=== PATIENT | female | born 1955 | race Caucasian/White ===

== ENCOUNTER 2016-09-29 17:25 | Inpatient (IN) | payer MEDICARE, MEDICAID ==
--- NOTE | 2016-09-29 17:42 | ED Physician Chart ---
Chief Complaint/HPI - Patient Information Date Seen:: 09/29/16 Time Seen:: 17:37 Chief Complaint:: low k History of Present Illness:: pt sent from [facility] for low K 2.6 on outpt labs. pt says she has sev abd pain and hasnt been able to keep down foods all week due to nausea/vomiting. pt has much med hx including DM. pt had foot sx on rt foot at end of july 2016 for dm related foot infection. Historian:: Patient, Medical Records Review of Systems - Review of Systems General/Constitutional: No fever, No chills, No weight loss, No weakness, No diaphoresis, No edema, No loss of appetite Skin: No skin lesions, No rash, No bruising Head: No headache, No light-headedness Eyes: No loss of vision, No pain, No diplopia ENT: No earache, No nasal drainage, No sore throat, No tinnitus Neck: No neck pain, No swelling, No thyromegaly, No stiffness, No mass noted Cardio Vascular: No chest pain, No palpitations, No PND, No orthopnea, No edema Pulmonary: No SOB, No cough, No sputum, No wheezing GI: Nausea, Vomiting, No diarrhea, Pain, No melena, No hematochezia, No constipation, No hematemesis G/U: No dysuria, No frequency, No hematuria Musculoskeletal: No bone or joint pain, No back pain, No muscle pain Endocrine: No polyuria, No polydipsia Psychiatric: No prior psych history, No depression, No anxiety, No suicidal ideation Hematopoietic: No bruising, No lymphadenopathy Allergic/Immuno: No urticaria, No angioedema Neurological: No syncope, No focal symptoms, No weakness, No paresthesia, No headache, No seizure, No dizziness, No confusion, No vertigo Past Medical History - Past Medical History Past Medical History: HTN, DM Social History: Care Facility Medication: Reviewed Family Medical History - Family Member Mother History Unknown: Yes Physical Exam - Physical Examination General/Constitutional: Awake, Well-developed, well-nourished, Alert, No distress, GCS 15, Non-toxic appearing, Ambulatory Head: Atraumatic Eyes: Lids, conjuctiva normal, PERRL, EOMI Skin: Nl inspection, No rash, No skin lesions, No ecchymosis, Well hydrated, No lymphadenopathy ENMT: External ears, nose nl, Nasal exam nl, Lips, teeth, gums nl Neck: Nontender, Full ROM w/o pain, No JVD, No nuchal rigidity, No bruit, No mass, No stridor Respiratory: Nl effort/Exclusion, Clear to Auscultation, No Wheeze/Rhonchi/Rales Cardio Vascular: RRR, No murmur, gallop, rubs, NL S1 S2 GI: No tenderness/rebounding/guarding, No organomegaly, No hernia, Normal BS's, Nondistended, No mass/bruits, No McBurney tenderness : No CVA tenderness Extremities: No tenderness or effusion, Full ROM, normal strength in all extremities, No edema, Normal digits & nails Other Extremities comments:: bandaged rt foot recent sx. no calf edema, no bright sx picc line in left arm. site looks ok. no infection. Neuro/Psych: Alert/oriented, DTR's symmetric, Normal sensory exam, Normal motor strength, Judgement/insight normal, Mood normal, Normal gait, No focal deficits Misc: normal gait, Normal back, No paraspinal tenderness Labs/Radiology/EKG Results - Lab Results Results: Laboratory Tests 09/29/16 09/29/16 09/29/16 17:54 17:54 17:54 WBC 4.6 L RBC 3.44 L Hgb 10.4 L Hct 29.7 L MCV 86.5 MCH 30.2 MCHC Differential 34.9 RDW 18.1 Plt Count 242 MPV 7.4 Neutrophils % 62.1 Lymphocytes % 23.6 Monocytes % 10.6 H Eosinophils % 3.0 Basophils % 0.7 Sodium 145 Potassium 2.4 L* Chloride 104 Carbon Dioxide 27.4 Anion Gap 16.0 BUN 19 Creatinine 1.3 H Est GFR ( Amer) 53.7 Est GFR (Non-Af Amer) 44.4 BUN/Creatinine Ratio 14.6 Glucose 119 H Calcium 8.9 Total Bilirubin 0.9 AST 37 ALT 19 Alkaline Phosphatase 119 H Troponin I 0.01 Total Protein 7.1 Albumin 3.1 L Globulin 4.0 Albumin/Globulin Ratio 0.8 L - Radiology Results Results: ct abd/p- l base atelectasis, 1cm l base nodule. 2cm rt liver mass ?cyst ascites, anasarca sev dist GB 5.5cm mass rt renal pole prominent illeo-cecal valve ?mass? fibroid uterous - EKG Interpretations EKG Time:: 18:45 Rhythm: nsr [place]: 20 Rate: 70 Assessment - Assessment Critical Care Time: 90 Excludes all billable procedures: Yes This condition life threatening/high prob of deterioration: Yes Assessment/Comments:: k+ iv. for low k. ED Septic Shock - . Is Septic Shock (SBP<90, OR Lactate>4 mmol\L) present?: No Reassessment (Disposition) - Reassessment Reassessment:: mery Machado..will admit.. Reassessment Condition:: Unchanged - Diagnosis Diagnosis:: 1 low k 2 abdominal pain 3 severely distended GB 4 liver mass 5 para-renal mass 6 smjrae-smlrhr-oehivdi//ascites 7 dehydration - Patient Disposition Admitted to:: Telemetry Condition at Disposition:: Unchanged
[2016-09-29] MEDS ORDERED: Sodium Chloride 0.9% 1,000 ML IV ONE (17:44)
[2016-09-29 18:05] LABS: % BASOPHILS 0.7 % (0.0-2.0); % LYMPHOCYTES 23.6 % (20.0-50.0); % MONOCYTES 10.6 % (2.0-10.0); % NEUTROPHILS 62.1 % (40.0-80.0); HEMATOCRIT 29.7 % (35.0-45.0); HEMOGLOBIN 10.4 gm/dL (11.7-15.5); MEAN CELL VOLUME 86.5 fl (81-100); MEAN CORPUSCULAR HEMOGLOBIN 30.2 pg (27.0-31.0); MEAN CORPUSCULAR HGB CONC 34.9 pg (28.0-36.0); MEAN PLATELET VOLUME 7.4 fl; NEUTROPHILE ABSOLUTE 2.9 Th/cmm (1.8-8.0); PLATELET COUNT 242 Th/cmm (150-400); RED BLOOD COUNT 3.44 Mil/cmm (3.80-5.10); RED CELL DISTRIBUTION WIDTH 18.1 % (11.5-20.0); WHITE BLOOD COUNT 4.6 Th/cmm (4.8-10.8)
[2016-09-29 18:22] LABS: ALB/GLOB RATIO 0.8 (1.0-1.8); BILIRUBIN,TOTAL 0.9 mg/dL (0.3-1.0); BUN/CREATININE RATIO 14.6; CALCIUM SERUM 8.9 mg/dL (8.6-10.3); CARBON DIOXIDE 27.4 mEq/L (21.0-31.0); CREATININE - SERUM 1.3 mg/dL (0.6-1.2)
[2016-09-29 19:04] LABS: POTASSIUM SERUM 2.4 mEq/L (3.5-5.1)
[2016-09-29] MEDS ORDERED: Magnesium Hydroxide (MOM) 30 mL UDC PO PRN (19:58)
[2016-09-29] MEDS ORDERED: APAP/Codeine 300 mg/30 mg Tab PO PRN (20:00)
[2016-09-29] MEDS ORDERED: Morphine Sulfate 4 mg/mL 1mL Syr IVP STA (20:04)
[2016-09-29] MEDS: KCL 20mEq/100mL Premix 20 MEQ/100 ML PIGGYBACK IV SCH ×2 (20:15→22:50)
[2016-09-29] MEDS ORDERED: KCL 20mEq/100mL Premix 20 MEQ/100 ML PIGGYBACK IV ONE (20:16)
[2016-09-29] MEDS ORDERED: Morphine Sulfate 4 mg/mL 1mL Syr ONE (20:27)
[2016-09-29] MEDS ORDERED: D5-0.9NS w/40 mEq KCL 1,000 ML IV SCH (21:00)
--- NOTE | 2016-09-29 22:14 | Admit Criteria Form ---
Admit Criteria Forms - Admit Criteria Diagnosis: ABDOMINAL PAIN Clinical Indications for Admission to Inpatient Care (Place 'X' for any and all applicable criteria): Admission is indicated for ANY ONE of the following(1)(2)(3)(4)(5): [X]I. Inpatient admission required rather than observation care (Also use Abdominal Pain: Observation Care, as appropriate) because of ANY ONE of the following: [ ]a) Severe pain requiring acute inpatient management [X]b) Identification of etiology/finding that requires inpatient care (eg, aortic dissection, free air) [ ]c) Absent bowel sounds with complete ileus(6) [ ]d) Suspected toxic megacolon [X]e) Severe electrolyte abnormalities requiring inpatient care [ ]f) High fever or infection requiring inpatient admission as indicated by ANY ONE of following(7)(8): [ ] i) Appropriate outpatient or observational care antimicrobial treatment unavailable, not effective, or not feasible [ ] ii) Documented bacteremia [ ] iii) Temperature > 104.9 degrees F (oral) [ ] iv) T >103.1 F (oral) or < 96.8 F(rectal) that does not respond to all emergency treatment measures [ ]g) Signs of intestinal obstruction [B] [ ]h) Hemodynamic instability [ ]i) IV fluid to replace significant ongoing losses (greater than 3 L/m2 per day) (12)(13) [ ]j) Percutaneous or open drainage (eg, abscess, biliary tract ) procedures [ ]k) Parenteral nutrition regimen that must be implemented on inpatient basis [ ]l) Other condition,treatment or monitoring requiring inpatient admission. [ ]II. Peritoneal signs present [ ]III. Surgery needed that cannot be performed on an ambulatory basis. [ ]IV. Evaluation requires patient to not eat or drink for extended period ( eg, more than 24 hours). [ ]V. Contraindications and/or Inappropriate clinical situations for Observational Care in patients with abdominal pain, when ANY ONE of the following is required: [ ]a) Thorough evaluation is required to prevent catastrophic events due to delays in diagnosing (e.g.Mesenteric ischemia) 1,3 [ ]b) Patient with severe pathology or with chronic symptoms unlikely to improve in the ED stay (3) [ ]. General contraindications and/or Inappropriate clinical situations for Observational Care in patients with abdominal pain, when ANY ONE of the following is required: [ ]a) Prediction of prolongation of LOS based on ANY ONE of the following may be considered as a contraindication for observational care 2, 3, 4, 5, 6, 7, 8, 9, 10, 11 [ ]i) Age > 65 yrs. [ ]ii) Patient arriving by ambulance [ ]iii) Patient with high acuity [ ]iv) Patient requiring vital sign monitoring [ ]v) Patient on IV medication [ ]b) Systolic blood pressures 180mmHg 3,12 [ ]c) Patient with altered mental status including delirium and other alteration of consciousness, (3) [ ]d) Patient whose discharge disposition will be to a longterm home or rehabilitation home should not be managed in Emergency Department Observation Unit. CMS rule requires 3 days hospital stay before such placement.3,13 [ ]e) Patient with failure to thrive due to broad array of etiologies 3,16,17 [ ]f) Inability to ambulate 3,14 Extended stay beyond goal length of stay may be needed for(2)(3): [ ]a) Persistent abdominal pain with suspected intra-abdominal process [ ]b) Diagnosed condition requiring continued stay (e.g., pancreatitis, complicated diverticulitis) [ ]c) Surgery (e.g., colectomy) The original [employer] content created by [employer] has been revised. The portions of the content which have been revised are identified through the use of italic text or in bold, and [facility] has neither reviewed nor approved the modified material.All other unmodified content is copyright [facility]. Please see references footnoted in the original [facility] edition 2016 Admit Criteria Met?: Yes
[2016-09-29] MEDS: Levothyroxine 0.05 Mg Tab PO SCH (23:10)
[2016-09-30] MEDS: metroNIDAZOLE 500mg/NS 100mL 500 MG/100 ML BAG IV SCH ×4 (00:10→20:07)
[2016-09-30] MEDS ORDERED: Sodium Chloride 0.9% 1,000 ML IV ONE ×2 (00:45→00:50)
[2016-09-30] MEDS ORDERED: 0.9% NS w/40 mEq KCL 1,000 ML IV SCH (00:53)
[2016-09-30] MEDS: Morphine Sulfate 2 mg/mL 1mL Syr IVP PRN ×3 (01:58→16:29)
[2016-09-30] MEDS: Levofloxacin 500mg/100mL 500 MG/100 ML BAG IV SCH ×2 (02:02→20:07)
[2016-09-30] MEDS ORDERED: 0.9% NS w/40 mEq KCL 1,000 ML IV ONE (03:25)
[2016-09-30] MEDS: Levothyroxine 0.05 Mg Tab PO SCH (06:45)
[2016-09-30 07:28] LABS: HEMATOCRIT 28.8 % (35.0-45.0); HEMOGLOBIN 9.9 gm/dL (11.7-15.5); MEAN CELL VOLUME 88.8 fl (81-100); MEAN CORPUSCULAR HEMOGLOBIN 30.5 pg (27.0-31.0); MEAN CORPUSCULAR HGB CONC 34.4 pg (28.0-36.0); MEAN PLATELET VOLUME 7.6 fl; PLATELET COUNT 211 Th/cmm (150-400); RED BLOOD COUNT 3.24 Mil/cmm (3.80-5.10); RED CELL DISTRIBUTION WIDTH 18.2 % (11.5-20.0); WHITE BLOOD COUNT 3.9 Th/cmm (4.8-10.8)
[2016-09-30 07:40] LABS: ALB/GLOB RATIO 0.8 (1.0-1.8); ANION GAP 11.5 (7.0-16.0); BILIRUBIN,TOTAL 0.8 mg/dL (0.3-1.0); BUN/CREATININE RATIO 13.1; CALCIUM SERUM 8.3 mg/dL (8.6-10.3); CARBON DIOXIDE 28.1 mEq/L (21.0-31.0); CREATININE - SERUM 1.3 mg/dL (0.6-1.2); MAGNESIUM 1.7 mg/dL (1.9-2.7)
[2016-09-30 08:00] LABS: POTASSIUM SERUM 2.6 mEq/L (3.5-5.1)
[2016-09-30 08:11] LABS: TSH 5.69 uIU/ml (0.34-5.60)
[2016-09-30] MEDS: Lactobacillus Rhamnosus 10 Billion CFU Capsule PO SCH ×2 (08:26→16:35)
[2016-09-30] MEDS: Multivitamin w/ Minerals Tab PO SCH (08:26)
[2016-09-30] MEDS: Ferrous Sulfate 325 MG TAB PO SCH ×2 (08:26→16:35)
[2016-09-30] MEDS ORDERED: Non-Formulary Item 1 EA (Saccharomyces Boulardii [Florastor] 250 MG) PO SCH (09:00)
[2016-09-30] MEDS ORDERED: Non-Formulary Item 1 EA (Amino Acids/Protein Hydrolys [Pro-Stat Awc Liquid] 30 ML) PO SCH (09:00)
[2016-09-30] MEDS ORDERED: HYDROmorphone 1 mg/mL 1mL Syr IVP PRN (09:34)
[2016-09-30] MEDS: KCL 20mEq/100mL Premix 20 MEQ/100 ML PIGGYBACK IV SCH ×2 (10:07→12:51)
[2016-09-30 10:33] LABS: EOSINOPHIL 5 % (0-5); NEUTROPHILS 69 % (40-80); TOTAL CELLS COUNTED 100
[2016-09-30 10:34] LABS: ANISOCYTOSIS 1+; PLATELET ESTIMATE ADEQUATE (NORMAL); PLATELET MORPHOLOGY NORMAL (NORMAL)
--- NOTE | 2016-09-30 11:10 | Diagnostic Imaging Report ---
CT abdomen and pelvis without intravenous contrast Indication: Abdominal pain, nausea and vomiting Comparison: None, Technique: Axial images were obtained from the lung bases to the bilateral proximal femurs without IV contrast. Coronal reconstructions were made. total DLP: 371, CTDI7.6 FINDINGS: Left basal consolidative changes are noted. Partially visualized central line is seen terminating along the IVC. Exam is limited due to lack of IV contrast. Cirrhotic appearing liver is seen with 2cm lesion seen within the right lobe of the liver not compatible with a simple cyst. Distended gallbladder is seen. No evidence of radiopaque gallstones. No focal splenic lesions. Assessment of the pancreas is limited on this exam. Pancreatic gland atrophy is noted. The adrenal glands also poorly visualized. No evidence of hydronephrosis or nephrolithiasis. Malrotated left kidney is noted urinary bladder wall thickening is noted. Uterine calcifications are noted. Moderate amount of abdominal pelvic ascites is noted. The appendix is not visualized. No evidence of bowel obstruction. Severe anasarca is noted. Mild atherosclerosis is noted. Degenerative changes of the spine and pelvis are noted. IMPRESSION: Moderate generalized abdominal and pelvic ascites. Severe anasarca. Indeterminate 2cm Low-density lesion within the right lobe of the liver not compatible with a simple cyst. Additional subcentimeter low-density lesion of the lower aspect of the right lobe of the liver is also noted. Further assessment dedicated CT, mass protocol is recommended. Cirrhotic changes of the liver. Distended gallbladder. No evidence of radiopaque gallstones Malrotated right kidney. No hydronephrosis. Diffuse urinary bladder wall thickening which may be due to chronic infectious or inflammatory process. Focal left basal consolidative changes. Atherosclerotic vascular disease. Central line partially visualized terminating in the IVC region. Please correlate clinical history and old exams. Consider repositioning if indicated.
--- NOTE | 2016-09-30 11:30 | Diagnostic Imaging Report ---
Ultrasound abdomen HISTORY: Mass COMPARISON: CT abdomen and pelvis performed on 09/29/2016 Technique: Sonography of the abdomen was performed in multiple planes. FINDINGS: The liver demonstrates normal echogenicity and measures 17.3 cm. There is a heterogeneous mass within the right lobe measuring 3.5 x 2.6 cm. There is also additional echogenic mass within the right lobe measuring 1.8 x 1.4 cm. No evidence of gallstones or gallbladder wall thickening. The common bile measures 3 mm. Evaluation of the pancreas is limited due to bowel gas. The right kidney measures 9.7 x 4.6 cm. There is possible mass or malrotated kidney with this area measuring 4.4 x 4.4 cm. The left kidney measures 10.0 x 5.6 cm. No hydronephrosis. The spleen measures 11.9 cm. Mild to moderate ascites is noted. IMPRESSION: 3.5 x 2.6 cm indeterminate heterogeneous liver mass. Neoplastic process cannot be excluded. Further assessment CT liver mass protocol is recommended Additional smaller echogenic 1.8 x 1.5 cm mass within the right lower the liver possibly a hemangioma, however, again further assessment CT liver mass protocol is recommended. Indeterminate area, possible mass within the right kidney or a malrotated right kidney when compared to recent CT examination. Again CT with IV contrast would provide additional detail and assessment. Mild to moderate ascites. Borderline prominent liver.
--- NOTE | 2016-09-30 11:33 | Diagnostic Imaging Report ---
Ultrasound pelvis HISTORY: Mass. Patient is postmenopausal. COMPARISON: None Technique: Longitudinal and transverse sonographic sector images of the pelvis were obtained transabdominally and transvaginally. FINDINGS: Exam is limited as patient had difficulty tolerating the exam. The uterus measures 2.7 x 3.7 x 5 cm. There is probable solitary fibroid along the fundal portion measuring 2.6 x 2.4 cm. The right ovary measures 2.3 x 1.5 cm. The left ovary measures 1.9 x 2.5 cm. Vascular flow to ovaries is noted. The endometrial echo complex is not visualized on this exam. Mild to moderate free fluid is noted. IMPRESSION: Probable solitary fibroid along the fundal portion of the uterus. The endometrial echo complex is not visualized on this exam. Please correlate with clinical findings. Mild to moderate free fluid in the pelvis.
[2016-09-30] MEDS ORDERED: Mag Sulfate 2gm/50mL Premix 2 GM/50 ML BAG IV ONE (12:06)
[2016-09-30] MEDS ORDERED: cloNIDine 0.1 mg/24 hr Tdm TD SCH (12:15)
[2016-09-30] MEDS: HYDROmorphone 1 mg/mL 1mL Syr IVP PRN ×3 (13:12→21:59)
[2016-09-30] MEDS: 0.9% NS w/40 mEq KCL 1,000 ML IV SCH (13:30)
--- NOTE | 2016-09-30 13:44 | Consultation ---
GASTROENTEROLOGY CONSULTATION REFERRING PHYSICIAN: Pancho Machado D.O. REASON FOR CONSULTATION: Abdominal pain with nausea and vomiting. HISTORY OF PRESENT ILLNESS: This is a 60-year-old female with history of diabetes mellitus with a recent foot infection requiring incision and debridement at [facility]. She was transferred to a [facility]. Subsequently, there she started having vague abdominal pain with nausea and vomiting. She was transferred back to this facility for further evaluation. She was noted to be mildly anemic with hypokalemia, mild renal insufficiency. Preliminary CT of the abdomen and pelvis done without contrast showed moderate generalized abdominal and pelvic ascites, severe anasarca, indeterminate 2 cm right liver lobe lesion, cirrhotic changes of the liver, distended gallbladder without stones, urinary bladder thickening and atherosclerotic vascular disease. An abdominal ultrasound done subsequently showed a 3.5 x 2.6 cm indeterminate heterogeneous liver mass and additional smaller echogenic mass in the right lower lobe of the liver, possibly hemangioma was also identified. There was also an indeterminate area, possible mass in the right kidney versus a malrotated kidney, also mild to moderate ascites was noted and a borderline prominent liver. The patient denies a previous history of liver disease. She is a nonsmoker, nondrinker. PAST MEDICAL HISTORY: As above. MEDICATIONS: Here are Tylenol p.r.n., vitamin C, Dulcolax suppository p.r.n., Catapres patch, Colace, iron, Dilaudid, Culturelle, Levaquin, Synthroid, Ativan p.r.n., milk of magnesia p.r.n., Lopressor, Flagyl, morphine, Protonix, Zofran, IV fluids with potassium, zinc sulfate, and Ambien p.r.n. ALLERGIES: None. SOCIAL HISTORY: No known tobacco, alcohol or drugs. FAMILY HISTORY: Noncontributory. REVIEW OF SYSTEMS: A comprehensive 12-point review of system was conducted and only positive for signs and symptoms present in history of present illness. PHYSICAL EXAMINATION: VITAL SIGNS: Temperature 98.2, blood pressure 145/89, pulse of 89, respirations 18, O2 sat is 99%. GENERAL: Well-developed, well-nourished female in no acute distress. HEENT: Sclerae nonicteric. Oropharynx is clear. CARDIOVASCULAR: Regular rate and rhythm. LUNGS: Clear to auscultation bilaterally. ABDOMEN: Soft. Mild epigastric tenderness to palpation without rebound or guarding. EXTREMITIES: No clubbing, cyanosis or edema. RECTAL: Deferred. LABORATORY DATA AND IMAGING: WBC 3.9, hemoglobin 9.9, platelet count is 211. Sodium 146, creatinine 1.3, potassium 2.6. Liver enzymes are normal except for alkaline phosphatase mildly elevated at 140. Ammonia level mildly elevated to 64, albumin is 2.9. Lipase is normal. IMPRESSION: 1. Abdominal pain with nausea and vomiting, rule out gastroparesis versus peptic ulcer disease versus gastroesophageal reflux disease versus ascites. 2. Diabetes mellitus. 3. History of recent foot infection status post incision and drainage. 4. Abnormal CAT scan showing possible liver and renal masses. 5. Possible cirrhosis with anasarca and ascites. 6. Anemia. RECOMMENDATIONS: 1. Upper endoscopy in the morning. 2. Check CT of the abdomen and pelvis with contrast once renal insufficiency has improved. 3. Protonix. 4. Antiemetics. 5. Consider colonoscopy if not done recently once nausea and vomiting are better and the patient able to tolerate bowel preparation. Thank you, Dr. Pancho Machado for allowing us to participate in the care of your patient. If you have any further questions, please call us. [facility]# [id number] ROGERS
[2016-09-30] MEDS: Venelex 60gm Tube TP SCH (15:04)
[2016-10-01] MEDS: HYDROmorphone 1 mg/mL 1mL Syr IVP PRN ×5 (01:02→20:28)
--- NOTE | 2016-10-01 02:36 | History & Physical ---
CHIEF COMPLAINT: Abdominal pain, intractable vomiting, low potassium. HISTORY OF PRESENT ILLNESS: This is a 60-year-old female with history of diabetes, hypertension, right foot ulceration with recent surgery was admitted from a nursing facility secondary to abdominal discomfort for the last 2 weeks. The patient has been vomiting for 3 days. The patient was started on IV fluids at the nursing facility, but her symptoms are not improving. The patient is now complaining of generalized pain per ER. The patient has abnormal CT of the abdomen and pelvis. PAST MEDICAL HISTORY: As mentioned in history of present illness. PAST SURGICAL HISTORY: Status post . ALLERGIES: No known drug allergies. MEDICATIONS: Famotidine, insulin sliding scale, tramadol, vancomycin, Tylenol, ascorbic acid, Pletal, Colace, iron, lactobacillus, Synthroid, lisinopril, Ativan, metoprolol, Zofran, ____, Ambien, and Norvasc. FAMILY HISTORY: Noncontributory. SOCIAL HISTORY: The patient is a nonsmoker, nondrinker. The patient was an [employer]. 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 REVIEW OF SYSTEMS: GENERAL: The patient complains of not feeling well. HEENT: No blurred vision. NECK: No neck pain. LUNGS: Negative COPD or asthma. HEART: The patient with hypertension, diabetes. ABDOMEN: The patient with nausea and vomiting and abdominal pain for the last 2 weeks. NEUROLOGIC: No headache, seizure or syncope. EXTREMITIES: The patient with bad circulation. The patient with recent surgery of right foot. PHYSICAL EXAMINATION: VITAL SIGNS: Blood pressure ____, respirations 18, pulse 77, and temperature 98.7. GENERAL: Elderly female, appears stated age. NECK: Supple. No mass. LUNGS: Equal breath sounds, few rhonchi. HEART: Regular rate rhythm without appreciable murmur. ABDOMEN: Soft, nontender. Positive bowel sounds. EXTREMITIES: Reveals excoriation and ulcer in the right foot. NEUROLOGIC: Limited. LABORATORY DATA: WBC 3.9, hemoglobin 9.9, and platelets 211. Sodium 147, potassium ____, BUN ____, and creatinine 1.3, glucose 113, magnesium 1.7, ammonia 64, BNP 974. TSH 5.6, lipase less than 3. ASSESSMENT AND PLAN: Abdominal pain, intractable vomiting, acute hypokalemia, hypomagnesemia, diabetes, hypertension, uncontrolled, ataxia, gait instability, generalized weakness, anemia, leukopenia, renal insufficiency, ascites, cirrhosis on CT, liver mass. We will perform CT abdomen with liver mass protocol, IV contrast. We will monitor renal function. We will monitor for any signs or symptoms of fluid overload. The patient with ascites, GI has been consulted. We have sent cancer markers including CEA, alpha fetoprotein, CA-125, CA19-9. We will correct electrolyte abnormalities. We will continue to follow. JOB# [id number]
[2016-10-01] MEDS: Morphine Sulfate 2 mg/mL 1mL Syr IVP PRN ×2 (03:22→17:43)
[2016-10-01] MEDS: metroNIDAZOLE 500mg/NS 100mL 500 MG/100 ML BAG IV SCH ×3 (05:06→20:28)
[2016-10-01] MEDS: 0.9% NS w/40 mEq KCL 1,000 ML IV SCH ×2 (05:14→05:54)
[2016-10-01] MEDS: Levothyroxine 0.05 Mg Tab PO SCH (06:37)
[2016-10-01 07:04] LABS: % BASOPHILS 0.6 % (0.0-2.0); % EOSINOPHILS 1.4 % (0.0-5.0); % LYMPHOCYTES 17.3 % (20.0-50.0); % MONOCYTES 8.4 % (2.0-10.0); % NEUTROPHILS 72.3 % (40.0-80.0); HEMATOCRIT 28.7 % (35.0-45.0); HEMOGLOBIN 9.9 gm/dL (11.7-15.5); MEAN CELL VOLUME 87.4 fl (81-100); MEAN CORPUSCULAR HEMOGLOBIN 30.3 pg (27.0-31.0); MEAN CORPUSCULAR HGB CONC 34.6 pg (28.0-36.0); MEAN PLATELET VOLUME 7.7 fl; NEUTROPHILE ABSOLUTE 3.6 Th/cmm (1.8-8.0); PLATELET COUNT 209 Th/cmm (150-400); RED BLOOD COUNT 3.28 Mil/cmm (3.80-5.10); RED CELL DISTRIBUTION WIDTH 18.8 % (11.5-20.0)
[2016-10-01 07:08] LABS: INR 1.25 (0.5-1.4); PROTHROMBIN TIME (TEST) 12.6 SECONDS (9.5-11.5)
[2016-10-01 07:12] LABS: ALB/GLOB RATIO 0.8 (1.0-1.8); ANION GAP 22.6 (7.0-16.0); BILIRUBIN,TOTAL 0.8 mg/dL (0.3-1.0); BUN/CREATININE RATIO 11.4; CALCIUM SERUM 8.6 mg/dL (8.6-10.3); CARBON DIOXIDE 22.9 mEq/L (21.0-31.0); CREATININE - SERUM 1.4 mg/dL (0.6-1.2); MAGNESIUM 2.2 mg/dL (1.9-2.7); POTASSIUM SERUM 3.5 mEq/L (3.5-5.1)
[2016-10-01 07:14] LABS: ALB/GLOB RATIO 0.8 (1.0-1.8); BILIRUBIN,DIRECT 0.31 mg/dL (0.0-0.2); BILIRUBIN,TOTAL 0.9 mg/dL (0.3-1.0)
[2016-10-01] MEDS: Multivitamin w/ Minerals Tab PO SCH (08:17)
[2016-10-01] MEDS: Lactobacillus Rhamnosus 10 Billion CFU Capsule PO SCH ×2 (08:17→16:32)
[2016-10-01] MEDS: Ferrous Sulfate 325 MG TAB PO SCH ×2 (08:17→16:32)
[2016-10-01] MEDS: Venelex 60gm Tube TP SCH (09:27)
--- NOTE | 2016-10-01 10:11 | Diagnostic Imaging Report ---
Portable chest x-ray History: Shortness of breath Allowing for portable technique the heart size is normal. Faint linear densities noted in the right left lower lobe that appear chronic and probably related to scarring. No other focal processes no hilar or mediastinal abnormalities. IMPRESSION: 1. No definite acute abnormalities
[2016-10-01] MEDS ORDERED: Meperidine 50 mg/mL 1mL Syr ONE ×2 (11:14)
[2016-10-01 11:15] LABS: FOLIC ACID 5.7 ng/mL (>3.0)
[2016-10-01] MEDS ORDERED: Midazolam 1mg/ml 2 ml vial IV ONE ×3 (11:16→13:59)
[2016-10-01 12:14] LABS: AFP TUMOR MARKER 3.3 ng/mL (0.0-8.3); CARCINOEMBRYONIC ANTIGEN 3.3 ng/mL (0.0-4.7)
--- NOTE | 2016-10-01 13:16 | Internal Medicine Prog Note ---
Internal Medicine Subjective - Subjective Patient seen and examined:: with staff, chart reviewed Patient is:: awake, verbal, interactive Patient Complaints of:: congestion Per staff patient is:: no adverse event, poor oral intake Internal Medicine Objective - Results Result Diagrams: 10/01/16 06:00 10/01/16 06:00 Recent Labs: Laboratory Last Values WBC 5.0 Th/cmm (4.8-10.8) D 10/01/16 06:00 RBC 3.28 Mil/cmm (3.80-5.10) L 10/01/16 06:00 Hgb 9.9 gm/dL (11.7-15.5) L 10/01/16 06:00 Hct 28.7 % (35.0-45.0) L 10/01/16 06:00 MCV 87.4 fl (81-100) 10/01/16 06:00 MCH 30.3 pg (27.0-31.0) 10/01/16 06:00 MCHC Differential 34.6 pg (28.0-36.0) 10/01/16 06:00 RDW 18.8 % (11.5-20.0) 10/01/16 06:00 Plt Count 209 Th/cmm (150-400) 10/01/16 06:00 MPV 7.7 fl 10/01/16 06:00 Neutrophils % 72.3 % (40.0-80.0) 10/01/16 06:00 Lymphocytes % 17.3 % (20.0-50.0) L 10/01/16 06:00 Monocytes % 8.4 % (2.0-10.0) 10/01/16 06:00 Eosinophils % 1.4 % (0.0-5.0) 10/01/16 06:00 Basophils % 0.6 % (0.0-2.0) 10/01/16 06:00 Neutrophils (Manual) 69 % (40-80) 09/30/16 06:35 Lymphocytes 18 % (20-50) L 09/30/16 06:35 Monocytes 8 % (2-10) 09/30/16 06:35 Eosinophils 5 % (0-5) 09/30/16 06:35 Platelet Estimate ADEQUATE (NORMAL) 09/30/16 06:35 Platelet Morphology NORMAL (NORMAL) 09/30/16 06:35 Anisocytosis 1+ 09/30/16 06:35 RBC Morph Micro Appear ABNORMAL (NORMAL) 09/30/16 06:35 PT 12.6 SECONDS (9.5-11.5) H 10/01/16 06:00 INR 1.25 (0.5-1.4) 10/01/16 06:00 PTT (Actin FS) 25.8 SECONDS (26.0-38.0) L 10/01/16 06:00 Sodium 149 mEq/L (136-145) H 10/01/16 06:00 Potassium 3.5 mEq/L (3.5-5.1) 10/01/16 06:00 Chloride 107 mEq/L (98-107) 10/01/16 06:00 Carbon Dioxide 22.9 mEq/L (21.0-31.0) 10/01/16 06:00 Anion Gap 22.6 (7.0-16.0) H 10/01/16 06:00 BUN 16 mg/dL (7-25) 10/01/16 06:00 Creatinine 1.4 mg/dL (0.6-1.2) H 10/01/16 06:00 Est GFR ( Amer) 49.3 ml/min (>90) 10/01/16 06:00 Est GFR (Non-Af Amer) 40.8 ml/min 10/01/16 06:00 BUN/Creatinine Ratio 11.4 10/01/16 06:00 Glucose 123 mg/dL (70-105) H 10/01/16 06:00 POC Glucose 134 MG/DL (70 - 105) H 10/01/16 10:42 Whole Bld Lactic Acid 0.82 mmol/L (0.60-2.00) 09/29/16 19:48 Calcium 8.6 mg/dL (8.6-10.3) 10/01/16 06:00 Magnesium 2.2 mg/dL (1.9-2.7) 10/01/16 06:00 Total Bilirubin 0.9 mg/dL (0.3-1.0) 10/01/16 06:00 Direct Bilirubin 0.31 mg/dL (0.0-0.2) H 10/01/16 06:00 AST 34 U/L (13-39) 10/01/16 06:00 ALT 18 U/L (7-52) 10/01/16 06:00 Alkaline Phosphatase 112 U/L (34-104) H 10/01/16 06:00 Ammonia 59 umol/L (16-53) H 10/01/16 06:00 Troponin I 0.01 ng/mL (0.01-0.05) 09/29/16 17:54 B-Natriuretic Peptide 974.0 pg/mL (5.0-100.0) H 09/30/16 06:35 Total Protein 7.1 gm/dL (6.0-8.3) 10/01/16 06:00 Albumin 3.2 gm/dL (3.7-5.3) L 10/01/16 06:00 Globulin 3.9 gm/dL 10/01/16 06:00 Albumin/Globulin Ratio 0.8 (1.0-1.8) L 10/01/16 06:00 Lipase < 3 U/L (11-82) L 09/29/16 19:48 Tumor Marker AFP 3.3 ng/mL (0.0-8.3) 09/30/16 06:35 Carcinoembryonic Ag 3.3 ng/mL (0.0-4.7) 09/30/16 06:35 CA 19-9 Antigen 184 U/mL (0-35) H 09/30/16 06:35 CA 125 Antigen 71.1 U/mL (0.0-38.1) H 09/30/16 06:35 Vitamin B12 1358 pg/mL (211-946) H 09/30/16 06:35 Folic Acid 5.7 ng/mL (>3.0) 09/30/16 06:35 TSH 5.69 uIU/ml (0.34-5.60) H 09/30/16 06:35 - Physical Exam Vitals and I&O: Vital Signs Temp 98.2 F 10/01/16 03:58 Pulse 84 10/01/16 05:20 Resp 20 10/01/16 08:00 BP 146/78 10/01/16 05:20 Pulse Ox 94 10/01/16 03:58 Intake & Output 09/30/16 10/01/16 10/01/16 18:59 06:59 18:59 Intake Total 300 1360 Output Total 30 Balance 300 1330 Intake: Intake, IV Amount 300 1300 0.9% NS w/40 mEq KCL 1, 1000 000 ml @ 70 mls/hr IV . [id number] [facility] Rx#:[id number] KCL 20mEq/100mL Premix 20 100 meq In 100 ml @ 50 mls/ hr IV Q2H [facility] Rx#: [id number] Levofloxacin 500mg/100mL 100 500 mg In 100 ml @ 100 mls/hr IV Q24HR [facility] Rx#: [id number] metroNIDAZOLE 500mg/NS 200 200 100mL 500 mg In 100 ml @ 100 mls/hr IV Q8HR [facility] Rx #:[id number] Oral 60 Output: Emesis 30 Other: # Voids 3 Active Medications: Current Medications Acetaminophen (Tylenol) 650 mg PO Q4HR PRN PRN Reason: Pain or Fever >101 Stop: 11/28/16 20:59 Ascorbic Acid (Vitamin C) 500 mg PO DAILY [facility] Stop: 11/29/16 08:59 Last Admin: 10/01/16 08:17 Dose: Not Given Bisacodyl (Dulcolax 10 Mg Supp) 10 mg RC Q24H PRN PRN Reason: bowel management Stop: 11/28/16 19:57 Clonidine HCl (Ropmngnm-Xiu-9) 1 patch TD Th [facility] Stop: 11/29/16 12:14 Last Admin: 09/30/16 14:00 Dose: 1 patch Docusate Sodium (Colace) 100 mg PO BID [facility] Stop: 11/29/16 08:59 Last Admin: 10/01/16 08:17 Dose: Not Given Ferrous Sulfate (Iron) 325 mg PO BID [facility] Stop: 11/29/16 08:59 Last Admin: 10/01/16 08:17 Dose: Not Given Hydromorphone HCl (Dilaudid) 1 mg IVP Q3HR PRN PRN Reason: Pain (Severe) Stop: 11/29/16 09:33 Last Admin: 10/01/16 08:09 Dose: 1 mg Levofloxacin (Levaquin Pb) 500 mg in 100 mls @ 100 mls/hr IV Q24HR [facility] Stop: 11/28/16 20:59 Last Infusion: 09/30/16 21:07 Dose: Infused Metronidazole (Flagyl) 500 mg in 100 mls @ 100 mls/hr IV Q8HR [facility] Stop: 11/28/16 20:59 Last Infusion: 10/01/16 06:06 Dose: Infused Potassium Chloride/Sodium Chloride (0.9% Ns W/40 Meq Kcl) 1,000 mls @ 70 mls/ hr IV .[id number] [facility] Stop: 11/29/16 12:05 Last Admin: 10/01/16 05:54 Dose: Not Given Lactobacillus Rhamnosus (Culturelle) 1 each PO BID [facility] Stop: 11/29/16 08:59 Last Admin: 10/01/16 08:17 Dose: Not Given Levothyroxine Sodium (Synthroid) 0.05 mg PO QDAC [facility] Stop: 11/28/16 21:14 Last Admin: 10/01/16 06:37 Dose: Not Given Lorazepam (Ativan) 1 mg PO Q6H PRN; Protocol PRN Reason: Anxiety Stop: 11/28/16 19:57 Magnesium Hydroxide (Milk Of Magnesia) 30 ml PO Q24H PRN PRN Reason: no BM in 3 days Stop: 11/28/16 19:57 Metoprolol Tartrate (Lopressor) 25 mg PO Q8H [facility] Stop: 11/28/16 19:59 Last Admin: 10/01/16 12:23 Dose: Not Given Morphine Sulfate (Morphine) 2 mg IVP Q4HR PRN PRN Reason: moderate pain. Stop: 11/29/16 00:38 Last Admin: 10/01/16 03:22 Dose: 2 mg Ondansetron HCl (Zofran) 4 mg IV Q4HR PRN PRN Reason: Nausea / Vomiting Stop: 11/28/16 20:59 Last Admin: 10/01/16 09:10 Dose: 4 mg Pantoprazole Sodium (Protonix) 40 mg IVP BID [facility] Stop: 11/29/16 08:59 Last Admin: 10/01/16 09:10 Dose: 40 mg Zinc Sulfate (Zinc Sulfate) 220 mg PO DAILY [facility] Stop: 11/29/16 08:59 Last Admin: 10/01/16 08:17 Dose: Not Given Zolpidem Tartrate (Ambien) 5 mg PO HS PRN PRN Reason: Insomnia Stop: 11/28/16 19:57 General: alert HEENT: NC/AT, PERRLA Neck: Supple, No JVD Lungs: congested Cardiovascular: RRR, Normal S1, Normal S2 Abdomen: soft non-tender, globular Extremities: excoriation Neurological: no change Internal Medicine Assmt/Plan - Assessment Assessment: liver mass abd pain hypokalemia poor po intake acute paiin - Plan Plan: mery antoine on iv hydration ppi awaiting ct liver mass protocol will refer to dr rita khan elevated ca 125 and 19-9 mery rn
--- NOTE | 2016-10-01 13:58 | Operative Report ---
PROCEDURE: Esophagogastroduodenoscopy with biopsy. PREOPERATIVE DIAGNOSES: Epigastric abdominal pain with nausea and vomiting. POSTOPERATIVE DIAGNOSES: 1. Small nonbleeding esophageal varices left alone. 2. Mild portal gastropathy, status post biopsy and CLOtest. 3. Normal duodenum, status post biopsies to rule out celiac disease. INDICATION: This 60-year-old female with epigastric pain with nausea and vomiting. There is a possibility of cirrhosis with anasarca. She had an abnormal CAT scan showing possible liver and renal masses. She has underlying diabetes mellitus and had a recent foot infection requiring incision and debridement and upper endoscopy is planned today for further evaluation. CONSENT: Informed consent was obtained from the patient prior to procedure after explaining risks, benefits and alternatives including but not limited to infection, perforation, and . SEDATION: 5 mg IV Versed and 50 mg IV Demerol. DESCRIPTION OF PROCEDURE AND FINDINGS: The procedure took place as an inpatient in the GI Suite of [facility]. The patient was kept in a left lateral decubitus position. Adequate sedation was achieved with above medications. An Olympus diagnostic upper endoscope was advanced via the patient's mouth and into the esophagus. Here 1-2 columns of small nonbleeding esophageal varices were identified. These were left alone. Retroflexion in the stomach revealed no GE junction masses or varices. No hiatal hernia was identified. Mild portal hypertensive gastropathy was identified in the antrum and body. Biopsies were obtained for CLOtest as well as pathology. The pyloric channel and duodenum up to second portion appeared normal. Random biopsies were obtained from second portion to rule out celiac disease. The scope was then withdrawn. The patient tolerated the procedure well, no complications anticipated. RECOMMENDATIONS: 1. Follow up biopsy results. 2. Protonix. 3. Antiemetics. 4. Await contrast CT results. 5. If the patient has persistent abdominal pain with nausea and vomiting, then consider gastric emptying study and/or addition of Reglan for possible gastroparesis. 6. May need colonoscopy if symptoms persist. Thank you, Dr. Pancho Machado for involving us in the care of your patient. Any further questions, please call us. JOB# [id number] [facility]
[2016-10-01] MEDS ORDERED: Lidocaine 2% Gel 5 mL TP ONE (17:24)
[2016-10-01] MEDS: Levofloxacin 500mg/100mL 500 MG/100 ML BAG IV SCH (20:29)
[2016-10-02] MEDS: HYDROmorphone 1 mg/mL 1mL Syr IVP PRN ×4 (01:46→20:35)
[2016-10-02] MEDS: 0.9% NS w/40 mEq KCL 1,000 ML IV SCH ×2 (01:51→21:44)
[2016-10-02] MEDS: Morphine Sulfate 2 mg/mL 1mL Syr IVP PRN (04:33)
[2016-10-02] MEDS: metroNIDAZOLE 500mg/NS 100mL 500 MG/100 ML BAG IV SCH ×3 (04:37→20:37)
[2016-10-02] MEDS: Levothyroxine 0.05 Mg Tab PO SCH (06:32)
[2016-10-02 08:11] LABS: % BASOPHILS 0.5 % (0.0-2.0); % LYMPHOCYTES 19.7 % (20.0-50.0); % MONOCYTES 7.8 % (2.0-10.0); HEMOGLOBIN 8.5 gm/dL (11.7-15.5); MEAN CELL VOLUME 87.6 fl (81-100); MEAN CORPUSCULAR HEMOGLOBIN 29.8 pg (27.0-31.0); MEAN PLATELET VOLUME 7.4 fl; NEUTROPHILE ABSOLUTE 3.1 Th/cmm (1.8-8.0); RED BLOOD COUNT 2.86 Mil/cmm (3.80-5.10); RED CELL DISTRIBUTION WIDTH 19.4 % (11.5-20.0); WHITE BLOOD COUNT 4.5 Th/cmm (4.8-10.8)
[2016-10-02 08:18] LABS: HEMATOCRIT 25.1 % (35.0-45.0); PLATELET COUNT 166 Th/cmm (150-400)
--- NOTE | 2016-10-02 08:20 | General Progress Note ---
Subjective - Review of Systems Service Date: 10/02/16 Subjective: STILL N/V. UNABLE TO KEEP FOOD DOWN. Objective - Results Result Diagrams: 10/01/16 06:00 10/01/16 06:00 Recent Labs: Laboratory Last Values WBC 5.0 Th/cmm (4.8-10.8) D 10/01/16 06:00 RBC 3.28 Mil/cmm (3.80-5.10) L 10/01/16 06:00 Hgb 9.9 gm/dL (11.7-15.5) L 10/01/16 06:00 Hct 28.7 % (35.0-45.0) L 10/01/16 06:00 MCV 87.4 fl (81-100) 10/01/16 06:00 MCH 30.3 pg (27.0-31.0) 10/01/16 06:00 MCHC Differential 34.6 pg (28.0-36.0) 10/01/16 06:00 RDW 18.8 % (11.5-20.0) 10/01/16 06:00 Plt Count 209 Th/cmm (150-400) 10/01/16 06:00 MPV 7.7 fl 10/01/16 06:00 Neutrophils % 72.3 % (40.0-80.0) 10/01/16 06:00 Lymphocytes % 17.3 % (20.0-50.0) L 10/01/16 06:00 Monocytes % 8.4 % (2.0-10.0) 10/01/16 06:00 Eosinophils % 1.4 % (0.0-5.0) 10/01/16 06:00 Basophils % 0.6 % (0.0-2.0) 10/01/16 06:00 Neutrophils (Manual) 69 % (40-80) 09/30/16 06:35 Lymphocytes 18 % (20-50) L 09/30/16 06:35 Monocytes 8 % (2-10) 09/30/16 06:35 Eosinophils 5 % (0-5) 09/30/16 06:35 Platelet Estimate ADEQUATE (NORMAL) 09/30/16 06:35 Platelet Morphology NORMAL (NORMAL) 09/30/16 06:35 Anisocytosis 1+ 09/30/16 06:35 RBC Morph Micro Appear ABNORMAL (NORMAL) 09/30/16 06:35 PT 12.6 SECONDS (9.5-11.5) H 10/01/16 06:00 INR 1.25 (0.5-1.4) 10/01/16 06:00 PTT (Actin FS) 25.8 SECONDS (26.0-38.0) L 10/01/16 06:00 Sodium 149 mEq/L (136-145) H 10/01/16 06:00 Potassium 3.5 mEq/L (3.5-5.1) 10/01/16 06:00 Chloride 107 mEq/L (98-107) 10/01/16 06:00 Carbon Dioxide 22.9 mEq/L (21.0-31.0) 10/01/16 06:00 Anion Gap 22.6 (7.0-16.0) H 10/01/16 06:00 BUN 16 mg/dL (7-25) 10/01/16 06:00 Creatinine 1.4 mg/dL (0.6-1.2) H 10/01/16 06:00 Est GFR ( Amer) 49.3 ml/min (>90) 10/01/16 06:00 Est GFR (Non-Af Amer) 40.8 ml/min 10/01/16 06:00 BUN/Creatinine Ratio 11.4 10/01/16 06:00 Glucose 123 mg/dL (70-105) H 10/01/16 06:00 POC Glucose 134 MG/DL (70 - 105) H 10/01/16 10:42 Whole Bld Lactic Acid 0.82 mmol/L (0.60-2.00) 09/29/16 19:48 Calcium 8.6 mg/dL (8.6-10.3) 10/01/16 06:00 Magnesium 2.2 mg/dL (1.9-2.7) 10/01/16 06:00 Total Bilirubin 0.9 mg/dL (0.3-1.0) 10/01/16 06:00 Direct Bilirubin 0.31 mg/dL (0.0-0.2) H 10/01/16 06:00 AST 34 U/L (13-39) 10/01/16 06:00 ALT 18 U/L (7-52) 10/01/16 06:00 Alkaline Phosphatase 112 U/L (34-104) H 10/01/16 06:00 Ammonia 59 umol/L (16-53) H 10/01/16 06:00 Troponin I 0.01 ng/mL (0.01-0.05) 09/29/16 17:54 B-Natriuretic Peptide 974.0 pg/mL (5.0-100.0) H 09/30/16 06:35 Total Protein 7.1 gm/dL (6.0-8.3) 10/01/16 06:00 Albumin 3.2 gm/dL (3.7-5.3) L 10/01/16 06:00 Globulin 3.9 gm/dL 10/01/16 06:00 Albumin/Globulin Ratio 0.8 (1.0-1.8) L 10/01/16 06:00 Lipase < 3 U/L (11-82) L 09/29/16 19:48 Tumor Marker AFP 3.3 ng/mL (0.0-8.3) 09/30/16 06:35 Carcinoembryonic Ag 3.3 ng/mL (0.0-4.7) 09/30/16 06:35 CA 19-9 Antigen 184 U/mL (0-35) H 09/30/16 06:35 CA 125 Antigen 71.1 U/mL (0.0-38.1) H 09/30/16 06:35 Vitamin B12 1358 pg/mL (211-946) H 09/30/16 06:35 Folic Acid 5.7 ng/mL (>3.0) 09/30/16 06:35 TSH 5.69 uIU/ml (0.34-5.60) H 09/30/16 06:35 - Physical Exam Vitals and I&O: Vital Signs Temp 98.2 F 10/02/16 04:00 Pulse 67 10/02/16 04:00 Resp 19 10/02/16 04:00 BP 144/57 10/02/16 04:00 Pulse Ox 95 10/02/16 04:00 Intake & Output 10/01/16 10/02/16 10/02/16 18:59 06:59 18:59 Intake Total 100 1360 Balance 100 1360 Intake: Intake, IV Amount 100 1300 0.9% NS w/40 mEq KCL 1, 1000 000 ml @ 70 mls/hr IV . [id number] [facility] Rx#:[id number] Levofloxacin 500mg/100mL 100 500 mg In 100 ml @ 100 mls/hr IV Q24HR [facility] Rx#: [id number] metroNIDAZOLE 500mg/NS 100 200 100mL 500 mg In 100 ml @ 100 mls/hr IV Q8HR [facility] Rx #:[id number] Oral 60 Other: # Voids 3 Active Medications: Current Medications Acetaminophen (Tylenol) 650 mg PO Q4HR PRN PRN Reason: Pain or Fever >101 Stop: 11/28/16 20:59 Ascorbic Acid (Vitamin C) 500 mg PO DAILY [facility] Stop: 11/29/16 08:59 Last Admin: 10/01/16 08:17 Dose: Not Given Bisacodyl (Dulcolax 10 Mg Supp) 10 mg RC Q24H PRN PRN Reason: bowel management Stop: 11/28/16 19:57 Clonidine HCl (Orjbuztc-Ids-9) 1 patch TD Th [facility] Stop: 11/29/16 12:14 Last Admin: 09/30/16 14:00 Dose: 1 patch Docusate Sodium (Colace) 100 mg PO BID [facility] Stop: 11/29/16 08:59 Last Admin: 10/01/16 16:31 Dose: Not Given Ferrous Sulfate (Iron) 325 mg PO BID [facility] Stop: 11/29/16 08:59 Last Admin: 10/01/16 16:32 Dose: Not Given Hydromorphone HCl (Dilaudid) 1 mg IVP Q3HR PRN PRN Reason: Pain (Severe) Stop: 11/29/16 09:33 Last Admin: 10/02/16 08:09 Dose: 1 mg Levofloxacin (Levaquin Pb) 500 mg in 100 mls @ 100 mls/hr IV Q24HR [facility] Stop: 11/28/16 20:59 Last Infusion: 10/02/16 00:16 Dose: Infused Metronidazole (Flagyl) 500 mg in 100 mls @ 100 mls/hr IV Q8HR [facility] Stop: 11/28/16 20:59 Last Infusion: 10/02/16 05:37 Dose: Infused Potassium Chloride/Sodium Chloride (0.9% Ns W/40 Meq Kcl) 1,000 mls @ 70 mls/ hr IV .[id number] [facility] Stop: 11/29/16 12:05 Last Admin: 10/02/16 01:51 Dose: 70 mls/hr Lactobacillus Rhamnosus (Culturelle) 1 each PO BID [facility] Stop: 11/29/16 08:59 Last Admin: 10/01/16 16:32 Dose: Not Given Levothyroxine Sodium (Synthroid) 0.05 mg PO QDAC [facility] Stop: 11/28/16 21:14 Last Admin: 10/02/16 06:32 Dose: Not Given Lorazepam (Ativan) 1 mg PO Q6H PRN; Protocol PRN Reason: Anxiety Stop: 11/28/16 19:57 Last Admin: 10/02/16 04:29 Dose: 1 mg Magnesium Hydroxide (Milk Of Magnesia) 30 ml PO Q24H PRN PRN Reason: no BM in 3 days Stop: 11/28/16 19:57 Metoclopramide HCl (Reglan) 5 mg IVP Q8HR [facility] Stop: 12/01/16 08:14 Metoprolol Tartrate (Lopressor) 25 mg PO Q8H [facility] Stop: 11/28/16 19:59 Last Admin: 10/02/16 04:29 Dose: Not Given Morphine Sulfate (Morphine) 2 mg IVP Q4HR PRN PRN Reason: moderate pain. Stop: 11/29/16 00:38 Last Admin: 10/02/16 04:33 Dose: 2 mg Ondansetron HCl (Zofran) 4 mg IV Q4HR PRN PRN Reason: Nausea / Vomiting Stop: 11/28/16 20:59 Last Admin: 10/02/16 01:46 Dose: 4 mg Pantoprazole Sodium (Protonix) 40 mg IVP BID [facility] Stop: 11/29/16 08:59 Last Admin: 10/01/16 16:29 Dose: 40 mg Zinc Sulfate (Zinc Sulfate) 220 mg PO DAILY [facility] Stop: 11/29/16 08:59 Last Admin: 10/01/16 08:17 Dose: Not Given Zolpidem Tartrate (Ambien) 5 mg PO HS PRN PRN Reason: Insomnia Stop: 11/28/16 19:57 Last Admin: 10/01/16 21:37 Dose: 5 mg General: Alert, No acute distress HEENT: Atraumatic Neck: Supple Cardiovascular: Regular rate Lungs: Clear to auscultation Abdomen: Bowel sounds, Soft, no Tender - Procedures Procedures: Procedures Procedure Code Date EGD BIOPSY SINGLE/MULTIPLE 09489 09/29/16 EXCISION OF STOMACH, ENDO, DIAGN [id number] 09/29/16 Assessment/Plan - Assessment Assessment: 1. ABD PAIN WITH N/V. 2. POSSIBLE CIRRHOSIS WITH ASCITES. 3. POSSIBLE RENAL AND LIVER MASSES. NORMAL AFP, ELEVATED CA19-9 AND CA125. 4. EGD SHOWED TRACE ESOPH VARICES AND MILD PORTAL GASTROPATHY. - Plan Plan: 1. PROTONIX. 2. ZOFRAN. ADDED REGLAN IV. 3. CHECK US-GUIDED PARACENTESIS WITH FLUID ANALYSIS. 4. F/U LIVER LABS. 5. MAY NEED COLONOSCOPY ONCE N/V BETTER AND ABLE TO TOLERATE ORAL BOWEL PREP.
[2016-10-02 08:55] LABS: ALB/GLOB RATIO 0.8 (1.0-1.8); ANION GAP 12.7 (7.0-16.0); BILIRUBIN,TOTAL 0.8 mg/dL (0.3-1.0); BUN/CREATININE RATIO 10.7; CALCIUM SERUM 8.4 mg/dL (8.6-10.3); CARBON DIOXIDE 22.7 mEq/L (21.0-31.0); CREATININE - SERUM 1.4 mg/dL (0.6-1.2); POTASSIUM SERUM 3.4 mEq/L (3.5-5.1)
[2016-10-02] MEDS: Multivitamin w/ Minerals Tab PO SCH (10:04)
[2016-10-02] MEDS: Ferrous Sulfate 325 MG TAB PO SCH ×3 (10:05→17:08)
[2016-10-02] MEDS: Lactobacillus Rhamnosus 10 Billion CFU Capsule PO SCH ×3 (10:05→17:09)
[2016-10-02] MEDS: Metoclopramide 5 mg/mL 2mL Vial IVP SCH ×2 (10:06→20:35)
[2016-10-02] MEDS: Venelex 60gm Tube TP SCH (10:09)
--- NOTE | 2016-10-02 15:17 | Internal Medicine Prog Note ---
Internal Medicine Subjective - Subjective Service Date: 10/02/16 (awake, alert, still c/o abdominal pain, denies any nausea/vomiting) Patient seen and examined:: with staff Internal Medicine Objective - Results Result Diagrams: 10/02/16 07:04 10/02/16 07:04 Recent Labs: Laboratory Last Values WBC 4.5 Th/cmm (4.8-10.8) L 10/02/16 07:04 RBC 2.86 Mil/cmm (3.80-5.10) L 10/02/16 07:04 Hgb 8.5 gm/dL (11.7-15.5) L 10/02/16 07:04 Hct 25.1 % (35.0-45.0) L D 10/02/16 07:04 MCV 87.6 fl (81-100) 10/02/16 07:04 MCH 29.8 pg (27.0-31.0) 10/02/16 07:04 MCHC Differential 34.0 pg (28.0-36.0) 10/02/16 07:04 RDW 19.4 % (11.5-20.0) 10/02/16 07:04 Plt Count 166 Th/cmm (150-400) D 10/02/16 07:04 MPV 7.4 fl 10/02/16 07:04 Neutrophils % 70.0 % (40.0-80.0) 10/02/16 07:04 Lymphocytes % 19.7 % (20.0-50.0) L 10/02/16 07:04 Monocytes % 7.8 % (2.0-10.0) 10/02/16 07:04 Eosinophils % 2.0 % (0.0-5.0) 10/02/16 07:04 Basophils % 0.5 % (0.0-2.0) 10/02/16 07:04 Neutrophils (Manual) 69 % (40-80) 09/30/16 06:35 Lymphocytes 18 % (20-50) L 09/30/16 06:35 Monocytes 8 % (2-10) 09/30/16 06:35 Eosinophils 5 % (0-5) 09/30/16 06:35 Platelet Estimate ADEQUATE (NORMAL) 09/30/16 06:35 Platelet Morphology NORMAL (NORMAL) 09/30/16 06:35 Anisocytosis 1+ 09/30/16 06:35 RBC Morph Micro Appear ABNORMAL (NORMAL) 09/30/16 06:35 PT 12.6 SECONDS (9.5-11.5) H 10/01/16 06:00 INR 1.25 (0.5-1.4) 10/01/16 06:00 PTT (Actin FS) 25.8 SECONDS (26.0-38.0) L 10/01/16 06:00 Sodium 149 mEq/L (136-145) H 10/02/16 07:04 Potassium 3.4 mEq/L (3.5-5.1) L 10/02/16 07:04 Chloride 117 mEq/L (98-107) H 10/02/16 07:04 Carbon Dioxide 22.7 mEq/L (21.0-31.0) 10/02/16 07:04 Anion Gap 12.7 (7.0-16.0) 10/02/16 07:04 BUN 15 mg/dL (7-25) 10/02/16 07:04 Creatinine 1.4 mg/dL (0.6-1.2) H 10/02/16 07:04 Est GFR ( Amer) 49.3 ml/min (>90) 10/02/16 07:04 Est GFR (Non-Af Amer) 40.8 ml/min 10/02/16 07:04 BUN/Creatinine Ratio 10.7 10/02/16 07:04 Glucose 113 mg/dL (70-105) H 10/02/16 07:04 POC Glucose 134 MG/DL (70 - 105) H 10/01/16 10:42 Whole Bld Lactic Acid 0.82 mmol/L (0.60-2.00) 09/29/16 19:48 Calcium 8.4 mg/dL (8.6-10.3) L 10/02/16 07:04 Magnesium 1.9 mg/dL (1.9-2.7) 10/02/16 07:04 Total Bilirubin 0.8 mg/dL (0.3-1.0) 10/02/16 07:04 Direct Bilirubin 0.31 mg/dL (0.0-0.2) H 10/01/16 06:00 AST 30 U/L (13-39) 10/02/16 07:04 ALT 14 U/L (7-52) 10/02/16 07:04 Alkaline Phosphatase 98 U/L (34-104) 10/02/16 07:04 Ammonia 59 umol/L (16-53) H 10/01/16 06:00 Troponin I 0.01 ng/mL (0.01-0.05) 09/29/16 17:54 B-Natriuretic Peptide 974.0 pg/mL (5.0-100.0) H 09/30/16 06:35 Total Protein 6.5 gm/dL (6.0-8.3) 10/02/16 07:04 Albumin 2.9 gm/dL (3.7-5.3) L 10/02/16 07:04 Globulin 3.6 gm/dL 10/02/16 07:04 Albumin/Globulin Ratio 0.8 (1.0-1.8) L 10/02/16 07:04 Lipase 3 U/L (11-82) L 10/02/16 07:04 Tumor Marker AFP 3.3 ng/mL (0.0-8.3) 09/30/16 06:35 Carcinoembryonic Ag 3.3 ng/mL (0.0-4.7) 09/30/16 06:35 CA 19-9 Antigen 184 U/mL (0-35) H 09/30/16 06:35 CA 125 Antigen 71.1 U/mL (0.0-38.1) H 09/30/16 06:35 Vitamin B12 1358 pg/mL (211-946) H 09/30/16 06:35 Folic Acid 5.7 ng/mL (>3.0) 09/30/16 06:35 TSH 5.69 uIU/ml (0.34-5.60) H 09/30/16 06:35 Helicobacter pylori Ab NEGATIVE (NEGATIVE) 10/01/16 12:10 - Physical Exam Vitals and I&O: Vital Signs Temp 98.3 F 10/02/16 12:39 Pulse 82 10/02/16 14:47 Resp 18 10/02/16 12:39 BP 185/93 10/02/16 14:47 Pulse Ox 99 10/02/16 12:39 Intake & Output 10/01/16 10/02/16 10/02/16 18:59 06:59 18:59 Intake Total 100 1360 Balance 100 1360 Intake: Intake, IV Amount 100 1300 0.9% NS w/40 mEq KCL 1, 1000 000 ml @ 70 mls/hr IV . [id number] [facility] Rx#:[id number] Levofloxacin 500mg/100mL 100 500 mg In 100 ml @ 100 mls/hr IV Q24HR [facility] Rx#: [id number] metroNIDAZOLE 500mg/NS 100 200 100mL 500 mg In 100 ml @ 100 mls/hr IV Q8HR [facility] Rx #:[id number] Oral 60 Other: # Voids 3 Active Medications: Current Medications Acetaminophen (Tylenol) 650 mg PO Q4HR PRN PRN Reason: Pain or Fever >101 Stop: 11/28/16 20:59 Amlodipine Besylate (Norvasc) 10 mg PO DAILY [facility] Stop: 12/01/16 14:44 Last Admin: 10/02/16 14:47 Dose: 10 mg Ascorbic Acid (Vitamin C) 500 mg PO DAILY [facility] Stop: 11/29/16 08:59 Last Admin: 10/02/16 10:05 Dose: Not Given Bisacodyl (Dulcolax 10 Mg Supp) 10 mg RC Q24H PRN PRN Reason: bowel management Stop: 11/28/16 19:57 Clonidine HCl ([id number]-8) 1 patch TD Th [facility] Stop: 11/29/16 12:14 Last Admin: 09/30/16 14:00 Dose: 1 patch Docusate Sodium (Colace) 100 mg PO BID [facility] Stop: 11/29/16 08:59 Last Admin: 10/02/16 10:05 Dose: Not Given Ferrous Sulfate (Iron) 325 mg PO BID [facility] Stop: 11/29/16 08:59 Last Admin: 10/02/16 10:05 Dose: Not Given Hydromorphone HCl (Dilaudid) 1 mg IVP Q3HR PRN PRN Reason: Pain (Severe) Stop: 11/29/16 09:33 Last Admin: 10/02/16 08:09 Dose: 1 mg Levofloxacin (Levaquin Pb) 500 mg in 100 mls @ 100 mls/hr IV Q24HR [facility] Stop: 11/28/16 20:59 Last Infusion: 10/02/16 00:16 Dose: Infused Metronidazole (Flagyl) 500 mg in 100 mls @ 100 mls/hr IV Q8HR [facility] Stop: 11/28/16 20:59 Last Admin: 10/02/16 12:49 Dose: 100 mls/hr Potassium Chloride/Sodium Chloride (0.9% Ns W/40 Meq Kcl) 1,000 mls @ 70 mls/ hr IV .[id number] [facility] Stop: 11/29/16 12:05 Last Admin: 10/02/16 01:51 Dose: 70 mls/hr Lactobacillus Rhamnosus (Culturelle) 1 each PO BID [facility] Stop: 11/29/16 08:59 Last Admin: 10/02/16 10:05 Dose: Not Given Levothyroxine Sodium (Synthroid) 0.05 mg PO QDAC [facility] Stop: 11/28/16 21:14 Last Admin: 10/02/16 06:32 Dose: Not Given Lorazepam (Ativan) 1 mg PO Q6H PRN; Protocol PRN Reason: Anxiety Stop: 11/28/16 19:57 Last Admin: 10/02/16 04:29 Dose: 1 mg Magnesium Hydroxide (Milk Of Magnesia) 30 ml PO Q24H PRN PRN Reason: no BM in 3 days Stop: 11/28/16 19:57 Metoclopramide HCl (Reglan) 5 mg IVP Q8HR [facility] Stop: 12/01/16 08:14 Last Admin: 10/02/16 10:06 Dose: 5 mg Metoprolol Tartrate (Lopressor) 25 mg PO Q8H [facility] Stop: 11/28/16 19:59 Last Admin: 10/02/16 08:15 Dose: 25 mg Morphine Sulfate (Morphine) 2 mg IVP Q4HR PRN PRN Reason: moderate pain. Stop: 11/29/16 00:38 Last Admin: 10/02/16 04:33 Dose: 2 mg Ondansetron HCl (Zofran) 4 mg IV Q4HR PRN PRN Reason: Nausea / Vomiting Stop: 11/28/16 20:59 Last Admin: 10/02/16 08:14 Dose: 4 mg Pantoprazole Sodium (Protonix) 40 mg IVP BID [facility] Stop: 11/29/16 08:59 Last Admin: 10/02/16 08:14 Dose: 40 mg Zinc Sulfate (Zinc Sulfate) 220 mg PO DAILY [facility] Stop: 11/29/16 08:59 Last Admin: 10/02/16 10:04 Dose: Not Given Zolpidem Tartrate (Ambien) 5 mg PO HS PRN PRN Reason: Insomnia Stop: 11/28/16 19:57 Last Admin: 10/01/16 21:37 Dose: 5 mg General: weak, alert HEENT: NC/AT, PERRLA Neck: Supple Lungs: CTAB Cardiovascular: RRR, Normal S1, Normal S2, without murmur Abdomen: soft non-tender, non-distended, distended Extremities: clear - Procedures Procedures: Procedures Procedure Code Date EGD BIOPSY SINGLE/MULTIPLE 23440 09/29/16 EXCISION OF STOMACH, ENDO, DIAGN [id number] 09/29/16 Internal Medicine Assmt/Plan - Assessment Assessment: ABDOMINAL PAIN INTRACTABLE VOMITING ACUTE HYPOKALEMIA HYPOMAGNESEMIA DM-2 HTN ATAXIA GAIT INSTABILITY GENERALIZED WEAKNESS ANEMIA LEUKOPENIA ASICTES RENAL INSUFF. CIRRHOSIS LIVER MASS? - Plan Plan: IVF HYDRATION CBC/BMP IN AM PAIN MGMT ZOFRAN PRN MONITOR LYTES CPM
[2016-10-02] MEDS ORDERED: Potassium Chloride 20 mEq ER Tab PO ONE (15:20)
--- NOTE | 2016-10-02 19:11 | Consultation ---
REFERRING PHYSICIAN: Pancho Machado D.O. REASON FOR CONSULTATION: Liver mass. HISTORY OF PRESENT ILLNESS: The patient is a 60-year-old female who has diabetes, diabetic foot infection. She was recently treated with debridement and transferred to a nursing facility and then readmitted with abdominal pain and electrolyte abnormalities. CT scan of the abdomen showed a 2 cm mass and the ultrasound showed a 3.5 x 2.6 cm heterogenous mass in addition to a second echogenic mass in the right lobe of the liver. Therefore, I was asked to evaluate. PAST MEDICAL HISTORY: Diabetes, hepatitis C for 30 years. MEDICATIONS: Reviewed. PHYSICAL EXAMINATION: GENERAL: She is awake, communicative, hungry, asking for food and she is currently n.p.o. LYMPHATIC: No peripheral lymphadenopathy. CHEST: Clear. ABDOMEN: Soft. No palpable masses. EXTREMITIES: No edema. LABORATORY DATA: White count 4.5, hemoglobin 8.5, platelets 166. PT, PTT normal. Creatinine 1.4. Liver function is normal. Alpha-fetoprotein and CEA are within normal limits. Ultrasound reported fibroid in the uterus and 2 liver masses, one measured 3.5 x 2.6 and other measured 1.5 x 1.5. The larger one is in the right lobe and the smaller one in the right lower lobe. CT scan of the abdomen reported 2 cm low-density lesion within the right lobe of the liver, not compatible with a central cyst. ASSESSMENT AND PLAN: History of hepatitis C for 30 years with 2 liver nodules. There is an expression of hepatocellular carcinoma despite normal alpha-fetoprotein. I will obtain CT mass propofol of the liver and if still suspicious, then biopsy of be larger mass will be recommended. Thank you, Dr. Machado, for the opportunity to participate in the care of this interesting case with you. JOB# [id number]
[2016-10-02] MEDS: Levofloxacin 500mg/100mL 500 MG/100 ML BAG IV SCH (20:36)
[2016-10-03] MEDS: Metoclopramide 5 mg/mL 2mL Vial IVP SCH ×3 (05:07→20:36)
[2016-10-03] MEDS: metroNIDAZOLE 500mg/NS 100mL 500 MG/100 ML BAG IV SCH ×3 (05:08→20:37)
[2016-10-03] MEDS: HYDROmorphone 1 mg/mL 1mL Syr IVP PRN ×4 (06:22→20:29)
[2016-10-03] MEDS: Levothyroxine 0.05 Mg Tab PO SCH (06:31)
[2016-10-03 07:24] LABS: % BASOPHILS 0.6 % (0.0-2.0); % EOSINOPHILS 5.2 % (0.0-5.0); % LYMPHOCYTES 21.3 % (20.0-50.0); % NEUTROPHILS 63.9 % (40.0-80.0); HEMATOCRIT 24.1 % (35.0-45.0); HEMOGLOBIN 8.3 gm/dL (11.7-15.5); MEAN CELL VOLUME 87.6 fl (81-100); MEAN CORPUSCULAR HEMOGLOBIN 30.3 pg (27.0-31.0); MEAN CORPUSCULAR HGB CONC 34.5 pg (28.0-36.0); MEAN PLATELET VOLUME 7.2 fl; NEUTROPHILE ABSOLUTE 2.8 Th/cmm (1.8-8.0); PLATELET COUNT 151 Th/cmm (150-400); RED BLOOD COUNT 2.75 Mil/cmm (3.80-5.10); RED CELL DISTRIBUTION WIDTH 19.1 % (11.5-20.0); WHITE BLOOD COUNT 4.3 Th/cmm (4.8-10.8)
[2016-10-03 07:39] LABS: ANION GAP 8.1 (7.0-16.0); BUN/CREATININE RATIO 8.6; CARBON DIOXIDE 22.9 mEq/L (21.0-31.0); CREATININE - SERUM 1.4 mg/dL (0.6-1.2)
[2016-10-03 07:40] LABS: CALCIUM SERUM 7.9 mg/dL (8.6-10.3)
[2016-10-03] MEDS ORDERED: Potassium Chloride 40 MEQ, Lidocaine 1% 20mL Vial 25 MG in Sodium Chloride 0.9% 250 ML IV ONE (08:41)
--- NOTE | 2016-10-03 08:50 | Diagnostic Imaging Report ---
CT scan of the abdomen (liver) with intravenous contrast, 3 phase dynamic exam HISTORY: Hepatic mass Total DLP equals 1001 CTDI equals 40.0 The exam supplements the prior noncontrast scan of 09/29/2016 and the contrast exam of 09/30/2016. Axial sections were obtained from the xiphoid process down to the iliac crests following administration of intravenous contrast. Axial sections were obtained within the arterial and venous phases following contrast administration. Additional delayed images were obtained at 5 minutes, 10 minutes, and 15 minutes. Following contrast administration, a previously reported 2.0 cm hypodense lesion within the right lobe demonstrates progressive enhancement. At 15 minutes following contrast administration, the lesion is barely perceptible. The progressive enhancement with time suggests changes associated with a hemangioma. A follow-up CT scan in 3 months recommended to confirm stability. There is again noted a small amount of diffuse ascites within the abdomen. There is a distended gallbladder. No definite focal abnormality seen within the pancreas. No significant focal renal lesions or hydronephrosis. IMPRESSION: 1. Enhancement characteristics associated with a previously reported 2.0 cm lesion within the right lobe of the liver most suggestive of a hemangioma. A follow-up CT scan in 3 months recommended to confirm stability 2. Persistent mild diffuse ascites 3. Persistent gallbladder dilatation 4. Persistent anasarca
[2016-10-03] MEDS: Ferrous Sulfate 325 MG TAB PO SCH ×2 (09:31→16:24)
[2016-10-03] MEDS: Lactobacillus Rhamnosus 10 Billion CFU Capsule PO SCH ×2 (09:31→16:25)
[2016-10-03] MEDS: Multivitamin w/ Minerals Tab PO SCH (09:31)
--- NOTE | 2016-10-03 12:55 | Internal Medicine Prog Note ---
Internal Medicine Subjective - Subjective Service Date: 10/03/16 (c/o nausea ) Patient seen and examined:: with staff Patient is:: awake Per staff patient is:: no adverse event Internal Medicine Objective - Results Result Diagrams: 10/03/16 07:00 10/03/16 07:00 Recent Labs: Laboratory Last Values WBC 4.3 Th/cmm (4.8-10.8) L 10/03/16 07:00 RBC 2.75 Mil/cmm (3.80-5.10) L 10/03/16 07:00 Hgb 8.3 gm/dL (11.7-15.5) L 10/03/16 07:00 Hct 24.1 % (35.0-45.0) L 10/03/16 07:00 MCV 87.6 fl (81-100) 10/03/16 07:00 MCH 30.3 pg (27.0-31.0) 10/03/16 07:00 MCHC Differential 34.5 pg (28.0-36.0) 10/03/16 07:00 RDW 19.1 % (11.5-20.0) 10/03/16 07:00 Plt Count 151 Th/cmm (150-400) 10/03/16 07:00 MPV 7.2 fl 10/03/16 07:00 Neutrophils % 63.9 % (40.0-80.0) 10/03/16 07:00 Lymphocytes % 21.3 % (20.0-50.0) 10/03/16 07:00 Monocytes % 9.0 % (2.0-10.0) 10/03/16 07:00 Eosinophils % 5.2 % (0.0-5.0) H 10/03/16 07:00 Basophils % 0.6 % (0.0-2.0) 10/03/16 07:00 Neutrophils (Manual) 69 % (40-80) 09/30/16 06:35 Lymphocytes 18 % (20-50) L 09/30/16 06:35 Monocytes 8 % (2-10) 09/30/16 06:35 Eosinophils 5 % (0-5) 09/30/16 06:35 Platelet Estimate ADEQUATE (NORMAL) 09/30/16 06:35 Platelet Morphology NORMAL (NORMAL) 09/30/16 06:35 Anisocytosis 1+ 02/09/17 06:35 RBC Morph Micro Appear ABNORMAL (NORMAL) 09/30/16 06:35 PT 12.6 SECONDS (9.5-11.5) H 10/01/16 06:00 INR 1.25 (0.5-1.4) 10/01/16 06:00 PTT (Actin FS) 25.8 SECONDS (26.0-38.0) L 10/01/16 06:00 Sodium 144 mEq/L (136-145) 10/03/16 07:00 Potassium 3.0 mEq/L (3.5-5.1) L 10/03/16 07:00 Chloride 116 mEq/L (98-107) H 10/03/16 07:00 Carbon Dioxide 22.9 mEq/L (21.0-31.0) 10/03/16 07:00 Anion Gap 8.1 (7.0-16.0) 10/03/16 07:00 BUN 12 mg/dL (7-25) 10/03/16 07:00 Creatinine 1.4 mg/dL (0.6-1.2) H 10/03/16 07:00 Est GFR ( Amer) 49.3 ml/min (>90) 10/03/16 07:00 Est GFR (Non-Af Amer) 40.8 ml/min 10/03/16 07:00 BUN/Creatinine Ratio 8.6 10/03/16 07:00 Glucose 133 mg/dL (70-105) H 10/03/16 07:00 POC Glucose 134 MG/DL (70 - 105) H 10/01/16 10:42 Whole Bld Lactic Acid 0.82 mmol/L (0.60-2.00) 09/29/16 19:48 Calcium 7.9 mg/dL (8.6-10.3) L 10/03/16 07:00 Magnesium 1.9 mg/dL (1.9-2.7) 10/02/16 07:04 Total Bilirubin 0.8 mg/dL (0.3-1.0) 10/02/16 07:04 Direct Bilirubin 0.31 mg/dL (0.0-0.2) H 10/01/16 06:00 AST 30 U/L (13-39) 10/02/16 07:04 ALT 14 U/L (7-52) 10/02/16 07:04 Alkaline Phosphatase 98 U/L (34-104) 10/02/16 07:04 Ammonia 59 umol/L (16-53) H 10/01/16 06:00 Troponin I 0.01 ng/mL (0.01-0.05) 09/29/16 17:54 B-Natriuretic Peptide 974.0 pg/mL (5.0-100.0) H 09/30/16 06:35 Total Protein 6.5 gm/dL (6.0-8.3) 10/02/16 07:04 Albumin 2.9 gm/dL (3.7-5.3) L 10/02/16 07:04 Globulin 3.6 gm/dL 10/02/16 07:04 Albumin/Globulin Ratio 0.8 (1.0-1.8) L 10/02/16 07:04 Lipase 3 U/L (11-82) L 10/02/16 07:04 Tumor Marker AFP 3.3 ng/mL (0.0-8.3) 09/30/16 06:35 Carcinoembryonic Ag 3.3 ng/mL (0.0-4.7) 09/30/16 06:35 CA 19-9 Antigen 184 U/mL (0-35) H 09/30/16 06:35 CA 125 Antigen 71.1 U/mL (0.0-38.1) H 09/30/16 06:35 Vitamin B12 1358 pg/mL (211-946) H 09/30/16 06:35 Folic Acid 5.7 ng/mL (>3.0) 09/30/16 06:35 TSH 5.69 uIU/ml (0.34-5.60) H 09/30/16 06:35 Helicobacter pylori Ab NEGATIVE (NEGATIVE) 10/01/16 12:10 - Physical Exam Vitals and I&O: Vital Signs Temp 99.6 F 10/03/16 12:00 Pulse 95 10/03/16 12:00 Resp 18 10/03/16 12:00 BP 141/71 10/03/16 12:00 Pulse Ox 99 10/03/16 12:00 Intake & Output 02/11/17 02/12/17 02/12/17 18:59 06:59 18:59 Intake Total 1000 640 Balance 1000 640 Intake: Intake, IV Amount 1000 300 0.9% NS w/40 mEq KCL 1, 1000 000 ml @ 70 mls/hr IV . [id number] [facility] Rx#:[id number] Levofloxacin 500mg/100mL 100 500 mg In 100 ml @ 100 mls/hr IV Q24HR [facility] Rx#: [id number] metroNIDAZOLE 500mg/NS 200 100mL 500 mg In 100 ml @ 100 mls/hr IV Q8HR [facility] Rx #:[id number] Oral 340 Other: # Voids 3 # Bowel Movements 1 Stool Characteristics Soft Active Medications: Current Medications Acetaminophen (Tylenol) 650 mg PO Q4HR PRN PRN Reason: Pain or Fever >101 Stop: 11/28/16 20:59 Amlodipine Besylate (Norvasc) 10 mg PO DAILY [facility] Stop: 12/01/16 14:44 Last Admin: 10/03/16 09:30 Dose: 10 mg Ascorbic Acid (Vitamin C) 500 mg PO DAILY [facility] Stop: 11/29/16 08:59 Last Admin: 10/03/16 09:31 Dose: 500 mg Bisacodyl (Dulcolax 10 Mg Supp) 10 mg RC Q24H PRN PRN Reason: bowel management Stop: 11/28/16 19:57 Clonidine HCl (Cvjhhkcq-Jej-7) 1 patch TD QTHUR [facility] Stop: 11/29/16 12:14 Docusate Sodium (Colace) 100 mg PO BID [facility] Stop: 11/29/16 08:59 Last Admin: 10/03/16 09:31 Dose: 100 mg Ferrous Sulfate (Iron) 325 mg PO BID [facility] Stop: 11/29/16 08:59 Last Admin: 10/03/16 09:31 Dose: 325 mg Hydromorphone HCl (Dilaudid) 1 mg IVP Q3HR PRN PRN Reason: Pain (Severe) Stop: 11/29/16 09:33 Last Admin: 10/03/16 11:00 Dose: 1 mg Levofloxacin (Levaquin Pb) 500 mg in 100 mls @ 100 mls/hr IV Q24HR [facility] Stop: 11/28/16 20:59 Last Infusion: 10/02/16 21:36 Dose: Infused Metronidazole (Flagyl) 500 mg in 100 mls @ 100 mls/hr IV Q8HR [facility] Stop: 11/28/16 20:59 Last Infusion: 10/03/16 06:08 Dose: Infused Potassium Chloride/Sodium Chloride (0.9% Ns W/40 Meq Kcl) 1,000 mls @ 70 mls/ hr IV .[id number] [facility] Stop: 11/29/16 12:05 Last Admin: 10/02/16 21:44 Dose: 70 mls/hr Lactobacillus Rhamnosus (Culturelle) 1 each PO BID [facility] Stop: 11/29/16 08:59 Last Admin: 10/03/16 09:31 Dose: 1 each Levothyroxine Sodium (Synthroid) 0.05 mg PO QDAC [facility] Stop: 11/28/16 21:14 Last Admin: 10/03/16 06:31 Dose: 0.05 mg Lorazepam (Ativan) 1 mg PO Q6H PRN; Protocol PRN Reason: Anxiety Stop: 11/28/16 19:57 Last Admin: 10/03/16 02:15 Dose: 1 mg Magnesium Hydroxide (Milk Of Magnesia) 30 ml PO Q24H PRN PRN Reason: no BM in 3 days Stop: 11/28/16 19:57 Metoclopramide HCl (Reglan) 5 mg IVP Q8HR [facility] Stop: 12/01/16 08:14 Last Admin: 10/03/16 05:07 Dose: 5 mg Metoprolol Tartrate (Lopressor) 25 mg PO Q8H [facility] Stop: 11/28/16 19:59 Last Admin: 10/03/16 05:07 Dose: 25 mg Morphine Sulfate (Morphine) 2 mg IVP Q4HR PRN PRN Reason: moderate pain. Stop: 11/29/16 00:38 Last Admin: 10/02/16 04:33 Dose: 2 mg Ondansetron HCl (Zofran) 4 mg IV Q4HR PRN PRN Reason: Nausea / Vomiting Stop: 11/28/16 20:59 Last Admin: 10/03/16 11:00 Dose: 4 mg Pantoprazole Sodium (Protonix) 40 mg IVP BID [facility] Stop: 11/29/16 08:59 Last Admin: 10/03/16 09:31 Dose: 40 mg Zinc Sulfate (Zinc Sulfate) 220 mg PO DAILY [facility] Stop: 11/29/16 08:59 Last Admin: 10/03/16 09:31 Dose: 220 mg Zolpidem Tartrate (Ambien) 5 mg PO HS PRN PRN Reason: Insomnia Stop: 11/28/16 19:57 Last Admin: 10/02/16 21:57 Dose: 5 mg General: weak, alert HEENT: NC/AT, PERRLA Neck: Supple Lungs: CTAB Cardiovascular: RRR, Normal S1, Normal S2, without murmur Abdomen: soft non-tender - Procedures Procedures: Procedures Procedure Code Date EGD BIOPSY SINGLE/MULTIPLE 58577 09/29/16 EXCISION OF STOMACH, ENDO, DIAGN [id number] 09/29/16 Internal Medicine Assmt/Plan - Assessment Assessment: ABDOMINAL PAIN INTRACTABLE VOMITING ACUTE HYPOKALEMIA HYPOMAGNESEMIA DM-2 HTN ATAXIA GAIT INSTABILITY GENERALIZED WEAKNESS ANEMIA LEUKOPENIA ASICTES RENAL INSUFF. CIRRHOSIS LIVER MASS? - Plan Plan: ULTRASOUND GUIDED PARACENTESIS TOMORROW AM IVF HYDRATION CBC/BMP IN AM PAIN MGMT ZOFRAN PRN MONITOR LYTES CPM
[2016-10-03] MEDS: Venelex 60gm Tube TP SCH (12:56)
[2016-10-03] MEDS: Morphine Sulfate 2 mg/mL 1mL Syr IVP PRN ×3 (13:30→22:53)
--- NOTE | 2016-10-03 20:34 | General Progress Note ---
Subjective - Review of Systems Service Date: 10/03/16 Subjective: FEELING BETTER. MELISA ORAL DIET. Objective - Results Result Diagrams: 10/03/16 07:00 10/03/16 07:00 Recent Labs: Laboratory Last Values WBC 4.3 Th/cmm (4.8-10.8) L 10/03/16 07:00 RBC 2.75 Mil/cmm (3.80-5.10) L 10/03/16 07:00 Hgb 8.3 gm/dL (11.7-15.5) L 10/03/16 07:00 Hct 24.1 % (35.0-45.0) L 10/03/16 07:00 MCV 87.6 fl (81-100) 10/03/16 07:00 MCH 30.3 pg (27.0-31.0) 10/03/16 07:00 MCHC Differential 34.5 pg (28.0-36.0) 10/03/16 07:00 RDW 19.1 % (11.5-20.0) 10/03/16 07:00 Plt Count 151 Th/cmm (150-400) 10/03/16 07:00 MPV 7.2 fl 10/03/16 07:00 Neutrophils % 63.9 % (40.0-80.0) 10/03/16 07:00 Lymphocytes % 21.3 % (20.0-50.0) 10/03/16 07:00 Monocytes % 9.0 % (2.0-10.0) 10/03/16 07:00 Eosinophils % 5.2 % (0.0-5.0) H 10/03/16 07:00 Basophils % 0.6 % (0.0-2.0) 10/03/16 07:00 Neutrophils (Manual) 69 % (40-80) 09/30/16 06:35 Lymphocytes 18 % (20-50) L 09/30/16 06:35 Monocytes 8 % (2-10) 09/30/16 06:35 Eosinophils 5 % (0-5) 09/30/16 06:35 Platelet Estimate ADEQUATE (NORMAL) 09/30/16 06:35 Platelet Morphology NORMAL (NORMAL) 09/30/16 06:35 Anisocytosis 1+ 09/30/16 06:35 RBC Morph Micro Appear ABNORMAL (NORMAL) 02/09/17 06:35 PT 12.6 SECONDS (9.5-11.5) H 10/01/16 06:00 INR 1.25 (0.5-1.4) 10/01/16 06:00 PTT (Actin FS) 25.8 SECONDS (26.0-38.0) L 10/01/16 06:00 Sodium 144 mEq/L (136-145) 10/03/16 07:00 Potassium 3.0 mEq/L (3.5-5.1) L 10/03/16 07:00 Chloride 116 mEq/L (98-107) H 10/03/16 07:00 Carbon Dioxide 22.9 mEq/L (21.0-31.0) 10/03/16 07:00 Anion Gap 8.1 (7.0-16.0) 10/03/16 07:00 BUN 12 mg/dL (7-25) 10/03/16 07:00 Creatinine 1.4 mg/dL (0.6-1.2) H 10/03/16 07:00 Est GFR ( Amer) 49.3 ml/min (>90) 10/03/16 07:00 Est GFR (Non-Af Amer) 40.8 ml/min 10/03/16 07:00 BUN/Creatinine Ratio 8.6 10/03/16 07:00 Glucose 133 mg/dL (70-105) H 10/03/16 07:00 POC Glucose 134 MG/DL (70 - 105) H 10/01/16 10:42 Whole Bld Lactic Acid 0.82 mmol/L (0.60-2.00) 09/29/16 19:48 Calcium 7.9 mg/dL (8.6-10.3) L 10/03/16 07:00 Magnesium 1.9 mg/dL (1.9-2.7) 10/02/16 07:04 Total Bilirubin 0.8 mg/dL (0.3-1.0) 10/02/16 07:04 Direct Bilirubin 0.31 mg/dL (0.0-0.2) H 10/01/16 06:00 AST 30 U/L (13-39) 10/02/16 07:04 ALT 14 U/L (7-52) 10/02/16 07:04 Alkaline Phosphatase 98 U/L (34-104) 10/02/16 07:04 Ammonia 59 umol/L (16-53) H 10/01/16 06:00 Troponin I 0.01 ng/mL (0.01-0.05) 09/29/16 17:54 B-Natriuretic Peptide 974.0 pg/mL (5.0-100.0) H 09/30/16 06:35 Total Protein 6.5 gm/dL (6.0-8.3) 10/02/16 07:04 Albumin 2.9 gm/dL (3.7-5.3) L 10/02/16 07:04 Globulin 3.6 gm/dL 10/02/16 07:04 Albumin/Globulin Ratio 0.8 (1.0-1.8) L 10/02/16 07:04 Lipase 3 U/L (11-82) L 10/02/16 07:04 Tumor Marker AFP 3.3 ng/mL (0.0-8.3) 09/30/16 06:35 Carcinoembryonic Ag 3.3 ng/mL (0.0-4.7) 09/30/16 06:35 CA 19-9 Antigen 184 U/mL (0-35) H 09/30/16 06:35 CA 125 Antigen 71.1 U/mL (0.0-38.1) H 09/30/16 06:35 Vitamin B12 1358 pg/mL (211-946) H 09/30/16 06:35 Folic Acid 5.7 ng/mL (>3.0) 09/30/16 06:35 TSH 5.69 uIU/ml (0.34-5.60) H 09/30/16 06:35 Helicobacter pylori Ab NEGATIVE (NEGATIVE) 10/01/16 12:10 - Physical Exam Vitals and I&O: Vital Signs Temp 98 F 10/03/16 16:00 Pulse 86 10/03/16 16:00 Resp 18 10/03/16 16:00 BP 166/88 10/03/16 16:00 Pulse Ox 99 10/03/16 12:00 Intake & Output 10/03/16 10/03/16 10/04/16 06:59 18:59 06:59 Intake Total 640 100 Balance 640 100 Intake: Intake, IV Amount 300 100 Levofloxacin 500mg/100mL 100 500 mg In 100 ml @ 100 mls/hr IV Q24HR [facility] Rx#: [id number] metroNIDAZOLE 500mg/NS 200 100 100mL 500 mg In 100 ml @ 100 mls/hr IV Q8HR [facility] Rx #:[id number] Oral 340 Other: # Voids 3 # Bowel Movements 1 Active Medications: Current Medications Acetaminophen (Tylenol) 650 mg PO Q4HR PRN PRN Reason: Pain or Fever >101 Stop: 11/28/16 20:59 Amlodipine Besylate (Norvasc) 10 mg PO DAILY [facility] Stop: 12/01/16 14:44 Last Admin: 10/03/16 09:30 Dose: 10 mg Ascorbic Acid (Vitamin C) 500 mg PO DAILY [facility] Stop: 11/29/16 08:59 Last Admin: 10/03/16 09:31 Dose: 500 mg Bisacodyl (Dulcolax 10 Mg Supp) 10 mg RC Q24H PRN PRN Reason: bowel management Stop: 11/28/16 19:57 Clonidine HCl (Rqvdzwbt-Emv-5) 1 patch TD QTHUR [facility] Stop: 11/29/16 12:14 Docusate Sodium (Colace) 100 mg PO BID [facility] Stop: 11/29/16 08:59 Last Admin: 10/03/16 16:25 Dose: 100 mg Ferrous Sulfate (Iron) 325 mg PO BID [facility] Stop: 11/29/16 08:59 Last Admin: 10/03/16 16:24 Dose: 325 mg Hydromorphone HCl (Dilaudid) 1 mg IVP Q3HR PRN PRN Reason: Pain (Severe) Stop: 11/29/16 09:33 Last Admin: 10/03/16 20:29 Dose: 1 mg Levofloxacin (Levaquin Pb) 500 mg in 100 mls @ 100 mls/hr IV Q24HR [facility] Stop: 11/28/16 20:59 Last Infusion: 10/02/16 21:36 Dose: Infused Metronidazole (Flagyl) 500 mg in 100 mls @ 100 mls/hr IV Q8HR [facility] Stop: 11/28/16 20:59 Last Infusion: 10/03/16 14:35 Dose: Infused Potassium Chloride/Sodium Chloride (0.9% Ns W/40 Meq Kcl) 1,000 mls @ 70 mls/ hr IV .[id number] [facility] Stop: 11/29/16 12:05 Last Admin: 10/02/16 21:44 Dose: 70 mls/hr Lactobacillus Rhamnosus (Culturelle) 1 each PO BID [facility] Stop: 11/29/16 08:59 Last Admin: 10/03/16 16:25 Dose: 1 each Levothyroxine Sodium (Synthroid) 0.05 mg PO QDAC [facility] Stop: 11/28/16 21:14 Last Admin: 10/03/16 06:31 Dose: 0.05 mg Lorazepam (Ativan) 1 mg PO Q6H PRN; Protocol PRN Reason: Anxiety Stop: 11/28/16 19:57 Last Admin: 10/03/16 02:15 Dose: 1 mg Magnesium Hydroxide (Milk Of Magnesia) 30 ml PO Q24H PRN PRN Reason: no BM in 3 days Stop: 11/28/16 19:57 Metoclopramide HCl (Reglan) 5 mg IVP Q8HR [facility] Stop: 12/01/16 08:14 Last Admin: 10/03/16 13:24 Dose: 5 mg Metoprolol Tartrate (Lopressor) 25 mg PO Q8H [facility] Stop: 11/28/16 19:59 Last Admin: 10/03/16 13:29 Dose: 25 mg Morphine Sulfate (Morphine) 2 mg IVP Q4HR PRN PRN Reason: moderate pain. Stop: 11/29/16 00:38 Last Admin: 10/03/16 17:44 Dose: 2 mg Ondansetron HCl (Zofran) 4 mg IV Q4HR PRN PRN Reason: Nausea / Vomiting Stop: 11/28/16 20:59 Last Admin: 10/03/16 11:00 Dose: 4 mg Pantoprazole Sodium (Protonix) 40 mg IVP BID [facility] Stop: 11/29/16 08:59 Last Admin: 10/03/16 16:24 Dose: 40 mg Zinc Sulfate (Zinc Sulfate) 220 mg PO DAILY [facility] Stop: 11/29/16 08:59 Last Admin: 10/03/16 09:31 Dose: 220 mg Zolpidem Tartrate (Ambien) 5 mg PO HS PRN PRN Reason: Insomnia Stop: 11/28/16 19:57 Last Admin: 10/02/16 21:57 Dose: 5 mg General: Alert, No acute distress HEENT: Atraumatic Neck: Supple Cardiovascular: Regular rate Lungs: Clear to auscultation Abdomen: Bowel sounds, Soft, no Tender - Procedures Procedures: Procedures Procedure Code Date EGD BIOPSY SINGLE/MULTIPLE 90117 09/29/16 EXCISION OF STOMACH, ENDO, DIAGN [id number] 09/29/16 Assessment/Plan - Assessment Assessment: 1. ABD PAIN WITH N/V - BETTER. 2. POSSIBLE CIRRHOSIS WITH ASCITES. 3. POSSIBLE RENAL AND LIVER MASSES. NORMAL AFP, ELEVATED CA19-9 AND CA125. 4. EGD SHOWED TRACE ESOPH VARICES AND MILD PORTAL GASTROPATHY. - Plan Plan: 1. PROTONIX. 2. ZOFRAN. ADDED REGLAN IV. 3. PENDING US-GUIDED PARACENTESIS WITH FLUID ANALYSIS IN AM. 4. F/U LIVER LABS. 5. MAY NEED COLONOSCOPY ONCE N/V BETTER AND ABLE TO TOLERATE ORAL BOWEL PREP.
[2016-10-03] MEDS: Levofloxacin 500mg/100mL 500 MG/100 ML BAG IV SCH (21:23)
[2016-10-03] MEDS: 0.9% NS w/40 mEq KCL 1,000 ML IV SCH (22:58)
[2016-10-04] MEDS: HYDROmorphone 1 mg/mL 1mL Syr IVP PRN ×4 (04:15→16:55)
[2016-10-04] MEDS: Metoclopramide 5 mg/mL 2mL Vial IVP SCH ×3 (05:38→12:57)
[2016-10-04] MEDS: metroNIDAZOLE 500mg/NS 100mL 500 MG/100 ML BAG IV SCH ×2 (05:38→12:55)
[2016-10-04] MEDS: Levothyroxine 0.05 Mg Tab PO SCH (07:02)
[2016-10-04 07:09] LABS: ANION GAP 4.6 (7.0-16.0); BUN/CREATININE RATIO 7.9; CALCIUM SERUM 7.7 mg/dL (8.6-10.3); CARBON DIOXIDE 23.7 mEq/L (21.0-31.0); CREATININE - SERUM 1.4 mg/dL (0.6-1.2); POTASSIUM SERUM 3.3 mEq/L (3.5-5.1)
[2016-10-04 07:12] LABS: INR 1.36 (0.5-1.4); PROTHROMBIN TIME (TEST) 13.8 SECONDS (9.5-11.5)
[2016-10-04 07:29] LABS: % BASOPHILS 0.5 % (0.0-2.0); % EOSINOPHILS 4.3 % (0.0-5.0); % LYMPHOCYTES 18.5 % (20.0-50.0); % MONOCYTES 8.6 % (2.0-10.0); % NEUTROPHILS 68.1 % (40.0-80.0); HEMOGLOBIN 8.2 gm/dL (11.7-15.5); MEAN CELL VOLUME 86.9 fl (81-100); MEAN CORPUSCULAR HEMOGLOBIN 30.1 pg (27.0-31.0); MEAN CORPUSCULAR HGB CONC 34.6 pg (28.0-36.0); MEAN PLATELET VOLUME 7.8 fl; NEUTROPHILE ABSOLUTE 3.1 Th/cmm (1.8-8.0); PLATELET COUNT 127 Th/cmm (150-400); RED BLOOD COUNT 2.72 Mil/cmm (3.80-5.10); RED CELL DISTRIBUTION WIDTH 18.7 % (11.5-20.0); WHITE BLOOD COUNT 4.5 Th/cmm (4.8-10.8)
[2016-10-04 07:45] LABS: HEMATOCRIT 23.7 % (35.0-45.0)
--- NOTE | 2016-10-04 09:04 | Diagnostic Imaging Report ---
CT scan abdomen and pelvis with intravenous contrast HISTORY: Hepatic mass Total DLP equals 724 CTDI equals 35.0 Following administration of intravenous contrast, axial sections were obtained through the liver during the arterial and venous phases. Insufficient delayed images obtained at this time. The exam demonstrates partial progressive enhancement of a previously noted 2.0 cm lesion within the right lobe of the liver. A follow-up CT scan to allow for greater delay in contrast enhancement is needed for further characterization. Again noted is mild diffuse ascites throughout the abdomen. There remains a distended gallbladder. Changes of anasarca are seen. IMPRESSION: 1. Incomplete exam with insufficient delayed images for assessment of contrast enhancement of a previously reported hepatic lesion. A follow-up scan to allow for greater delay is needed and will be scheduled.
[2016-10-04] MEDS: Ferrous Sulfate 325 MG TAB PO SCH ×2 (09:52→16:54)
[2016-10-04] MEDS: Lactobacillus Rhamnosus 10 Billion CFU Capsule PO SCH ×2 (09:52→16:54)
[2016-10-04] MEDS: Multivitamin w/ Minerals Tab PO SCH (09:52)
[2016-10-04] MEDS: Venelex 60gm Tube TP SCH ×2 (10:04→10:09)
[2016-10-04 10:16] LABS: ANTITRYPSIN SERUM A1 194 mg/dL (90-200); CERULOPLASMIN 28.7 mg/dL (19.0-39.0); F1 ACTIN-SMOOTH MUSC IGG 26 Units (0-19); FERRITIN 1199 ng/mL (15-150); GAMMA GLUTAMYL TRANSFERASE 184 IU/L (0-60); HEP B CORE IGM Negative (Negative); HEP C ANTIBODY >11.0 s/co ratio (0.0-0.9); IRON SATURATION 48 % (15-55); TIBC (LCI) 164 ug/dL (250-450); UIBC 85 ug/dL (131-425)
--- NOTE | 2016-10-04 12:12 | Internal Medicine Prog Note ---
Internal Medicine Subjective - Subjective Service Date: 10/04/16 (patient still c/o abdominal pain, paracentesis could not be done today due to not enough fluid ) Patient seen and examined:: with staff Internal Medicine Objective - Results Result Diagrams: 10/04/16 05:40 10/04/16 05:40 Recent Labs: Laboratory Last Values WBC 4.5 Th/cmm (4.8-10.8) L 10/04/16 05:40 RBC 2.72 Mil/cmm (3.80-5.10) L 10/04/16 05:40 Hgb 8.2 gm/dL (11.7-15.5) L 10/04/16 05:40 Hct 23.7 % (35.0-45.0) L* 10/04/16 05:40 MCV 86.9 fl (81-100) 10/04/16 05:40 MCH 30.1 pg (27.0-31.0) 10/04/16 05:40 MCHC Differential 34.6 pg (28.0-36.0) 10/04/16 05:40 RDW 18.7 % (11.5-20.0) 10/04/16 05:40 Plt Count 127 Th/cmm (150-400) L 10/04/16 05:40 MPV 7.8 fl 10/04/16 05:40 Neutrophils % 68.1 % (40.0-80.0) 10/04/16 05:40 Lymphocytes % 18.5 % (20.0-50.0) L 10/04/16 05:40 Monocytes % 8.6 % (2.0-10.0) 10/04/16 05:40 Eosinophils % 4.3 % (0.0-5.0) 10/04/16 05:40 Basophils % 0.5 % (0.0-2.0) 10/04/16 05:40 Neutrophils (Manual) 69 % (40-80) 09/30/16 06:35 Lymphocytes 18 % (20-50) L 09/30/16 06:35 Monocytes 8 % (2-10) 09/30/16 06:35 Eosinophils 5 % (0-5) 09/30/16 06:35 Platelet Estimate ADEQUATE (NORMAL) 09/30/16 06:35 Platelet Morphology NORMAL (NORMAL) 09/30/16 06:35 Anisocytosis 1+ 09/30/16 06:35 RBC Morph Micro Appear ABNORMAL (NORMAL) 09/30/16 06:35 PT 13.8 SECONDS (9.5-11.5) H 10/04/16 05:40 INR 1.36 (0.5-1.4) 10/04/16 05:40 PTT (Actin FS) 24.4 SECONDS (26.0-38.0) L 10/04/16 05:40 Sodium 144 mEq/L (136-145) 10/04/16 05:40 Potassium 3.3 mEq/L (3.5-5.1) L 10/04/16 05:40 Chloride 119 mEq/L (98-107) H 10/04/16 05:40 Carbon Dioxide 23.7 mEq/L (21.0-31.0) 10/04/16 05:40 Anion Gap 4.6 (7.0-16.0) L 10/04/16 05:40 BUN 11 mg/dL (7-25) 10/04/16 05:40 Creatinine 1.4 mg/dL (0.6-1.2) H 10/04/16 05:40 Est GFR ( Amer) 49.3 ml/min (>90) 10/04/16 05:40 Est GFR (Non-Af Amer) 40.8 ml/min 10/04/16 05:40 BUN/Creatinine Ratio 7.9 10/04/16 05:40 Glucose 117 mg/dL (70-105) H 10/04/16 05:40 POC Glucose 134 MG/DL (70 - 105) H 10/01/16 10:42 Whole Bld Lactic Acid 0.82 mmol/L (0.60-2.00) 09/29/16 19:48 Calcium 7.7 mg/dL (8.6-10.3) L 10/04/16 05:40 Magnesium 1.9 mg/dL (1.9-2.7) 10/02/16 07:04 Iron 79 ug/dL (27-159) 10/01/16 06:00 TIBC 164 ug/dL (250-450) L 10/01/16 06:00 Iron Saturation 48 % (15-55) 10/01/16 06:00 Unsaturated IBC 85 ug/dL (131-425) L 10/01/16 06:00 Ferritin 1199 ng/mL (15-150) H 10/01/16 06:00 Total Bilirubin 0.8 mg/dL (0.3-1.0) 10/02/16 07:04 Direct Bilirubin 0.31 mg/dL (0.0-0.2) H 10/01/16 06:00 GGTP 184 IU/L (0-60) H 10/01/16 06:00 AST 30 U/L (13-39) 10/02/16 07:04 ALT 14 U/L (7-52) 10/02/16 07:04 Alkaline Phosphatase 98 U/L (34-104) 10/02/16 07:04 Ammonia 59 umol/L (16-53) H 10/01/16 06:00 Troponin I 0.01 ng/mL (0.01-0.05) 09/29/16 17:54 B-Natriuretic Peptide 974.0 pg/mL (5.0-100.0) H 09/30/16 06:35 Total Protein 6.5 gm/dL (6.0-8.3) 10/02/16 07:04 Albumin 2.9 gm/dL (3.7-5.3) L 10/02/16 07:04 Globulin 3.6 gm/dL 10/02/16 07:04 Albumin/Globulin Ratio 0.8 (1.0-1.8) L 10/02/16 07:04 Gomka-1-Mggenmbijbd 194 mg/dL (90-200) 10/01/16 06:00 Ceruloplasmin 28.7 mg/dL (19.0-39.0) 10/01/16 06:00 Lipase 3 U/L (11-82) L 10/02/16 07:04 Tumor Marker AFP 3.3 ng/mL (0.0-8.3) 09/30/16 06:35 Carcinoembryonic Ag 3.3 ng/mL (0.0-4.7) 09/30/16 06:35 CA 19-9 Antigen 184 U/mL (0-35) H 09/30/16 06:35 CA 125 Antigen 71.1 U/mL (0.0-38.1) H 09/30/16 06:35 Vitamin B12 1358 pg/mL (211-946) H 09/30/16 06:35 Folic Acid 5.7 ng/mL (>3.0) 09/30/16 06:35 TSH 5.69 uIU/ml (0.34-5.60) H 09/30/16 06:35 Anti-Mitochondrial Ab 10.7 Units (0.0-20.0) 10/01/16 06:00 Smooth Muscle IgG Ab 26 Units (0-19) H 10/01/16 06:00 Helicobacter pylori Ab NEGATIVE (NEGATIVE) 10/01/16 12:10 Hepatitis A IgM Ab Negative (Negative) 10/01/16 06:00 Hep Bs Antigen Negative (Negative) 10/01/16 06:00 Hep B Core IgM Ab Negative (Negative) 10/01/16 06:00 Hepatitis C Antibody >11.0 s/co ratio (0.0-0.9) H 10/01/16 06:00 - Physical Exam Vitals and I&O: Vital Signs Temp 98.2 F 10/04/16 04:00 Pulse 111 10/04/16 09:48 Resp 20 10/04/16 08:00 BP 182/98 10/04/16 09:48 Pulse Ox 96 10/04/16 04:00 Intake & Output 10/03/16 10/04/16 10/04/16 18:59 06:59 18:59 Intake Total 100 1200 Output Total 500 Balance 100 700 Intake: Intake, IV Amount 100 1200 0.9% NS w/40 mEq KCL 1, 1000 000 ml @ 70 mls/hr IV . [id number] [facility] Rx#:[id number] Levofloxacin 500mg/100mL 100 500 mg In 100 ml @ 100 mls/hr IV Q24HR [facility] Rx#: [id number] metroNIDAZOLE 500mg/NS 100 100 100mL 500 mg In 100 ml @ 100 mls/hr IV Q8HR [facility] Rx #:[id number] Output: Urine 500 Other: # Bowel Movements 0 Active Medications: Current Medications Acetaminophen (Tylenol) 650 mg PO Q4HR PRN PRN Reason: Pain or Fever >101 Stop: 11/28/16 20:59 Amlodipine Besylate (Norvasc) 10 mg PO DAILY [facility] Stop: 12/01/16 14:44 Last Admin: 10/04/16 09:48 Dose: 10 mg Ascorbic Acid (Vitamin C) 500 mg PO DAILY [facility] Stop: 11/29/16 08:59 Last Admin: 10/04/16 09:52 Dose: Not Given Bisacodyl (Dulcolax 10 Mg Supp) 10 mg RC Q24H PRN PRN Reason: bowel management Stop: 11/28/16 19:57 Clonidine HCl (Yvghttob-Yvk-2) 1 patch TD QTHUR [facility] Stop: 11/29/16 12:14 Docusate Sodium (Colace) 100 mg PO BID [facility] Stop: 11/29/16 08:59 Last Admin: 10/04/16 09:52 Dose: Not Given Ferrous Sulfate (Iron) 325 mg PO BID [facility] Stop: 11/29/16 08:59 Last Admin: 10/04/16 09:52 Dose: Not Given Hydromorphone HCl (Dilaudid) 1 mg IVP Q3HR PRN PRN Reason: Pain (Severe) Stop: 11/29/16 09:33 Last Admin: 10/04/16 09:48 Dose: 1 mg Levofloxacin (Levaquin Pb) 500 mg in 100 mls @ 100 mls/hr IV Q24HR [facility] Stop: 11/28/16 20:59 Last Infusion: 10/03/16 22:30 Dose: Infused Metronidazole (Flagyl) 500 mg in 100 mls @ 100 mls/hr IV Q8HR [facility] Stop: 11/28/16 20:59 Last Admin: 10/04/16 05:38 Dose: 100 mls/hr Potassium Chloride/Sodium Chloride (0.9% Ns W/40 Meq Kcl) 1,000 mls @ 70 mls/ hr IV .[id number] [facility] Stop: 11/29/16 12:05 Last Admin: 10/03/16 22:58 Dose: 70 mls/hr Lactobacillus Rhamnosus (Culturelle) 1 each PO BID [facility] Stop: 11/29/16 08:59 Last Admin: 10/04/16 09:52 Dose: Not Given Levothyroxine Sodium (Synthroid) 0.05 mg PO QDAC [facility] Stop: 11/28/16 21:14 Last Admin: 10/04/16 07:02 Dose: 0.05 mg Lorazepam (Ativan) 1 mg PO Q6H PRN; Protocol PRN Reason: Anxiety Stop: 11/28/16 19:57 Last Admin: 10/03/16 22:40 Dose: 1 mg Magnesium Hydroxide (Milk Of Magnesia) 30 ml PO Q24H PRN PRN Reason: no BM in 3 days Stop: 11/28/16 19:57 Metoclopramide HCl (Reglan) 5 mg IVP Q8HR [facility] Stop: 12/01/16 08:14 Last Admin: 10/04/16 06:03 Dose: 5 mg Metoprolol Tartrate (Lopressor) 25 mg PO Q8H [facility] Stop: 11/28/16 19:59 Last Admin: 10/04/16 04:30 Dose: 25 mg Morphine Sulfate (Morphine) 2 mg IVP Q4HR PRN PRN Reason: moderate pain. Stop: 11/29/16 00:38 Last Admin: 10/03/16 22:53 Dose: 2 mg Ondansetron HCl (Zofran) 4 mg IV Q4HR PRN PRN Reason: Nausea / Vomiting Stop: 11/28/16 20:59 Last Admin: 10/04/16 04:10 Dose: 4 mg Pantoprazole Sodium (Protonix) 40 mg IVP BID [facility] Stop: 11/29/16 08:59 Last Admin: 10/04/16 10:04 Dose: 40 mg Zinc Sulfate (Zinc Sulfate) 220 mg PO DAILY [facility] Stop: 11/29/16 08:59 Last Admin: 10/04/16 09:52 Dose: Not Given Zolpidem Tartrate (Ambien) 5 mg PO HS PRN PRN Reason: Insomnia Stop: 11/28/16 19:57 Last Admin: 10/02/16 21:57 Dose: 5 mg General: alert HEENT: NC/AT, PERRLA Neck: Supple Lungs: CTAB Cardiovascular: RRR, Normal S1, Normal S2, without murmur Abdomen: soft non-tender, non-distended, positive bowel sound Neurological: no change - Procedures Procedures: Procedures Procedure Code Date EGD BIOPSY SINGLE/MULTIPLE 19790 09/29/16 EXCISION OF STOMACH, ENDO, DIAGN [id number] 09/29/16 Internal Medicine Assmt/Plan - Assessment Assessment: ABDOMINAL PAIN INTRACTABLE VOMITING ACUTE HYPOKALEMIA HYPOMAGNESEMIA DM-2 HTN ATAXIA GAIT INSTABILITY GENERALIZED WEAKNESS ANEMIA LEUKOPENIA ASICTES RENAL INSUFF. CIRRHOSIS LIVER MASS? - Plan Plan: IVF HYDRATION CBC/BMP IN AM PAIN MGMT ZOFRAN PRN MONITOR LYTES CPM
--- NOTE | 2016-10-04 13:38 | Pathology Report ---
[id number] Collection date: 10/01/2016 Surgeon: Dr. Shakira Mas Specimen Description: 1: Duodenum biopsy 2: Antrum biopsy Gross Description: Part I: Received in formalin are two rea soft tissue fragments ranging from 0.1 to 0.2 cm in greatest dimension. Totally submitted in one cassette labeled A. Gross Description: Part II: Received in formalin are two rea soft tissue fragments ranging from 0.1 to 0.2 cm in greatest dimension. Totally submitted in one cassette labeled B. Microscopic Description: Part I: The histologic sections show duodenal mucosa with intact intestinal villi, showing no significant structural abnormalities. Diagnosis: Part I: No evidence for celiac disease/Sprue (duodenal biopsy). Microscopic Description: Part II: The histologic sections show gastric mucosa with chronic inflammation present consisting of increased numbers of lymphocytes and plasma cells. The Giemsa stain shows no evidence for Helicobacter pylori. Diagnosis: Part II: 1. Chronic gastritis, antrum biopsy. 2. The Giemsa stain is negative for Helicobacter pylori. [facility]# [id number] [facility]
--- NOTE | 2016-10-04 15:13 | Diagnostic Imaging Report ---
Abdominal ultrasound (Limited) HISTORY: Ascites The exam demonstrates a very small amount of ascites. This is insufficient for percutaneous access. The intra-abdominal organs are not evaluated at this time. IMPRESSION: 1. Relatively small amount of ascites insufficient for percutaneous access.
[2016-10-04] MEDS ORDERED: Pantoprazole 40 mg EC Tab PO SCH (17:00)
--- NOTE | 2016-10-04 20:34 | General Progress Note ---
Subjective - Review of Systems Service Date: 10/04/16 Subjective: DELAYED NOTE ENTRY. FEELING BETTER. MELISA ORAL DIET. Objective - Results Result Diagrams: 10/04/16 05:40 10/04/16 05:40 Recent Labs: Laboratory Last Values WBC 4.5 Th/cmm (4.8-10.8) L 10/04/16 05:40 RBC 2.72 Mil/cmm (3.80-5.10) L 10/04/16 05:40 Hgb 8.2 gm/dL (11.7-15.5) L 10/04/16 05:40 Hct 23.7 % (35.0-45.0) L* 10/04/16 05:40 MCV 86.9 fl (81-100) 10/04/16 05:40 MCH 30.1 pg (27.0-31.0) 10/04/16 05:40 MCHC Differential 34.6 pg (28.0-36.0) 10/04/16 05:40 RDW 18.7 % (11.5-20.0) 10/04/16 05:40 Plt Count 127 Th/cmm (150-400) L 10/04/16 05:40 MPV 7.8 fl 10/04/16 05:40 Neutrophils % 68.1 % (40.0-80.0) 10/04/16 05:40 Lymphocytes % 18.5 % (20.0-50.0) L 10/04/16 05:40 Monocytes % 8.6 % (2.0-10.0) 10/04/16 05:40 Eosinophils % 4.3 % (0.0-5.0) 10/04/16 05:40 Basophils % 0.5 % (0.0-2.0) 10/04/16 05:40 Neutrophils (Manual) 69 % (40-80) 09/30/16 06:35 Lymphocytes 18 % (20-50) L 09/30/16 06:35 Monocytes 8 % (2-10) 09/30/16 06:35 Eosinophils 5 % (0-5) 09/30/16 06:35 Platelet Estimate ADEQUATE (NORMAL) 09/30/16 06:35 Platelet Morphology NORMAL (NORMAL) 09/30/16 06:35 Anisocytosis 1+ 09/30/16 06:35 RBC Morph Micro Appear ABNORMAL (NORMAL) 09/30/16 06:35 PT 13.8 SECONDS (9.5-11.5) H 10/04/16 05:40 INR 1.36 (0.5-1.4) 10/04/16 05:40 PTT (Actin FS) 24.4 SECONDS (26.0-38.0) L 10/04/16 05:40 Sodium 144 mEq/L (136-145) 10/04/16 05:40 Potassium 3.3 mEq/L (3.5-5.1) L 10/04/16 05:40 Chloride 119 mEq/L (98-107) H 10/04/16 05:40 Carbon Dioxide 23.7 mEq/L (21.0-31.0) 10/04/16 05:40 Anion Gap 4.6 (7.0-16.0) L 10/04/16 05:40 BUN 11 mg/dL (7-25) 10/04/16 05:40 Creatinine 1.4 mg/dL (0.6-1.2) H 10/04/16 05:40 Est GFR ( Amer) 49.3 ml/min (>90) 10/04/16 05:40 Est GFR (Non-Af Amer) 40.8 ml/min 10/04/16 05:40 BUN/Creatinine Ratio 7.9 10/04/16 05:40 Glucose 117 mg/dL (70-105) H 10/04/16 05:40 POC Glucose 134 MG/DL (70 - 105) H 10/01/16 10:42 Whole Bld Lactic Acid 0.82 mmol/L (0.60-2.00) 09/29/16 19:48 Calcium 7.7 mg/dL (8.6-10.3) L 10/04/16 05:40 Magnesium 1.9 mg/dL (1.9-2.7) 10/02/16 07:04 Iron 79 ug/dL (27-159) 10/01/16 06:00 TIBC 164 ug/dL (250-450) L 10/01/16 06:00 Iron Saturation 48 % (15-55) 10/01/16 06:00 Unsaturated IBC 85 ug/dL (131-425) L 10/01/16 06:00 Ferritin 1199 ng/mL (15-150) H 10/01/16 06:00 Total Bilirubin 0.8 mg/dL (0.3-1.0) 10/02/16 07:04 Direct Bilirubin 0.31 mg/dL (0.0-0.2) H 10/01/16 06:00 GGTP 184 IU/L (0-60) H 10/01/16 06:00 AST 30 U/L (13-39) 10/02/16 07:04 ALT 14 U/L (7-52) 10/02/16 07:04 Alkaline Phosphatase 98 U/L (34-104) 10/02/16 07:04 Ammonia 59 umol/L (16-53) H 10/01/16 06:00 Troponin I 0.01 ng/mL (0.01-0.05) 09/29/16 17:54 B-Natriuretic Peptide 974.0 pg/mL (5.0-100.0) H 09/30/16 06:35 Total Protein 6.5 gm/dL (6.0-8.3) 10/02/16 07:04 Albumin 2.9 gm/dL (3.7-5.3) L 10/02/16 07:04 Globulin 3.6 gm/dL 10/02/16 07:04 Albumin/Globulin Ratio 0.8 (1.0-1.8) L 10/02/16 07:04 Ipqhc-3-Gqxxcoxncko 194 mg/dL (90-200) 10/01/16 06:00 Ceruloplasmin 28.7 mg/dL (19.0-39.0) 10/01/16 06:00 Lipase 3 U/L (11-82) L 10/02/16 07:04 Tumor Marker AFP 3.3 ng/mL (0.0-8.3) 09/30/16 06:35 Carcinoembryonic Ag 3.3 ng/mL (0.0-4.7) 09/30/16 06:35 CA 19-9 Antigen 184 U/mL (0-35) H 09/30/16 06:35 CA 125 Antigen 71.1 U/mL (0.0-38.1) H 09/30/16 06:35 Vitamin B12 1358 pg/mL (211-946) H 09/30/16 06:35 Folic Acid 5.7 ng/mL (>3.0) 09/30/16 06:35 TSH 5.69 uIU/ml (0.34-5.60) H 09/30/16 06:35 Anti-Mitochondrial Ab 10.7 Units (0.0-20.0) 10/01/16 06:00 Smooth Muscle IgG Ab 26 Units (0-19) H 10/01/16 06:00 Helicobacter pylori Ab NEGATIVE (NEGATIVE) 10/01/16 12:10 Hepatitis A IgM Ab Negative (Negative) 10/01/16 06:00 Hep Bs Antigen Negative (Negative) 10/01/16 06:00 Hep B Core IgM Ab Negative (Negative) 10/01/16 06:00 Hepatitis C Antibody >11.0 s/co ratio (0.0-0.9) H 10/01/16 06:00 - Physical Exam Vitals and I&O: Vital Signs Temp 97.9 F 10/04/16 16:16 Pulse 89 10/04/16 16:16 Resp 19 10/04/16 16:16 BP 150/86 10/04/16 16:16 Pulse Ox 98 10/04/16 16:16 Intake & Output 10/04/16 10/04/16 10/05/16 06:59 18:59 06:59 Intake Total 1300 850 Output Total 500 Balance 800 850 Intake: Intake, IV Amount 1300 0.9% NS w/40 mEq KCL 1, 1000 000 ml @ 70 mls/hr IV . [id number] [facility] Rx#:[id number] Levofloxacin 500mg/100mL 100 500 mg In 100 ml @ 100 mls/hr IV Q24HR [facility] Rx#: [id number] metroNIDAZOLE 500mg/NS 200 100mL 500 mg In 100 ml @ 100 mls/hr IV Q8HR [facility] Rx #:[id number] Oral 850 Output: Urine 500 Other: # Voids 3 # Bowel Movements 0 General: Alert HEENT: Atraumatic Neck: Supple Cardiovascular: Regular rate Lungs: Clear to auscultation Abdomen: Bowel sounds - Procedures Procedures: Procedures Procedure Code Date EGD BIOPSY SINGLE/MULTIPLE 08867 09/29/16 EXCISION OF STOMACH, ENDO, DIAGN [id number] 09/29/16 Assessment/Plan - Assessment Assessment: 1. ABD PAIN WITH N/V - BETTER. 2. POSSIBLE CIRRHOSIS WITH ASCITES. H/O HEPATITIS C. ALSO SMA POSITIVE. 3. POSSIBLE RENAL AND LIVER MASSES. NORMAL AFP, ELEVATED CA19-9 AND CA125. 4. EGD SHOWED TRACE ESOPH VARICES AND MILD PORTAL GASTROPATHY. - Plan Plan: 1. PROTONIX. 2. ZOFRAN. ALSO ON REGLAN ATC. 3. OUTPT HEPATOLOGY F/U. 4. DIET MELISA. 5. MAY NEED COLONOSCOPY IF NOT DONE RECENTLY - OUTPT OK.
[2016-10-07] MEDS ORDERED: cloNIDine 0.1 mg/24 hr Tdm TD SCH (09:00)
--- NOTE | 2016-11-29 02:09 | Discharge Summary ---
FINAL DIAGNOSES: Abdominal pain, intractable vomiting, acute hypokalemia, hypermagnesemia, diabetes, hypertension uncontrolled, ataxia, gait instability, generalized weakness, anemia, leukopenia, renal insufficiency, ascites, and cirrhosis. On CT, liver mass. HISTORY OF PRESENT ILLNESS: This is a 60-year-old female with a history of diabetes, hypertension, right foot ulceration with recent surgery who was admitted from nursing facility secondary to abdominal pain for the last 2 weeks. The patient has been vomiting for 3 days. The patient was started on IV fluids at the nursing facility, but her symptoms were not improving. The patient was complaining of generalized pain in the ER. PHYSICAL EXAMINATION: GENERAL: The patient is well developed, well nourished, in no acute distress. VITAL SIGNS: Stable. HEENT: Head is normocephalic and atraumatic. NECK: Supple. No mass. LUNGS: Clear bilaterally. HEART: Regular rate and rhythm. ABDOMEN: Soft and nontender. HOSPITAL COURSE: During the hospital stay, the patient was admitted to the med/surg unit. The patient had a CT of the abdomen and pelvis. We were monitoring the patient's renal function as well. The patient had a GI consultation as well. On 09/30/2016, the patient had an abdominal ultrasound, and the impression was borderline prominent liver, and [id number] ascites. Pelvic ultrasound was also done and impression is [id number] free fluid in the pelvis as well. GI consultation was obtained and the plan of care for this patient is to do an EGD and to check the CT of the abdomen and pelvis once renal insufficiency improves. The patient was kept on Protonix as well. CT of the abdomen was obtained and the impression is incomplete exam and insufficient delayed images of ____ contrast and has been previously reported hepatic lesion. A followup scan to follow up ____ as needed and will be scheduled. On 10/01/2016, the patient had an EGD done. POSTOPERATIVE DIAGNOSES: Small amount of bleeding, esophageal varices, mild portal gastropathy, status post biopsy, MANFRED test is normal, duodenum status post biopsies to rule out celiac disease. Dr. Olivarez was also on the case, Hematology, and due to liver mass, his plan of care for this patient was to obtain a CT mass profile of the liver, and if still suspicious, a biopsy may be considered. The patient was stable for discharge since the patient has a longstanding history of hepatitis. The patient is to follow up with GI specialist, Dr. Mas, and the patient was to continue Levaquin 500 mg x 5 days. CONDITION UPON DISCHARGE: Fair. DISPOSITION: The patient is going to [facility]. JOB# [id number]
== END 2016-10-04 17:25 | DRG 433 ==
LOC: ER 17:25 → TELE 19:45 → MSI 10-04 14:50
PROVIDERS: ADMIT Internal Medicine; ATTEND Internal Medicine
PROC: 0DB68ZX Excision of Stomach, Via Natural or Artificial Opening Endoscopic, Diagnostic (ICD-10-PCS; principal; 2016-10-01)
PROC: 0DB98ZX Excision of Duodenum, Via Natural or Artificial Opening Endoscopic, Diagnostic (ICD-10-PCS; 2016-10-01)
DX: K74.60 Unspecified cirrhosis of liver (principal); I85.00 Esophageal varices without bleeding; R18.8 Other ascites; K76.6 Portal hypertension; E83.42 Hypomagnesemia; E11.621 Type 2 diabetes mellitus with foot ulcer; R16.0 Hepatomegaly, not elsewhere classified; I10 Essential (primary) hypertension; D64.9 Anemia, unspecified; E87.6 Hypokalemia; R27.0 Ataxia, unspecified; D72.819 Decreased white blood cell count, unspecified; N28.9 Disorder of kidney and ureter, unspecified; K31.89 Other diseases of stomach and duodenum; E86.0 Dehydration; K31.9 Disease of stomach and duodenum, unspecified; B19.20 Unspecified viral hepatitis C without hepatic coma; Z79.4 Long term (current) use of insulin
CPT/HCPCS: 36415-UA; 71010-TC; 74160-TC; 76700-TC; 76705-TC; 76856-TC; 80048-TC; 80053-TC; 80074-90; 80076-TC; 82103-90; 82105-90; 82140-TC; 82378-90; 82390-90; 82607-90; 82728-90; 82746-90; 82948-90; 82977-90; 83516-90; 83540-90; 83550-90; 83605; 83690-TC; 83735-TC; 83880-TC; 84443-TC; 84484-TC; 85007-TC; 85025-TC; 85027-TC; 85610-TC; 85730-TC; 86255-90; 86301-90; 86304-90; 87338-TC; 88305-90; 88312-90; 90799; 93005; C9113; J0696; J1170; J1956; J2001; J2060; J2250; J2270; J2405; J2765; J3475; J3480; J7030; X6024; Z7502; Z7610

== ENCOUNTER 2017-03-28 14:40 | Inpatient (IN) | payer MEDICARE, MEDICAID ==
[2017-03-28] MEDS ORDERED: Sodium Chloride 0.45% 1,000 ML IV ONE (14:49)
[2017-03-28 15:17] LABS: % EOSINOPHILS 0.8 % (0.0-5.0); % LYMPHOCYTES 13.9 % (20.0-50.0); % MONOCYTES 7.4 % (2.0-10.0); % NEUTROPHILS 77.9 % (40.0-80.0); MEAN CELL VOLUME 93.8 fl (81-100); MEAN CORPUSCULAR HEMOGLOBIN 31.7 pg (27.0-31.0); MEAN CORPUSCULAR HGB CONC 33.8 pg (28.0-36.0); NEUTROPHILE ABSOLUTE 4.8 Th/cmm (1.8-8.0); RED BLOOD COUNT 3.45 Mil/cmm (3.80-5.10); RED CELL DISTRIBUTION WIDTH 15.6 % (11.5-20.0)
[2017-03-28 15:19] LABS: HEMATOCRIT 32.4 % (35.0-45.0); PLATELET COUNT 268 Th/cmm (150-400); WHITE BLOOD COUNT 6.2 Th/cmm (4.8-10.8)
--- NOTE | 2017-03-28 15:28 | ED Physician Chart ---
Chief Complaint/HPI - Patient Information Date Seen:: 03/28/17 Time Seen:: 15:08 Chief Complaint:: ABDOMINAL PAIN History of Present Illness:: THIS IS A CHRONICALLY ILL 61 YO FEMALE WITH A DISTENDED ABDOMEN COMPLAINING OF SEVERE PAIN. SHE HAS BEEN HERE SEVERAL TIMES. SHE MOST RECENTLY AT [facility] FOR SIMILAR COMPLAINTS. SHE RECENTLY HAS BEEN CONCERNED ABOUT HER RIGHT BREAST BEING ENLARGED. SHE ADMITS TO HEP C CURRENTLY. Allergies:: Allergies Allergy/AdvReac Type Severity Reaction Status Date / Time tramadol Allergy Verified 03/28/17 14:48 Vitals:: Vital Signs - 8 hr 03/28/17 14:53 Temp 97.7 F HR 95 RR 22 BP 201/116 O2 Sat % 97 Historian:: Patient, Family Member Review:: Nurse's Note Reviewed, Old Chart Reviewed, Transfer documents Reviewed Review of Systems - Review of Systems General/Constitutional: No fever, No chills, No weight loss, No weakness, No diaphoresis, No edema, No loss of appetite Skin: No skin lesions, No rash, No bruising Head: No headache, No light-headedness Eyes: No loss of vision, No pain, No diplopia ENT: No earache, No nasal drainage, No sore throat, No tinnitus Neck: No neck pain, No swelling, No thyromegaly, No stiffness, No mass noted Cardio Vascular: No chest pain, No palpitations, No PND, No orthopnea, No edema Pulmonary: No SOB, No cough, No sputum, No wheezing GI: Nausea, Vomiting, No diarrhea, Pain, No melena, No hematochezia, No constipation, No hematemesis G/U: No dysuria, No frequency, No hematuria Musculoskeletal: No bone or joint pain, No back pain, No muscle pain Endocrine: No polyuria, No polydipsia Psychiatric: No prior psych history, No depression, No anxiety, No suicidal ideation Hematopoietic: No bruising, No lymphadenopathy Allergic/Immuno: No urticaria, No angioedema Neurological: No syncope, No focal symptoms, No weakness, No paresthesia, No headache, No seizure, No dizziness, No confusion, No vertigo Past Medical History - Past Medical History Obtainable: Yes Past Medical History: HTN, CHF, Dyslipidemia, Thyroid disorder, Other (HEP C) Family History: None Social History: Non Smoker, No Alcohol, No Drug Use Surgical History: None Psychiatricy History: None Medication: Reviewed Family Medical History - Family Member Mother History Unknown: Yes Ethnicity: Living Status: Hx Family Cancer: No Hx Family Coronary Artery Disease: No Hx Family Congestive Heart Failure: No Hx Family Hypertension: Yes Hx Family Stroke: No Hx Family Diabetes: Yes Hx Family Seizures: No Hx Family Dementia: No Hx Family AIDS: No Hx Family HIV: No Hx Family COPD: No Hx Family Hepatitis: No Hx Family Psychiatric Problems: No Hx Family Tuberculosis: No Physical Exam - Physical Examination General/Constitutional: Awake, Well-developed, well-nourished, Alert, No distress, GCS 15, Non-toxic appearing, Ambulatory Other Gen/Cons comments:: THIS PATIENT IS HAVING PAIN FROM HER DISTENDED DRUM-LIKE ABDOMEN. Head: Atraumatic Eyes: Lids, conjuctiva normal, PERRL, EOMI Skin: Nl inspection, No rash, No skin lesions, No ecchymosis, Well hydrated, No lymphadenopathy ENMT: External ears, nose nl, Nasal exam nl, Lips, teeth, gums nl Neck: Nontender, Full ROM w/o pain, No JVD, No nuchal rigidity, No bruit, No mass, No stridor Respiratory: Nl effort/Exclusion, Clear to Auscultation, No Wheeze/Rhonchi/Rales Cardio Vascular: RRR, No murmur, gallop, rubs, NL S1 S2 GI: No organomegaly, No hernia, Normal BS's, Nondistended, No mass/bruits, No McBurney tenderness Other GI comments:: THE ABDOMEN IS DISTENDED AND TYMPANIC WITH ASCITES. : No CVA tenderness Extremities: No tenderness or effusion, Full ROM, normal strength in all extremities, No edema, Normal digits & nails Neuro/Psych: Alert/oriented, DTR's symmetric, Normal sensory exam, Normal motor strength, Judgement/insight normal, Mood normal, Normal gait, No focal deficits Misc: normal gait, Normal back, No paraspinal tenderness Labs/Radiology/EKG Results - Lab Results Results: Abnormal Lab Results 03/28/17 03/28/17 03/28/17 14:55 14:55 14:55 WBC 6.2 D RBC 3.45 L Hgb 11.0 L D Hct 32.4 L D MCV 93.8 MCH 31.7 H MCHC Differential 33.8 RDW 15.6 Plt Count 268 D MPV 9.0 Neutrophils % 77.9 Lymphocytes % 13.9 L Monocytes % 7.4 Eosinophils % 0.8 Basophils % 0.0 PT 10.6 INR 1.02 Sodium Potassium Chloride Carbon Dioxide Anion Gap BUN Creatinine Est GFR ( Amer) Est GFR (Non-Af Amer) BUN/Creatinine Ratio Glucose Calcium Total Bilirubin AST ALT Alkaline Phosphatase Troponin I Total Protein Albumin Globulin Albumin/Globulin Ratio Triglycerides 233 H Cholesterol 226 H LDL Cholesterol Direct 161 HDL Cholesterol 29 TSH 03/28/17 03/28/17 03/28/17 14:55 14:55 14:55 WBC RBC Hgb Hct MCV MCH MCHC Differential RDW Plt Count MPV Neutrophils % Lymphocytes % Monocytes % Eosinophils % Basophils % PT INR Sodium 136 Potassium 4.9 Chloride 110 H Carbon Dioxide 19.0 L Anion Gap 11.9 BUN 47 H Creatinine 1.8 H Est GFR ( Amer) 36.8 Est GFR (Non-Af Amer) 30.4 BUN/Creatinine Ratio 26.1 Glucose 197 H Calcium 9.7 Total Bilirubin 0.4 AST 38 ALT 26 Alkaline Phosphatase 186 H Troponin I 0.02 Total Protein 7.1 Albumin 3.6 L Globulin 3.5 Albumin/Globulin Ratio 1.0 Triglycerides Cholesterol LDL Cholesterol Direct HDL Cholesterol TSH 9.05 H - Radiology Results Results: CHEST X-RAY = LEFT PLEURAL EFFUSION CT SCAN OF THE ABDOMEN = FLUID FILLED ABDOMEN, LEFT PLEURAL EFFUSION. - EKG Interpretations EKG Time:: 15:08 Rate & Rhythm: 85 [place]: RIGHT Assessment - Assessment General Assessment: hepatic failure ED Septic Shock - . Is Septic Shock (SBP<90, OR Lactate>4 mmol\L) present?: No - <6hrs of presentation: Vital Signs: Vital Signs - 8 hr 03/28/17 14:53 Temp 97.7 F HR 95 RR 22 BP 201/116 O2 Sat % 97 Reassessment (Disposition) - Diagnosis Diagnosis:: HEPATIC FAILURE LEFT PLEURAL EFFUSION DEHYDRATION - Patient Disposition Discharge/Transfer:: Acute Care w/in this hosp Admitting Medical Physician:: Art Hill Condition at Disposition:: Unchanged ED Discharge Plan - Patient Disposition Admit/Discharge/Transfer: Acute Care w/in this hosp Condition at Disposition: Unchanged
[2017-03-28 15:29] LABS: INR 1.02 (0.5-1.4); PROTHROMBIN TIME (TEST) 10.6 SECONDS (9.5-11.5)
--- NOTE | 2017-03-28 15:32 | Diagnostic Imaging Report ---
Portable chest x-ray HISTORY: Shortness of breath Compared to prior exam of 02/01/2017, the heart is enlarged. Linear densities are seen in the left perihilar and left lower lobe regions that may be associated with subsegmental atelectasis. No other focal processes. No pleural fluid. IMPRESSION: 1. Linear pulmonary parenchymal densities within the left lung as noted above. The findings may be associated with scarring or subsegmental atelectasis. 2. Cardiomegaly
[2017-03-28 15:36] LABS: ANION GAP 11.9 (7.0-16.0); BILIRUBIN,TOTAL 0.4 mg/dL (0.3-1.0); BUN/CREATININE RATIO 26.1; CALCIUM SERUM 9.7 mg/dL (8.6-10.3); CHOLESTEROL 226 mg/dL (<200); CREATININE - SERUM 1.8 mg/dL (0.6-1.2); POTASSIUM SERUM 4.9 mEq/L (3.5-5.1); TRIGLYCERIDES 233 mg/dL (<150)
--- NOTE | 2017-03-28 16:15 | Diagnostic Imaging Report ---
CT scan abdomen and pelvis without intravenous contrast HISTORY: Abdominal region, pain Total DLP equals 506 CTDI equals 10.7 The exam is compared with the prior study of October 02, 2016. The exam of the liver demonstrates a previously reported 2.0 cm hypodense lesion. Prior contrast enhanced CT scans demonstrated changes consistent with a hemangioma. The stability is also consistent with a benign etiology. There is a large amount of ascites throughout the abdomen and pelvis. The spleen appears normal. The pancreas is poorly visualized. There is a lobulated elongated right kidney unchanged compared to prior CT scans dating back to September,. Changes appear to be congenital. As noted above, large amount of ascites seen in the pelvis. No abnormal masses. Diverticula noted in the colon. Generalized haziness through the subcutaneous fatty tissues of the abdomen and pelvis are consistent with anasarca. Limited sections through the lower chest demonstrate a small left pleural effusion. Nonspecific parenchymal changes noted in the lower lobes (left greater the right). IMPRESSION: 1. Large amount of ascites 2. Anasarca 3. Small left pleural effusion and nonspecific parenchymal changes within the lower lobes of the lungs 4. Diverticulosis 5. Stable hepatic lesion. Stability and previously documented enhancement characteristics are suggestive of a hemangioma.
[2017-03-28] MEDS ORDERED: Diphenoxylate/Atropine 2.5mg Tab PO PRN (19:35)
[2017-03-28] MEDS ORDERED: Albuterol/Ipratropium Neb 3 ML AERS HHN PRN (19:35)
[2017-03-28] MEDS: Pantoprazole 40 mg EC Tab PO SCH (20:06)
[2017-03-28] MEDS: Lactobacillus Rhamnosus 10 Billion CFU Capsule PO SCH (20:07)
[2017-03-28] MEDS: Ferrous Sulfate 325 MG TAB PO SCH (20:07)
[2017-03-28] MEDS: INSULIN ASPART SLIDING SCALE 100 UNITS/ML UNIT SUBQ SCH (20:51)
[2017-03-28] MEDS ORDERED: [UNRECOGNIZED DRUG - OTHER] PO SCH (21:00)
[2017-03-28] MEDS ORDERED: ENTERAL FORMULA PO SCH (21:00)
[2017-03-28] MEDS: cefTRIAXone 1 GM in Sodium Chloride 0.9% 50 ML IV SCH (22:13)
[2017-03-28] MEDS ORDERED: Morphine Sulfate 2 mg/mL 1mL Syr IVP PRN (23:32)
[2017-03-29] MEDS: Morphine Sulfate 2 mg/mL 1mL Syr IVP PRN ×7 (00:19→21:36)
--- NOTE | 2017-03-29 04:09 | Admit Criteria Form ---
Admit Criteria Forms - Admit Criteria Diagnosis: LIVER DISEASE COMPLICATIONS Clinical Indications for Admission to Inpatient Care (Place 'X' for any and all applicable criteria): Admission is indicated for patient with ANY ONE of the following(1)(2)(3)(4): [X ]I. Inpatient admission required rather than observation care because of ANY ONE of the following: [ ]a) Hemodynamic instability that is severe or persistent [ ]b) Severe electrolyte abnormalities requiring inpatient care [ ]c) Respiratory compromise that is severe or persistent [ ]d) Coagulation abnormal that is severe or persistent [ ]e) Severe pain requiring acute inpatient management [ ]f) Renal insufficiency that is severe or worsening [ ]g) Metabolic abnormalities (e.g., vomiting, hypoglycemia, acidosis) that are severe or persistent [ ]h) Hypovolemia or hypervolemia that is severe or persistent [ ]i) Absent bowel sounds with complete ileus(2) [ ]j) Signs of intestinal obstruction or peritonitis[A] [ ]k) IV fluid to replace significant ongoing losses (>3 L/m2 per day) [ ]l) Continuous IV infusion of anticoagulation, platelet inhibitor, vasoactive, or antiarrhythmic medication [ ]m) Percutaneous or open drainage (e.g., abscess, biliary tract) procedures [ ]n) Parenteral nutrition regimen that must be implemented on inpatient basis [X ]o) Other condition treatment or monitoring requiring inpatient admission [ ]II. Infected hepatic hydrothorax (eg, empyema) [ ]III. Hepatorenal syndrome (eg, elevated. creatinine with adequate volume status and negative evaluation for other cause)(8) [ ]IV. Spontaneous bacterial peritonitis [ ]V. Suspected infected ascites as indicated by ANY ONE of the following: [ ]a) Temp >100 degrees F (37.8 C ) [ ]b) High WBC count [ ]c) Abdominal pain or tenderness not relieved by paracentesis [ ]. New-onset or worsening hepatic encephalopathy(7) [X ]VII. Suspected fulminant hepatic failure (e.g., acute coagulopathy with hepatic encephalopathy or acute elevation of hepatic transaminases to more than 15 times baseline)(4) [ ]VIII. Acute hepatitis (e.g., ALT and AST at least 3 times baseline) with coagulopathy or severe jaundice as indicated by ANY ONE of the following(9)(10): [ ]a) Bilirubin >20 mg/dL (342 moles/L)(11) [ ]b) Acute elevation of PT to >50% above normal or INR >1.5 [ ] IX. Treatment of injury from hepatotoxin (e.g., acetaminophen) that requires inpatient monitoring [ ] X. Acute fatty liver of Extended stay beyond goal length of stay may be needed for(3)(7): [ ]a) Hepatorenal syndrome [ ]b) Severe or persistent hepatic encephalopathy [ ]c) Renal failure due to other causes associated with cirrhosis (e.g., hypovolemia) [ ]d) Severe or persistent coagulation abnormalities [ ]e) Refractory ascites, volume, or electrolyte abnormality [ ]f) Severe or persistent gastroesophageal bleeding [ ]g) Severe infectious or hepatotoxin-induced hepatitis (eg, acetaminophen) [ ]h) Hemodynamic instability that is severe or persistent The original [employer] content created by [employer] has been revised. The portions of the content which have been revised are identified through the use of italic text or in bold, and [facility] has neither reviewed nor approved the modified material. All other unmodified content is copyright [facility]. Please see references footnoted in the original [employer] edition 2016 Admit Criteria Met?: Yes
[2017-03-29] MEDS: INSULIN ASPART SLIDING SCALE 100 UNITS/ML UNIT SUBQ SCH ×4 (07:41→23:22)
[2017-03-29] MEDS: Levothyroxine 0.05 Mg Tab PO SCH (07:55)
[2017-03-29] MEDS: Multivitamin Tab PO SCH (08:44)
[2017-03-29] MEDS: Pantoprazole 40 mg EC Tab PO SCH ×2 (08:46→16:14)
[2017-03-29] MEDS: Ferrous Sulfate 325 MG TAB PO SCH ×2 (08:46→16:14)
[2017-03-29] MEDS: Lactobacillus Rhamnosus 10 Billion CFU Capsule PO SCH ×2 (08:46→16:14)
[2017-03-29] MEDS: POLYETHYLENE GLYCOL 3350 17 GM PACK PO SCH (08:47)
[2017-03-29] MEDS: Venelex 60gm Tube TP SCH (11:39)
[2017-03-29] MEDS: Insulin Detemir 100 units/mL 10mL Vial SUBQ SCH (12:44)
[2017-03-29] MEDS ORDERED: VTE Chemical Prophylaxis Screen/Admission MC PRN (15:42)
[2017-03-29] MEDS: cefTRIAXone 1 GM in Sodium Chloride 0.9% 50 ML IV SCH (16:54)
[2017-03-29] MEDS ORDERED: cloNIDine 0.2 mg/24 hr Tdm TD SCH ×2 (17:15→17:30)
[2017-03-29] MEDS ORDERED: Albumin 25% 12.5gm/50mL 12.5 GM/50 ML BTL IV ONE (17:58)
--- NOTE | 2017-03-29 20:25 | History & Physical ---
ADMIT DATE: 03/29/2017 The patient was admitted for her abdominal pain. HISTORY OF PRESENT ILLNESS: This patient was seen before here with abdominal pain and infection and had acute renal issues and the patient was transferred to [facility] where I took care of the patient and followed her in my office. Apparently recently, she went to Dr. Hill's office for followup for infection and found that the patient was having high fever and abnormal values and he referred the patient to the ER and from there, the patient is being admitted. The patient complained of no earache, no chest pain. Complains of abdominal pain. No nausea or vomiting. The patient has no polyuria or polydipsia. The patient does have a history of hypertension, history of CHF, history of hyperlipidemia, thyroid disorder, and she also has history of hepatitis C. MEDICATIONS: See the reconciliation sheet. PHYSICAL EXAMINATION: GENERAL: The patient is awake and alert, complaining of abdominal pain. LUNGS: Clear. CARDIOVASCULAR SYSTEM: S1 and S2 heard. ABDOMEN: Diffusely tender. CENTRAL NERVOUS SYSTEM: Grossly normal. LABORATORY DATA: The patient had a lab done. Hemoglobin; MCV was , INR was 1.0. Sodium was 136. Her BUN is 47. Creatinine is 1.8 indicating renal failure. DIAGNOSES: Acute abdominal pain, rule out sepsis, acute on chronic renal failure, and history of congestive heart failure, history of hypertension, history of hyperlipidemia, history of thyroid disorder, history of hepatitis C, and I will go ahead and admit the patient and I will have Dr. Harjit Hill see the patient, and I will follow along. We will do the further workup. JOB# [id number]
[2017-03-29] MEDS: Albumin 25% 12.5gm/50mL 12.5 GM/50 ML BTL IV SCH (21:00)
--- NOTE | 2017-03-29 22:17 | Consultation ---
DATE OF CONSULTATION: 03/29/2017 PRIMARY CARE PHYSICIAN: Dr. Ortega. REASON FOR CONSULTATION: Hepatitis C. HISTORY OF PRESENT ILLNESS: This is a 61-year-old female who started having nausea and vomiting on the day of admission and the patient was referred to Emergency Room where the patient evaluated and was found to have pneumonia, probably aspiration, antibiotic started. The patient's examination was . PAST MEDICAL HISTORY: Chronic hepatitis C, neck pain, ataxia, dizziness, GERD, muscle weakness, ascites due to decompensated liver cirrhosis, insomnia, liver cirrhosis, chronic anemia, hypothyroidism, peripheral vascular disease, type 2 diabetes, hypertension, hyperlipidemia, TIA, and depression. SOCIAL HISTORY: Nonsmoker. FAMILY HISTORY: No family history. ALLERGIES: None. REVIEW OF SYSTEMS: A 14-point review of systems negative except above. PHYSICAL EXAMINATION: GENERAL: The patient is alert and awake, not in distress. VITAL SIGNS: Temperature is 98.5, pulse 97, respiration 20, and blood pressure 150/78. HEENT: Mild pallor, no icterus or plaque. NECK: Supple. LUNGS: Breath sounds bilateral vesicular. ABDOMEN: Ascites present. NEUROLOGIC: No thyroid. No cervical lymph nodes. LABORATORY DATA: White count 6000, hemoglobin is 11 g, and platelet 268,000. Creatinine 1.8. Chest x-ray shows cardiomegaly, atelectasis, and infiltrate. DIAGNOSES: 1. decompensated liver cirrhosis. Restart home medication. May need diuretics. 2. Pneumonia. Continue Rocephin. 3. Hypertension, renal insufficiency. Repeat labs tomorrow. Discussed with the primary physician Dr. Ortega. Rest of the care as ordered in [facility]PO[facility]. Thank you Dr. Ortega for this consultation. JOB# [id number]
--- NOTE | 2017-03-30 00:51 | Consultation ---
DATE OF CONSULTATION: 03/29/2017 GASTROENTEROLOGY CONSULTATION REFERRING PHYSICIAN: Tori Ortega M.D. and Art Hill M.D. REASON FOR CONSULTATION: Abdominal pain. HISTORY OF PRESENT ILLNESS: A 61-year-old female known to us from multiple previous admissions with history of hepatitis C cirrhosis, who had a recent admission at [facility] for abdominal pain. There an endoscopy only showed small esophageal varices and mild gastritis. There also may have been some retained food in the gastric antrum, but gastric emptying study there was negative for gastroparesis. The patient does have diabetes mellitus. She came back in again for another fall. She also had some abdominal distention and perhaps some chest pain. She also reported that her left breast was larger than her right. PAST MEDICAL HISTORY: As above, also notable for hypertension, CHF, hyperlipidemia, hypothyroidism, and hepatitis C with cirrhosis. ALLERGIES: TRAMADOL. MEDICATIONS: Here are DuoNeb nebulizer, vitamin C, Dulcolax suppository p.r.n., Rocephin, Lomotil p.r.n., doxycycline, ferrous sulfate, subcutaneous heparin, insulin sliding scale, Levemir insulin, Culturelle, Synthroid, Ativan, Reglan p.r.n., Lopressor, minoxidil, rifaximin, liquid Ensure, morphine p.r.n., multivitamin, neomycin, Zofran, Protonix twice daily, MiraLax once daily, zinc sulfate, and Ambien p.r.n. SOCIAL HISTORY: shelter resident. No known tobacco, alcohol or drugs. FAMILY HISTORY: Noncontributory. REVIEW OF SYSTEMS: A comprehensive 12-point review of system was conducted and is only positive for those signs and symptoms present in history of present illness. PHYSICAL EXAMINATION: VITAL SIGNS: Temperature of 97.4, blood pressure is 146/75, pulse of 76, respirations 18, O2 sats 96%. GENERAL: The patient is well-developed, well-nourished female in no acute distress, alert and oriented x 4. HEENT: Sclerae nonicteric. Oropharynx clear. CARDIOVASCULAR: Regular rate and rhythm. LUNGS: Clear to auscultation bilaterally. ABDOMEN: Soft, slightly distended, mild to moderate ascites, obese habitus. EXTREMITIES: No clubbing, cyanosis or edema. RECTAL: Deferred. LABORATORY DATA AND IMAGING: WBC 6.2, hemoglobin 11, platelet count is 268. Sodium is 136, creatinine is 1.8, alkaline phosphatase is 186. Other liver enzymes are normal. Ammonia is 44, albumin is 3.6. RPR is negative. CT of the abdomen and pelvis done without contrast shows large ascites, anasarca, small left pleural effusion, and nonspecific parenchymal changes in the lower lobes, also diverticulosis and a stable hepatic lesion with previous documentation of hemangioma. IMPRESSION: 1. Abdominal pain, likely from ascites and/or gastritis and/or perhaps ileus with recent endoscopy showing small esophageal varices and gastritis. Gastric emptying study elsewhere was negative for delayed gastric emptying. The patient also has had a colonoscopy in the recent past. 2. Decompensated hepatitis C cirrhosis with previous treatment for hepatitis C. 3. Ascites. 4. Renal insufficiency. 5. Diabetes mellitus. 6. Hepatic encephalopathy. 7. Mild anemia. RECOMMENDATIONS: 1. We will order ultrasound-guided paracentesis to rule out SBP. 2. Diuresis as per Nephrology. 3. The patient reports some breast changes and would recommend SENIOR MANUFACTURING TECHNICIAN evaluation and perhaps mammography or a breast ultrasound. I will defer this to Dr. Ortega and other hospitalists that may be covering him. 4. Monitor liver synthetic function, which at this point appears quite preserved. 5. Continue rifaximin. We will discontinue Neomycin as this is duplicating the effect of rifaximin. 6. Low sodium diet with optimization of glycemic control. Thank you, Dr. Tori Ortega for involving us in the care of your patient. If you have any further questions, please call us. JOB# [id number]
[2017-03-30] MEDS: Morphine Sulfate 2 mg/mL 1mL Syr IVP PRN ×4 (01:15→13:24)
--- NOTE | 2017-03-30 04:29 | Consultation ---
DATE OF CONSULTATION: 03/29/2017 VETERINARY SURGERY TECHNOLOGIST: Eddie Armando M.D. REASON FOR CONSULTATION: Worsening kidney function, electrolyte imbalance and fluid management. HISTORY OF PRESENT ILLNESS: This is a 61-year-old female with past medical history of hepatitis C. She was admitted because of increasing abdominal girth. She has a history of hepatitis C with ascites. As per the patient, paracentesis were attempted in the past, but not much ascitic fluid was obtained. A few days prior to admission, she noted progressive increase of her abdominal girth. A few hours prior to admission, she expressed worsening abdominal girth which became intolerable. She cannot move at all and even ambulate. She then proceeded to the Emergency Room. She had no nausea or vomiting, diarrhea, fever or chills. She does have a history of chronic kidney disease. She was admitted at this time with a BUN/creatinine of 47/1.8. She has no history of dysuria, hematuria, no retention. PAST MEDICAL HISTORY: 1. Hepatitis C with ascites. 2. Type 2 diabetes mellitus. 3. Essential hypertension. 4. Hypothyroidism. 5. Anemia of chronic kidney disease. 6. Liver lesion. MEDICATIONS: She is currently on albuterol/ipratropium, ascorbic acid, bisacodyl, Rocephin, Catapres, Lomotil, Vibramycin, iron sulfate, aspart, detemir, lactobacillus, levothyroxine, lorazepam, metoclopramide, Lopressor, morphine sulfate, multivitamins, neomycin, ondansetron, pantoprazole, polyethylene glycol, sodium bicarb, zinc sulfate, zolpidem. ALLERGIES: TRAMADOL. SOCIAL HISTORY: She has no history of alcohol or tobacco use. She is a retired nurse. FAMILY HISTORY: Significant for diabetes and her sister had cervical cancer. REVIEW OF SYSTEMS: CONSTITUTIONAL: She did complain of progressive weakness, appetite had deteriorated due to increase in abdominal girth, no fever, no chills. HEENT: No mention of headaches, no dizziness. Vision and hearing acuity remains within acceptable limits. CARDIORESPIRATORY: She has a history of hypertension. At this point, she does not have any shortness of breath, chest pain, palpitations, diaphoresis, or cough. GASTROINTESTINAL: She complained of increasing abdominal girth causing worsening abdominal pain. However, she does not have any diarrhea, melena, or hematochezia. ENDOCRINE: She has a history of diabetes as well as hypothyroidism. No dyslipidemia. MUSCULOSKELETAL: Multiple joint arthralgias. GENITOURINARY: She has a history of chronic kidney disease. Denied any problem with urinating, dysuria, nor hematuria. HEMATOLOGIC: She has anemia of chronic kidney disease. NEUROPSYCHIATRIC: She has no syncopal episode nor seizure activity. She occasionally has neuropathy. PHYSICAL EXAMINATION: GENERAL: The patient is alert, verbal, comfortable, in mild distress. VITAL SIGNS: Her blood pressure is 146/75, pulse 76, temperature 97.4 degrees. SKIN: Good turgor, warm. No rash. Slightly jaundiced. HEENT: Eyes, extraocular muscles are intact, pink conjunctivae, anicteric sclerae. Nose, midline nasal septum. Mouth, moist mucosa with poor dentition. NECK: Supple. No adenopathy, no thyromegaly, no bruits. Trachea palpated in the midline. CHEST AND CVS: S1, S2. No rub nor gallop appreciated. Point of maximal impulse fifth intercostal space, left midclavicular line. No abdominal or femoral bruits appreciated. LUNGS: Equal expansion. No use of accessory muscles. No supraclavicular retractions. Decreased breath sounds. Few rhonchi, but no rales nor wheezes appreciated. BREASTS: Left breast pendulous and much larger than her right breast. ABDOMEN: Presence of shifting dullness, suggestive of ascites, diminished ____ sounds, tender upon palpation of right upper quadrant. No guarding, No rigidity. RECTAL: The patient refused. GENITOURINARY: Normal appearing female genitalia. MUSCULOSKELETAL: No effusion present in her joints, but unable to fully assess her range of motion. EXTREMITIES: No evidence of edema, cyanosis nor clubbing with palpable femoral, but poorly palpable popliteal dorsalis pedis pulses. No evidence of asterixis. NEUROLOGIC: The patient is awake, verbal. Motor is 5/5. Cranial nerves 3-12 intact. Sensory intact. LABORATORY DATA: Revealed white count of 6.2, hemoglobin 11, hematocrit 32.4, platelets 268, polys 77.9%. Sodium 136, potassium 4.9, chloride 110, bicarbonate is 19, BUN 47, creatinine 1.8, glucose is 144, calcium 9.7, alkaline phosphatase 186. ____. Triglycerides 233, cholesterol 226. DIAGNOSTIC DATA: CT of the abdomen, large amount of ascites, anasarca, small left effusion, diverticulosis and stable hepatic lesion suggestive of hemangioma, and chest x-ray revealed scarring on a subsegmental atelectasis and cardiomegaly. IMPRESSION: 1. Chronic kidney disease, MDRD GFR of 30 mL/min, stage III. The patient's chronic kidney disease is likely due to diabetic nephropathy with some underlying hypertensive nephrosclerosis. However, possibility of hepatorenal syndrome in this particular patient should also be considered. 2. Abdominal pain secondary to increasing amount of ascites, possible SBE. 3. Hepatitis C with ascites. 4. Liver lesion, likely hemangioma. 5. Left pleural effusion. 6. Enlarged left breast, possibly secondary to increase in hepatic drainage. 7. Dyslipidemia. 8. Chronic obstructive pulmonary disease secondary to secondhand smoke. 9. Metabolic acidosis. 10. Type 2 diabetes mellitus with chronic kidney disease. 11. Essential hypertension with chronic kidney disease. 12. Hypothyroidism. 13. Anemia of chronic kidney disease. PLAN: 1. Urinalysis. 2. Urine spot sodium. 3. Urine microalbumin to creatinine ratio. 4. Fluid restriction. 5. Therapeutic paracentesis. 6. Follow up electrolytes as well as hemoglobin A1c. 7. Hold off any diuretics for now since the patient does not have any significant respiratory distress as well as presence of pulmonary congestion/effusion on chest x-ray. Thank you, Dr. Ortega, for this consult. I will follow the patient closely with you. JOB# [id number]
[2017-03-30] MEDS: Albumin 25% 12.5gm/50mL 12.5 GM/50 ML BTL IV SCH ×3 (05:39→21:11)
[2017-03-30] MEDS: INSULIN ASPART SLIDING SCALE 100 UNITS/ML UNIT SUBQ SCH ×4 (07:25→23:11)
[2017-03-30 07:32] LABS: % BASOPHILS 0.7 % (0.0-2.0); % EOSINOPHILS 2.7 % (0.0-5.0); % LYMPHOCYTES 23.4 % (20.0-50.0); % MONOCYTES 9.4 % (2.0-10.0); % NEUTROPHILS 63.8 % (40.0-80.0); HEMOGLOBIN 9.7 gm/dL (11.7-15.5); MEAN CELL VOLUME 94.3 fl (81-100); MEAN CORPUSCULAR HEMOGLOBIN 32.1 pg (27.0-31.0); MEAN PLATELET VOLUME 9.3 fl; NEUTROPHILE ABSOLUTE 2.6 Th/cmm (1.8-8.0); RED BLOOD COUNT 3.01 Mil/cmm (3.80-5.10); RED CELL DISTRIBUTION WIDTH 15.4 % (11.5-20.0)
[2017-03-30 07:36] LABS: INR 1.13 (0.5-1.4); PROTHROMBIN TIME (TEST) 11.9 SECONDS (9.5-11.5)
[2017-03-30 07:48] LABS: HEMATOCRIT 28.4 % (35.0-45.0)
[2017-03-30 07:49] LABS: PLATELET COUNT 203 Th/cmm (150-400)
[2017-03-30 07:56] LABS: BUN/CREATININE RATIO 27.1; CALCIUM SERUM 8.5 mg/dL (8.6-10.3); CREATININE - SERUM 1.7 mg/dL (0.6-1.2); MAGNESIUM 2.1 mg/dL (1.9-2.7); PHOSPHOROUS 4.7 mg/dL (2.5-5.0); URIC ACID 8.7 mg/dL (2.3-6.6)
[2017-03-30] MEDS: Levothyroxine 0.05 Mg Tab PO SCH (08:02)
--- NOTE | 2017-03-30 08:18 | General Progress Note ---
Subjective - Review of Systems Events since last encounter: patient with abd pain acute on chronic renal failure h/o chf Objective - Results Result Diagrams: 03/30/17 06:45 03/30/17 06:45 Recent Labs: Laboratory Last Values WBC 4.0 Th/cmm (4.8-10.8) L D 03/30/17 06:45 RBC 3.01 Mil/cmm (3.80-5.10) L 03/30/17 06:45 Hgb 9.7 gm/dL (11.7-15.5) L 03/30/17 06:45 Hct 28.4 % (35.0-45.0) L D 03/30/17 06:45 MCV 94.3 fl (81-100) 03/30/17 06:45 MCH 32.1 pg (27.0-31.0) H 03/30/17 06:45 MCHC Differential 34.0 pg (28.0-36.0) 03/30/17 06:45 RDW 15.4 % (11.5-20.0) 03/30/17 06:45 Plt Count 203 Th/cmm (150-400) D 03/30/17 06:45 MPV 9.3 fl 03/30/17 06:45 Neutrophils % 63.8 % (40.0-80.0) 03/30/17 06:45 Lymphocytes % 23.4 % (20.0-50.0) 03/30/17 06:45 Monocytes % 9.4 % (2.0-10.0) 03/30/17 06:45 Eosinophils % 2.7 % (0.0-5.0) 03/30/17 06:45 Basophils % 0.7 % (0.0-2.0) 03/30/17 06:45 PT 11.9 SECONDS (9.5-11.5) H 03/30/17 06:45 INR 1.13 (0.5-1.4) 03/30/17 06:45 PTT (Actin FS) 24.2 SECONDS (26.0-38.0) L 03/29/17 16:46 Sodium 140 mEq/L (136-145) 03/30/17 06:45 Potassium 5.0 mEq/L (3.5-5.1) 03/30/17 06:45 Chloride 116 mEq/L (98-107) H 03/30/17 06:45 Carbon Dioxide 20.0 mEq/L (21.0-31.0) L 03/30/17 06:45 Anion Gap 9.0 (7.0-16.0) 03/30/17 06:45 BUN 46 mg/dL (7-25) H 03/30/17 06:45 Creatinine 1.7 mg/dL (0.6-1.2) H 03/30/17 06:45 Est GFR ( Amer) 39.3 ml/min (>90) 03/30/17 06:45 Est GFR (Non-Af Amer) 32.5 ml/min 03/30/17 06:45 BUN/Creatinine Ratio 27.1 03/30/17 06:45 Glucose 135 mg/dL (70-105) H 03/30/17 06:45 POC Glucose 119 MG/DL (70 - 105) H 03/30/17 07:06 Hemoglobin A1c % 5.8 % (4.0-6.0) 03/28/17 14:55 Uric Acid 8.7 mg/dL (2.3-6.6) H 03/30/17 06:45 Calcium 8.5 mg/dL (8.6-10.3) L 03/30/17 06:45 Phosphorus 4.7 mg/dL (2.5-5.0) 03/30/17 06:45 Magnesium 2.1 mg/dL (1.9-2.7) 03/30/17 06:45 Total Bilirubin 0.4 mg/dL (0.3-1.0) 03/28/17 14:55 AST 38 U/L (13-39) 03/28/17 14:55 ALT 26 U/L (7-52) 03/28/17 14:55 Alkaline Phosphatase 186 U/L (34-104) H 03/28/17 14:55 Ammonia 44 umol/L (16-53) 03/28/17 14:44 Troponin I 0.02 ng/mL (0.01-0.05) 03/28/17 14:55 Total Protein 6.5 gm/dL (6.0-8.3) 03/29/17 16:26 Albumin 3.2 gm/dL (3.7-5.3) L 03/29/17 16:26 Globulin 3.5 gm/dL 03/28/17 14:55 Albumin/Globulin Ratio 1.0 (1.0-1.8) 03/28/17 14:55 Triglycerides 233 mg/dL (<150) H 03/28/17 14:55 Cholesterol 226 mg/dL (<200) H 03/28/17 14:55 LDL Cholesterol Direct 161 mg/dL (75-193) 03/28/17 14:55 HDL Cholesterol 29 mg/dL (23-92) 03/28/17 14:55 TSH 9.05 uIU/ml (0.34-5.60) H 03/28/17 14:55 RPR NONREACTIVE (NONREACTIVE) 03/28/17 14:55 - Physical Exam Vitals and I&O: Vital Signs Temp 97.3 F 03/30/17 04:00 Pulse 77 03/30/17 07:52 Resp 18 03/30/17 07:52 BP 169/89 03/30/17 04:00 Pulse Ox 98 03/30/17 07:52 Intake & Output 03/29/17 03/30/17 03/30/17 18:59 06:59 18:59 Intake Total 350 Balance 350 Weight (lbs) 54.431 kg 71.299 kg Intake: Oral 350 Other: # Voids 1 2 # Bowel Movements 0 Active Medications: Current Medications Albuterol/Ipratropium (Duoneb Neb) 3 ml HHN QID PRN PRN Reason: Wheezing Stop: 05/27/17 19:34 Last Admin: 03/29/17 07:38 Dose: 3 ml Ascorbic Acid (Vitamin C) 500 mg PO DAILY [facility] Stop: 05/28/17 08:59 Last Admin: 03/29/17 08:46 Dose: 500 mg Bisacodyl (Dulcolax 10 Mg Supp) 10 mg RC DAILY PRN PRN Reason: Constipation Stop: 05/27/17 19:34 Clonidine HCl (Avlxtggo-Acl-4) 1 patch TD [facility] Stop: 05/28/17 17:29 Last Admin: 03/29/17 17:54 Dose: 1 patch Diphenoxylate HCl/Atropine (Lomotil) 1 tab PO Q6H PRN PRN Reason: Diarrhea Stop: 05/27/17 19:34 Doxycycline Hyclate (Vibramycin) 100 mg PO BID PIERRE Stop: 05/27/17 19:34 Last Admin: 03/29/17 16:14 Dose: 100 mg Ferrous Sulfate (Iron) 325 mg PO BID PIERRE Stop: 05/27/17 19:34 Last Admin: 03/29/17 16:14 Dose: 325 mg Furosemide (Lasix) 40 mg IVP DAILY PIERRE Stop: 05/28/17 17:59 Heparin Sodium (Porcine) (Heparin) 5,000 units SUBQ Q12HR PIERRE Stop: 05/28/17 20:59 Last Admin: 03/29/17 21:05 Dose: 5,000 units Hydralazine HCl (Apresoline) 50 mg PO BID PIERRE Stop: 05/28/17 16:59 Last Admin: 03/29/17 19:39 Dose: Not Given Ceftriaxone Sodium 1 gm/ (Sodium Chloride) 50 mls @ 100 mls/hr IV Q24HR PIERRE Stop: 05/27/17 17:29 Last Admin: 03/29/17 16:54 Dose: 100 mls/hr Albumin Human (Albutein 25%) 12.5 gm in 50 mls @ 50 mls/hr IV Q8HR PIERRE Stop: 04/01/17 13:59 Last Admin: 03/30/17 05:39 Dose: 50 mls/hr Insulin Aspart (Novolog Insulin Sliding Scale) 0 units SUBQ ACHS [facility] PRN Reason: Protocol Stop: 05/27/17 20:59 Last Admin: 03/30/17 07:25 Dose: Not Given Insulin Detemir (Levemir Insulin) 10 units SUBQ DAILY [facility] PRN Reason: Protocol Stop: 05/28/17 08:59 Last Admin: 03/29/17 12:44 Dose: Not Given Lactobacillus Rhamnosus (Culturelle) 1 each PO BID PIERRE Stop: 05/27/17 19:34 Last Admin: 03/29/17 16:14 Dose: 1 each Levothyroxine Sodium (Synthroid) 0.05 mg PO QDAC PIERRE Stop: 05/28/17 07:29 Last Admin: 03/30/17 08:02 Dose: Not Given Lorazepam (Ativan) 1 mg PO Q6H PRN; Protocol PRN Reason: Anxiety Stop: 05/27/17 19:34 Metoclopramide HCl (Reglan) 5 mg PO Q6H PRN PRN Reason: STOMACH UPSET Stop: 05/27/17 19:34 Metoprolol Tartrate (Lopressor) 50 mg PO BID [facility] Stop: 05/28/17 16:59 Last Admin: 03/29/17 16:14 Dose: 50 mg Minoxidil (Loniten) 10 mg PO Q12H [facility] Stop: 05/27/17 19:34 Last Admin: 03/30/17 08:05 Dose: Not Given Miscellaneous (Lactose-Reduced Food [Ensure Liquid]) 234 ml PO TID [facility] Stop: 05/27/17 20:59 Miscellaneous (Rifaximin [Xifaxan]) 550 mg PO Q12H [facility] Stop: 05/27/17 19:34 Miscellaneous (Vte Chemical Prophylaxis Screen/ Admission) 1 ea [facility] PRN PRN PRN Reason: PROTOCOL Stop: 05/28/17 15:41 Morphine Sulfate (Morphine) 2 mg IVP Q3HR PRN PRN Reason: Severe Pain Stop: 05/27/17 23:28 Last Admin: 03/30/17 05:39 Dose: 2 mg Morphine Sulfate (Morphine) 1 mg IVP Q3HR PRN PRN Reason: moderate pain Stop: 05/27/17 23:31 Multivitamins/Vitamin C (Theragran) 1 tab PO DAILY [facility] Stop: 05/28/17 08:59 Last Admin: 03/29/17 08:44 Dose: 1 tab Neomycin Sulfate (Neomycin) 500 mg PO Q6HR [facility] Stop: 05/27/17 17:59 Last Admin: 03/30/17 05:41 Dose: 500 mg Ondansetron HCl (Zofran Odt) 4 mg PO Q6H PRN PRN Reason: Nausea / Vomiting Last Admin: 03/29/17 16:47 Dose: 4 mg Ondansetron HCl (Zofran) 4 mg IV Q6H PRN PRN Reason: Nausea / Vomiting Stop: 05/28/17 17:05 Last Admin: 03/29/17 17:49 Dose: 4 mg Pantoprazole Sodium (Protonix) 40 mg PO BID [facility] Stop: 05/27/17 19:34 Last Admin: 03/29/17 16:14 Dose: 40 mg Polyethylene Glycol (Miralax) 17 gm PO DAILY [facility] Stop: 05/28/17 08:59 Last Admin: 03/29/17 08:47 Dose: 17 gm Sodium Bicarbonate (Sodium Bicarbonate) 650 mg PO Q8H PIERRE PRN Reason: Protocol Stop: 05/27/17 19:34 Last Admin: 03/30/17 07:49 Dose: Not Given Spironolactone (Aldactone) 25 mg PO BID PIERRE Stop: 05/28/17 17:59 Zinc Sulfate (Zinc Sulfate) 220 mg PO DAILY PIERRE Stop: 05/28/17 08:59 Last Admin: 03/29/17 08:45 Dose: 220 mg Zolpidem Tartrate (Ambien) 5 mg PO HS PRN PRN Reason: Insomnia Stop: 05/27/17 19:34 General: Cooperative, no Oriented x3 HEENT: Atraumatic, PERRLA, EOMI Neck: Supple Cardiovascular: Normal S1, Normal S2 - Procedures Procedures: Procedures Procedure Code Date EGD BIOPSY SINGLE/MULTIPLE 45702 09/29/16 EXCISION OF DUODENUM, ENDO, DIAGN [id number] 09/29/16 EXCISION OF STOMACH, ENDO, DIAGN [id number] 09/29/16 MEASURE OF ARTERIAL SATURATION, PERIPHERAL, PERC APPROACH [id number] 01/27/17 Assessment/Plan - Problem List Patient Problems: All Active Problems NAUSEA/VOMITING, ENLARGED LEFT BREAST (Acute) HTN (hypertension) (Acute) I10 History of COPD (Acute) Z87.09 History of asthma (Acute) Z87.09 History of diabetes mellitus (Acute) Z86.39 History of hepatitis C (Acute) Z86.19 SOB (shortness of breath) (Acute ~01/27/17) R06.02 - Plan Plan: monitor vitals/diet labs f/up consulting
--- NOTE | 2017-03-30 10:37 | Diagnostic Imaging Report ---
Paracentesis (ultrasound-guided) HISTORY: Ascites Using ultrasound guidance and sterile technique, 1.5 L of somewhat red-tinged ascitic fluid was aspirated from the left lower quadrant of the abdomen. The patient tolerated the procedure with no immediate apparent clinical complications. IMPRESSION: 1. Paracentesis as noted above
[2017-03-30 11:12] LABS: MICROALBUMIN RANDOM RUINE 2182.8 ug/mL (Not Estab.)
[2017-03-30] MEDS: Insulin Detemir 100 units/mL 10mL Vial SUBQ SCH (12:00)
[2017-03-30] MEDS: Lactobacillus Rhamnosus 10 Billion CFU Capsule PO SCH ×2 (13:30→18:13)
[2017-03-30] MEDS: Multivitamin Tab PO SCH (13:30)
[2017-03-30] MEDS: Ferrous Sulfate 325 MG TAB PO SCH ×2 (13:31→18:07)
[2017-03-30] MEDS: Pantoprazole 40 mg EC Tab PO SCH ×2 (13:31→18:15)
[2017-03-30] MEDS: Venelex 60gm Tube TP SCH (13:32)
[2017-03-30] MEDS: POLYETHYLENE GLYCOL 3350 17 GM PACK PO SCH (13:32)
--- NOTE | 2017-03-30 14:30 | General Progress Note ---
Subjective - Review of Systems Service Date: 03/30/17 Subjective: Alert, still with abdominal pain Objective - Results Result Diagrams: 03/30/17 06:45 03/30/17 06:45 Recent Labs: Laboratory Last Values WBC 4.0 Th/cmm (4.8-10.8) L D 03/30/17 06:45 RBC 3.01 Mil/cmm (3.80-5.10) L 03/30/17 06:45 Hgb 9.7 gm/dL (11.7-15.5) L 03/30/17 06:45 Hct 28.4 % (35.0-45.0) L D 03/30/17 06:45 MCV 94.3 fl (81-100) 03/30/17 06:45 MCH 32.1 pg (27.0-31.0) H 03/30/17 06:45 MCHC Differential 34.0 pg (28.0-36.0) 03/30/17 06:45 RDW 15.4 % (11.5-20.0) 03/30/17 06:45 Plt Count 203 Th/cmm (150-400) D 03/30/17 06:45 MPV 9.3 fl 03/30/17 06:45 Neutrophils % 63.8 % (40.0-80.0) 03/30/17 06:45 Lymphocytes % 23.4 % (20.0-50.0) 03/30/17 06:45 Monocytes % 9.4 % (2.0-10.0) 03/30/17 06:45 Eosinophils % 2.7 % (0.0-5.0) 03/30/17 06:45 Basophils % 0.7 % (0.0-2.0) 03/30/17 06:45 PT 11.9 SECONDS (9.5-11.5) H 03/30/17 06:45 INR 1.13 (0.5-1.4) 03/30/17 06:45 PTT (Actin FS) 24.2 SECONDS (26.0-38.0) L 03/29/17 16:46 Sodium 140 mEq/L (136-145) 03/30/17 06:45 Potassium 5.0 mEq/L (3.5-5.1) 03/30/17 06:45 Chloride 116 mEq/L (98-107) H 03/30/17 06:45 Carbon Dioxide 20.0 mEq/L (21.0-31.0) L 03/30/17 06:45 Anion Gap 9.0 (7.0-16.0) 03/30/17 06:45 BUN 46 mg/dL (7-25) H 03/30/17 06:45 Creatinine 1.7 mg/dL (0.6-1.2) H 03/30/17 06:45 Est GFR ( Amer) 39.3 ml/min (>90) 03/30/17 06:45 Est GFR (Non-Af Amer) 32.5 ml/min 03/30/17 06:45 BUN/Creatinine Ratio 27.1 03/30/17 06:45 Glucose 135 mg/dL (70-105) H 03/30/17 06:45 POC Glucose 119 MG/DL (70 - 105) H 03/30/17 07:06 Hemoglobin A1c % 5.8 % (4.0-6.0) 03/28/17 14:55 Uric Acid 8.7 mg/dL (2.3-6.6) H 03/30/17 06:45 Calcium 8.5 mg/dL (8.6-10.3) L 03/30/17 06:45 Phosphorus 4.7 mg/dL (2.5-5.0) 03/30/17 06:45 Magnesium 2.1 mg/dL (1.9-2.7) 03/30/17 06:45 Total Bilirubin 0.4 mg/dL (0.3-1.0) 03/28/17 14:55 AST 38 U/L (13-39) 03/28/17 14:55 ALT 26 U/L (7-52) 03/28/17 14:55 Alkaline Phosphatase 186 U/L (34-104) H 03/28/17 14:55 Ammonia 44 umol/L (16-53) 03/28/17 14:44 Troponin I 0.02 ng/mL (0.01-0.05) 03/28/17 14:55 Total Protein 6.5 gm/dL (6.0-8.3) 03/29/17 16:26 Albumin 3.2 gm/dL (3.7-5.3) L 03/29/17 16:26 Globulin 3.5 gm/dL 03/28/17 14:55 Albumin/Globulin Ratio 1.0 (1.0-1.8) 03/28/17 14:55 Triglycerides 233 mg/dL (<150) H 03/28/17 14:55 Cholesterol 226 mg/dL (<200) H 03/28/17 14:55 LDL Cholesterol Direct 161 mg/dL (75-193) 03/28/17 14:55 HDL Cholesterol 29 mg/dL (23-92) 03/28/17 14:55 TSH 9.05 uIU/ml (0.34-5.60) H 03/28/17 14:55 Urine Creatinine 80.3 mg/dl (Not Estab.) 03/29/17 15:59 Urine Microalbumin 2182.8 ug/mL (Not Estab.) 03/29/17 15:59 Microalb/Creat Ratio 2718.3 mg/g creat (0.0-30.0) H 03/29/17 15:59 RPR NONREACTIVE (NONREACTIVE) 03/28/17 14:55 - Physical Exam Vitals and I&O: Vital Signs Temp 97.7 F 03/30/17 12:00 Pulse 87 03/30/17 13:43 Resp 18 03/30/17 12:00 BP 176/89 03/30/17 13:30 Pulse Ox 96 03/30/17 12:00 Intake & Output 03/29/17 03/30/17 03/30/17 18:59 06:59 18:59 Intake Total 350 Balance 350 Weight (lbs) 54.431 kg 71.299 kg 71.214 kg Intake: Oral 350 Other: # Voids 1 2 # Bowel Movements 0 Stool Characteristics Soft Formed Active Medications: Current Medications Albuterol/Ipratropium (Duoneb Neb) 3 ml HHN QID PRN PRN Reason: Wheezing Stop: 05/27/17 19:34 Last Admin: 03/29/17 07:38 Dose: 3 ml Ascorbic Acid (Vitamin C) 500 mg PO DAILY [facility] Stop: 05/28/17 08:59 Last Admin: 03/30/17 13:29 Dose: 500 mg Bisacodyl (Dulcolax 10 Mg Supp) 10 mg RC DAILY PRN PRN Reason: Constipation Stop: 05/27/17 19:34 Clonidine HCl (Zhghavud-Jng-4) 1 patch TD TU [facility] Stop: 05/28/17 17:29 Last Admin: 03/29/17 17:54 Dose: 1 patch Diphenoxylate HCl/Atropine (Lomotil) 1 tab PO Q6H PRN PRN Reason: Diarrhea Stop: 05/27/17 19:34 Doxycycline Hyclate (Vibramycin) 100 mg PO BID [facility] Stop: 05/27/17 19:34 Last Admin: 03/30/17 13:32 Dose: 100 mg Ferrous Sulfate (Iron) 325 mg PO BID [facility] Stop: 05/27/17 19:34 Last Admin: 03/30/17 13:31 Dose: 325 mg Furosemide (Lasix) 40 mg IVP DAILY [facility] Stop: 05/28/17 17:59 Last Admin: 03/30/17 09:29 Dose: 40 mg Heparin Sodium (Porcine) (Heparin) 5,000 units SUBQ Q12HR [facility] Stop: 05/28/17 20:59 Last Admin: 03/30/17 12:45 Dose: Not Given Hydralazine HCl (Apresoline) 50 mg PO BID [facility] Stop: 05/28/17 16:59 Last Admin: 03/30/17 09:32 Dose: Not Given Ceftriaxone Sodium 1 gm/ (Sodium Chloride) 50 mls @ 100 mls/hr IV Q24HR [facility] Stop: 05/27/17 17:29 Last Admin: 03/29/17 16:54 Dose: 100 mls/hr Albumin Human (Albutein 25%) 12.5 gm in 50 mls @ 50 mls/hr IV Q8HR [facility] Stop: 04/01/17 13:59 Last Admin: 03/30/17 05:39 Dose: 50 mls/hr Insulin Aspart (Novolog Insulin Sliding Scale) 0 units SUBQ ACHS [facility] PRN Reason: Protocol Stop: 05/27/17 20:59 Last Admin: 03/30/17 07:25 Dose: Not Given Insulin Detemir (Levemir Insulin) 10 units SUBQ DAILY [facility] PRN Reason: Protocol Stop: 05/28/17 08:59 Last Admin: 03/29/17 12:44 Dose: Not Given Lactobacillus Rhamnosus (Culturelle) 1 each PO BID [facility] Stop: 05/27/17 19:34 Last Admin: 03/30/17 13:30 Dose: 1 each Levothyroxine Sodium (Synthroid) 0.05 mg PO QDAC [facility] Stop: 05/28/17 07:29 Last Admin: 03/30/17 08:02 Dose: Not Given Lorazepam (Ativan) 1 mg PO Q6H PRN; Protocol PRN Reason: Anxiety Stop: 05/27/17 19:34 Metoclopramide HCl (Reglan) 5 mg PO Q6H PRN PRN Reason: STOMACH UPSET Stop: 05/27/17 19:34 Metoprolol Tartrate (Lopressor) 50 mg PO BID [facility] Stop: 05/28/17 16:59 Last Admin: 03/30/17 13:30 Dose: 50 mg Minoxidil (Loniten) 10 mg PO Q12H [facility] Stop: 05/27/17 19:34 Last Admin: 03/30/17 08:05 Dose: Not Given Miscellaneous (Vte Chemical Prophylaxis Screen/ Admission) 1 ea [facility] PRN PRN PRN Reason: PROTOCOL Stop: 05/28/17 15:41 Morphine Sulfate (Morphine) 2 mg IVP Q3HR PRN PRN Reason: Severe Pain Stop: 05/27/17 23:28 Last Admin: 03/30/17 13:24 Dose: 2 mg Morphine Sulfate (Morphine) 1 mg IVP Q3HR PRN PRN Reason: moderate pain Stop: 05/27/17 23:31 Multivitamins/Vitamin C (Theragran) 1 tab PO DAILY [facility] Stop: 05/28/17 08:59 Last Admin: 03/30/17 13:30 Dose: 1 tab Ondansetron HCl (Zofran Odt) 4 mg PO Q6H PRN PRN Reason: Nausea / Vomiting Last Admin: 03/29/17 16:47 Dose: 4 mg Ondansetron HCl (Zofran) 4 mg IV Q6H PRN PRN Reason: Nausea / Vomiting Stop: 05/28/17 17:05 Last Admin: 03/29/17 17:49 Dose: 4 mg Pantoprazole Sodium (Protonix) 40 mg PO BID [facility] Stop: 05/27/17 19:34 Last Admin: 03/30/17 13:31 Dose: 40 mg Polyethylene Glycol (Miralax) 17 gm PO DAILY [facility] Stop: 05/28/17 08:59 Last Admin: 03/30/17 13:32 Dose: 17 gm Rifaximin (Xifaxan) 550 mg PO Q12H [facility] Stop: 05/29/17 08:59 Last Admin: 03/30/17 13:29 Dose: 550 mg Sodium Bicarbonate (Sodium Bicarbonate) 650 mg PO Q8H [facility] PRN Reason: Protocol Stop: 05/27/17 19:34 Last Admin: 03/30/17 13:30 Dose: 650 mg Spironolactone (Aldactone) 25 mg PO BID [facility] Stop: 05/28/17 17:59 Last Admin: 03/30/17 09:25 Dose: Not Given Zinc Sulfate (Zinc Sulfate) 220 mg PO DAILY [facility] Stop: 05/28/17 08:59 Last Admin: 03/30/17 13:31 Dose: 220 mg Zolpidem Tartrate (Ambien) 5 mg PO HS PRN PRN Reason: Insomnia Stop: 05/27/17 19:34 General: Alert, Cooperative, Moderate distress, no Oriented x3 HEENT: Atraumatic, PERRLA, EOMI, Mucous membr. moist/pink Neck: Supple, +2 carotid pulse wo bruit Cardiovascular: Regular rate, Normal S1, Normal S2 Lungs: Clear to auscultation Abdomen: Bowel sounds, Soft, Tender Extremities: no Edema Neurological: Sensation intact Skin: no Rash Psych/Mental Status: Mood NL - Procedures Procedures: Procedures Procedure Code Date EGD BIOPSY SINGLE/MULTIPLE 91098 09/29/16 EXCISION OF DUODENUM, ENDO, DIAGN [id number] 09/29/16 EXCISION OF STOMACH, ENDO, DIAGN [id number] 09/29/16 MEASURE OF ARTERIAL SATURATION, PERIPHERAL, PERC APPROACH [id number] 01/27/17 Assessment/Plan - Problem List Patient Problems: All Active Problems NAUSEA/VOMITING, ENLARGED LEFT BREAST (Acute) HTN (hypertension) (Acute) I10 History of COPD (Acute) Z87.09 History of asthma (Acute) Z87.09 History of diabetes mellitus (Acute) Z86.39 History of hepatitis C (Acute) Z86.19 SOB (shortness of breath) (Acute ~01/27/17) R06.02 - Assessment Assessment: CK D Abdominal pain secondary to synovitis possible SBE hepatitis C with ascites Liver lesion possibly hemangioma Left pleural effusion Enlarged left breast secondary to decreased lymphatic drainage Dyslipidemia COPD Metabolic acidosis Type II DM with CK D Essential hypertension w/ CKD Hypothyroidism Anemia of CK D - Plan Plan: Lab - Result Diagrams 03/30/17 06:45 03/30/17 06:45 Current Medications Albuterol/Ipratropium (Duoneb Neb) 3 ml HHN QID PRN PRN Reason: Wheezing Stop: 05/27/17 19:34 Last Admin: 03/29/17 07:38 Dose: 3 ml Ascorbic Acid (Vitamin C) 500 mg PO DAILY [facility] Stop: 05/28/17 08:59 Last Admin: 03/30/17 13:29 Dose: 500 mg Bisacodyl (Dulcolax 10 Mg Supp) 10 mg RC DAILY PRN PRN Reason: Constipation Stop: 05/27/17 19:34 Clonidine HCl (Gthiizld-Uok-7) 1 patch TD [facility] Stop: 05/28/17 17:29 Last Admin: 03/29/17 17:54 Dose: 1 patch Diphenoxylate HCl/Atropine (Lomotil) 1 tab PO Q6H PRN PRN Reason: Diarrhea Stop: 05/27/17 19:34 Doxycycline Hyclate (Vibramycin) 100 mg PO BID [facility] Stop: 05/27/17 19:34 Last Admin: 03/30/17 13:32 Dose: 100 mg Ferrous Sulfate (Iron) 325 mg PO BID [facility] Stop: 05/27/17 19:34 Last Admin: 03/30/17 13:31 Dose: 325 mg Furosemide (Lasix) 40 mg IVP DAILY [facility] Stop: 05/28/17 17:59 Last Admin: 03/30/17 09:29 Dose: 40 mg Heparin Sodium (Porcine) (Heparin) 5,000 units SUBQ Q12HR [facility] Stop: 05/28/17 20:59 Last Admin: 03/30/17 12:45 Dose: Not Given Hydralazine HCl (Apresoline) 50 mg PO BID [facility] Stop: 05/28/17 16:59 Last Admin: 03/30/17 09:32 Dose: Not Given Ceftriaxone Sodium 1 gm/ (Sodium Chloride) 50 mls @ 100 mls/hr IV Q24HR [facility] Stop: 05/27/17 17:29 Last Admin: 03/29/17 16:54 Dose: 100 mls/hr Albumin Human (Albutein 25%) 12.5 gm in 50 mls @ 50 mls/hr IV Q8HR [facility] Stop: 04/01/17 13:59 Last Admin: 03/30/17 05:39 Dose: 50 mls/hr Insulin Aspart (Novolog Insulin Sliding Scale) 0 units SUBQ ACHS [facility] PRN Reason: Protocol Stop: 05/27/17 20:59 Last Admin: 03/30/17 07:25 Dose: Not Given Insulin Detemir (Levemir Insulin) 10 units SUBQ DAILY [facility] PRN Reason: Protocol Stop: 05/28/17 08:59 Last Admin: 03/29/17 12:44 Dose: Not Given Lactobacillus Rhamnosus (Culturelle) 1 each PO BID [facility] Stop: 05/27/17 19:34 Last Admin: 03/30/17 13:30 Dose: 1 each Levothyroxine Sodium (Synthroid) 0.05 mg PO QDAC [facility] Stop: 05/28/17 07:29 Last Admin: 03/30/17 08:02 Dose: Not Given Lorazepam (Ativan) 1 mg PO Q6H PRN; Protocol PRN Reason: Anxiety Stop: 05/27/17 19:34 Metoclopramide HCl (Reglan) 5 mg PO Q6H PRN PRN Reason: STOMACH UPSET Stop: 05/27/17 19:34 Metoprolol Tartrate (Lopressor) 50 mg PO BID [facility] Stop: 05/28/17 16:59 Last Admin: 03/30/17 13:30 Dose: 50 mg Minoxidil (Loniten) 10 mg PO Q12H [facility] Stop: 05/27/17 19:34 Last Admin: 03/30/17 08:05 Dose: Not Given Miscellaneous (Vte Chemical Prophylaxis Screen/ Admission) 1 ea [facility] PRN PRN PRN Reason: PROTOCOL Stop: 05/28/17 15:41 Morphine Sulfate (Morphine) 2 mg IVP Q3HR PRN PRN Reason: Severe Pain Stop: 05/27/17 23:28 Last Admin: 03/30/17 13:24 Dose: 2 mg Morphine Sulfate (Morphine) 1 mg IVP Q3HR PRN PRN Reason: moderate pain Stop: 05/27/17 23:31 Multivitamins/Vitamin C (Theragran) 1 tab PO DAILY [facility] Stop: 05/28/17 08:59 Last Admin: 03/30/17 13:30 Dose: 1 tab Ondansetron HCl (Zofran Odt) 4 mg PO Q6H PRN PRN Reason: Nausea / Vomiting Last Admin: 03/29/17 16:47 Dose: 4 mg Ondansetron HCl (Zofran) 4 mg IV Q6H PRN PRN Reason: Nausea / Vomiting Stop: 05/28/17 17:05 Last Admin: 03/29/17 17:49 Dose: 4 mg Pantoprazole Sodium (Protonix) 40 mg PO BID [facility] Stop: 05/27/17 19:34 Last Admin: 03/30/17 13:31 Dose: 40 mg Polyethylene Glycol (Miralax) 17 gm PO DAILY [facility] Stop: 05/28/17 08:59 Last Admin: 03/30/17 13:32 Dose: 17 gm Rifaximin (Xifaxan) 550 mg PO Q12H [facility] Stop: 05/29/17 08:59 Last Admin: 03/30/17 13:29 Dose: 550 mg Sodium Bicarbonate (Sodium Bicarbonate) 650 mg PO Q8H [facility] PRN Reason: Protocol Stop: 05/27/17 19:34 Last Admin: 03/30/17 13:30 Dose: 650 mg Spironolactone (Aldactone) 25 mg PO BID [facility] Stop: 05/28/17 17:59 Last Admin: 03/30/17 09:25 Dose: Not Given Zinc Sulfate (Zinc Sulfate) 220 mg PO DAILY [facility] Stop: 05/28/17 08:59 Last Admin: 03/30/17 13:31 Dose: 220 mg Zolpidem Tartrate (Ambien) 5 mg PO HS PRN PRN Reason: Insomnia Stop: 05/27/17 19:34 The patient underwent paracentesis and approximately 1.5 L ascitic fluid was obtained Decided to start diuretics with albumin to improve intravascular volume and also hopefully decrease ascites Monitor electrolytes
[2017-03-30] MEDS: Morphine Sulfate 4 mg/mL 1mL Syr IVP PRN ×2 (18:06→21:10)
[2017-03-30] MEDS: cefTRIAXone 1 GM in Sodium Chloride 0.9% 50 ML IV SCH (18:12)
[2017-03-30 19:49] LABS: BF NEUTROPHILES 5 %
[2017-03-31] MEDS: Morphine Sulfate 4 mg/mL 1mL Syr IVP PRN ×9 (00:41→22:00)
[2017-03-31 03:19] LABS: BF TOTAL PROTEIN-CVMC 2.3 g/dL
[2017-03-31] MEDS: Albumin 25% 12.5gm/50mL 12.5 GM/50 ML BTL IV SCH ×3 (04:24→20:12)
[2017-03-31] MEDS: INSULIN ASPART SLIDING SCALE 100 UNITS/ML UNIT SUBQ SCH ×4 (06:30→21:55)
[2017-03-31] MEDS: Levothyroxine 0.05 Mg Tab PO SCH (06:30)
[2017-03-31 07:13] LABS: ANION GAP 11.8 (7.0-16.0); BUN/CREATININE RATIO 28.2; CALCIUM SERUM 8.8 mg/dL (8.6-10.3); CARBON DIOXIDE 18.2 mEq/L (21.0-31.0); CREATININE - SERUM 1.7 mg/dL (0.6-1.2)
[2017-03-31] MEDS: Venelex 60gm Tube TP SCH (08:37)
[2017-03-31] MEDS: POLYETHYLENE GLYCOL 3350 17 GM PACK PO SCH (08:38)
[2017-03-31] MEDS: Ferrous Sulfate 325 MG TAB PO SCH ×2 (08:41→16:51)
[2017-03-31] MEDS: Lactobacillus Rhamnosus 10 Billion CFU Capsule PO SCH ×2 (08:41→16:51)
[2017-03-31] MEDS: Pantoprazole 40 mg EC Tab PO SCH ×2 (08:41→16:51)
[2017-03-31] MEDS: Multivitamin Tab PO SCH (08:42)
[2017-03-31] MEDS: Insulin Detemir 100 units/mL 10mL Vial SUBQ SCH (10:58)
--- NOTE | 2017-03-31 11:01 | General Progress Note ---
Subjective - Review of Systems Events since last encounter: patient awake ,alert mild abd pain Objective - Results Result Diagrams: 03/30/17 06:45 03/31/17 06:12 Recent Labs: Laboratory Last Values WBC 4.0 Th/cmm (4.8-10.8) L D 03/30/17 06:45 RBC 3.01 Mil/cmm (3.80-5.10) L 03/30/17 06:45 Hgb 9.7 gm/dL (11.7-15.5) L 03/30/17 06:45 Hct 28.4 % (35.0-45.0) L D 03/30/17 06:45 MCV 94.3 fl (81-100) 03/30/17 06:45 MCH 32.1 pg (27.0-31.0) H 03/30/17 06:45 MCHC Differential 34.0 pg (28.0-36.0) 03/30/17 06:45 RDW 15.4 % (11.5-20.0) 03/30/17 06:45 Plt Count 203 Th/cmm (150-400) D 03/30/17 06:45 MPV 9.3 fl 03/30/17 06:45 Neutrophils % 63.8 % (40.0-80.0) 03/30/17 06:45 Lymphocytes % 23.4 % (20.0-50.0) 03/30/17 06:45 Monocytes % 9.4 % (2.0-10.0) 03/30/17 06:45 Eosinophils % 2.7 % (0.0-5.0) 03/30/17 06:45 Basophils % 0.7 % (0.0-2.0) 03/30/17 06:45 PT 11.9 SECONDS (9.5-11.5) H 03/30/17 06:45 INR 1.13 (0.5-1.4) 03/30/17 06:45 PTT (Actin FS) 24.2 SECONDS (26.0-38.0) L 03/29/17 16:46 Sodium 137 mEq/L (136-145) 03/31/17 06:12 Potassium 5.0 mEq/L (3.5-5.1) 03/31/17 06:12 Chloride 112 mEq/L (98-107) H 03/31/17 06:12 Carbon Dioxide 18.2 mEq/L (21.0-31.0) L 03/31/17 06:12 Anion Gap 11.8 (7.0-16.0) 03/31/17 06:12 BUN 48 mg/dL (7-25) H 03/31/17 06:12 Creatinine 1.7 mg/dL (0.6-1.2) H 03/31/17 06:12 Est GFR ( Amer) 39.3 ml/min (>90) 03/31/17 06:12 Est GFR (Non-Af Amer) 32.5 ml/min 03/31/17 06:12 BUN/Creatinine Ratio 28.2 03/31/17 06:12 Glucose 131 mg/dL (70-105) H 03/31/17 06:12 POC Glucose 124 MG/DL (70-105) H 03/31/17 06:00 Hemoglobin A1c % 5.8 % (4.0-6.0) 03/28/17 14:55 Uric Acid 8.7 mg/dL (2.3-6.6) H 03/30/17 06:45 Calcium 8.8 mg/dL (8.6-10.3) 03/31/17 06:12 Phosphorus 4.7 mg/dL (2.5-5.0) 03/30/17 06:45 Magnesium 2.1 mg/dL (1.9-2.7) 03/30/17 06:45 Total Bilirubin 0.4 mg/dL (0.3-1.0) 03/28/17 14:55 AST 38 U/L (13-39) 03/28/17 14:55 ALT 26 U/L (7-52) 03/28/17 14:55 Alkaline Phosphatase 186 U/L (34-104) H 03/28/17 14:55 Ammonia 44 umol/L (16-53) 03/28/17 14:44 Troponin I 0.02 ng/mL (0.01-0.05) 03/28/17 14:55 Total Protein 6.5 gm/dL (6.0-8.3) 03/29/17 16:26 Albumin 3.2 gm/dL (3.7-5.3) L 03/29/17 16:26 Globulin 3.5 gm/dL 03/28/17 14:55 Albumin/Globulin Ratio 1.0 (1.0-1.8) 03/28/17 14:55 Triglycerides 233 mg/dL (<150) H 03/28/17 14:55 Cholesterol 226 mg/dL (<200) H 03/28/17 14:55 LDL Cholesterol Direct 161 mg/dL (75-193) 03/28/17 14:55 HDL Cholesterol 29 mg/dL (23-92) 03/28/17 14:55 TSH 9.05 uIU/ml (0.34-5.60) H 03/28/17 14:55 Urine Creatinine 80.3 mg/dl (Not Estab.) 03/29/17 15:59 Urine Microalbumin 2182.8 ug/mL (Not Estab.) 03/29/17 15:59 Microalb/Creat Ratio 2718.3 mg/g creat (0.0-30.0) H 03/29/17 15:59 Fluid Source PARACENTHESIS 03/30/17 10:15 Fluid Color RED 03/30/17 10:15 Fluid Appearance BLOODY 03/30/17 10:15 Fluid WBC 20 /cumm 03/30/17 10:15 Fluid RBC 28631 /cumm 03/30/17 10:15 Fluid Neutrophils 5 % 03/30/17 10:15 Fluid Lymphocytes 26 % 03/30/17 10:15 Fluid Monocytes 69 % 03/30/17 10:15 Fld Mesothelial Cells RARE 03/30/17 10:15 Fluid Total Protein 2.3 g/dL 03/30/17 10:15 Fluid Albumin 1200.0 MG/DL 03/30/17 10:15 RPR NONREACTIVE (NONREACTIVE) 03/28/17 14:55 - Physical Exam Vitals and I&O: Vital Signs Temp 97.9 F 03/31/17 04:00 Pulse 73 03/31/17 10:46 Resp 18 03/31/17 10:25 BP 122/65 03/31/17 08:42 Pulse Ox 98 03/31/17 07:12 Intake & Output 03/30/17 03/31/17 03/31/17 18:59 06:59 18:59 Intake Total 50 340 50 Balance 50 340 50 Weight (lbs) 71.214 kg 70.352 kg Intake: Intake, IV Amount 50 100 50 Albumin 25% 12.5gm/50mL 50 50 50 12.5 gm In 50 ml @ 50 mls /hr IV Q8HR [facility] Rx#: [id number] Oral 240 Other: # Bowel Movements 2 Stool Characteristics Soft Soft Formed Active Medications: Current Medications Albuterol/Ipratropium (Duoneb Neb) 3 ml HHN QID PRN PRN Reason: Wheezing Stop: 05/27/17 19:34 Last Admin: 03/29/17 07:38 Dose: 3 ml Ascorbic Acid (Vitamin C) 500 mg PO DAILY PIERRE Stop: 05/28/17 08:59 Last Admin: 03/31/17 08:42 Dose: 500 mg Bisacodyl (Dulcolax 10 Mg Supp) 10 mg RC DAILY PRN PRN Reason: Constipation Stop: 05/27/17 19:34 Clonidine HCl (Bximhjht-Iwt-4) 1 patch TD [facility] Stop: 05/28/17 17:29 Last Admin: 03/29/17 17:54 Dose: 1 patch Diphenoxylate HCl/Atropine (Lomotil) 1 tab PO Q6H PRN PRN Reason: Diarrhea Stop: 05/27/17 19:34 Doxycycline Hyclate (Vibramycin) 100 mg PO BID [facility] Stop: 05/27/17 19:34 Last Admin: 03/31/17 08:39 Dose: 100 mg Ferrous Sulfate (Iron) 325 mg PO BID [facility] Stop: 05/27/17 19:34 Last Admin: 03/31/17 08:41 Dose: 325 mg Furosemide (Lasix) 40 mg IVP DAILY PIERRE Stop: 05/28/17 17:59 Last Admin: 03/31/17 08:38 Dose: 40 mg Heparin Sodium (Porcine) (Heparin) 5,000 units SUBQ Q12HR PIERRE Stop: 05/28/17 20:59 Last Admin: 03/31/17 08:38 Dose: 5,000 units Hydralazine HCl (Apresoline) 50 mg PO BID [facility] Stop: 05/28/17 16:59 Last Admin: 03/31/17 08:41 Dose: 50 mg Ceftriaxone Sodium 1 gm/ (Sodium Chloride) 50 mls @ 100 mls/hr IV Q24HR [facility] Stop: 05/27/17 17:29 Last Admin: 03/30/17 18:12 Dose: 100 mls/hr Albumin Human (Albutein 25%) 12.5 gm in 50 mls @ 50 mls/hr IV Q8HR [facility] Stop: 04/01/17 13:59 Last Infusion: 03/31/17 07:12 Dose: Infused Insulin Aspart (Novolog Insulin Sliding Scale) 0 units SUBQ ACHS PIERRE PRN Reason: Protocol Stop: 05/27/17 20:59 Last Admin: 03/31/17 06:30 Dose: Not Given Insulin Detemir (Levemir Insulin) 10 units SUBQ DAILY PIERRE PRN Reason: Protocol Stop: 05/28/17 08:59 Last Admin: 03/30/17 12:00 Dose: Not Given Lactobacillus Rhamnosus (Culturelle) 1 each PO BID [facility] Stop: 05/27/17 19:34 Last Admin: 03/31/17 08:41 Dose: 1 each Levothyroxine Sodium (Synthroid) 0.05 mg PO QDAC [facility] Stop: 05/28/17 07:29 Last Admin: 03/31/17 06:30 Dose: 0.05 mg Lorazepam (Ativan) 1 mg PO Q6H PRN; Protocol PRN Reason: Anxiety Stop: 05/27/17 19:34 Metoclopramide HCl (Reglan) 5 mg PO Q6H PRN PRN Reason: STOMACH UPSET Stop: 05/27/17 19:34 Metoprolol Tartrate (Lopressor) 50 mg PO BID [facility] Stop: 05/28/17 16:59 Last Admin: 03/31/17 08:42 Dose: 50 mg Minoxidil (Loniten) 10 mg PO Q12H [facility] Stop: 05/27/17 19:34 Last Admin: 03/31/17 06:55 Dose: Not Given Miscellaneous (Vte Chemical Prophylaxis Screen/ Admission) 1 ea MC PRN PRN PRN Reason: PROTOCOL Stop: 05/28/17 15:41 Morphine Sulfate (Morphine) 1 mg IVP Q3H PRN PRN Reason: MODERATE PAIN Stop: 05/29/17 16:45 Last Admin: 03/31/17 10:45 Dose: 1 mg Morphine Sulfate (Morphine) 2 mg IVP Q3H PRN PRN Reason: SEVERE PAIN Stop: 05/29/17 16:45 Last Admin: 03/30/17 18:06 Dose: 2 mg Multivitamins/Vitamin C (Theragran) 1 tab PO DAILY PIERRE Stop: 05/28/17 08:59 Last Admin: 03/31/17 08:42 Dose: 1 tab Ondansetron HCl (Zofran Odt) 4 mg PO Q6H PRN PRN Reason: Nausea / Vomiting Last Admin: 03/31/17 04:24 Dose: 4 mg Ondansetron HCl (Zofran) 4 mg IV Q6H PRN PRN Reason: Nausea / Vomiting Stop: 05/28/17 17:05 Last Admin: 03/29/17 17:49 Dose: 4 mg Pantoprazole Sodium (Protonix) 40 mg PO BID PIERRE Stop: 05/27/17 19:34 Last Admin: 03/31/17 08:41 Dose: 40 mg Polyethylene Glycol (Miralax) 17 gm PO DAILY [facility] Stop: 05/28/17 08:59 Last Admin: 03/31/17 08:38 Dose: Not Given Rifaximin (Xifaxan) 550 mg PO Q12H PIERRE Stop: 05/29/17 08:59 Last Admin: 03/31/17 08:39 Dose: 550 mg Sodium Bicarbonate (Sodium Bicarbonate) 650 mg PO Q8H PIERRE PRN Reason: Protocol Stop: 05/27/17 19:34 Last Admin: 03/31/17 10:46 Dose: 650 mg Spironolactone (Aldactone) 25 mg PO BID [facility] Stop: 05/28/17 17:59 Last Admin: 03/31/17 08:39 Dose: 25 mg Zinc Sulfate (Zinc Sulfate) 220 mg PO DAILY [facility] Stop: 05/28/17 08:59 Last Admin: 03/31/17 08:40 Dose: 220 mg Zolpidem Tartrate (Ambien) 5 mg PO HS PRN PRN Reason: Insomnia Stop: 05/27/17 19:34 General: Alert, Cooperative, Moderate distress, no Oriented x3 HEENT: Atraumatic, PERRLA, EOMI, Mucous membr. moist/pink Neck: Supple, +2 carotid pulse wo bruit Cardiovascular: Regular rate, Normal S1, Normal S2 Lungs: Clear to auscultation Abdomen: Bowel sounds, Soft, Tender Extremities: no Edema Neurological: Sensation intact Skin: no Rash Psych/Mental Status: Mood NL - Procedures Procedures: Procedures Procedure Code Date EGD BIOPSY SINGLE/MULTIPLE 17631 09/29/16 EXCISION OF DUODENUM, ENDO, DIAGN [id number] 09/29/16 EXCISION OF STOMACH, ENDO, DIAGN [id number] 09/29/16 MEASURE OF ARTERIAL SATURATION, PERIPHERAL, PERC APPROACH [id number] 01/27/17 Assessment/Plan - Problem List Patient Problems: All Active Problems NAUSEA/VOMITING, ENLARGED LEFT BREAST (Acute) HTN (hypertension) (Acute) I10 History of COPD (Acute) Z87.09 History of asthma (Acute) Z87.09 History of diabetes mellitus (Acute) Z86.39 History of hepatitis C (Acute) Z86.19 SOB (shortness of breath) (Acute ~01/27/17) R06.02 - Plan Plan: monitor vitals/diet labs f/up consulting Nutritional Asmnt/Malnutr-PDOC - Dietary Evaluation Malnutrition Findings (Please click <Entered> for more info): Nutritional Asmnt/Malnutrition Start: 03/30/17 12: 04 Text: Status: Complete Freq: Document 03/30/17 19:12 [facility] (Rec: 03/30/17 19:22 [facility] [id number]) Nutritional Asmnt/Malnutrition Patient General Information Nutritional Screening High Risk Screening Diagnosis Acute abdominal pain Pertinent Medical Hx/Surgical Hx HTN, CHF, hyperlipidemia, thyroid disorder, hepatitis C Subjective Information Pt is a 61-year-old female admitted with chief complaint of abdominal pain and infection. Paracentesis completed today. Pt was asleep during time of visit today. Pt appears well nourished with no signs of muscle or fat depletion. Current Diet Order/ Nutrition Support CCHO-60 GM, low sodium, 1200 fluid restriction/day Pertinent Medications Albutein 25%, Vitamin C, Ceftriaxone Sodium, Vancomycin , Iron, Lasix, Novolog, Levemir, Culturelle, Morphine, Theragran, Zofran, Protonix, Miralax, Zinc Sulfate Pertinent Labs (03/28) Glucose 197H, A1C WNL, Triglyceride 233H, Cholesterol 226H (03/30) BUN 46H, Creatinine 1.7H, Uric Acid 8. 7H Nutritional Hx/Data Height 1.5 m Height (Calculated Centimeters) 149.9 Current Weight (lbs) 71.214 kg Weight (Calculated Kilograms) 71.2 Weight (Calculated Grams) 55550.0 [place] Body Weight 97.5 % [place] Body Weight 161 Weight Status Obese GI Symptoms GI Symptoms Vomitting Diarrhea Last BM Food Allergies No Skin Integrity/Comment: Ozzy 15. No skin breakdown. Current %PO Negligible < 25% Estimated Nutritional Goals BEE in Kcals: Using Current wt Calories/Kcals/Kg Based on current wt 71.4 kg with consideration of obesity Kcals Calculated 2445-9882 kcals/day (20-25 kcals/kg) Protein: Using Current wt Protein g/kg: Based on current wt 71.4 kg with consideration of obesity Protein Calculated 57-71 gm/day (0.8-1 gm/kg) Fluid: ml Per MD/DO, pt on fluid restriction Nutritional Problem 1. Problem Problem Inadequate oral intake related to Etiology abdominal pain, diagnostic tests as evidenced by Signs/Symptoms: no PO intake x 2 days. Malnutrition Alert Protein-Calorie Malnutrition N/A Is there a minimum of two criteria No selected? Query Text:Check all the applicable criteria. A minimum of two criteria are recommended for diagnosis of either severe or non-severe malnutrition. Malnutrition Related to Morbid Obesity Malnutrition related to morbid obesity No Intervention/Recommendation Comments 1. Recommend soft/bland, Cardiac diet due to poor tolerance and abnormal labs. [place] food preferences, as able. Encourage oral intake. 2. Continue fluid restriction per MD/DO. 3. If pt is unable to tolerance PO diet, consider downgrading to clear liquid diet. Expected Outcomes/Goals Expected Outcomes/Goals Have pt consume at least 50% of meals. Physician Parameters for PEM Serum Albumin (g/dl) 3.1 - 3.4 (Mild)
--- NOTE | 2017-03-31 13:03 | General Progress Note ---
Subjective - Review of Systems Service Date: 03/31/17 Subjective: Alert, still with abdominal pain Objective - Results Result Diagrams: 03/30/17 06:45 03/31/17 06:12 Recent Labs: Laboratory Last Values WBC 4.0 Th/cmm (4.8-10.8) L D 03/30/17 06:45 RBC 3.01 Mil/cmm (3.80-5.10) L 03/30/17 06:45 Hgb 9.7 gm/dL (11.7-15.5) L 03/30/17 06:45 Hct 28.4 % (35.0-45.0) L D 03/30/17 06:45 MCV 94.3 fl (81-100) 03/30/17 06:45 MCH 32.1 pg (27.0-31.0) H 03/30/17 06:45 MCHC Differential 34.0 pg (28.0-36.0) 03/30/17 06:45 RDW 15.4 % (11.5-20.0) 03/30/17 06:45 Plt Count 203 Th/cmm (150-400) D 03/30/17 06:45 MPV 9.3 fl 03/30/17 06:45 Neutrophils % 63.8 % (40.0-80.0) 03/30/17 06:45 Lymphocytes % 23.4 % (20.0-50.0) 03/30/17 06:45 Monocytes % 9.4 % (2.0-10.0) 03/30/17 06:45 Eosinophils % 2.7 % (0.0-5.0) 03/30/17 06:45 Basophils % 0.7 % (0.0-2.0) 03/30/17 06:45 PT 11.9 SECONDS (9.5-11.5) H 03/30/17 06:45 INR 1.13 (0.5-1.4) 03/30/17 06:45 PTT (Actin FS) 24.2 SECONDS (26.0-38.0) L 03/29/17 16:46 Sodium 137 mEq/L (136-145) 03/31/17 06:12 Potassium 5.0 mEq/L (3.5-5.1) 03/31/17 06:12 Chloride 112 mEq/L (98-107) H 03/31/17 06:12 Carbon Dioxide 18.2 mEq/L (21.0-31.0) L 03/31/17 06:12 Anion Gap 11.8 (7.0-16.0) 03/31/17 06:12 BUN 48 mg/dL (7-25) H 03/31/17 06:12 Creatinine 1.7 mg/dL (0.6-1.2) H 03/31/17 06:12 Est GFR ( Amer) 39.3 ml/min (>90) 03/31/17 06:12 Est GFR (Non-Af Amer) 32.5 ml/min 03/31/17 06:12 BUN/Creatinine Ratio 28.2 03/31/17 06:12 Glucose 131 mg/dL (70-105) H 03/31/17 06:12 POC Glucose 172 MG/DL (70 - 105) H 03/31/17 10:56 Hemoglobin A1c % 5.8 % (4.0-6.0) 03/28/17 14:55 Uric Acid 8.7 mg/dL (2.3-6.6) H 03/30/17 06:45 Calcium 8.8 mg/dL (8.6-10.3) 03/31/17 06:12 Phosphorus 4.7 mg/dL (2.5-5.0) 03/30/17 06:45 Magnesium 2.1 mg/dL (1.9-2.7) 03/30/17 06:45 Total Bilirubin 0.4 mg/dL (0.3-1.0) 03/28/17 14:55 AST 38 U/L (13-39) 03/28/17 14:55 ALT 26 U/L (7-52) 03/28/17 14:55 Alkaline Phosphatase 186 U/L (34-104) H 03/28/17 14:55 Ammonia 44 umol/L (16-53) 03/28/17 14:44 Troponin I 0.02 ng/mL (0.01-0.05) 03/28/17 14:55 Total Protein 6.5 gm/dL (6.0-8.3) 03/29/17 16:26 Albumin 3.2 gm/dL (3.7-5.3) L 03/29/17 16:26 Globulin 3.5 gm/dL 03/28/17 14:55 Albumin/Globulin Ratio 1.0 (1.0-1.8) 03/28/17 14:55 Triglycerides 233 mg/dL (<150) H 03/28/17 14:55 Cholesterol 226 mg/dL (<200) H 03/28/17 14:55 LDL Cholesterol Direct 161 mg/dL (75-193) 03/28/17 14:55 HDL Cholesterol 29 mg/dL (23-92) 03/28/17 14:55 TSH 9.05 uIU/ml (0.34-5.60) H 03/28/17 14:55 Urine Creatinine 80.3 mg/dl (Not Estab.) 03/29/17 15:59 Urine Microalbumin 2182.8 ug/mL (Not Estab.) 03/29/17 15:59 Microalb/Creat Ratio 2718.3 mg/g creat (0.0-30.0) H 03/29/17 15:59 Fluid Source PARACENTHESIS 03/30/17 10:15 Fluid Color RED 03/30/17 10:15 Fluid Appearance BLOODY 03/30/17 10:15 Fluid WBC 20 /cumm 03/30/17 10:15 Fluid RBC 00667 /cumm 03/30/17 10:15 Fluid Neutrophils 5 % 03/30/17 10:15 Fluid Lymphocytes 26 % 03/30/17 10:15 Fluid Monocytes 69 % 03/30/17 10:15 Fld Mesothelial Cells RARE 03/30/17 10:15 Fluid Total Protein 2.3 g/dL 03/30/17 10:15 Fluid Albumin 1200.0 MG/DL 03/30/17 10:15 RPR NONREACTIVE (NONREACTIVE) 03/28/17 14:55 - Physical Exam Vitals and I&O: Vital Signs Temp 98 F 03/31/17 08:00 Pulse 73 03/31/17 10:46 Resp 18 03/31/17 10:25 BP 122/65 03/31/17 08:42 Pulse Ox 97 03/31/17 08:00 Intake & Output 03/30/17 03/31/17 03/31/17 18:59 06:59 18:59 Intake Total 50 340 50 Balance 50 340 50 Weight (lbs) 71.214 kg 70.352 kg Intake: Intake, IV Amount 50 100 50 Albumin 25% 12.5gm/50mL 50 50 50 12.5 gm In 50 ml @ 50 mls /hr IV Q8HR [facility] Rx#: [id number] Oral 240 Other: # Bowel Movements 2 Stool Characteristics Soft Soft Soft Formed Active Medications: Current Medications Albuterol/Ipratropium (Duoneb Neb) 3 ml HHN QID PRN PRN Reason: Wheezing Stop: 05/27/17 19:34 Last Admin: 03/29/17 07:38 Dose: 3 ml Ascorbic Acid (Vitamin C) 500 mg PO DAILY [facility] Stop: 05/28/17 08:59 Last Admin: 03/31/17 08:42 Dose: 500 mg Bisacodyl (Dulcolax 10 Mg Supp) 10 mg RC DAILY PRN PRN Reason: Constipation Stop: 05/27/17 19:34 Clonidine HCl (Tjoxznlp-Qjf-6) 1 patch TD [facility] Stop: 05/28/17 17:29 Last Admin: 03/29/17 17:54 Dose: 1 patch Diphenoxylate HCl/Atropine (Lomotil) 1 tab PO Q6H PRN PRN Reason: Diarrhea Stop: 05/27/17 19:34 Doxycycline Hyclate (Vibramycin) 100 mg PO BID [facility] Stop: 05/27/17 19:34 Last Admin: 03/31/17 08:39 Dose: 100 mg Ferrous Sulfate (Iron) 325 mg PO BID [facility] Stop: 05/27/17 19:34 Last Admin: 03/31/17 08:41 Dose: 325 mg Furosemide (Lasix) 40 mg IVP DAILY [facility] Stop: 05/28/17 17:59 Last Admin: 03/31/17 08:38 Dose: 40 mg Heparin Sodium (Porcine) (Heparin) 5,000 units SUBQ Q12HR [facility] Stop: 05/28/17 20:59 Last Admin: 03/31/17 08:38 Dose: 5,000 units Hydralazine HCl (Apresoline) 50 mg PO BID [facility] Stop: 05/28/17 16:59 Last Admin: 03/31/17 08:41 Dose: 50 mg Ceftriaxone Sodium 1 gm/ (Sodium Chloride) 50 mls @ 100 mls/hr IV Q24HR [facility] Stop: 05/27/17 17:29 Last Admin: 03/30/17 18:12 Dose: 100 mls/hr Albumin Human (Albutein 25%) 12.5 gm in 50 mls @ 50 mls/hr IV Q8HR [facility] Stop: 04/01/17 13:59 Last Admin: 03/31/17 12:46 Dose: 50 mls/hr Insulin Aspart (Novolog Insulin Sliding Scale) 0 units SUBQ ACHS [facility] PRN Reason: Protocol Stop: 05/27/17 20:59 Last Admin: 03/31/17 11:00 Dose: 2 units Insulin Detemir (Levemir Insulin) 10 units SUBQ DAILY [facility] PRN Reason: Protocol Stop: 05/28/17 08:59 Last Admin: 03/31/17 10:58 Dose: 10 units Lactobacillus Rhamnosus (Culturelle) 1 each PO BID [facility] Stop: 05/27/17 19:34 Last Admin: 03/31/17 08:41 Dose: 1 each Levothyroxine Sodium (Synthroid) 0.05 mg PO QDAC [facility] Stop: 05/28/17 07:29 Last Admin: 03/31/17 06:30 Dose: 0.05 mg Lorazepam (Ativan) 1 mg PO Q6H PRN; Protocol PRN Reason: Anxiety Stop: 05/27/17 19:34 Metoclopramide HCl (Reglan) 5 mg PO Q6H PRN PRN Reason: STOMACH UPSET Stop: 05/27/17 19:34 Metoprolol Tartrate (Lopressor) 50 mg PO BID [facility] Stop: 05/28/17 16:59 Last Admin: 03/31/17 08:42 Dose: 50 mg Minoxidil (Loniten) 10 mg PO Q12H [facility] Stop: 05/27/17 19:34 Last Admin: 03/31/17 06:55 Dose: Not Given Miscellaneous (Vte Chemical Prophylaxis Screen/ Admission) 1 ea [facility] PRN PRN PRN Reason: PROTOCOL Stop: 05/28/17 15:41 Morphine Sulfate (Morphine) 1 mg IVP Q3H PRN PRN Reason: MODERATE PAIN Stop: 05/29/17 16:45 Last Admin: 03/31/17 10:45 Dose: 1 mg Morphine Sulfate (Morphine) 2 mg IVP Q3H PRN PRN Reason: SEVERE PAIN Stop: 05/29/17 16:45 Last Admin: 03/30/17 18:06 Dose: 2 mg Multivitamins/Vitamin C (Theragran) 1 tab PO DAILY [facility] Stop: 05/28/17 08:59 Last Admin: 03/31/17 08:42 Dose: 1 tab Ondansetron HCl (Zofran Odt) 4 mg PO Q6H PRN PRN Reason: Nausea / Vomiting Last Admin: 03/31/17 04:24 Dose: 4 mg Ondansetron HCl (Zofran) 4 mg IV Q6H PRN PRN Reason: Nausea / Vomiting Stop: 05/28/17 17:05 Last Admin: 03/29/17 17:49 Dose: 4 mg Pantoprazole Sodium (Protonix) 40 mg PO BID [facility] Stop: 05/27/17 19:34 Last Admin: 03/31/17 08:41 Dose: 40 mg Polyethylene Glycol (Miralax) 17 gm PO DAILY [facility] Stop: 05/28/17 08:59 Last Admin: 03/31/17 08:38 Dose: Not Given Rifaximin (Xifaxan) 550 mg PO Q12H [facility] Stop: 05/29/17 08:59 Last Admin: 03/31/17 08:39 Dose: 550 mg Sodium Bicarbonate (Sodium Bicarbonate) 650 mg PO Q8H [facility] PRN Reason: Protocol Stop: 05/27/17 19:34 Last Admin: 03/31/17 10:46 Dose: 650 mg Spironolactone (Aldactone) 25 mg PO BID [facility] Stop: 05/28/17 17:59 Last Admin: 03/31/17 08:39 Dose: 25 mg Zinc Sulfate (Zinc Sulfate) 220 mg PO DAILY [facility] Stop: 05/28/17 08:59 Last Admin: 03/31/17 08:40 Dose: 220 mg Zolpidem Tartrate (Ambien) 5 mg PO HS PRN PRN Reason: Insomnia Stop: 05/27/17 19:34 General: Alert, Cooperative, Moderate distress HEENT: Atraumatic, PERRLA, EOMI, Mucous membr. moist/pink Neck: Supple, +2 carotid pulse wo bruit Cardiovascular: Regular rate, Normal S1, Normal S2 Lungs: Clear to auscultation Abdomen: Bowel sounds, Soft, Tender Extremities: no Edema Neurological: Sensation intact Skin: no Rash Psych/Mental Status: Mood NL - Procedures Procedures: Procedures Procedure Code Date ABD PARACENTESIS W/IMAGING 85470 03/28/17 DRAINAGE OF PERITONEAL CAVITY, PERCUTANEOUS APPROACH [id number] 03/28/17 EGD BIOPSY SINGLE/MULTIPLE 48652 09/29/16 EXCISION OF DUODENUM, ENDO, DIAGN [id number] 09/29/16 EXCISION OF STOMACH, ENDO, DIAGN [id number] 09/29/16 MEASURE OF ARTERIAL SATURATION, PERIPHERAL, PERC APPROACH [id number] 01/27/17 Assessment/Plan - Problem List Patient Problems: All Active Problems NAUSEA/VOMITING, ENLARGED LEFT BREAST (Acute) HTN (hypertension) (Acute) I10 History of COPD (Acute) Z87.09 History of asthma (Acute) Z87.09 History of diabetes mellitus (Acute) Z86.39 History of hepatitis C (Acute) Z86.19 SOB (shortness of breath) (Acute ~01/27/17) R06.02 - Assessment Assessment: CK D Abdominal pain secondary to ascites possible SBE hepatitis C with ascites Liver lesion possibly hemangioma Left pleural effusion Enlarged left breast secondary to decreased lymphatic drainage Dyslipidemia COPD Metabolic acidosis Type II DM with CK D Essential hypertension w/ CKD Hypothyroidism Anemia of CK D - Plan Plan: Lab - Result Diagrams 03/30/17 06:45 03/30/17 06:45 Current Medications Albuterol/Ipratropium (Duoneb Neb) 3 ml HHN QID PRN PRN Reason: Wheezing Stop: 05/27/17 19:34 Last Admin: 03/29/17 07:38 Dose: 3 ml Ascorbic Acid (Vitamin C) 500 mg PO DAILY [facility] Stop: 05/28/17 08:59 Last Admin: 03/30/17 13:29 Dose: 500 mg Bisacodyl (Dulcolax 10 Mg Supp) 10 mg RC DAILY PRN PRN Reason: Constipation Stop: 05/27/17 19:34 Clonidine HCl (Emuovuwb-Tnr-4) 1 patch TD [facility] Stop: 05/28/17 17:29 Last Admin: 03/29/17 17:54 Dose: 1 patch Diphenoxylate HCl/Atropine (Lomotil) 1 tab PO Q6H PRN PRN Reason: Diarrhea Stop: 05/27/17 19:34 Doxycycline Hyclate (Vibramycin) 100 mg PO BID [facility] Stop: 05/27/17 19:34 Last Admin: 03/30/17 13:32 Dose: 100 mg Ferrous Sulfate (Iron) 325 mg PO BID [facility] Stop: 05/27/17 19:34 Last Admin: 03/30/17 13:31 Dose: 325 mg Furosemide (Lasix) 40 mg IVP DAILY [facility] Stop: 05/28/17 17:59 Last Admin: 03/30/17 09:29 Dose: 40 mg Heparin Sodium (Porcine) (Heparin) 5,000 units SUBQ Q12HR [facility] Stop: 05/28/17 20:59 Last Admin: 03/30/17 12:45 Dose: Not Given Hydralazine HCl (Apresoline) 50 mg PO BID [facility] Stop: 05/28/17 16:59 Last Admin: 03/30/17 09:32 Dose: Not Given Ceftriaxone Sodium 1 gm/ (Sodium Chloride) 50 mls @ 100 mls/hr IV Q24HR [facility] Stop: 05/27/17 17:29 Last Admin: 03/29/17 16:54 Dose: 100 mls/hr Albumin Human (Albutein 25%) 12.5 gm in 50 mls @ 50 mls/hr IV Q8HR [facility] Stop: 04/01/17 13:59 Last Admin: 03/30/17 05:39 Dose: 50 mls/hr Insulin Aspart (Novolog Insulin Sliding Scale) 0 units SUBQ ACHS [facility] PRN Reason: Protocol Stop: 05/27/17 20:59 Last Admin: 03/30/17 07:25 Dose: Not Given Insulin Detemir (Levemir Insulin) 10 units SUBQ DAILY [facility] PRN Reason: Protocol Stop: 05/28/17 08:59 Last Admin: 03/29/17 12:44 Dose: Not Given Lactobacillus Rhamnosus (Culturelle) 1 each PO BID [facility] Stop: 05/27/17 19:34 Last Admin: 03/30/17 13:30 Dose: 1 each Levothyroxine Sodium (Synthroid) 0.05 mg PO QDAC [facility] Stop: 05/28/17 07:29 Last Admin: 03/30/17 08:02 Dose: Not Given Lorazepam (Ativan) 1 mg PO Q6H PRN; Protocol PRN Reason: Anxiety Stop: 05/27/17 19:34 Metoclopramide HCl (Reglan) 5 mg PO Q6H PRN PRN Reason: STOMACH UPSET Stop: 05/27/17 19:34 Metoprolol Tartrate (Lopressor) 50 mg PO BID [facility] Stop: 05/28/17 16:59 Last Admin: 03/30/17 13:30 Dose: 50 mg Minoxidil (Loniten) 10 mg PO Q12H [facility] Stop: 05/27/17 19:34 Last Admin: 03/30/17 08:05 Dose: Not Given Miscellaneous (Vte Chemical Prophylaxis Screen/ Admission) 1 ea [facility] PRN PRN PRN Reason: PROTOCOL Stop: 05/28/17 15:41 Morphine Sulfate (Morphine) 2 mg IVP Q3HR PRN PRN Reason: Severe Pain Stop: 05/27/17 23:28 Last Admin: 03/30/17 13:24 Dose: 2 mg Morphine Sulfate (Morphine) 1 mg IVP Q3HR PRN PRN Reason: moderate pain Stop: 05/27/17 23:31 Multivitamins/Vitamin C (Theragran) 1 tab PO DAILY [facility] Stop: 05/28/17 08:59 Last Admin: 03/30/17 13:30 Dose: 1 tab Ondansetron HCl (Zofran Odt) 4 mg PO Q6H PRN PRN Reason: Nausea / Vomiting Last Admin: 03/29/17 16:47 Dose: 4 mg Ondansetron HCl (Zofran) 4 mg IV Q6H PRN PRN Reason: Nausea / Vomiting Stop: 05/28/17 17:05 Last Admin: 03/29/17 17:49 Dose: 4 mg Pantoprazole Sodium (Protonix) 40 mg PO BID [facility] Stop: 05/27/17 19:34 Last Admin: 03/30/17 13:31 Dose: 40 mg Polyethylene Glycol (Miralax) 17 gm PO DAILY [facility] Stop: 05/28/17 08:59 Last Admin: 03/30/17 13:32 Dose: 17 gm Rifaximin (Xifaxan) 550 mg PO Q12H [facility] Stop: 05/29/17 08:59 Last Admin: 03/30/17 13:29 Dose: 550 mg Sodium Bicarbonate (Sodium Bicarbonate) 650 mg PO Q8H [facility] PRN Reason: Protocol Stop: 05/27/17 19:34 Last Admin: 03/30/17 13:30 Dose: 650 mg Spironolactone (Aldactone) 25 mg PO BID [facility] Stop: 05/28/17 17:59 Last Admin: 03/30/17 09:25 Dose: Not Given Zinc Sulfate (Zinc Sulfate) 220 mg PO DAILY [facility] Stop: 05/28/17 08:59 Last Admin: 03/30/17 13:31 Dose: 220 mg Zolpidem Tartrate (Ambien) 5 mg PO HS PRN PRN Reason: Insomnia Stop: 05/27/17 19:34 The patient underwent paracentesis and approximately 1.5 L ascitic fluid was obtained Decided to start diuretics with albumin to improve intravascular volume and also hopefully decrease ascites No change kidney fnc w/ BUN/CR 48/1.7 will repeat abd us because still has abd pain ? SBE (doubt based on result), visceral pain Nutritional Asmnt/Malnutr-PDOC - Dietary Evaluation Malnutrition Findings (Please click <Entered> for more info): Nutritional Asmnt/Malnutrition Start: 03/30/17 12: 04 Text: Status: Complete Freq: Document 03/30/17 19:12 [facility] (Rec: 03/30/17 19:22 [facility] [id number]) Nutritional Asmnt/Malnutrition Patient General Information Nutritional Screening High Risk Screening Diagnosis Acute abdominal pain Pertinent Medical Hx/Surgical Hx HTN, CHF, hyperlipidemia, thyroid disorder, hepatitis C Subjective Information Pt is a 61-year-old female admitted with chief complaint of abdominal pain and infection. Paracentesis completed today. Pt was asleep during time of visit today. Pt appears well nourished with no signs of muscle or fat depletion. Current Diet Order/ Nutrition Support CCHO-60 GM, low sodium, 1200 fluid restriction/day Pertinent Medications Albutein 25%, Vitamin C, Ceftriaxone Sodium, Vancomycin , Iron, Lasix, Novolog, Levemir, Culturelle, Morphine, Theragran, Zofran, Protonix, Miralax, Zinc Sulfate Pertinent Labs (03/28) Glucose 197H, A1C WNL, Triglyceride 233H, Cholesterol 226H (03/30) BUN 46H, Creatinine 1.7H, Uric Acid 8. 7H Nutritional Hx/Data Height 1.5 m Height (Calculated Centimeters) 149.9 Current Weight (lbs) 71.214 kg Weight (Calculated Kilograms) 71.2 Weight (Calculated Grams) 96954.0 [place] Body Weight 97.5 % [place] Body Weight 161 Weight Status Obese GI Symptoms GI Symptoms Vomitting Diarrhea Last BM Food Allergies No Skin Integrity/Comment: Ozzy 15. No skin breakdown. Current %PO Negligible < 25% Estimated Nutritional Goals BEE in Kcals: Using Current wt Calories/Kcals/Kg Based on current wt 71.4 kg with consideration of obesity Kcals Calculated 5902-4776 kcals/day (20-25 kcals/kg) Protein: Using Current wt Protein g/kg: Based on current wt 71.4 kg with consideration of obesity Protein Calculated 57-71 gm/day (0.8-1 gm/kg) Fluid: ml Per MD/DO, pt on fluid restriction Nutritional Problem 1. Problem Problem Inadequate oral intake related to Etiology abdominal pain, diagnostic tests as evidenced by Signs/Symptoms: no PO intake x 2 days. Malnutrition Alert Protein-Calorie Malnutrition N/A Is there a minimum of two criteria No selected? Query Text:Check all the applicable criteria. A minimum of two criteria are recommended for diagnosis of either severe or non-severe malnutrition. Malnutrition Related to Morbid Obesity Malnutrition related to morbid obesity No Intervention/Recommendation Comments 1. Recommend soft/bland, Cardiac diet due to poor tolerance and abnormal labs. [place] food preferences, as able. Encourage oral intake. 2. Continue fluid restriction per MD/DO. 3. If pt is unable to tolerance PO diet, consider downgrading to clear liquid diet. Expected Outcomes/Goals Expected Outcomes/Goals Have pt consume at least 50% of meals. Physician Parameters for PEM Serum Albumin (g/dl) 3.1 - 3.4 (Mild)
[2017-03-31 14:27] LABS: URINE BILIRUBIN NEGATIVE (NEGATIVE); URINE BLOOD NEGATIVE (NEGATIVE); URINE GLUCOSE (UA) NEGATIVE (NEGATIVE); URINE KETONE NEGATIVE (NEGATIVE); URINE PH 5.5 (4.6 - 8.0); URINE PROTEIN 100 mg/dL (NEGATIVE); URINE UROBILINOGEN 0.2 E.U./dL (0.2 - 1.0)
[2017-03-31 14:37] LABS: URINE BACTERIA MODERATE /hpf (NONE SEEN); URINE COLOR YELLOW; URINE EPITHELIAL CELLS RARE /lpf (FEW); URINE RBC NONE SEEN /hpf (0-5)
[2017-03-31 14:38] LABS: URINE HYALINE CAST 0-2 /lpf (0-2)
[2017-03-31] MEDS: cefTRIAXone 1 GM in Sodium Chloride 0.9% 50 ML IV SCH (16:44)
[2017-04-01] MEDS: Morphine Sulfate 4 mg/mL 1mL Syr IVP PRN ×8 (01:04→21:57)
[2017-04-01] MEDS ORDERED: D5-0.45NS 1,000 ML IV SCH (01:42)
[2017-04-01] MEDS ORDERED: Albumin 25% 12.5gm/50mL 12.5 GM/50 ML BTL IV ONE (05:13)
[2017-04-01] MEDS: Albumin 25% 12.5gm/50mL 12.5 GM/50 ML BTL IV SCH ×2 (05:23→12:58)
[2017-04-01] MEDS: Levothyroxine 0.05 Mg Tab PO SCH (06:31)
[2017-04-01] MEDS: INSULIN ASPART SLIDING SCALE 100 UNITS/ML UNIT SUBQ SCH ×4 (06:47→22:30)
[2017-04-01 07:39] LABS: % BASOPHILS 0.1 % (0.0-2.0); % EOSINOPHILS 2.5 % (0.0-5.0); % LYMPHOCYTES 19.9 % (20.0-50.0); % MONOCYTES 8.6 % (2.0-10.0); % NEUTROPHILS 68.9 % (40.0-80.0); HEMOGLOBIN 9.9 gm/dL (11.7-15.5); MEAN CELL VOLUME 94.3 fl (81-100); MEAN CORPUSCULAR HEMOGLOBIN 32.2 pg (27.0-31.0); MEAN CORPUSCULAR HGB CONC 34.1 pg (28.0-36.0); MEAN PLATELET VOLUME 9.6 fl; PLATELET COUNT 222 Th/cmm (150-400); RED BLOOD COUNT 3.07 Mil/cmm (3.80-5.10); RED CELL DISTRIBUTION WIDTH 15.7 % (11.5-20.0)
[2017-04-01 07:42] LABS: WHITE BLOOD COUNT 5.8 Th/cmm (4.8-10.8)
[2017-04-01 07:44] LABS: ANION GAP 12.8 (7.0-16.0); BUN/CREATININE RATIO 25.6; CALCIUM SERUM 9.1 mg/dL (8.6-10.3); CARBON DIOXIDE 18.2 mEq/L (21.0-31.0); CREATININE - SERUM 1.8 mg/dL (0.6-1.2)
[2017-04-01] MEDS: Ferrous Sulfate 325 MG TAB PO SCH ×2 (09:27→16:25)
[2017-04-01] MEDS: Multivitamin Tab PO SCH (09:28)
[2017-04-01] MEDS: Lactobacillus Rhamnosus 10 Billion CFU Capsule PO SCH ×2 (09:28→16:25)
[2017-04-01] MEDS: Pantoprazole 40 mg EC Tab PO SCH ×2 (09:28→16:25)
[2017-04-01] MEDS: POLYETHYLENE GLYCOL 3350 17 GM PACK PO SCH (09:29)
[2017-04-01] MEDS: Venelex 60gm Tube TP SCH (10:08)
--- NOTE | 2017-04-01 11:07 | Diagnostic Imaging Report ---
Ultrasound abdomen HISTORY: Ascites COMPARISON: Ultrasound guided paracentesis on 03/30/[address] abdomen pelvis on 03/28/2017. Study was also compared to previous CT abdomen pelvis on 08/01/2017 Technique: Sonography of the abdomen was performed in multiple planes. FINDINGS: The liver demonstrates mildly heterogeneous echotexture and measures 17.4 cm. No evidence of obvious focal lesions.. To the previous hepatic lesion seen on recent CT examination was not identified by ultrasound on this exam. No evidence of gallstones. The gallbladder wall measures 3 mm. The common bile measures 4 mm. Evaluation of the pancreas is limited due to bowel gas. The right kidney was not visualized. The left kidney measures 10.0 cm. No evidence of focal lesions or hydronephrosis. The spleen measures 10.9 cm. Moderate generalized ascites is noted. IMPRESSION: Moderate generalized ascites. Mild hepatomegaly with mild heterogeneity which may reflect underlying hepatocellular disease. Note that the recent low-density lesions seen within the right lobe of the liver on recent CT examination was not identified sonographically. Please refer to previous CT examinations for further findings. The right kidney was not visualized on this exam.
--- NOTE | 2017-04-01 12:12 | General Progress Note ---
Subjective - Review of Systems Events since last encounter: patient alert still c/o abd pain Objective - Results Result Diagrams: 04/01/17 06:25 04/01/17 06:25 Recent Labs: Laboratory Last Values WBC 5.8 Th/cmm (4.8-10.8) D 04/01/17 06:25 RBC 3.07 Mil/cmm (3.80-5.10) L 04/01/17 06:25 Hgb 9.9 gm/dL (11.7-15.5) L 04/01/17 06:25 Hct 29.0 % (35.0-45.0) L 04/01/17 06:25 MCV 94.3 fl (81-100) 04/01/17 06:25 MCH 32.2 pg (27.0-31.0) H 04/01/17 06:25 MCHC Differential 34.1 pg (28.0-36.0) 04/01/17 06:25 RDW 15.7 % (11.5-20.0) 04/01/17 06:25 Plt Count 222 Th/cmm (150-400) 04/01/17 06:25 MPV 9.6 fl 04/01/17 06:25 Neutrophils % 68.9 % (40.0-80.0) 04/01/17 06:25 Lymphocytes % 19.9 % (20.0-50.0) L 04/01/17 06:25 Monocytes % 8.6 % (2.0-10.0) 04/01/17 06:25 Eosinophils % 2.5 % (0.0-5.0) 04/01/17 06:25 Basophils % 0.1 % (0.0-2.0) 04/01/17 06:25 Eos Smear Source URINE 03/31/17 13:40 Eos Smear Total Cells FEW EOSINOPHILS SEEN (NONE SEEN) 03/31/17 13:40 PT 11.9 SECONDS (9.5-11.5) H 03/30/17 06:45 INR 1.13 (0.5-1.4) 03/30/17 06:45 PTT (Actin FS) 24.2 SECONDS (26.0-38.0) L 03/29/17 16:46 Sodium 139 mEq/L (136-145) 04/01/17 06:25 Potassium 5.0 mEq/L (3.5-5.1) 04/01/17 06:25 Chloride 113 mEq/L (98-107) H 04/01/17 06:25 Carbon Dioxide 18.2 mEq/L (21.0-31.0) L 04/01/17 06:25 Anion Gap 12.8 (7.0-16.0) 04/01/17 06:25 BUN 46 mg/dL (7-25) H 04/01/17 06:25 Creatinine 1.8 mg/dL (0.6-1.2) H 04/01/17 06:25 Est GFR ( Amer) 36.8 ml/min (>90) 04/01/17 06:25 Est GFR (Non-Af Amer) 30.4 ml/min 04/01/17 06:25 BUN/Creatinine Ratio 25.6 04/01/17 06:25 Glucose 107 mg/dL (70-105) H 04/01/17 06:25 POC Glucose 140 MG/DL (70 - 105) H 04/01/17 11:14 Hemoglobin A1c % 5.8 % (4.0-6.0) 03/28/17 14:55 Uric Acid 8.7 mg/dL (2.3-6.6) H 03/30/17 06:45 Calcium 9.1 mg/dL (8.6-10.3) 04/01/17 06:25 Phosphorus 4.7 mg/dL (2.5-5.0) 03/30/17 06:45 Magnesium 2.1 mg/dL (1.9-2.7) 03/30/17 06:45 Total Bilirubin 0.4 mg/dL (0.3-1.0) 03/28/17 14:55 AST 38 U/L (13-39) 03/28/17 14:55 ALT 26 U/L (7-52) 03/28/17 14:55 Alkaline Phosphatase 186 U/L (34-104) H 03/28/17 14:55 Ammonia 44 umol/L (16-53) 03/28/17 14:44 Troponin I 0.02 ng/mL (0.01-0.05) 03/28/17 14:55 Total Protein 6.5 gm/dL (6.0-8.3) 03/29/17 16:26 Albumin 3.2 gm/dL (3.7-5.3) L 03/29/17 16:26 Globulin 3.5 gm/dL 03/28/17 14:55 Albumin/Globulin Ratio 1.0 (1.0-1.8) 03/28/17 14:55 Triglycerides 233 mg/dL (<150) H 03/28/17 14:55 Cholesterol 226 mg/dL (<200) H 03/28/17 14:55 LDL Cholesterol Direct 161 mg/dL (75-193) 03/28/17 14:55 HDL Cholesterol 29 mg/dL (23-92) 03/28/17 14:55 TSH 9.05 uIU/ml (0.34-5.60) H 03/28/17 14:55 Urine Source MIDSTREAM 03/31/17 13:40 Urine Color YELLOW 03/31/17 13:40 Urine Clarity SLIGHT CLOUDY (CLEAR) 03/31/17 13:40 Urine pH 5.5 (4.6 - 8.0) 03/31/17 13:40 Ur Specific [place] 1.025 (1.005-1.030) 03/31/17 13:40 Urine Protein 100 mg/dL (NEGATIVE) H 03/31/17 13:40 Urine Glucose (UA) NEGATIVE mg/dL (NEGATIVE) 03/31/17 13:40 Urine Ketones NEGATIVE mg/dL (NEGATIVE) 03/31/17 13:40 Urine Blood NEGATIVE (NEGATIVE) 03/31/17 13:40 Urine Nitrate NEGATIVE (NEGATIVE) 03/31/17 13:40 Urine Bilirubin NEGATIVE (NEGATIVE) 03/31/17 13:40 Urine Urobilinogen 0.2 E.U./dL (0.2 - 1.0) 03/31/17 13:40 Ur Leukocyte Esterase TRACE (NEGATIVE) H 03/31/17 13:40 Urine RBC NONE SEEN /hpf (0-5) 03/31/17 13:40 Urine WBC 2-5 /hpf (0-5) 03/31/17 13:40 Ur Epithelial Cells RARE /lpf (FEW) 03/31/17 13:40 Urine Bacteria MODERATE /hpf (NONE SEEN) 03/31/17 13:40 Hyaline Casts 0-2 /lpf (0-2) H 03/31/17 13:40 Urine Yeast MANY /hpf (NONE SEEN) H 03/31/17 13:40 Ur Random Sodium 47 mmol/L 03/31/17 13:40 Urine Creatinine 96.0 mg/dl (28.0-217.0) 03/31/17 13:40 Urine Microalbumin 2182.8 ug/mL (Not Estab.) 03/29/17 15:59 Microalb/Creat Ratio 2718.3 mg/g creat (0.0-30.0) H 03/29/17 15:59 Fluid Source PARACENTHESIS 03/30/17 10:15 Fluid Color RED 03/30/17 10:15 Fluid Appearance BLOODY 03/30/17 10:15 Fluid WBC 20 /cumm 03/30/17 10:15 Fluid RBC 84289 /cumm 03/30/17 10:15 Fluid Neutrophils 5 % 03/30/17 10:15 Fluid Lymphocytes 26 % 03/30/17 10:15 Fluid Monocytes 69 % 03/30/17 10:15 Fld Mesothelial Cells RARE 03/30/17 10:15 Fluid Total Protein 2.3 g/dL 03/30/17 10:15 Fluid Albumin 1200.0 MG/DL 03/30/17 10:15 RPR NONREACTIVE (NONREACTIVE) 03/28/17 14:55 - Physical Exam Vitals and I&O: Vital Signs Temp 97.7 F 04/01/17 11:22 Pulse 97 04/01/17 11:49 Resp 17 04/01/17 11:22 BP 166/93 04/01/17 11:22 Pulse Ox 98 04/01/17 11:22 Intake & Output 03/31/17 04/01/17 04/01/17 18:59 06:59 18:59 Intake Total 100 50 Balance 100 50 Weight (lbs) 70.307 kg Intake: Intake, IV Amount 100 50 Albumin 25% 12.5gm/50mL 100 50 12.5 gm In 50 ml @ 50 mls /hr IV Q8HR [facility] Rx#: [id number] Other: Stool Characteristics Soft Soft Soft Active Medications: Current Medications Albuterol/Ipratropium (Duoneb Neb) 3 ml HHN QID PRN PRN Reason: Wheezing Stop: 05/27/17 19:34 Last Admin: 03/29/17 07:38 Dose: 3 ml Ascorbic Acid (Vitamin C) 500 mg PO DAILY [facility] Stop: 05/28/17 08:59 Last Admin: 04/01/17 09:27 Dose: Not Given Bisacodyl (Dulcolax 10 Mg Supp) 10 mg RC DAILY PRN PRN Reason: Constipation Stop: 05/27/17 19:34 Clonidine HCl (Chrdwrdz-Fbi-6) 1 patch TD TU [facility] Stop: 05/28/17 17:29 Last Admin: 03/29/17 17:54 Dose: 1 patch Diphenoxylate HCl/Atropine (Lomotil) 1 tab PO Q6H PRN PRN Reason: Diarrhea Stop: 05/27/17 19:34 Doxycycline Hyclate (Vibramycin) 100 mg PO BID [facility] Stop: 05/27/17 19:34 Last Admin: 04/01/17 09:27 Dose: Not Given Ferrous Sulfate (Iron) 325 mg PO BID [facility] Stop: 05/27/17 19:34 Last Admin: 04/01/17 09:27 Dose: Not Given Furosemide (Lasix) 40 mg IVP DAILY [facility] Stop: 05/28/17 17:59 Last Admin: 04/01/17 10:12 Dose: 40 mg Heparin Sodium (Porcine) (Heparin) 5,000 units SUBQ Q12HR [facility] Stop: 05/28/17 20:59 Last Admin: 04/01/17 08:57 Dose: 5,000 units Hydralazine HCl (Apresoline) 50 mg PO BID [facility] Stop: 05/28/17 16:59 Last Admin: 04/01/17 09:28 Dose: Not Given Ceftriaxone Sodium 1 gm/ (Sodium Chloride) 50 mls @ 100 mls/hr IV Q24HR [facility] Stop: 05/27/17 17:29 Last Admin: 03/31/17 16:44 Dose: 100 mls/hr Albumin Human (Albutein 25%) 12.5 gm in 50 mls @ 50 mls/hr IV Q8HR [facility] Stop: 04/01/17 13:59 Last Admin: 04/01/17 05:23 Dose: 50 mls/hr Dextrose/Sodium Chloride (D5-0.45ns) 1,000 mls @ 50 mls/hr IV .Q20H [facility] Stop: 05/31/17 01:41 Last Admin: 04/01/17 01:49 Dose: 50 mls/hr Insulin Aspart (Novolog Insulin Sliding Scale) 0 units SUBQ ACHS [facility] PRN Reason: Protocol Stop: 05/27/17 20:59 Last Admin: 04/01/17 11:45 Dose: Not Given Lactobacillus Rhamnosus (Culturelle) 1 each PO BID [facility] Stop: 05/27/17 19:34 Last Admin: 04/01/17 09:28 Dose: Not Given Levothyroxine Sodium (Synthroid) 0.05 mg PO QDAC [facility] Stop: 05/28/17 07:29 Last Admin: 04/01/17 06:31 Dose: 0.05 mg Lorazepam (Ativan) 1 mg PO Q6H PRN; Protocol PRN Reason: Anxiety Stop: 05/27/17 19:34 Metoclopramide HCl (Reglan) 5 mg PO Q6H PRN PRN Reason: STOMACH UPSET Stop: 05/27/17 19:34 Metoprolol Tartrate (Lopressor) 50 mg PO BID [facility] Stop: 05/28/17 16:59 Last Admin: 04/01/17 09:28 Dose: Not Given Minoxidil (Loniten) 10 mg PO Q12H [facility] Stop: 05/27/17 19:34 Last Admin: 04/01/17 09:26 Dose: Not Given Miscellaneous (Vte Chemical Prophylaxis Screen/ Admission) 1 ea MC PRN PRN PRN Reason: PROTOCOL Stop: 05/28/17 15:41 Morphine Sulfate (Morphine) 1 mg IVP Q3H PRN PRN Reason: MODERATE PAIN Stop: 05/29/17 16:45 Last Admin: 04/01/17 10:09 Dose: 1 mg Morphine Sulfate (Morphine) 2 mg IVP Q3H PRN PRN Reason: SEVERE PAIN Stop: 05/29/17 16:45 Last Admin: 04/01/17 07:08 Dose: 2 mg Multivitamins/Vitamin C (Theragran) 1 tab PO DAILY [facility] Stop: 05/28/17 08:59 Last Admin: 04/01/17 09:28 Dose: Not Given Ondansetron HCl (Zofran Odt) 4 mg PO Q6H PRN PRN Reason: Nausea / Vomiting Last Admin: 03/31/17 04:24 Dose: 4 mg Ondansetron HCl (Zofran) 4 mg IV Q6H PRN PRN Reason: Nausea / Vomiting Stop: 05/28/17 17:05 Last Admin: 03/29/17 17:49 Dose: 4 mg Pantoprazole Sodium (Protonix) 40 mg PO BID [facility] Stop: 05/27/17 19:34 Last Admin: 04/01/17 09:28 Dose: Not Given Polyethylene Glycol (Miralax) 17 gm PO DAILY [facility] Stop: 05/28/17 08:59 Last Admin: 04/01/17 09:29 Dose: Not Given Rifaximin (Xifaxan) 550 mg PO Q12H [facility] Stop: 05/29/17 08:59 Last Admin: 04/01/17 09:29 Dose: Not Given Sodium Bicarbonate (Sodium Bicarbonate) 650 mg PO Q8H [facility] PRN Reason: Protocol Stop: 05/27/17 19:34 Last Admin: 04/01/17 11:50 Dose: 650 mg Spironolactone (Aldactone) 25 mg PO BID [facility] Stop: 05/28/17 17:59 Last Admin: 04/01/17 09:25 Dose: Not Given Zinc Sulfate (Zinc Sulfate) 220 mg PO DAILY [facility] Stop: 05/28/17 08:59 Last Admin: 04/01/17 09:29 Dose: Not Given Zolpidem Tartrate (Ambien) 5 mg PO HS PRN PRN Reason: Insomnia Stop: 05/27/17 19:34 General: Alert, Cooperative, Moderate distress HEENT: Atraumatic, PERRLA, EOMI, Mucous membr. moist/pink Neck: Supple, +2 carotid pulse wo bruit Cardiovascular: Regular rate, Normal S1, Normal S2 Lungs: Clear to auscultation Abdomen: Bowel sounds, Soft, Tender Extremities: no Edema Neurological: Sensation intact Skin: no Rash Psych/Mental Status: Mood NL - Procedures Procedures: Procedures Procedure Code Date ABD PARACENTESIS W/IMAGING 72785 03/28/17 DRAINAGE OF PERITONEAL CAVITY, PERCUTANEOUS APPROACH [id number] 03/28/17 EGD BIOPSY SINGLE/MULTIPLE 66118 09/29/16 EXCISION OF DUODENUM, ENDO, DIAGN [id number] 09/29/16 EXCISION OF STOMACH, ENDO, DIAGN [id number] 09/29/16 MEASURE OF ARTERIAL SATURATION, PERIPHERAL, PERC APPROACH [id number] 01/27/17 Assessment/Plan - Problem List Patient Problems: All Active Problems NAUSEA/VOMITING, ENLARGED LEFT BREAST (Acute) HTN (hypertension) (Acute) I10 History of COPD (Acute) Z87.09 History of asthma (Acute) Z87.09 History of diabetes mellitus (Acute) Z86.39 History of hepatitis C (Acute) Z86.19 SOB (shortness of breath) (Acute ~01/27/17) R06.02 - Plan Plan: monitor vitals/diet labs f/up consulting Nutritional Asmnt/Malnutr-PDOC - Dietary Evaluation Malnutrition Findings (Please click <Entered> for more info): Nutritional Asmnt/Malnutrition Start: 03/30/17 12: 04 Text: Status: Complete Freq: Document 03/30/17 19:12 [facility] (Rec: 03/30/17 19:22 [facility] [id number]) Nutritional Asmnt/Malnutrition Patient General Information Nutritional Screening High Risk Screening Diagnosis Acute abdominal pain Pertinent Medical Hx/Surgical Hx HTN, CHF, hyperlipidemia, thyroid disorder, hepatitis C Subjective Information Pt is a 61-year-old female admitted with chief complaint of abdominal pain and infection. Paracentesis completed today. Pt was asleep during time of visit today. Pt appears well nourished with no signs of muscle or fat depletion. Current Diet Order/ Nutrition Support CCHO-60 GM, low sodium, 1200 fluid restriction/day Pertinent Medications Albutein 25%, Vitamin C, Ceftriaxone Sodium, Vancomycin , Iron, Lasix, Novolog, Levemir, Culturelle, Morphine, Theragran, Zofran, Protonix, Miralax, Zinc Sulfate Pertinent Labs (03/28) Glucose 197H, A1C WNL, Triglyceride 233H, Cholesterol 226H (03/30) BUN 46H, Creatinine 1.7H, Uric Acid 8. 7H Nutritional Hx/Data Height 1.5 m Height (Calculated Centimeters) 149.9 Current Weight (lbs) 71.214 kg Weight (Calculated Kilograms) 71.2 Weight (Calculated Grams) 95982.0 [place] Body Weight 97.5 % [place] Body Weight 161 Weight Status Obese GI Symptoms GI Symptoms Vomitting Diarrhea Last BM Food Allergies No Skin Integrity/Comment: Ozzy 15. No skin breakdown. Current %PO Negligible < 25% Estimated Nutritional Goals BEE in Kcals: Using Current wt Calories/Kcals/Kg Based on current wt 71.4 kg with consideration of obesity Kcals Calculated 0035-9796 kcals/day (20-25 kcals/kg) Protein: Using Current wt Protein g/kg: Based on current wt 71.4 kg with consideration of obesity Protein Calculated 57-71 gm/day (0.8-1 gm/kg) Fluid: ml Per MD/DO, pt on fluid restriction Nutritional Problem 1. Problem Problem Inadequate oral intake related to Etiology abdominal pain, diagnostic tests as evidenced by Signs/Symptoms: no PO intake x 2 days. Malnutrition Alert Protein-Calorie Malnutrition N/A Is there a minimum of two criteria No selected? Query Text:Check all the applicable criteria. A minimum of two criteria are recommended for diagnosis of either severe or non-severe malnutrition. Malnutrition Related to Morbid Obesity Malnutrition related to morbid obesity No Intervention/Recommendation Comments 1. Recommend soft/bland, Cardiac diet due to poor tolerance and abnormal labs. [place] food preferences, as able. Encourage oral intake. 2. Continue fluid restriction per MD/DO. 3. If pt is unable to tolerance PO diet, consider downgrading to clear liquid diet. Expected Outcomes/Goals Expected Outcomes/Goals Have pt consume at least 50% of meals. Physician Parameters for PEM Serum Albumin (g/dl) 3.1 - 3.4 (Mild)
--- NOTE | 2017-04-01 13:20 | General Progress Note ---
Subjective - Review of Systems Service Date: 04/01/17 Subjective: Alert, still with abdominal pain Objective - Results Result Diagrams: 04/01/17 06:25 04/01/17 06:25 Recent Labs: Laboratory Last Values WBC 5.8 Th/cmm (4.8-10.8) D 04/01/17 06:25 RBC 3.07 Mil/cmm (3.80-5.10) L 04/01/17 06:25 Hgb 9.9 gm/dL (11.7-15.5) L 04/01/17 06:25 Hct 29.0 % (35.0-45.0) L 04/01/17 06:25 MCV 94.3 fl (81-100) 04/01/17 06:25 MCH 32.2 pg (27.0-31.0) H 04/01/17 06:25 MCHC Differential 34.1 pg (28.0-36.0) 04/01/17 06:25 RDW 15.7 % (11.5-20.0) 04/01/17 06:25 Plt Count 222 Th/cmm (150-400) 04/01/17 06:25 MPV 9.6 fl 04/01/17 06:25 Neutrophils % 68.9 % (40.0-80.0) 04/01/17 06:25 Lymphocytes % 19.9 % (20.0-50.0) L 04/01/17 06:25 Monocytes % 8.6 % (2.0-10.0) 04/01/17 06:25 Eosinophils % 2.5 % (0.0-5.0) 04/01/17 06:25 Basophils % 0.1 % (0.0-2.0) 04/01/17 06:25 Eos Smear Source URINE 03/31/17 13:40 Eos Smear Total Cells FEW EOSINOPHILS SEEN (NONE SEEN) 03/31/17 13:40 PT 11.9 SECONDS (9.5-11.5) H 03/30/17 06:45 INR 1.13 (0.5-1.4) 03/30/17 06:45 PTT (Actin FS) 24.2 SECONDS (26.0-38.0) L 03/29/17 16:46 Sodium 139 mEq/L (136-145) 04/01/17 06:25 Potassium 5.0 mEq/L (3.5-5.1) 04/01/17 06:25 Chloride 113 mEq/L (98-107) H 04/01/17 06:25 Carbon Dioxide 18.2 mEq/L (21.0-31.0) L 04/01/17 06:25 Anion Gap 12.8 (7.0-16.0) 04/01/17 06:25 BUN 46 mg/dL (7-25) H 04/01/17 06:25 Creatinine 1.8 mg/dL (0.6-1.2) H 04/01/17 06:25 Est GFR ( Amer) 36.8 ml/min (>90) 04/01/17 06:25 Est GFR (Non-Af Amer) 30.4 ml/min 04/01/17 06:25 BUN/Creatinine Ratio 25.6 04/01/17 06:25 Glucose 107 mg/dL (70-105) H 04/01/17 06:25 POC Glucose 140 MG/DL (70 - 105) H 04/01/17 11:14 Hemoglobin A1c % 5.8 % (4.0-6.0) 03/28/17 14:55 Uric Acid 8.7 mg/dL (2.3-6.6) H 03/30/17 06:45 Calcium 9.1 mg/dL (8.6-10.3) 04/01/17 06:25 Phosphorus 4.7 mg/dL (2.5-5.0) 03/30/17 06:45 Magnesium 2.1 mg/dL (1.9-2.7) 03/30/17 06:45 Total Bilirubin 0.4 mg/dL (0.3-1.0) 03/28/17 14:55 AST 38 U/L (13-39) 03/28/17 14:55 ALT 26 U/L (7-52) 03/28/17 14:55 Alkaline Phosphatase 186 U/L (34-104) H 03/28/17 14:55 Ammonia 44 umol/L (16-53) 03/28/17 14:44 Troponin I 0.02 ng/mL (0.01-0.05) 03/28/17 14:55 Total Protein 6.5 gm/dL (6.0-8.3) 03/29/17 16:26 Albumin 3.2 gm/dL (3.7-5.3) L 03/29/17 16:26 Globulin 3.5 gm/dL 03/28/17 14:55 Albumin/Globulin Ratio 1.0 (1.0-1.8) 03/28/17 14:55 Triglycerides 233 mg/dL (<150) H 03/28/17 14:55 Cholesterol 226 mg/dL (<200) H 03/28/17 14:55 LDL Cholesterol Direct 161 mg/dL (75-193) 03/28/17 14:55 HDL Cholesterol 29 mg/dL (23-92) 03/28/17 14:55 TSH 9.05 uIU/ml (0.34-5.60) H 03/28/17 14:55 Urine Source MIDSTREAM 03/31/17 13:40 Urine Color YELLOW 03/31/17 13:40 Urine Clarity SLIGHT CLOUDY (CLEAR) 03/31/17 13:40 Urine pH 5.5 (4.6 - 8.0) 03/31/17 13:40 Ur Specific Outlook 1.025 (1.005-1.030) 03/31/17 13:40 Urine Protein 100 mg/dL (NEGATIVE) H 03/31/17 13:40 Urine Glucose (UA) NEGATIVE mg/dL (NEGATIVE) 03/31/17 13:40 Urine Ketones NEGATIVE mg/dL (NEGATIVE) 03/31/17 13:40 Urine Blood NEGATIVE (NEGATIVE) 03/31/17 13:40 Urine Nitrate NEGATIVE (NEGATIVE) 03/31/17 13:40 Urine Bilirubin NEGATIVE (NEGATIVE) 03/31/17 13:40 Urine Urobilinogen 0.2 E.U./dL (0.2 - 1.0) 03/31/17 13:40 Ur Leukocyte Esterase TRACE (NEGATIVE) H 03/31/17 13:40 Urine RBC NONE SEEN /hpf (0-5) 03/31/17 13:40 Urine WBC 2-5 /hpf (0-5) 03/31/17 13:40 Ur Epithelial Cells RARE /lpf (FEW) 03/31/17 13:40 Urine Bacteria MODERATE /hpf (NONE SEEN) 03/31/17 13:40 Hyaline Casts 0-2 /lpf (0-2) H 03/31/17 13:40 Urine Yeast MANY /hpf (NONE SEEN) H 03/31/17 13:40 Ur Random Sodium 47 mmol/L 03/31/17 13:40 Urine Creatinine 96.0 mg/dl (28.0-217.0) 03/31/17 13:40 Urine Microalbumin 2182.8 ug/mL (Not Estab.) 03/29/17 15:59 Microalb/Creat Ratio 2718.3 mg/g creat (0.0-30.0) H 03/29/17 15:59 Fluid Source PARACENTHESIS 03/30/17 10:15 Fluid Color RED 03/30/17 10:15 Fluid Appearance BLOODY 03/30/17 10:15 Fluid WBC 20 /cumm 03/30/17 10:15 Fluid RBC 64401 /cumm 03/30/17 10:15 Fluid Neutrophils 5 % 03/30/17 10:15 Fluid Lymphocytes 26 % 03/30/17 10:15 Fluid Monocytes 69 % 03/30/17 10:15 Fld Mesothelial Cells RARE 03/30/17 10:15 Fluid Total Protein 2.3 g/dL 03/30/17 10:15 Fluid Albumin 1200.0 MG/DL 03/30/17 10:15 RPR NONREACTIVE (NONREACTIVE) 03/28/17 14:55 - Physical Exam Vitals and I&O: Vital Signs Temp 97.7 F 04/01/17 11:22 Pulse 97 04/01/17 11:49 Resp 17 04/01/17 11:22 BP 166/93 04/01/17 11:22 Pulse Ox 98 04/01/17 11:22 Intake & Output 03/31/17 04/01/17 04/01/17 18:59 06:59 18:59 Intake Total 100 100 Balance 100 100 Weight (lbs) 70.307 kg Intake: Intake, IV Amount 100 100 Albumin 25% 12.5gm/50mL 100 100 12.5 gm In 50 ml @ 50 mls /hr IV Q8HR [facility] Rx#: [id number] Other: Stool Characteristics Soft Soft Soft Active Medications: Current Medications Albuterol/Ipratropium (Duoneb Neb) 3 ml HHN QID PRN PRN Reason: Wheezing Stop: 05/27/17 19:34 Last Admin: 03/29/17 07:38 Dose: 3 ml Ascorbic Acid (Vitamin C) 500 mg PO DAILY [facility] Stop: 05/28/17 08:59 Last Admin: 04/01/17 09:27 Dose: Not Given Bisacodyl (Dulcolax 10 Mg Supp) 10 mg RC DAILY PRN PRN Reason: Constipation Stop: 05/27/17 19:34 Diphenoxylate HCl/Atropine (Lomotil) 1 tab PO Q6H PRN PRN Reason: Diarrhea Stop: 05/27/17 19:34 Doxycycline Hyclate (Vibramycin) 100 mg PO BID [facility] Stop: 05/27/17 19:34 Last Admin: 04/01/17 09:27 Dose: Not Given Ferrous Sulfate (Iron) 325 mg PO BID [facility] Stop: 05/27/17 19:34 Last Admin: 04/01/17 09:27 Dose: Not Given Furosemide (Lasix) 40 mg PO DAILY [facility] Stop: 06/01/17 08:59 Heparin Sodium (Porcine) (Heparin) 5,000 units SUBQ Q12HR [facility] Stop: 05/28/17 20:59 Last Admin: 04/01/17 08:57 Dose: 5,000 units Hydralazine HCl (Apresoline) 50 mg PO BID [facility] Stop: 05/28/17 16:59 Last Admin: 04/01/17 09:28 Dose: Not Given Ceftriaxone Sodium 1 gm/ (Sodium Chloride) 50 mls @ 100 mls/hr IV Q24HR [facility] Stop: 05/27/17 17:29 Last Admin: 03/31/17 16:44 Dose: 100 mls/hr Albumin Human (Albutein 25%) 12.5 gm in 50 mls @ 50 mls/hr IV Q8HR [facility] Stop: 04/01/17 13:59 Last Admin: 04/01/17 12:58 Dose: 50 mls/hr Insulin Aspart (Novolog Insulin Sliding Scale) 0 units SUBQ ACHS [facility] PRN Reason: Protocol Stop: 05/27/17 20:59 Last Admin: 04/01/17 11:45 Dose: Not Given Lactobacillus Rhamnosus (Culturelle) 1 each PO BID [facility] Stop: 05/27/17 19:34 Last Admin: 04/01/17 09:28 Dose: Not Given Levothyroxine Sodium (Synthroid) 0.05 mg PO QDAC [facility] Stop: 05/28/17 07:29 Last Admin: 04/01/17 06:31 Dose: 0.05 mg Lorazepam (Ativan) 1 mg PO Q6H PRN; Protocol PRN Reason: Anxiety Stop: 05/27/17 19:34 Metoclopramide HCl (Reglan) 5 mg PO Q6H PRN PRN Reason: STOMACH UPSET Stop: 05/27/17 19:34 Metoprolol Tartrate (Lopressor) 50 mg PO BID [facility] Stop: 05/28/17 16:59 Last Admin: 04/01/17 09:28 Dose: Not Given Minoxidil (Loniten) 10 mg PO Q12H [facility] Stop: 05/27/17 19:34 Last Admin: 04/01/17 09:26 Dose: Not Given Miscellaneous (Vte Chemical Prophylaxis Screen/ Admission) 1 ea MC PRN PRN PRN Reason: PROTOCOL Stop: 05/28/17 15:41 Morphine Sulfate (Morphine) 1 mg IVP Q3H PRN PRN Reason: MODERATE PAIN Stop: 05/29/17 16:45 Last Admin: 04/01/17 10:09 Dose: 1 mg Morphine Sulfate (Morphine) 2 mg IVP Q3H PRN PRN Reason: SEVERE PAIN Stop: 05/29/17 16:45 Last Admin: 04/01/17 13:06 Dose: 2 mg Multivitamins/Vitamin C (Theragran) 1 tab PO DAILY [facility] Stop: 05/28/17 08:59 Last Admin: 04/01/17 09:28 Dose: Not Given Ondansetron HCl (Zofran Odt) 4 mg PO Q6H PRN PRN Reason: Nausea / Vomiting Last Admin: 03/31/17 04:24 Dose: 4 mg Ondansetron HCl (Zofran) 4 mg IV Q6H PRN PRN Reason: Nausea / Vomiting Stop: 05/28/17 17:05 Last Admin: 03/29/17 17:49 Dose: 4 mg Pantoprazole Sodium (Protonix) 40 mg PO BID [facility] Stop: 05/27/17 19:34 Last Admin: 04/01/17 09:28 Dose: Not Given Polyethylene Glycol (Miralax) 17 gm PO DAILY [facility] Stop: 05/28/17 08:59 Last Admin: 04/01/17 09:29 Dose: Not Given Rifaximin (Xifaxan) 550 mg PO Q12H [facility] Stop: 05/29/17 08:59 Last Admin: 04/01/17 09:29 Dose: Not Given Sodium Bicarbonate (Sodium Bicarbonate) 650 mg PO Q8H [facility] PRN Reason: Protocol Stop: 05/27/17 19:34 Last Admin: 04/01/17 11:50 Dose: 650 mg Spironolactone (Aldactone) 25 mg PO BID [facility] Stop: 05/28/17 17:59 Last Admin: 04/01/17 09:25 Dose: Not Given Zinc Sulfate (Zinc Sulfate) 220 mg PO DAILY [facility] Stop: 05/28/17 08:59 Last Admin: 04/01/17 09:29 Dose: Not Given Zolpidem Tartrate (Ambien) 5 mg PO HS PRN PRN Reason: Insomnia Stop: 05/27/17 19:34 General: Alert, Cooperative, Moderate distress HEENT: Atraumatic, PERRLA, EOMI, Mucous membr. moist/pink Neck: Supple, +2 carotid pulse wo bruit Cardiovascular: Regular rate, Normal S1, Normal S2 Lungs: Clear to auscultation Abdomen: Bowel sounds, Soft, Tender Extremities: no Edema Neurological: Sensation intact Skin: no Rash Psych/Mental Status: Mood NL - Procedures Procedures: Procedures Procedure Code Date ABD PARACENTESIS W/IMAGING 67700 03/28/17 DRAINAGE OF PERITONEAL CAVITY, PERCUTANEOUS APPROACH 1E1V0IT 03/28/17 EGD BIOPSY SINGLE/MULTIPLE 24363 09/29/16 EXCISION OF DUODENUM, ENDO, DIAGN [id number] 09/29/16 EXCISION OF STOMACH, ENDO, DIAGN [id number] 09/29/16 MEASURE OF ARTERIAL SATURATION, PERIPHERAL, PERC APPROACH [id number] 01/27/17 Assessment/Plan - Problem List Patient Problems: All Active Problems NAUSEA/VOMITING, ENLARGED LEFT BREAST (Acute) HTN (hypertension) (Acute) I10 History of COPD (Acute) Z87.09 History of asthma (Acute) Z87.09 History of diabetes mellitus (Acute) Z86.39 History of hepatitis C (Acute) Z86.19 SOB (shortness of breath) (Acute ~01/27/17) R06.02 - Assessment Assessment: CK D Abdominal pain secondary to ascites possible SBE hepatitis C with ascites Liver lesion possibly hemangioma Left pleural effusion Enlarged left breast secondary to decreased lymphatic drainage Dyslipidemia COPD Metabolic acidosis Type II DM with CK D Essential hypertension w/ CKD Hypothyroidism Anemia of CK D - Plan Plan: Lab - Result Diagrams 03/30/17 06:45 03/30/17 06:45 Current Medications Albuterol/Ipratropium (Duoneb Neb) 3 ml HHN QID PRN PRN Reason: Wheezing Stop: 05/27/17 19:34 Last Admin: 03/29/17 07:38 Dose: 3 ml Ascorbic Acid (Vitamin C) 500 mg PO DAILY [facility] Stop: 05/28/17 08:59 Last Admin: 03/30/17 13:29 Dose: 500 mg Bisacodyl (Dulcolax 10 Mg Supp) 10 mg RC DAILY PRN PRN Reason: Constipation Stop: 05/27/17 19:34 Clonidine HCl ([id number]) 1 patch TD [facility] Stop: 05/28/17 17:29 Last Admin: 03/29/17 17:54 Dose: 1 patch Diphenoxylate HCl/Atropine (Lomotil) 1 tab PO Q6H PRN PRN Reason: Diarrhea Stop: 05/27/17 19:34 Doxycycline Hyclate (Vibramycin) 100 mg PO BID [facility] Stop: 05/27/17 19:34 Last Admin: 03/30/17 13:32 Dose: 100 mg Ferrous Sulfate (Iron) 325 mg PO BID [facility] Stop: 05/27/17 19:34 Last Admin: 03/30/17 13:31 Dose: 325 mg Furosemide (Lasix) 40 mg IVP DAILY [facility] Stop: 05/28/17 17:59 Last Admin: 03/30/17 09:29 Dose: 40 mg Heparin Sodium (Porcine) (Heparin) 5,000 units SUBQ Q12HR [facility] Stop: 05/28/17 20:59 Last Admin: 03/30/17 12:45 Dose: Not Given Hydralazine HCl (Apresoline) 50 mg PO BID [facility] Stop: 05/28/17 16:59 Last Admin: 03/30/17 09:32 Dose: Not Given Ceftriaxone Sodium 1 gm/ (Sodium Chloride) 50 mls @ 100 mls/hr IV Q24HR [facility] Stop: 05/27/17 17:29 Last Admin: 03/29/17 16:54 Dose: 100 mls/hr Albumin Human (Albutein 25%) 12.5 gm in 50 mls @ 50 mls/hr IV Q8HR [facility] Stop: 04/01/17 13:59 Last Admin: 03/30/17 05:39 Dose: 50 mls/hr Insulin Aspart (Novolog Insulin Sliding Scale) 0 units SUBQ ACHS [facility] PRN Reason: Protocol Stop: 05/27/17 20:59 Last Admin: 03/30/17 07:25 Dose: Not Given Insulin Detemir (Levemir Insulin) 10 units SUBQ DAILY [facility] PRN Reason: Protocol Stop: 05/28/17 08:59 Last Admin: 03/29/17 12:44 Dose: Not Given Lactobacillus Rhamnosus (Culturelle) 1 each PO BID [facility] Stop: 05/27/17 19:34 Last Admin: 03/30/17 13:30 Dose: 1 each Levothyroxine Sodium (Synthroid) 0.05 mg PO QDAC [facility] Stop: 05/28/17 07:29 Last Admin: 03/30/17 08:02 Dose: Not Given Lorazepam (Ativan) 1 mg PO Q6H PRN; Protocol PRN Reason: Anxiety Stop: 05/27/17 19:34 Metoclopramide HCl (Reglan) 5 mg PO Q6H PRN PRN Reason: STOMACH UPSET Stop: 05/27/17 19:34 Metoprolol Tartrate (Lopressor) 50 mg PO BID [facility] Stop: 05/28/17 16:59 Last Admin: 03/30/17 13:30 Dose: 50 mg Minoxidil (Loniten) 10 mg PO Q12H [facility] Stop: 05/27/17 19:34 Last Admin: 03/30/17 08:05 Dose: Not Given Miscellaneous (Vte Chemical Prophylaxis Screen/ Admission) 1 ea MC PRN PRN PRN Reason: PROTOCOL Stop: 05/28/17 15:41 Morphine Sulfate (Morphine) 2 mg IVP Q3HR PRN PRN Reason: Severe Pain Stop: 05/27/17 23:28 Last Admin: 03/30/17 13:24 Dose: 2 mg Morphine Sulfate (Morphine) 1 mg IVP Q3HR PRN PRN Reason: moderate pain Stop: 05/27/17 23:31 Multivitamins/Vitamin C (Theragran) 1 tab PO DAILY [facility] Stop: 05/28/17 08:59 Last Admin: 03/30/17 13:30 Dose: 1 tab Ondansetron HCl (Zofran Odt) 4 mg PO Q6H PRN PRN Reason: Nausea / Vomiting Last Admin: 03/29/17 16:47 Dose: 4 mg Ondansetron HCl (Zofran) 4 mg IV Q6H PRN PRN Reason: Nausea / Vomiting Stop: 05/28/17 17:05 Last Admin: 03/29/17 17:49 Dose: 4 mg Pantoprazole Sodium (Protonix) 40 mg PO BID [facility] Stop: 05/27/17 19:34 Last Admin: 03/30/17 13:31 Dose: 40 mg Polyethylene Glycol (Miralax) 17 gm PO DAILY [facility] Stop: 05/28/17 08:59 Last Admin: 03/30/17 13:32 Dose: 17 gm Rifaximin (Xifaxan) 550 mg PO Q12H [facility] Stop: 05/29/17 08:59 Last Admin: 03/30/17 13:29 Dose: 550 mg Sodium Bicarbonate (Sodium Bicarbonate) 650 mg PO Q8H [facility] PRN Reason: Protocol Stop: 05/27/17 19:34 Last Admin: 03/30/17 13:30 Dose: 650 mg Spironolactone (Aldactone) 25 mg PO BID [facility] Stop: 05/28/17 17:59 Last Admin: 03/30/17 09:25 Dose: Not Given Zinc Sulfate (Zinc Sulfate) 220 mg PO DAILY [facility] Stop: 05/28/17 08:59 Last Admin: 03/30/17 13:31 Dose: 220 mg Zolpidem Tartrate (Ambien) 5 mg PO HS PRN PRN Reason: Insomnia Stop: 05/27/17 19:34 The patient underwent paracentesis and approximately 1.5 L ascitic fluid was obtained Decided to start diuretics with albumin to improve intravascular volume and also hopefully decrease ascites No change kidney fnc w/ BUN/CR 46/1.8 Repeat ultrasound revealed moderate generalized ascites Will switch Lasix IV to by mouth, continue spironolactone Discontinue clonidine patch and an oral maintenance dose, switch to when necessary Follow-up electrolytes Nutritional Asmnt/Malnutr-PDOC - Dietary Evaluation Malnutrition Findings (Please click <Entered> for more info): Nutritional Asmnt/Malnutrition Start: 03/30/17 12: 04 Text: Status: Complete Freq: Document 03/30/17 19:12 [email or web address] (Rec: 03/30/17 19:22 [facility] [id number]) Nutritional Asmnt/Malnutrition Patient General Information Nutritional Screening High Risk Screening Diagnosis Acute abdominal pain Pertinent Medical Hx/Surgical Hx HTN, CHF, hyperlipidemia, thyroid disorder, hepatitis C Subjective Information Pt is a 61-year-old female admitted with chief complaint of abdominal pain and infection. Paracentesis completed today. Pt was asleep during time of visit today. Pt appears well nourished with no signs of muscle or fat depletion. Current Diet Order/ Nutrition Support CCHO-60 GM, low sodium, 1200 fluid restriction/day Pertinent Medications Albutein 25%, Vitamin C, Ceftriaxone Sodium, Vancomycin , Iron, Lasix, Novolog, Levemir, Culturelle, Morphine, Theragran, Zofran, Protonix, Miralax, Zinc Sulfate Pertinent Labs (03/28) Glucose 197H, A1C WNL, Triglyceride 233H, Cholesterol 226H (03/30) BUN 46H, Creatinine 1.7H, Uric Acid 8. 7H Nutritional Hx/Data Height 1.5 m Height (Calculated Centimeters) 149.9 Current Weight (lbs) 71.214 kg Weight (Calculated Kilograms) 71.2 Weight (Calculated Grams) 03623.0 [place] Body Weight 97.5 % [place] Body Weight 161 Weight Status Obese GI Symptoms GI Symptoms Vomitting Diarrhea Last BM Food Allergies No Skin Integrity/Comment: Ozzy 15. No skin breakdown. Current %PO Negligible < 25% Estimated Nutritional Goals BEE in Kcals: Using Current wt Calories/Kcals/Kg Based on current wt 71.4 kg with consideration of obesity Kcals Calculated 9203-5789 kcals/day (20-25 kcals/kg) Protein: Using Current wt Protein g/kg: Based on current wt 71.4 kg with consideration of obesity Protein Calculated 57-71 gm/day (0.8-1 gm/kg) Fluid: ml Per MD/DO, pt on fluid restriction Nutritional Problem 1. Problem Problem Inadequate oral intake related to Etiology abdominal pain, diagnostic tests as evidenced by Signs/Symptoms: no PO intake x 2 days. Malnutrition Alert Protein-Calorie Malnutrition N/A Is there a minimum of two criteria No selected? Query Text:Check all the applicable criteria. A minimum of two criteria are recommended for diagnosis of either severe or non-severe malnutrition. Malnutrition Related to Morbid Obesity Malnutrition related to morbid obesity No Intervention/Recommendation Comments 1. Recommend soft/bland, Cardiac diet due to poor tolerance and abnormal labs. [place] food preferences, as able. Encourage oral intake. 2. Continue fluid restriction per MD/DO. 3. If pt is unable to tolerance PO diet, consider downgrading to clear liquid diet. Expected Outcomes/Goals Expected Outcomes/Goals Have pt consume at least 50% of meals. Physician Parameters for PEM Serum Albumin (g/dl) 3.1 - 3.4 (Mild)
[2017-04-01] MEDS: cefTRIAXone 1 GM in Sodium Chloride 0.9% 50 ML IV SCH (17:29)
[2017-04-02] MEDS: Morphine Sulfate 4 mg/mL 1mL Syr IVP PRN ×8 (00:58→22:23)
[2017-04-02] MEDS: Levothyroxine 0.05 Mg Tab PO SCH (06:56)
[2017-04-02] MEDS: INSULIN ASPART SLIDING SCALE 100 UNITS/ML UNIT SUBQ SCH ×4 (07:52→20:24)
[2017-04-02 07:54] LABS: ANION GAP 10.5 (7.0-16.0); CALCIUM SERUM 8.7 mg/dL (8.6-10.3); CARBON DIOXIDE 19.5 mEq/L (21.0-31.0); CREATININE - SERUM 1.8 mg/dL (0.6-1.2)
[2017-04-02] MEDS: POLYETHYLENE GLYCOL 3350 17 GM PACK PO SCH (09:57)
[2017-04-02] MEDS: Pantoprazole 40 mg EC Tab PO SCH ×2 (09:57→16:13)
[2017-04-02] MEDS: Lactobacillus Rhamnosus 10 Billion CFU Capsule PO SCH ×2 (09:59→16:13)
[2017-04-02] MEDS: Multivitamin Tab PO SCH (09:59)
[2017-04-02] MEDS: Ferrous Sulfate 325 MG TAB PO SCH ×2 (09:59→16:13)
[2017-04-02] MEDS: Venelex 60gm Tube TP SCH (10:00)
[2017-04-02] MEDS: cefTRIAXone 1 GM in Sodium Chloride 0.9% 50 ML IV SCH (17:03)
--- NOTE | 2017-04-02 20:47 | General Progress Note ---
Subjective - Review of Systems Service Date: 04/03/17 Subjective: c/o weakness Objective - Results Result Diagrams: 04/04/17 06:00 04/04/17 06:00 Recent Labs: Laboratory Last Values WBC 5.8 Th/cmm (4.8-10.8) D 04/01/17 06:25 RBC 3.07 Mil/cmm (3.80-5.10) L 04/01/17 06:25 Hgb 9.9 gm/dL (11.7-15.5) L 04/01/17 06:25 Hct 29.0 % (35.0-45.0) L 04/01/17 06:25 MCV 94.3 fl (81-100) 04/01/17 06:25 MCH 32.2 pg (27.0-31.0) H 04/01/17 06:25 MCHC Differential 34.1 pg (28.0-36.0) 04/01/17 06:25 RDW 15.7 % (11.5-20.0) 04/01/17 06:25 Plt Count 222 Th/cmm (150-400) 04/01/17 06:25 MPV 9.6 fl 04/01/17 06:25 Neutrophils % 68.9 % (40.0-80.0) 04/01/17 06:25 Lymphocytes % 19.9 % (20.0-50.0) L 04/01/17 06:25 Monocytes % 8.6 % (2.0-10.0) 04/01/17 06:25 Eosinophils % 2.5 % (0.0-5.0) 04/01/17 06:25 Basophils % 0.1 % (0.0-2.0) 04/01/17 06:25 Eos Smear Source URINE 03/31/17 13:40 Eos Smear Total Cells FEW EOSINOPHILS SEEN (NONE SEEN) 03/31/17 13:40 PT 11.9 SECONDS (9.5-11.5) H 03/30/17 06:45 INR 1.13 (0.5-1.4) 03/30/17 06:45 PTT (Actin FS) 24.2 SECONDS (26.0-38.0) L 03/29/17 16:46 Sodium 137 mEq/L (136-145) 04/02/17 05:14 Potassium 5.0 mEq/L (3.5-5.1) 04/02/17 05:14 Chloride 112 mEq/L (98-107) H 04/02/17 05:14 Carbon Dioxide 19.5 mEq/L (21.0-31.0) L 04/02/17 05:14 Anion Gap 10.5 (7.0-16.0) 04/02/17 05:14 BUN 45 mg/dL (7-25) H 04/02/17 05:14 Creatinine 1.8 mg/dL (0.6-1.2) H 04/02/17 05:14 Est GFR ( Amer) 36.8 ml/min (>90) 04/02/17 05:14 Est GFR (Non-Af Amer) 30.4 ml/min 04/02/17 05:14 BUN/Creatinine Ratio 25.0 04/02/17 05:14 Glucose 127 mg/dL (70-105) H 04/02/17 05:14 POC Glucose 123 MG/DL (70 - 105) H 04/02/17 20:19 Hemoglobin A1c % 5.8 % (4.0-6.0) 03/28/17 14:55 Uric Acid 8.7 mg/dL (2.3-6.6) H 03/30/17 06:45 Calcium 8.7 mg/dL (8.6-10.3) 04/02/17 05:14 Phosphorus 4.7 mg/dL (2.5-5.0) 03/30/17 06:45 Magnesium 2.1 mg/dL (1.9-2.7) 03/30/17 06:45 Total Bilirubin 0.4 mg/dL (0.3-1.0) 03/28/17 14:55 AST 38 U/L (13-39) 03/28/17 14:55 ALT 26 U/L (7-52) 03/28/17 14:55 Alkaline Phosphatase 186 U/L (34-104) H 03/28/17 14:55 Ammonia 44 umol/L (16-53) 03/28/17 14:44 Troponin I 0.02 ng/mL (0.01-0.05) 03/28/17 14:55 Total Protein 6.5 gm/dL (6.0-8.3) 03/29/17 16:26 Albumin 3.2 gm/dL (3.7-5.3) L 03/29/17 16:26 Globulin 3.5 gm/dL 03/28/17 14:55 Albumin/Globulin Ratio 1.0 (1.0-1.8) 03/28/17 14:55 Triglycerides 233 mg/dL (<150) H 03/28/17 14:55 Cholesterol 226 mg/dL (<200) H 03/28/17 14:55 LDL Cholesterol Direct 161 mg/dL (75-193) 03/28/17 14:55 HDL Cholesterol 29 mg/dL (23-92) 03/28/17 14:55 TSH 9.05 uIU/ml (0.34-5.60) H 03/28/17 14:55 Urine Source MIDSTREAM 03/31/17 13:40 Urine Color YELLOW 03/31/17 13:40 Urine Clarity SLIGHT CLOUDY (CLEAR) 03/31/17 13:40 Urine pH 5.5 (4.6 - 8.0) 03/31/17 13:40 Ur Specific [place] 1.025 (1.005-1.030) 03/31/17 13:40 Urine Protein 100 mg/dL (NEGATIVE) H 03/31/17 13:40 Urine Glucose (UA) NEGATIVE mg/dL (NEGATIVE) 03/31/17 13:40 Urine Ketones NEGATIVE mg/dL (NEGATIVE) 03/31/17 13:40 Urine Blood NEGATIVE (NEGATIVE) 03/31/17 13:40 Urine Nitrate NEGATIVE (NEGATIVE) 03/31/17 13:40 Urine Bilirubin NEGATIVE (NEGATIVE) 03/31/17 13:40 Urine Urobilinogen 0.2 E.U./dL (0.2 - 1.0) 03/31/17 13:40 Ur Leukocyte Esterase TRACE (NEGATIVE) H 03/31/17 13:40 Urine RBC NONE SEEN /hpf (0-5) 03/31/17 13:40 Urine WBC 2-5 /hpf (0-5) 03/31/17 13:40 Ur Epithelial Cells RARE /lpf (FEW) 03/31/17 13:40 Urine Bacteria MODERATE /hpf (NONE SEEN) 03/31/17 13:40 Hyaline Casts 0-2 /lpf (0-2) H 03/31/17 13:40 Urine Yeast MANY /hpf (NONE SEEN) H 03/31/17 13:40 Ur Random Sodium 47 mmol/L 03/31/17 13:40 Urine Creatinine 96.0 mg/dl (28.0-217.0) 03/31/17 13:40 Urine Microalbumin 2182.8 ug/mL (Not Estab.) 03/29/17 15:59 Microalb/Creat Ratio 2718.3 mg/g creat (0.0-30.0) H 03/29/17 15:59 Fluid Source PARACENTHESIS 03/30/17 10:15 Fluid Color RED 03/30/17 10:15 Fluid Appearance BLOODY 03/30/17 10:15 Fluid WBC 20 /cumm 03/30/17 10:15 Fluid RBC 24573 /cumm 03/30/17 10:15 Fluid Neutrophils 5 % 03/30/17 10:15 Fluid Lymphocytes 26 % 03/30/17 10:15 Fluid Monocytes 69 % 03/30/17 10:15 Fld Mesothelial Cells RARE 03/30/17 10:15 Fluid Total Protein 2.3 g/dL 03/30/17 10:15 Fluid Albumin 1200.0 MG/DL 03/30/17 10:15 RPR NONREACTIVE (NONREACTIVE) 03/28/17 14:55 - Physical Exam Vitals and I&O: Vital Signs Temp 97.0 F 04/02/17 19:45 Pulse 72 04/02/17 19:45 Resp 18 04/02/17 19:45 BP 130/60 04/02/17 19:45 Pulse Ox 98 04/02/17 19:45 Intake & Output 04/02/17 04/02/17 04/03/17 06:59 18:59 06:59 Intake Total 300 600 Balance 300 600 Weight (lbs) 70.398 kg 70.307 kg Intake: Intake, IV Amount 50 [id number] 1 gm In 50 Sodium Chloride 0.9% 50 ml @ 100 mls/hr IV Q24HR [facility] Rx#:[id number] Oral 300 550 Other: # Voids 3 3 # Bowel Movements 0 0 Stool Characteristics Soft Soft Active Medications: Current Medications Albuterol/Ipratropium (Duoneb Neb) 3 ml HHN QID PRN PRN Reason: Wheezing Stop: 05/27/17 19:34 Last Admin: 03/29/17 07:38 Dose: 3 ml Ascorbic Acid (Vitamin C) 500 mg PO DAILY PIERRE Stop: 05/28/17 08:59 Last Admin: 04/02/17 09:57 Dose: 500 mg Bisacodyl (Dulcolax 10 Mg Supp) 10 mg RC DAILY PRN PRN Reason: Constipation Stop: 05/27/17 19:34 Diphenoxylate HCl/Atropine (Lomotil) 1 tab PO Q6H PRN PRN Reason: Diarrhea Stop: 05/27/17 19:34 Doxycycline Hyclate (Vibramycin) 100 mg PO BID PIERRE Stop: 05/27/17 19:34 Last Admin: 04/02/17 16:12 Dose: 100 mg Ferrous Sulfate (Iron) 325 mg PO BID PIERRE Stop: 05/27/17 19:34 Last Admin: 04/02/17 16:13 Dose: 325 mg Furosemide (Lasix) 40 mg PO DAILY PIERRE Stop: 06/01/17 08:59 Last Admin: 04/02/17 10:00 Dose: 40 mg Heparin Sodium (Porcine) (Heparin) 5,000 units SUBQ Q12HR PIERRE Stop: 05/28/17 20:59 Last Admin: 04/02/17 20:20 Dose: 5,000 units Hydralazine HCl (Apresoline) 50 mg PO BID PIERRE Stop: 05/28/17 16:59 Last Admin: 04/02/17 16:12 Dose: 50 mg Ceftriaxone Sodium 1 gm/ (Sodium Chloride) 50 mls @ 100 mls/hr IV Q24HR PIERRE Stop: 05/27/17 17:29 Last Infusion: 04/02/17 17:33 Dose: Infused Insulin Aspart (Novolog Insulin Sliding Scale) 0 units SUBQ ACHS PIERRE PRN Reason: Protocol Stop: 05/27/17 20:59 Last Admin: 04/02/17 20:24 Dose: Not Given Lactobacillus Rhamnosus (Culturelle) 1 each PO BID PIERRE Stop: 05/27/17 19:34 Last Admin: 04/02/17 16:13 Dose: 1 each Levothyroxine Sodium (Synthroid) 0.05 mg PO QDAC PIERRE Stop: 05/28/17 07:29 Last Admin: 04/02/17 06:56 Dose: 0.05 mg Lorazepam (Ativan) 1 mg PO Q6H PRN; Protocol PRN Reason: Anxiety Stop: 05/27/17 19:34 Metoclopramide HCl (Reglan) 5 mg PO Q6H PRN PRN Reason: STOMACH UPSET Stop: 05/27/17 19:34 Last Admin: 04/02/17 08:40 Dose: 5 mg Metoprolol Tartrate (Lopressor) 50 mg PO BID PIERRE Stop: 05/28/17 16:59 Last Admin: 04/02/17 16:12 Dose: 50 mg Minoxidil (Loniten) 10 mg PO Q12H PIERRE Stop: 05/27/17 19:34 Last Admin: 04/02/17 18:37 Dose: 10 mg Miscellaneous (Vte Chemical Prophylaxis Screen/ Admission) 1 ea MC PRN PRN PRN Reason: PROTOCOL Stop: 05/28/17 15:41 Morphine Sulfate (Morphine) 1 mg IVP Q3H PRN PRN Reason: MODERATE PAIN Stop: 05/29/17 16:45 Last Admin: 04/01/17 16:16 Dose: 1 mg Morphine Sulfate (Morphine) 2 mg IVP Q3H PRN PRN Reason: SEVERE PAIN Stop: 05/29/17 16:45 Last Admin: 04/02/17 18:45 Dose: 2 mg Multivitamins/Vitamin C (Theragran) 1 tab PO DAILY PIERRE Stop: 05/28/17 08:59 Last Admin: 04/02/17 09:59 Dose: 1 tab Ondansetron HCl (Zofran Odt) 4 mg PO Q6H PRN PRN Reason: Nausea / Vomiting Last Admin: 04/02/17 08:41 Dose: 4 mg Ondansetron HCl (Zofran) 4 mg IV Q6H PRN PRN Reason: Nausea / Vomiting Stop: 05/28/17 17:05 Last Admin: 04/02/17 16:33 Dose: 4 mg Pantoprazole Sodium (Protonix) 40 mg PO BID [facility] Stop: 05/27/17 19:34 Last Admin: 04/02/17 16:13 Dose: 40 mg Polyethylene Glycol (Miralax) 17 gm PO DAILY PIERRE Stop: 05/28/17 08:59 Last Admin: 04/02/17 09:57 Dose: 17 gm Rifaximin (Xifaxan) 550 mg PO Q12H PIERRE Stop: 05/29/17 08:59 Last Admin: 04/02/17 20:20 Dose: 550 mg Sodium Bicarbonate (Sodium Bicarbonate) 650 mg PO Q8H PIERRE PRN Reason: Protocol Stop: 05/27/17 19:34 Last Admin: 04/02/17 18:40 Dose: 650 mg Spironolactone (Aldactone) 25 mg PO BID [facility] Stop: 05/28/17 17:59 Last Admin: 04/02/17 16:13 Dose: 25 mg Zinc Sulfate (Zinc Sulfate) 220 mg PO DAILY [facility] Stop: 05/28/17 08:59 Last Admin: 04/02/17 09:57 Dose: 220 mg Zolpidem Tartrate (Ambien) 5 mg PO HS PRN PRN Reason: Insomnia Stop: 05/27/17 19:34 General: Alert, Cooperative, Moderate distress HEENT: Atraumatic, PERRLA, EOMI, Mucous membr. moist/pink Neck: Supple, +2 carotid pulse wo bruit Cardiovascular: Regular rate, Normal S1, Normal S2 Lungs: Clear to auscultation Abdomen: Bowel sounds, Soft, Tender Extremities: no Edema Neurological: Sensation intact Skin: no Rash Psych/Mental Status: Mood NL - Procedures Procedures: Procedures Procedure Code Date ABD PARACENTESIS W/IMAGING 50685 03/28/17 DRAINAGE OF PERITONEAL CAVITY, PERCUTANEOUS APPROACH [id number] 03/28/17 EGD BIOPSY SINGLE/MULTIPLE 05635 09/29/16 EXCISION OF DUODENUM, ENDO, DIAGN [id number] 09/29/16 EXCISION OF STOMACH, ENDO, DIAGN [id number] 09/29/16 MEASURE OF ARTERIAL SATURATION, PERIPHERAL, PERC APPROACH [id number] 01/27/17 Assessment/Plan - Problem List Patient Problems: All Active Problems HTN (hypertension) (Acute) I10 History of COPD (Acute) Z87.09 History of asthma (Acute) Z87.09 History of diabetes mellitus (Acute) Z86.39 History of hepatitis C (Acute) Z86.19 NAUSEA/VOMITING, ENLARGED LEFT BREAST (Acute) SOB (shortness of breath) (Acute ~01/27/17) R06.02 - Plan Plan: discharge planning Nutritional Asmnt/Malnutr-PDOC - Dietary Evaluation Malnutrition Findings (Please click <Entered> for more info): Nutritional Asmnt/Malnutrition Start: 03/30/17 12: 04 Text: Status: Complete Freq: Document 03/30/17 19:12 [facility] (Rec: 03/30/17 19:22 [facility] [id number]) Nutritional Asmnt/Malnutrition Patient General Information Nutritional Screening High Risk Screening Diagnosis Acute abdominal pain Pertinent Medical Hx/Surgical Hx HTN, CHF, hyperlipidemia, thyroid disorder, hepatitis C Subjective Information Pt is a 61-year-old female admitted with chief complaint of abdominal pain and infection. Paracentesis completed today. Pt was asleep during time of visit today. Pt appears well nourished with no signs of muscle or fat depletion. Current Diet Order/ Nutrition Support CCHO-60 GM, low sodium, 1200 fluid restriction/day Pertinent Medications Albutein 25%, Vitamin C, Ceftriaxone Sodium, Vancomycin , Iron, Lasix, Novolog, Levemir, Culturelle, Morphine, Theragran, Zofran, Protonix, Miralax, Zinc Sulfate Pertinent Labs (03/28) Glucose 197H, A1C WNL, Triglyceride 233H, Cholesterol 226H (03/30) BUN 46H, Creatinine 1.7H, Uric Acid 8. 7H Nutritional Hx/Data Height 1.5 m Height (Calculated Centimeters) 149.9 Current Weight (lbs) 71.214 kg Weight (Calculated Kilograms) 71.2 Weight (Calculated Grams) 34088.0 [place] Body Weight 97.5 % [place] Body Weight 161 Weight Status Obese GI Symptoms GI Symptoms Vomitting Diarrhea Last BM Food Allergies No Skin Integrity/Comment: Ozzy 15. No skin breakdown. Current %PO Negligible < 25% Estimated Nutritional Goals BEE in Kcals: Using Current wt Calories/Kcals/Kg Based on current wt 71.4 kg with consideration of obesity Kcals Calculated 9131-4879 kcals/day (20-25 kcals/kg) Protein: Using Current wt Protein g/kg: Based on current wt 71.4 kg with consideration of obesity Protein Calculated 57-71 gm/day (0.8-1 gm/kg) Fluid: ml Per MD/DO, pt on fluid restriction Nutritional Problem 1. Problem Problem Inadequate oral intake related to Etiology abdominal pain, diagnostic tests as evidenced by Signs/Symptoms: no PO intake x 2 days. Malnutrition Alert Protein-Calorie Malnutrition N/A Is there a minimum of two criteria No selected? Query Text:Check all the applicable criteria. A minimum of two criteria are recommended for diagnosis of either severe or non-severe malnutrition. Malnutrition Related to Morbid Obesity Malnutrition related to morbid obesity No Intervention/Recommendation Comments 1. Recommend soft/bland, Cardiac diet due to poor tolerance and abnormal labs. [place] food preferences, as able. Encourage oral intake. 2. Continue fluid restriction per MD/DO. 3. If pt is unable to tolerance PO diet, consider downgrading to clear liquid diet. Expected Outcomes/Goals Expected Outcomes/Goals Have pt consume at least 50% of meals. Physician Parameters for PEM Serum Albumin (g/dl) 3.1 - 3.4 (Mild)
[2017-04-03] MEDS: Morphine Sulfate 4 mg/mL 1mL Syr IVP PRN ×7 (01:47→23:35)
[2017-04-03] MEDS: Levothyroxine 0.05 Mg Tab PO SCH (06:38)
[2017-04-03] MEDS: INSULIN ASPART SLIDING SCALE 100 UNITS/ML UNIT SUBQ SCH ×4 (08:00→20:23)
--- NOTE | 2017-04-03 08:39 | General Progress Note ---
Subjective - Review of Systems Events since last encounter: patient awake , alert Objective - Results Result Diagrams: 04/01/17 06:25 04/02/17 05:14 Recent Labs: Laboratory Last Values WBC 5.8 Th/cmm (4.8-10.8) D 04/01/17 06:25 RBC 3.07 Mil/cmm (3.80-5.10) L 04/01/17 06:25 Hgb 9.9 gm/dL (11.7-15.5) L 04/01/17 06:25 Hct 29.0 % (35.0-45.0) L 04/01/17 06:25 MCV 94.3 fl (81-100) 04/01/17 06:25 MCH 32.2 pg (27.0-31.0) H 04/01/17 06:25 MCHC Differential 34.1 pg (28.0-36.0) 04/01/17 06:25 RDW 15.7 % (11.5-20.0) 04/01/17 06:25 Plt Count 222 Th/cmm (150-400) 04/01/17 06:25 MPV 9.6 fl 04/01/17 06:25 Neutrophils % 68.9 % (40.0-80.0) 04/01/17 06:25 Lymphocytes % 19.9 % (20.0-50.0) L 04/01/17 06:25 Monocytes % 8.6 % (2.0-10.0) 04/01/17 06:25 Eosinophils % 2.5 % (0.0-5.0) 04/01/17 06:25 Basophils % 0.1 % (0.0-2.0) 04/01/17 06:25 Eos Smear Source URINE 03/31/17 13:40 Eos Smear Total Cells FEW EOSINOPHILS SEEN (NONE SEEN) 03/31/17 13:40 PT 11.9 SECONDS (9.5-11.5) H 03/30/17 06:45 INR 1.13 (0.5-1.4) 03/30/17 06:45 PTT (Actin FS) 24.2 SECONDS (26.0-38.0) L 03/29/17 16:46 Sodium 137 mEq/L (136-145) 04/02/17 05:14 Potassium 5.0 mEq/L (3.5-5.1) 04/02/17 05:14 Chloride 112 mEq/L (98-107) H 04/02/17 05:14 Carbon Dioxide 19.5 mEq/L (21.0-31.0) L 04/02/17 05:14 Anion Gap 10.5 (7.0-16.0) 04/02/17 05:14 BUN 45 mg/dL (7-25) H 04/02/17 05:14 Creatinine 1.8 mg/dL (0.6-1.2) H 04/02/17 05:14 Est GFR ( Amer) 36.8 ml/min (>90) 04/02/17 05:14 Est GFR (Non-Af Amer) 30.4 ml/min 04/02/17 05:14 BUN/Creatinine Ratio 25.0 04/02/17 05:14 Glucose 127 mg/dL (70-105) H 04/02/17 05:14 POC Glucose 137 MG/DL (70 - 105) H 04/03/17 06:06 Hemoglobin A1c % 5.8 % (4.0-6.0) 03/28/17 14:55 Uric Acid 8.7 mg/dL (2.3-6.6) H 03/30/17 06:45 Calcium 8.7 mg/dL (8.6-10.3) 04/02/17 05:14 Phosphorus 4.7 mg/dL (2.5-5.0) 03/30/17 06:45 Magnesium 2.1 mg/dL (1.9-2.7) 03/30/17 06:45 Total Bilirubin 0.4 mg/dL (0.3-1.0) 03/28/17 14:55 AST 38 U/L (13-39) 03/28/17 14:55 ALT 26 U/L (7-52) 03/28/17 14:55 Alkaline Phosphatase 186 U/L (34-104) H 03/28/17 14:55 Ammonia 44 umol/L (16-53) 03/28/17 14:44 Troponin I 0.02 ng/mL (0.01-0.05) 03/28/17 14:55 Total Protein 6.5 gm/dL (6.0-8.3) 03/29/17 16:26 Albumin 3.2 gm/dL (3.7-5.3) L 03/29/17 16:26 Globulin 3.5 gm/dL 03/28/17 14:55 Albumin/Globulin Ratio 1.0 (1.0-1.8) 03/28/17 14:55 Triglycerides 233 mg/dL (<150) H 03/28/17 14:55 Cholesterol 226 mg/dL (<200) H 03/28/17 14:55 LDL Cholesterol Direct 161 mg/dL (75-193) 03/28/17 14:55 HDL Cholesterol 29 mg/dL (23-92) 03/28/17 14:55 TSH 9.05 uIU/ml (0.34-5.60) H 03/28/17 14:55 Urine Source MIDSTREAM 03/31/17 13:40 Urine Color YELLOW 03/31/17 13:40 Urine Clarity SLIGHT CLOUDY (CLEAR) 03/31/17 13:40 Urine pH 5.5 (4.6 - 8.0) 03/31/17 13:40 Ur Specific [place] 1.025 (1.005-1.030) 03/31/17 13:40 Urine Protein 100 mg/dL (NEGATIVE) H 03/31/17 13:40 Urine Glucose (UA) NEGATIVE mg/dL (NEGATIVE) 03/31/17 13:40 Urine Ketones NEGATIVE mg/dL (NEGATIVE) 03/31/17 13:40 Urine Blood NEGATIVE (NEGATIVE) 03/31/17 13:40 Urine Nitrate NEGATIVE (NEGATIVE) 03/31/17 13:40 Urine Bilirubin NEGATIVE (NEGATIVE) 03/31/17 13:40 Urine Urobilinogen 0.2 E.U./dL (0.2 - 1.0) 03/31/17 13:40 Ur Leukocyte Esterase TRACE (NEGATIVE) H 03/31/17 13:40 Urine RBC NONE SEEN /hpf (0-5) 03/31/17 13:40 Urine WBC 2-5 /hpf (0-5) 03/31/17 13:40 Ur Epithelial Cells RARE /lpf (FEW) 03/31/17 13:40 Urine Bacteria MODERATE /hpf (NONE SEEN) 03/31/17 13:40 Hyaline Casts 0-2 /lpf (0-2) H 03/31/17 13:40 Urine Yeast MANY /hpf (NONE SEEN) H 03/31/17 13:40 Ur Random Sodium 47 mmol/L 03/31/17 13:40 Urine Creatinine 96.0 mg/dl (28.0-217.0) 03/31/17 13:40 Urine Microalbumin 2182.8 ug/mL (Not Estab.) 03/29/17 15:59 Microalb/Creat Ratio 2718.3 mg/g creat (0.0-30.0) H 03/29/17 15:59 Fluid Source PARACENTHESIS 03/30/17 10:15 Fluid Color RED 03/30/17 10:15 Fluid Appearance BLOODY 03/30/17 10:15 Fluid WBC 20 /cumm 03/30/17 10:15 Fluid RBC 81546 /cumm 03/30/17 10:15 Fluid Neutrophils 5 % 03/30/17 10:15 Fluid Lymphocytes 26 % 03/30/17 10:15 Fluid Monocytes 69 % 03/30/17 10:15 Fld Mesothelial Cells RARE 03/30/17 10:15 Fluid Total Protein 2.3 g/dL 03/30/17 10:15 Fluid Albumin 1200.0 MG/DL 03/30/17 10:15 RPR NONREACTIVE (NONREACTIVE) 03/28/17 14:55 - Physical Exam Vitals and I&O: Vital Signs Temp 97.2 F 04/03/17 04:00 Pulse 88 04/03/17 07:34 Resp 18 04/03/17 07:35 BP 159/81 04/03/17 04:00 Pulse Ox 96 04/03/17 07:34 Intake & Output 04/02/17 04/03/17 04/03/17 18:59 06:59 18:59 Intake Total 600 Balance 600 Weight (lbs) 70.307 kg 72.121 kg 72.121 kg Intake: Intake, IV Amount 50 [id number] 1 gm In 50 Sodium Chloride 0.9% 50 ml @ 100 mls/hr IV Q24HR [facility] Rx#:[id number] Oral 550 Other: # Voids 3 2 # Bowel Movements 0 Stool Characteristics Soft Active Medications: Current Medications Albuterol/Ipratropium (Duoneb Neb) 3 ml HHN QID PRN PRN Reason: Wheezing Stop: 05/27/17 19:34 Last Admin: 03/29/17 07:38 Dose: 3 ml Ascorbic Acid (Vitamin C) 500 mg PO DAILY [facility] Stop: 05/28/17 08:59 Last Admin: 04/02/17 09:57 Dose: 500 mg Bisacodyl (Dulcolax 10 Mg Supp) 10 mg RC DAILY PRN PRN Reason: Constipation Stop: 05/27/17 19:34 Diphenoxylate HCl/Atropine (Lomotil) 1 tab PO Q6H PRN PRN Reason: Diarrhea Stop: 05/27/17 19:34 Doxycycline Hyclate (Vibramycin) 100 mg PO BID [facility] Stop: 05/27/17 19:34 Last Admin: 04/02/17 16:12 Dose: 100 mg Ferrous Sulfate (Iron) 325 mg PO BID [facility] Stop: 05/27/17 19:34 Last Admin: 04/02/17 16:13 Dose: 325 mg Furosemide (Lasix) 40 mg PO DAILY [facility] Stop: 06/01/17 08:59 Last Admin: 04/02/17 10:00 Dose: 40 mg Heparin Sodium (Porcine) (Heparin) 5,000 units SUBQ Q12HR [facility] Stop: 05/28/17 20:59 Last Admin: 04/02/17 20:20 Dose: 5,000 units Hydralazine HCl (Apresoline) 50 mg PO BID [facility] Stop: 05/28/17 16:59 Last Admin: 04/02/17 16:12 Dose: 50 mg Ceftriaxone Sodium 1 gm/ (Sodium Chloride) 50 mls @ 100 mls/hr IV Q24HR [facility] Stop: 05/27/17 17:29 Last Infusion: 04/02/17 17:33 Dose: Infused Insulin Aspart (Novolog Insulin Sliding Scale) 0 units SUBQ ACHS [facility] PRN Reason: Protocol Stop: 05/27/17 20:59 Last Admin: 04/02/17 20:24 Dose: Not Given Lactobacillus Rhamnosus (Culturelle) 1 each PO BID [facility] Stop: 05/27/17 19:34 Last Admin: 04/02/17 16:13 Dose: 1 each Levothyroxine Sodium (Synthroid) 0.05 mg PO QDAC [facility] Stop: 05/28/17 07:29 Last Admin: 04/03/17 06:38 Dose: 0.05 mg Lorazepam (Ativan) 1 mg PO Q6H PRN; Protocol PRN Reason: Anxiety Stop: 05/27/17 19:34 Metoclopramide HCl (Reglan) 5 mg PO Q6H PRN PRN Reason: STOMACH UPSET Stop: 05/27/17 19:34 Last Admin: 04/02/17 08:40 Dose: 5 mg Metoprolol Tartrate (Lopressor) 50 mg PO BID [facility] Stop: 05/28/17 16:59 Last Admin: 04/02/17 16:12 Dose: 50 mg Minoxidil (Loniten) 10 mg PO Q12H [facility] Stop: 05/27/17 19:34 Last Admin: 04/02/17 18:37 Dose: 10 mg Miscellaneous (Vte Chemical Prophylaxis Screen/ Admission) 1 ea MC PRN PRN PRN Reason: PROTOCOL Stop: 05/28/17 15:41 Morphine Sulfate (Morphine) 1 mg IVP Q3H PRN PRN Reason: MODERATE PAIN Stop: 05/29/17 16:45 Last Admin: 04/03/17 06:44 Dose: 1 mg Morphine Sulfate (Morphine) 2 mg IVP Q3H PRN PRN Reason: SEVERE PAIN Stop: 05/29/17 16:45 Last Admin: 04/03/17 01:47 Dose: 2 mg Multivitamins/Vitamin C (Theragran) 1 tab PO DAILY [facility] Stop: 05/28/17 08:59 Last Admin: 04/02/17 09:59 Dose: 1 tab Ondansetron HCl (Zofran Odt) 4 mg PO Q6H PRN PRN Reason: Nausea / Vomiting Last Admin: 04/02/17 08:41 Dose: 4 mg Ondansetron HCl (Zofran) 4 mg IV Q6H PRN PRN Reason: Nausea / Vomiting Stop: 05/28/17 17:05 Last Admin: 04/03/17 01:45 Dose: 4 mg Pantoprazole Sodium (Protonix) 40 mg PO BID [facility] Stop: 05/27/17 19:34 Last Admin: 04/02/17 16:13 Dose: 40 mg Polyethylene Glycol (Miralax) 17 gm PO DAILY [facility] Stop: 05/28/17 08:59 Last Admin: 04/02/17 09:57 Dose: 17 gm Rifaximin (Xifaxan) 550 mg PO Q12H [facility] Stop: 05/29/17 08:59 Last Admin: 04/02/17 20:20 Dose: 550 mg Sodium Bicarbonate (Sodium Bicarbonate) 650 mg PO Q8H [facility] PRN Reason: Protocol Stop: 05/27/17 19:34 Last Admin: 04/03/17 03:35 Dose: 650 mg Spironolactone (Aldactone) 25 mg PO BID [facility] Stop: 05/28/17 17:59 Last Admin: 04/02/17 16:13 Dose: 25 mg Zinc Sulfate (Zinc Sulfate) 220 mg PO DAILY [facility] Stop: 05/28/17 08:59 Last Admin: 04/02/17 09:57 Dose: 220 mg Zolpidem Tartrate (Ambien) 5 mg PO HS PRN PRN Reason: Insomnia Stop: 05/27/17 19:34 General: Alert, Cooperative, Moderate distress HEENT: Atraumatic, PERRLA, EOMI, Mucous membr. moist/pink Neck: Supple, +2 carotid pulse wo bruit Cardiovascular: Regular rate, Normal S1, Normal S2 Lungs: Clear to auscultation Abdomen: Bowel sounds, Soft, Tender Extremities: no Edema Neurological: Sensation intact Skin: no Rash Psych/Mental Status: Mood NL - Procedures Procedures: Procedures Procedure Code Date ABD PARACENTESIS W/IMAGING 69096 03/28/17 DRAINAGE OF PERITONEAL CAVITY, PERCUTANEOUS APPROACH [id number] 03/28/17 EGD BIOPSY SINGLE/MULTIPLE 17172 09/29/16 EXCISION OF DUODENUM, ENDO, DIAGN [id number] 09/29/16 EXCISION OF STOMACH, ENDO, DIAGN [id number] 09/29/16 MEASURE OF ARTERIAL SATURATION, PERIPHERAL, PERC APPROACH [id number] 01/27/17 Assessment/Plan - Problem List Patient Problems: All Active Problems NAUSEA/VOMITING, ENLARGED LEFT BREAST (Acute) HTN (hypertension) (Acute) I10 History of COPD (Acute) Z87.09 History of asthma (Acute) Z87.09 History of diabetes mellitus (Acute) Z86.39 History of hepatitis C (Acute) Z86.19 SOB (shortness of breath) (Acute ~01/27/17) R06.02 - Plan Plan: monitor vitals/diet labs f/up consulting Nutritional Asmnt/Malnutr-PDOC - Dietary Evaluation Malnutrition Findings (Please click <Entered> for more info): Nutritional Asmnt/Malnutrition Start: 03/30/17 12: 04 Text: Status: Complete Freq: Document 03/30/17 19:12 [facility] (Rec: 03/30/17 19:22 [facility] [id number]) Nutritional Asmnt/Malnutrition Patient General Information Nutritional Screening High Risk Screening Diagnosis Acute abdominal pain Pertinent Medical Hx/Surgical Hx HTN, CHF, hyperlipidemia, thyroid disorder, hepatitis C Subjective Information Pt is a 61-year-old female admitted with chief complaint of abdominal pain and infection. Paracentesis completed today. Pt was asleep during time of visit today. Pt appears well nourished with no signs of muscle or fat depletion. Current Diet Order/ Nutrition Support CCHO-60 GM, low sodium, 1200 fluid restriction/day Pertinent Medications Albutein 25%, Vitamin C, Ceftriaxone Sodium, Vancomycin , Iron, Lasix, Novolog, Levemir, Culturelle, Morphine, Theragran, Zofran, Protonix, Miralax, Zinc Sulfate Pertinent Labs (03/28) Glucose 197H, A1C WNL, Triglyceride 233H, Cholesterol 226H (03/30) BUN 46H, Creatinine 1.7H, Uric Acid 8. 7H Nutritional Hx/Data Height 1.5 m Height (Calculated Centimeters) 149.9 Current Weight (lbs) 71.214 kg Weight (Calculated Kilograms) 71.2 Weight (Calculated Grams) 25093.0 [place] Body Weight 97.5 % Banks Body Weight 161 Weight Status Obese GI Symptoms GI Symptoms Vomitting Diarrhea Last BM Food Allergies No Skin Integrity/Comment: Ozzy 15. No skin breakdown. Current %PO Negligible < 25% Estimated Nutritional Goals BEE in Kcals: Using Current wt Calories/Kcals/Kg Based on current wt 71.4 kg with consideration of obesity Kcals Calculated 6347-7429 kcals/day (20-25 kcals/kg) Protein: Using Current wt Protein g/kg: Based on current wt 71.4 kg with consideration of obesity Protein Calculated 57-71 gm/day (0.8-1 gm/kg) Fluid: ml Per MD/DO, pt on fluid restriction Nutritional Problem 1. Problem Problem Inadequate oral intake related to Etiology abdominal pain, diagnostic tests as evidenced by Signs/Symptoms: no PO intake x 2 days. Malnutrition Alert Protein-Calorie Malnutrition N/A Is there a minimum of two criteria No selected? Query Text:Check all the applicable criteria. A minimum of two criteria are recommended for diagnosis of either severe or non-severe malnutrition. Malnutrition Related to Morbid Obesity Malnutrition related to morbid obesity No Intervention/Recommendation Comments 1. Recommend soft/bland, Cardiac diet due to poor tolerance and abnormal labs. [place] food preferences, as able. Encourage oral intake. 2. Continue fluid restriction per MD/DO. 3. If pt is unable to tolerance PO diet, consider downgrading to clear liquid diet. Expected Outcomes/Goals Expected Outcomes/Goals Have pt consume at least 50% of meals. Physician Parameters for PEM Serum Albumin (g/dl) 3.1 - 3.4 (Mild)
[2017-04-03 09:14] LABS: ANION GAP 10.2 (7.0-16.0); CARBON DIOXIDE 19.9 mEq/L (21.0-31.0); POTASSIUM SERUM 5.1 mEq/L (3.5-5.1)
[2017-04-03 09:15] LABS: CALCIUM SERUM 8.9 mg/dL (8.6-10.3)
[2017-04-03] MEDS: Ferrous Sulfate 325 MG TAB PO SCH ×2 (10:10→16:21)
[2017-04-03] MEDS: Pantoprazole 40 mg EC Tab PO SCH ×2 (10:10→16:22)
[2017-04-03] MEDS: POLYETHYLENE GLYCOL 3350 17 GM PACK PO SCH (10:11)
[2017-04-03] MEDS: Multivitamin Tab PO SCH (10:11)
[2017-04-03] MEDS: Lactobacillus Rhamnosus 10 Billion CFU Capsule PO SCH ×2 (10:11→16:22)
[2017-04-03] MEDS: Venelex 60gm Tube TP SCH (10:12)
--- NOTE | 2017-04-03 16:14 | Infectious Disease Prog Note ---
Infectious Disease Subjective - Review of Systems Service Date: 04/03/17 Subjective: cc hep c cirrhosis hpi- pt on iv bax ros no fver'o/e vs chest clar pabd soft ascites ext pulse Infectious Disease Objective - Results Result Diagrams: 04/01/17 06:25 04/03/17 08:31 Recent Labs: Laboratory Last Values WBC 5.8 Th/cmm (4.8-10.8) D 04/01/17 06:25 RBC 3.07 Mil/cmm (3.80-5.10) L 04/01/17 06:25 Hgb 9.9 gm/dL (11.7-15.5) L 04/01/17 06:25 Hct 29.0 % (35.0-45.0) L 04/01/17 06:25 MCV 94.3 fl (81-100) 04/01/17 06:25 MCH 32.2 pg (27.0-31.0) H 04/01/17 06:25 MCHC Differential 34.1 pg (28.0-36.0) 04/01/17 06:25 RDW 15.7 % (11.5-20.0) 04/01/17 06:25 Plt Count 222 Th/cmm (150-400) 04/01/17 06:25 MPV 9.6 fl 04/01/17 06:25 Neutrophils % 68.9 % (40.0-80.0) 04/01/17 06:25 Lymphocytes % 19.9 % (20.0-50.0) L 04/01/17 06:25 Monocytes % 8.6 % (2.0-10.0) 04/01/17 06:25 Eosinophils % 2.5 % (0.0-5.0) 04/01/17 06:25 Basophils % 0.1 % (0.0-2.0) 04/01/17 06:25 Eos Smear Source URINE 03/31/17 13:40 Eos Smear Total Cells FEW EOSINOPHILS SEEN (NONE SEEN) 03/31/17 13:40 PT 11.9 SECONDS (9.5-11.5) H 03/30/17 06:45 INR 1.13 (0.5-1.4) 03/30/17 06:45 PTT (Actin FS) 24.2 SECONDS (26.0-38.0) L 03/29/17 16:46 Sodium 139 mEq/L (136-145) 04/03/17 08:31 Potassium 5.1 mEq/L (3.5-5.1) 04/03/17 08:31 Chloride 114 mEq/L (98-107) H 04/03/17 08:31 Carbon Dioxide 19.9 mEq/L (21.0-31.0) L 04/03/17 08:31 Anion Gap 10.2 (7.0-16.0) 04/03/17 08:31 BUN 48 mg/dL (7-25) H 04/03/17 08:31 Creatinine 2.0 mg/dL (0.6-1.2) H 04/03/17 08:31 Est GFR ( Amer) 32.6 ml/min (>90) 04/03/17 08:31 Est GFR (Non-Af Amer) 26.9 ml/min 04/03/17 08:31 BUN/Creatinine Ratio 24.0 04/03/17 08:31 Glucose 137 mg/dL (70-105) H 04/03/17 08:31 POC Glucose 145 MG/DL (70 - 105) H 04/03/17 11:39 Hemoglobin A1c % 5.8 % (4.0-6.0) 03/28/17 14:55 Uric Acid 8.7 mg/dL (2.3-6.6) H 03/30/17 06:45 Calcium 8.9 mg/dL (8.6-10.3) 04/03/17 08:31 Phosphorus 4.7 mg/dL (2.5-5.0) 03/30/17 06:45 Magnesium 2.1 mg/dL (1.9-2.7) 03/30/17 06:45 Total Bilirubin 0.4 mg/dL (0.3-1.0) 03/28/17 14:55 AST 38 U/L (13-39) 03/28/17 14:55 ALT 26 U/L (7-52) 03/28/17 14:55 Alkaline Phosphatase 186 U/L (34-104) H 03/28/17 14:55 Ammonia 44 umol/L (16-53) 03/28/17 14:44 Troponin I 0.02 ng/mL (0.01-0.05) 03/28/17 14:55 Total Protein 6.5 gm/dL (6.0-8.3) 03/29/17 16:26 Albumin 3.2 gm/dL (3.7-5.3) L 03/29/17 16:26 Globulin 3.5 gm/dL 03/28/17 14:55 Albumin/Globulin Ratio 1.0 (1.0-1.8) 03/28/17 14:55 Triglycerides 233 mg/dL (<150) H 03/28/17 14:55 Cholesterol 226 mg/dL (<200) H 03/28/17 14:55 LDL Cholesterol Direct 161 mg/dL (75-193) 03/28/17 14:55 HDL Cholesterol 29 mg/dL (23-92) 03/28/17 14:55 TSH 9.05 uIU/ml (0.34-5.60) H 03/28/17 14:55 Urine Source MIDSTREAM 03/31/17 13:40 Urine Color YELLOW 03/31/17 13:40 Urine Clarity SLIGHT CLOUDY (CLEAR) 03/31/17 13:40 Urine pH 5.5 (4.6 - 8.0) 03/31/17 13:40 Ur Specific [place] 1.025 (1.005-1.030) 03/31/17 13:40 Urine Protein 100 mg/dL (NEGATIVE) H 03/31/17 13:40 Urine Glucose (UA) NEGATIVE mg/dL (NEGATIVE) 03/31/17 13:40 Urine Ketones NEGATIVE mg/dL (NEGATIVE) 03/31/17 13:40 Urine Blood NEGATIVE (NEGATIVE) 03/31/17 13:40 Urine Nitrate NEGATIVE (NEGATIVE) 03/31/17 13:40 Urine Bilirubin NEGATIVE (NEGATIVE) 03/31/17 13:40 Urine Urobilinogen 0.2 E.U./dL (0.2 - 1.0) 03/31/17 13:40 Ur Leukocyte Esterase TRACE (NEGATIVE) H 03/31/17 13:40 Urine RBC NONE SEEN /hpf (0-5) 03/31/17 13:40 Urine WBC 2-5 /hpf (0-5) 03/31/17 13:40 Ur Epithelial Cells RARE /lpf (FEW) 03/31/17 13:40 Urine Bacteria MODERATE /hpf (NONE SEEN) 03/31/17 13:40 Hyaline Casts 0-2 /lpf (0-2) H 03/31/17 13:40 Urine Yeast MANY /hpf (NONE SEEN) H 03/31/17 13:40 Ur Random Sodium 47 mmol/L 03/31/17 13:40 Urine Creatinine 96.0 mg/dl (28.0-217.0) 03/31/17 13:40 Urine Microalbumin 2182.8 ug/mL (Not Estab.) 03/29/17 15:59 Microalb/Creat Ratio 2718.3 mg/g creat (0.0-30.0) H 03/29/17 15:59 Fluid Source PARACENTHESIS 03/30/17 10:15 Fluid Color RED 03/30/17 10:15 Fluid Appearance BLOODY 03/30/17 10:15 Fluid WBC 20 /cumm 03/30/17 10:15 Fluid RBC 81688 /cumm 03/30/17 10:15 Fluid Neutrophils 5 % 03/30/17 10:15 Fluid Lymphocytes 26 % 03/30/17 10:15 Fluid Monocytes 69 % 03/30/17 10:15 Fld Mesothelial Cells RARE 03/30/17 10:15 Fluid Total Protein 2.3 g/dL 03/30/17 10:15 Fluid Albumin 1200.0 MG/DL 03/30/17 10:15 RPR NONREACTIVE (NONREACTIVE) 03/28/17 14:55 - Physical Exam Vitals and I&O: Vital Signs Temp 98.6 F 04/03/17 12:00 Pulse 88 04/03/17 12:00 Resp 18 04/03/17 12:00 BP 163/85 04/03/17 12:00 Pulse Ox 94 04/03/17 12:00 Intake & Output 04/02/17 04/03/17 04/03/17 18:59 06:59 18:59 Intake Total 600 Balance 600 Weight (lbs) 70.307 kg 72.121 kg 72.121 kg Intake: Intake, IV Amount 50 [id number] 1 gm In 50 Sodium Chloride 0.9% 50 ml @ 100 mls/hr IV Q24HR [facility] Rx#:[id number] Oral 550 Other: # Voids 3 2 # Bowel Movements 0 Stool Characteristics Soft Active Medications: Current Medications Albuterol/Ipratropium (Duoneb Neb) 3 ml HHN QID PRN PRN Reason: Wheezing Stop: 05/27/17 19:34 Last Admin: 03/29/17 07:38 Dose: 3 ml Ascorbic Acid (Vitamin C) 500 mg PO DAILY [facility] Stop: 05/28/17 08:59 Last Admin: 04/03/17 10:11 Dose: 500 mg Bisacodyl (Dulcolax 10 Mg Supp) 10 mg RC DAILY PRN PRN Reason: Constipation Stop: 05/27/17 19:34 Diphenoxylate HCl/Atropine (Lomotil) 1 tab PO Q6H PRN PRN Reason: Diarrhea Stop: 05/27/17 19:34 Doxycycline Hyclate (Vibramycin) 100 mg PO BID PIERRE Stop: 05/27/17 19:34 Last Admin: 04/03/17 10:10 Dose: 100 mg Ferrous Sulfate (Iron) 325 mg PO BID PIERRE Stop: 05/27/17 19:34 Last Admin: 04/03/17 10:10 Dose: 325 mg Furosemide (Lasix) 40 mg PO DAILY [facility] Stop: 06/01/17 08:59 Last Admin: 04/03/17 10:11 Dose: 40 mg Heparin Sodium (Porcine) (Heparin) 5,000 units SUBQ Q12HR PIERRE Stop: 05/28/17 20:59 Last Admin: 04/03/17 10:11 Dose: 5,000 units Hydralazine HCl (Apresoline) 50 mg PO BID PIERRE Stop: 05/28/17 16:59 Last Admin: 04/03/17 10:10 Dose: 50 mg Ceftriaxone Sodium 1 gm/ (Sodium Chloride) 50 mls @ 100 mls/hr IV Q24HR PIERRE Stop: 05/27/17 17:29 Last Infusion: 04/02/17 17:33 Dose: Infused Insulin Aspart (Novolog Insulin Sliding Scale) 0 units SUBQ ACHS PIERRE PRN Reason: Protocol Stop: 05/27/17 20:59 Last Admin: 04/03/17 11:41 Dose: Not Given Lactobacillus Rhamnosus (Culturelle) 1 each PO BID PIERRE Stop: 05/27/17 19:34 Last Admin: 04/03/17 10:11 Dose: 1 each Levothyroxine Sodium (Synthroid) 0.05 mg PO QDAC PIERRE Stop: 05/28/17 07:29 Last Admin: 04/03/17 06:38 Dose: 0.05 mg Lorazepam (Ativan) 1 mg PO Q6H PRN; Protocol PRN Reason: Anxiety Stop: 05/27/17 19:34 Metoclopramide HCl (Reglan) 5 mg PO Q6H PRN PRN Reason: STOMACH UPSET Stop: 05/27/17 19:34 Last Admin: 04/02/17 08:40 Dose: 5 mg Metoprolol Tartrate (Lopressor) 50 mg PO BID PIERRE Stop: 05/28/17 16:59 Last Admin: 04/03/17 10:11 Dose: 50 mg Minoxidil (Loniten) 10 mg PO Q12H PIERRE Stop: 05/27/17 19:34 Last Admin: 04/03/17 11:41 Dose: Not Given Miscellaneous (Vte Chemical Prophylaxis Screen/ Admission) 1 ea MC PRN PRN PRN Reason: PROTOCOL Stop: 05/28/17 15:41 Morphine Sulfate (Morphine) 1 mg IVP Q3H PRN PRN Reason: MODERATE PAIN Stop: 05/29/17 16:45 Last Admin: 04/03/17 06:44 Dose: 1 mg Morphine Sulfate (Morphine) 2 mg IVP Q3H PRN PRN Reason: SEVERE PAIN Stop: 05/29/17 16:45 Last Admin: 04/03/17 13:10 Dose: 2 mg Multivitamins/Vitamin C (Theragran) 1 tab PO DAILY PIERRE Stop: 05/28/17 08:59 Last Admin: 04/03/17 10:11 Dose: 1 tab Ondansetron HCl (Zofran Odt) 4 mg PO Q6H PRN PRN Reason: Nausea / Vomiting Last Admin: 04/03/17 13:12 Dose: 4 mg Ondansetron HCl (Zofran) 4 mg IV Q6H PRN PRN Reason: Nausea / Vomiting Stop: 05/28/17 17:05 Last Admin: 04/03/17 11:34 Dose: 4 mg Pantoprazole Sodium (Protonix) 40 mg PO BID [facility] Stop: 05/27/17 19:34 Last Admin: 04/03/17 10:10 Dose: 40 mg Polyethylene Glycol (Miralax) 17 gm PO DAILY PIERRE Stop: 05/28/17 08:59 Last Admin: 04/03/17 10:11 Dose: 17 gm Rifaximin (Xifaxan) 550 mg PO Q12H PIERRE Stop: 05/29/17 08:59 Last Admin: 04/03/17 11:44 Dose: Not Given Sodium Bicarbonate (Sodium Bicarbonate) 650 mg PO Q8H PIERRE PRN Reason: Protocol Stop: 05/27/17 19:34 Last Admin: 04/03/17 11:34 Dose: Not Given Spironolactone (Aldactone) 25 mg PO BID PIERRE Stop: 05/28/17 17:59 Last Admin: 04/03/17 10:10 Dose: 25 mg Zinc Sulfate (Zinc Sulfate) 220 mg PO DAILY PIERRE Stop: 05/28/17 08:59 Last Admin: 04/03/17 10:12 Dose: 220 mg Zolpidem Tartrate (Ambien) 5 mg PO HS PRN PRN Reason: Insomnia Stop: 05/27/17 19:34 - Procedures Procedures: Procedures Procedure Code Date ABD PARACENTESIS W/IMAGING 98001 03/28/17 DRAINAGE OF PERITONEAL CAVITY, PERCUTANEOUS APPROACH [id number] 03/28/17 EGD BIOPSY SINGLE/MULTIPLE 80627 09/29/16 EXCISION OF DUODENUM, ENDO, DIAGN [id number] 09/29/16 EXCISION OF STOMACH, ENDO, DIAGN [id number] 09/29/16 MEASURE OF ARTERIAL SATURATION, PERIPHERAL, PERC APPROACH [id number] 01/27/17 Infectious Disease Assmt/Plan - Problem List Patient Problems: All Active Problems NAUSEA/VOMITING, ENLARGED LEFT BREAST (Acute) HTN (hypertension) (Acute) I10 History of COPD (Acute) Z87.09 History of asthma (Acute) Z87.09 History of diabetes mellitus (Acute) Z86.39 History of hepatitis C (Acute) Z86.19 SOB (shortness of breath) (Acute ~01/27/17) R06.02 Nutritional Asmnt/Malnutr-PDOC - Dietary Evaluation Malnutrition Findings (Please click <Entered> for more info): Nutritional Asmnt/Malnutrition Start: 03/30/17 12: 04 Text: Status: Complete Freq: Document 03/30/17 19:12 [facility] (Rec: 03/30/17 19:22 [facility] [id number]) Nutritional Asmnt/Malnutrition Patient General Information Nutritional Screening High Risk Screening Diagnosis Acute abdominal pain Pertinent Medical Hx/Surgical Hx HTN, CHF, hyperlipidemia, thyroid disorder, hepatitis C Subjective Information Pt is a 61-year-old female admitted with chief complaint of abdominal pain and infection. Paracentesis completed today. Pt was asleep during time of visit today. Pt appears well nourished with no signs of muscle or fat depletion. Current Diet Order/ Nutrition Support CCHO-60 GM, low sodium, 1200 fluid restriction/day Pertinent Medications Albutein 25%, Vitamin C, Ceftriaxone Sodium, Vancomycin , Iron, Lasix, Novolog, Levemir, Culturelle, Morphine, Theragran, Zofran, Protonix, Miralax, Zinc Sulfate Pertinent Labs (03/28) Glucose 197H, A1C WNL, Triglyceride 233H, Cholesterol 226H (03/30) BUN 46H, Creatinine 1.7H, Uric Acid 8. 7H Nutritional Hx/Data Height 1.5 m Height (Calculated Centimeters) 149.9 Current Weight (lbs) 71.214 kg Weight (Calculated Kilograms) 71.2 Weight (Calculated Grams) 43390.0 [place] Body Weight 97.5 % [place] Body Weight 161 Weight Status Obese GI Symptoms GI Symptoms Vomitting Diarrhea Last BM Food Allergies No Skin Integrity/Comment: Ozzy 15. No skin breakdown. Current %PO Negligible < 25% Estimated Nutritional Goals BEE in Kcals: Using Current wt Calories/Kcals/Kg Based on current wt 71.4 kg with consideration of obesity Kcals Calculated 0277-3667 kcals/day (20-25 kcals/kg) Protein: Using Current wt Protein g/kg: Based on current wt 71.4 kg with consideration of obesity Protein Calculated 57-71 gm/day (0.8-1 gm/kg) Fluid: ml Per MD/DO, pt on fluid restriction Nutritional Problem 1. Problem Problem Inadequate oral intake related to Etiology abdominal pain, diagnostic tests as evidenced by Signs/Symptoms: no PO intake x 2 days. Malnutrition Alert Protein-Calorie Malnutrition N/A Is there a minimum of two criteria No selected? Query Text:Check all the applicable criteria. A minimum of two criteria are recommended for diagnosis of either severe or non-severe malnutrition. Malnutrition Related to Morbid Obesity Malnutrition related to morbid obesity No Intervention/Recommendation Comments 1. Recommend soft/bland, Cardiac diet due to poor tolerance and abnormal labs. Richards food preferences, as able. Encourage oral intake. 2. Continue fluid restriction per MD/DO. 3. If pt is unable to tolerance PO diet, consider downgrading to clear liquid diet. Expected Outcomes/Goals Expected Outcomes/Goals Have pt consume at least 50% of meals. Physician Parameters for PEM Serum Albumin (g/dl) 3.1 - 3.4 (Mild)
--- NOTE | 2017-04-03 17:08 | General Progress Note ---
Subjective - Review of Systems Service Date: 04/03/17 (noted inc creatinine) Objective - Results Result Diagrams: 04/01/17 06:25 04/03/17 08:31 Recent Labs: Laboratory Last Values WBC 5.8 Th/cmm (4.8-10.8) D 04/01/17 06:25 RBC 3.07 Mil/cmm (3.80-5.10) L 04/01/17 06:25 Hgb 9.9 gm/dL (11.7-15.5) L 04/01/17 06:25 Hct 29.0 % (35.0-45.0) L 04/01/17 06:25 MCV 94.3 fl (81-100) 04/01/17 06:25 MCH 32.2 pg (27.0-31.0) H 04/01/17 06:25 MCHC Differential 34.1 pg (28.0-36.0) 04/01/17 06:25 RDW 15.7 % (11.5-20.0) 04/01/17 06:25 Plt Count 222 Th/cmm (150-400) 04/01/17 06:25 MPV 9.6 fl 04/01/17 06:25 Neutrophils % 68.9 % (40.0-80.0) 04/01/17 06:25 Lymphocytes % 19.9 % (20.0-50.0) L 04/01/17 06:25 Monocytes % 8.6 % (2.0-10.0) 04/01/17 06:25 Eosinophils % 2.5 % (0.0-5.0) 04/01/17 06:25 Basophils % 0.1 % (0.0-2.0) 04/01/17 06:25 Eos Smear Source URINE 03/31/17 13:40 Eos Smear Total Cells FEW EOSINOPHILS SEEN (NONE SEEN) 03/31/17 13:40 PT 11.9 SECONDS (9.5-11.5) H 03/30/17 06:45 INR 1.13 (0.5-1.4) 03/30/17 06:45 PTT (Actin FS) 24.2 SECONDS (26.0-38.0) L 03/29/17 16:46 Sodium 139 mEq/L (136-145) 04/03/17 08:31 Potassium 5.1 mEq/L (3.5-5.1) 04/03/17 08:31 Chloride 114 mEq/L (98-107) H 04/03/17 08:31 Carbon Dioxide 19.9 mEq/L (21.0-31.0) L 04/03/17 08:31 Anion Gap 10.2 (7.0-16.0) 04/03/17 08:31 BUN 48 mg/dL (7-25) H 04/03/17 08:31 Creatinine 2.0 mg/dL (0.6-1.2) H 04/03/17 08:31 Est GFR ( Amer) 32.6 ml/min (>90) 04/03/17 08:31 Est GFR (Non-Af Amer) 26.9 ml/min 04/03/17 08:31 BUN/Creatinine Ratio 24.0 04/03/17 08:31 Glucose 137 mg/dL (70-105) H 04/03/17 08:31 POC Glucose 145 MG/DL (70 - 105) H 04/03/17 11:39 Hemoglobin A1c % 5.8 % (4.0-6.0) 03/28/17 14:55 Uric Acid 8.7 mg/dL (2.3-6.6) H 03/30/17 06:45 Calcium 8.9 mg/dL (8.6-10.3) 04/03/17 08:31 Phosphorus 4.7 mg/dL (2.5-5.0) 03/30/17 06:45 Magnesium 2.1 mg/dL (1.9-2.7) 03/30/17 06:45 Total Bilirubin 0.4 mg/dL (0.3-1.0) 03/28/17 14:55 AST 38 U/L (13-39) 03/28/17 14:55 ALT 26 U/L (7-52) 03/28/17 14:55 Alkaline Phosphatase 186 U/L (34-104) H 03/28/17 14:55 Ammonia 44 umol/L (16-53) 03/28/17 14:44 Troponin I 0.02 ng/mL (0.01-0.05) 03/28/17 14:55 Total Protein 6.5 gm/dL (6.0-8.3) 03/29/17 16:26 Albumin 3.2 gm/dL (3.7-5.3) L 03/29/17 16:26 Globulin 3.5 gm/dL 03/28/17 14:55 Albumin/Globulin Ratio 1.0 (1.0-1.8) 03/28/17 14:55 Triglycerides 233 mg/dL (<150) H 03/28/17 14:55 Cholesterol 226 mg/dL (<200) H 03/28/17 14:55 LDL Cholesterol Direct 161 mg/dL (75-193) 03/28/17 14:55 HDL Cholesterol 29 mg/dL (23-92) 03/28/17 14:55 TSH 9.05 uIU/ml (0.34-5.60) H 03/28/17 14:55 Urine Source MIDSTREAM 03/31/17 13:40 Urine Color YELLOW 03/31/17 13:40 Urine Clarity SLIGHT CLOUDY (CLEAR) 03/31/17 13:40 Urine pH 5.5 (4.6 - 8.0) 03/31/17 13:40 Ur Specific [place] 1.025 (1.005-1.030) 03/31/17 13:40 Urine Protein 100 mg/dL (NEGATIVE) H 03/31/17 13:40 Urine Glucose (UA) NEGATIVE mg/dL (NEGATIVE) 03/31/17 13:40 Urine Ketones NEGATIVE mg/dL (NEGATIVE) 03/31/17 13:40 Urine Blood NEGATIVE (NEGATIVE) 03/31/17 13:40 Urine Nitrate NEGATIVE (NEGATIVE) 03/31/17 13:40 Urine Bilirubin NEGATIVE (NEGATIVE) 03/31/17 13:40 Urine Urobilinogen 0.2 E.U./dL (0.2 - 1.0) 03/31/17 13:40 Ur Leukocyte Esterase TRACE (NEGATIVE) H 03/31/17 13:40 Urine RBC NONE SEEN /hpf (0-5) 03/31/17 13:40 Urine WBC 2-5 /hpf (0-5) 03/31/17 13:40 Ur Epithelial Cells RARE /lpf (FEW) 03/31/17 13:40 Urine Bacteria MODERATE /hpf (NONE SEEN) 03/31/17 13:40 Hyaline Casts 0-2 /lpf (0-2) H 03/31/17 13:40 Urine Yeast MANY /hpf (NONE SEEN) H 03/31/17 13:40 Ur Random Sodium 47 mmol/L 03/31/17 13:40 Urine Creatinine 96.0 mg/dl (28.0-217.0) 03/31/17 13:40 Urine Microalbumin 2182.8 ug/mL (Not Estab.) 03/29/17 15:59 Microalb/Creat Ratio 2718.3 mg/g creat (0.0-30.0) H 03/29/17 15:59 Fluid Source PARACENTHESIS 03/30/17 10:15 Fluid Color RED 03/30/17 10:15 Fluid Appearance BLOODY 03/30/17 10:15 Fluid WBC 20 /cumm 03/30/17 10:15 Fluid RBC 35999 /cumm 03/30/17 10:15 Fluid Neutrophils 5 % 03/30/17 10:15 Fluid Lymphocytes 26 % 03/30/17 10:15 Fluid Monocytes 69 % 03/30/17 10:15 Fld Mesothelial Cells RARE 03/30/17 10:15 Fluid Total Protein 2.3 g/dL 03/30/17 10:15 Fluid Albumin 1200.0 MG/DL 03/30/17 10:15 RPR NONREACTIVE (NONREACTIVE) 03/28/17 14:55 - Physical Exam Vitals and I&O: Vital Signs Temp 98.6 F 04/03/17 12:00 Pulse 91 04/03/17 16:22 Resp 18 04/03/17 12:00 BP 161/91 04/03/17 16:22 Pulse Ox 94 04/03/17 12:00 Intake & Output 04/02/17 04/03/17 04/03/17 18:59 06:59 18:59 Intake Total 600 Balance 600 Weight (lbs) 70.307 kg 72.121 kg 72.121 kg Intake: Intake, IV Amount 50 [id number] 1 gm In 50 Sodium Chloride 0.9% 50 ml @ 100 mls/hr IV Q24HR [facility] Rx#:[id number] Oral 550 Other: # Voids 3 2 # Bowel Movements 0 Stool Characteristics Soft Active Medications: Current Medications Albuterol/Ipratropium (Duoneb Neb) 3 ml HHN QID PRN PRN Reason: Wheezing Stop: 05/27/17 19:34 Last Admin: 03/29/17 07:38 Dose: 3 ml Ascorbic Acid (Vitamin C) 500 mg PO DAILY PIERRE Stop: 05/28/17 08:59 Last Admin: 04/03/17 10:11 Dose: 500 mg Bisacodyl (Dulcolax 10 Mg Supp) 10 mg RC DAILY PRN PRN Reason: Constipation Stop: 05/27/17 19:34 Diphenoxylate HCl/Atropine (Lomotil) 1 tab PO Q6H PRN PRN Reason: Diarrhea Stop: 05/27/17 19:34 Doxycycline Hyclate (Vibramycin) 100 mg PO BID PIERRE Stop: 05/27/17 19:34 Last Admin: 04/03/17 16:21 Dose: 100 mg Ferrous Sulfate (Iron) 325 mg PO BID PIERRE Stop: 05/27/17 19:34 Last Admin: 04/03/17 16:21 Dose: 325 mg Furosemide (Lasix) 40 mg PO DAILY PIERRE Stop: 06/01/17 08:59 Last Admin: 04/03/17 10:11 Dose: 40 mg Heparin Sodium (Porcine) (Heparin) 5,000 units SUBQ Q12HR PIERRE Stop: 05/28/17 20:59 Last Admin: 04/03/17 10:11 Dose: 5,000 units Hydralazine HCl (Apresoline) 50 mg PO BID PIERRE Stop: 05/28/17 16:59 Last Admin: 04/03/17 16:22 Dose: 50 mg Ceftriaxone Sodium 1 gm/ (Sodium Chloride) 50 mls @ 100 mls/hr IV Q24HR PIERRE Stop: 05/27/17 17:29 Last Infusion: 04/02/17 17:33 Dose: Infused Insulin Aspart (Novolog Insulin Sliding Scale) 0 units SUBQ ACHS PIERRE PRN Reason: Protocol Stop: 05/27/17 20:59 Last Admin: 04/03/17 11:41 Dose: Not Given Lactobacillus Rhamnosus (Culturelle) 1 each PO BID PIERRE Stop: 05/27/17 19:34 Last Admin: 04/03/17 16:22 Dose: 1 each Levothyroxine Sodium (Synthroid) 0.05 mg PO QDAC PIERRE Stop: 05/28/17 07:29 Last Admin: 04/03/17 06:38 Dose: 0.05 mg Lorazepam (Ativan) 1 mg PO Q6H PRN; Protocol PRN Reason: Anxiety Stop: 05/27/17 19:34 Metoclopramide HCl (Reglan) 5 mg PO Q6H PRN PRN Reason: STOMACH UPSET Stop: 05/27/17 19:34 Last Admin: 04/02/17 08:40 Dose: 5 mg Metoprolol Tartrate (Lopressor) 50 mg PO BID PIERRE Stop: 05/28/17 16:59 Last Admin: 04/03/17 16:22 Dose: 50 mg Minoxidil (Loniten) 10 mg PO Q12H PIERRE Stop: 05/27/17 19:34 Last Admin: 04/03/17 11:41 Dose: Not Given Miscellaneous (Vte Chemical Prophylaxis Screen/ Admission) 1 ea MC PRN PRN PRN Reason: PROTOCOL Stop: 05/28/17 15:41 Morphine Sulfate (Morphine) 1 mg IVP Q3H PRN PRN Reason: MODERATE PAIN Stop: 05/29/17 16:45 Last Admin: 04/03/17 06:44 Dose: 1 mg Morphine Sulfate (Morphine) 2 mg IVP Q3H PRN PRN Reason: SEVERE PAIN Stop: 05/29/17 16:45 Last Admin: 04/03/17 16:19 Dose: 2 mg Multivitamins/Vitamin C (Theragran) 1 tab PO DAILY PIERRE Stop: 05/28/17 08:59 Last Admin: 04/03/17 10:11 Dose: 1 tab Ondansetron HCl (Zofran Odt) 4 mg PO Q6H PRN PRN Reason: Nausea / Vomiting Last Admin: 04/03/17 13:12 Dose: 4 mg Ondansetron HCl (Zofran) 4 mg IV Q6H PRN PRN Reason: Nausea / Vomiting Stop: 05/28/17 17:05 Last Admin: 04/03/17 16:16 Dose: 4 mg Pantoprazole Sodium (Protonix) 40 mg PO BID [facility] Stop: 05/27/17 19:34 Last Admin: 04/03/17 16:22 Dose: 40 mg Polyethylene Glycol (Miralax) 17 gm PO DAILY [facility] Stop: 05/28/17 08:59 Last Admin: 04/03/17 10:11 Dose: 17 gm Rifaximin (Xifaxan) 550 mg PO Q12H PIERRE Stop: 05/29/17 08:59 Last Admin: 04/03/17 11:44 Dose: Not Given Sodium Bicarbonate (Sodium Bicarbonate) 650 mg PO Q8H PIERRE PRN Reason: Protocol Stop: 05/27/17 19:34 Last Admin: 04/03/17 11:34 Dose: Not Given Spironolactone (Aldactone) 25 mg PO BID PIERRE Stop: 05/28/17 17:59 Last Admin: 04/03/17 16:21 Dose: 25 mg Zinc Sulfate (Zinc Sulfate) 220 mg PO DAILY PIERRE Stop: 05/28/17 08:59 Last Admin: 04/03/17 10:12 Dose: 220 mg Zolpidem Tartrate (Ambien) 5 mg PO HS PRN PRN Reason: Insomnia Stop: 05/27/17 19:34 General: Alert, Cooperative, Moderate distress HEENT: Atraumatic, PERRLA, EOMI, Mucous membr. moist/pink Neck: Supple, +2 carotid pulse wo bruit Cardiovascular: Regular rate, Normal S1, Normal S2 Lungs: Clear to auscultation Abdomen: Bowel sounds, Soft, Tender Extremities: no Edema Neurological: Sensation intact Skin: no Rash Psych/Mental Status: Mood NL - Procedures Procedures: Procedures Procedure Code Date ABD PARACENTESIS W/IMAGING 29805 03/28/17 DRAINAGE OF PERITONEAL CAVITY, PERCUTANEOUS APPROACH [id number] 03/28/17 EGD BIOPSY SINGLE/MULTIPLE 03999 09/29/16 EXCISION OF DUODENUM, ENDO, DIAGN [id number] 09/29/16 EXCISION OF STOMACH, ENDO, DIAGN [id number] 09/29/16 MEASURE OF ARTERIAL SATURATION, PERIPHERAL, PERC APPROACH [id number] 01/27/17 Assessment/Plan - Problem List Patient Problems: All Active Problems NAUSEA/VOMITING, ENLARGED LEFT BREAST (Acute) HTN (hypertension) (Acute) I10 History of COPD (Acute) Z87.09 History of asthma (Acute) Z87.09 History of diabetes mellitus (Acute) Z86.39 History of hepatitis C (Acute) Z86.19 SOB (shortness of breath) (Acute ~01/27/17) R06.02 - Assessment Assessment: increase creatinine with paracentesis fluid restriction and diuretic discontinue fluid restriction and folloe up lytes discontinue lasis if need swithxc to aldactone but crefully folloe up lytes Nutritional Asmnt/Malnutr-PDOC - Dietary Evaluation Malnutrition Findings (Please click <Entered> for more info): Nutritional Asmnt/Malnutrition Start: 03/30/17 12: 04 Text: Status: Complete Freq: Document 03/30/17 19:12 [facility] (Rec: 03/30/17 19:22 [facility] [id number]) Nutritional Asmnt/Malnutrition Patient General Information Nutritional Screening High Risk Screening Diagnosis Acute abdominal pain Pertinent Medical Hx/Surgical Hx HTN, CHF, hyperlipidemia, thyroid disorder, hepatitis C Subjective Information Pt is a 61-year-old female admitted with chief complaint of abdominal pain and infection. Paracentesis completed today. Pt was asleep during time of visit today. Pt appears well nourished with no signs of muscle or fat depletion. Current Diet Order/ Nutrition Support CCHO-60 GM, low sodium, 1200 fluid restriction/day Pertinent Medications Albutein 25%, Vitamin C, Ceftriaxone Sodium, Vancomycin , Iron, Lasix, Novolog, Levemir, Culturelle, Morphine, Theragran, Zofran, Protonix, Miralax, Zinc Sulfate Pertinent Labs (03/28) Glucose 197H, A1C WNL, Triglyceride 233H, Cholesterol 226H (03/30) BUN 46H, Creatinine 1.7H, Uric Acid 8. 7H Nutritional Hx/Data Height 1.5 m Height (Calculated Centimeters) 149.9 Current Weight (lbs) 71.214 kg Weight (Calculated Kilograms) 71.2 Weight (Calculated Grams) 64636.0 [place] Body Weight 97.5 % [place] Body Weight 161 Weight Status Obese GI Symptoms GI Symptoms Vomitting Diarrhea Last BM Food Allergies No Skin Integrity/Comment: Ozzy 15. No skin breakdown. Current %PO Negligible < 25% Estimated Nutritional Goals BEE in Kcals: Using Current wt Calories/Kcals/Kg Based on current wt 71.4 kg with consideration of obesity Kcals Calculated 9076-3559 kcals/day (20-25 kcals/kg) Protein: Using Current wt Protein g/kg: Based on current wt 71.4 kg with consideration of obesity Protein Calculated 57-71 gm/day (0.8-1 gm/kg) Fluid: ml Per MD/DO, pt on fluid restriction Nutritional Problem 1. Problem Problem Inadequate oral intake related to Etiology abdominal pain, diagnostic tests as evidenced by Signs/Symptoms: no PO intake x 2 days. Malnutrition Alert Protein-Calorie Malnutrition N/A Is there a minimum of two criteria No selected? Query Text:Check all the applicable criteria. A minimum of two criteria are recommended for diagnosis of either severe or non-severe malnutrition. Malnutrition Related to Morbid Obesity Malnutrition related to morbid obesity No Intervention/Recommendation Comments 1. Recommend soft/bland, Cardiac diet due to poor tolerance and abnormal labs. [place] food preferences, as able. Encourage oral intake. 2. Continue fluid restriction per MD/DO. 3. If pt is unable to tolerance PO diet, consider downgrading to clear liquid diet. Expected Outcomes/Goals Expected Outcomes/Goals Have pt consume at least 50% of meals. Physician Parameters for PEM Serum Albumin (g/dl) 3.1 - 3.4 (Mild)
[2017-04-03] MEDS: cefTRIAXone 1 GM in Sodium Chloride 0.9% 50 ML IV SCH (19:04)
[2017-04-04] MEDS: Morphine Sulfate 4 mg/mL 1mL Syr IVP PRN ×5 (02:48→18:42)
[2017-04-04] MEDS: Levothyroxine 0.05 Mg Tab PO SCH (06:43)
[2017-04-04 07:13] LABS: % EOSINOPHILS 1.1 % (0.0-5.0); % LYMPHOCYTES 21.2 % (20.0-50.0); % MONOCYTES 4.9 % (2.0-10.0); % NEUTROPHILS 71.8 % (40.0-80.0); HEMATOCRIT 31.8 % (35.0-45.0); HEMOGLOBIN 10.8 gm/dL (11.7-15.5); MEAN CELL VOLUME 94.1 fl (81-100); MEAN CORPUSCULAR HEMOGLOBIN 31.9 pg (27.0-31.0); MEAN CORPUSCULAR HGB CONC 33.9 pg (28.0-36.0); MEAN PLATELET VOLUME 9.6 fl; NEUTROPHILE ABSOLUTE 5.1 Th/cmm (1.8-8.0); PLATELET COUNT 251 Th/cmm (150-400); RED BLOOD COUNT 3.38 Mil/cmm (3.80-5.10); RED CELL DISTRIBUTION WIDTH 15.6 % (11.5-20.0)
[2017-04-04] MEDS: INSULIN ASPART SLIDING SCALE 100 UNITS/ML UNIT SUBQ SCH ×3 (07:28→17:28)
[2017-04-04 07:41] LABS: WHITE BLOOD COUNT 7.2 Th/cmm (4.8-10.8)
[2017-04-04 07:42] LABS: ANION GAP 13.5 (7.0-16.0); BUN/CREATININE RATIO 23.3; CALCIUM SERUM 9.5 mg/dL (8.6-10.3); CARBON DIOXIDE 17.9 mEq/L (21.0-31.0); CREATININE - SERUM 2.1 mg/dL (0.6-1.2); POTASSIUM SERUM 5.4 mEq/L (3.5-5.1)
--- NOTE | 2017-04-04 07:50 | General Progress Note ---
Subjective - Review of Systems Subjective: awake, alert, still noted with weakness Objective - Results Result Diagrams: 04/04/17 06:00 04/04/17 06:00 Recent Labs: Laboratory Last Values WBC 7.2 Th/cmm (4.8-10.8) D 04/04/17 06:00 RBC 3.38 Mil/cmm (3.80-5.10) L 04/04/17 06:00 Hgb 10.8 gm/dL (11.7-15.5) L 04/04/17 06:00 Hct 31.8 % (35.0-45.0) L 04/04/17 06:00 MCV 94.1 fl (81-100) 04/04/17 06:00 MCH 31.9 pg (27.0-31.0) H 04/04/17 06:00 MCHC Differential 33.9 pg (28.0-36.0) 04/04/17 06:00 RDW 15.6 % (11.5-20.0) 04/04/17 06:00 Plt Count 251 Th/cmm (150-400) 04/04/17 06:00 MPV 9.6 fl 04/04/17 06:00 Neutrophils % 71.8 % (40.0-80.0) 04/04/17 06:00 Lymphocytes % 21.2 % (20.0-50.0) 04/04/17 06:00 Monocytes % 4.9 % (2.0-10.0) 04/04/17 06:00 Eosinophils % 1.1 % (0.0-5.0) 04/04/17 06:00 Basophils % 1.0 % (0.0-2.0) 04/04/17 06:00 Eos Smear Source URINE 03/31/17 13:40 Eos Smear Total Cells FEW EOSINOPHILS SEEN (NONE SEEN) 03/31/17 13:40 PT 11.9 SECONDS (9.5-11.5) H 03/30/17 06:45 INR 1.13 (0.5-1.4) 03/30/17 06:45 PTT (Actin FS) 24.2 SECONDS (26.0-38.0) L 03/29/17 16:46 Sodium 139 mEq/L (136-145) 04/03/17 08:31 Potassium 5.1 mEq/L (3.5-5.1) 04/03/17 08:31 Chloride 114 mEq/L (98-107) H 04/03/17 08:31 Carbon Dioxide 19.9 mEq/L (21.0-31.0) L 04/03/17 08:31 Anion Gap 10.2 (7.0-16.0) 04/03/17 08:31 BUN 48 mg/dL (7-25) H 04/03/17 08:31 Creatinine 2.0 mg/dL (0.6-1.2) H 04/03/17 08:31 Est GFR ( Amer) 32.6 ml/min (>90) 04/03/17 08:31 Est GFR (Non-Af Amer) 26.9 ml/min 04/03/17 08:31 BUN/Creatinine Ratio 24.0 04/03/17 08:31 Glucose 137 mg/dL (70-105) H 04/03/17 08:31 POC Glucose 127 MG/DL (70 - 105) H 04/04/17 05:55 Hemoglobin A1c % 5.8 % (4.0-6.0) 03/28/17 14:55 Uric Acid 8.7 mg/dL (2.3-6.6) H 03/30/17 06:45 Calcium 8.9 mg/dL (8.6-10.3) 04/03/17 08:31 Phosphorus 4.7 mg/dL (2.5-5.0) 03/30/17 06:45 Magnesium 2.1 mg/dL (1.9-2.7) 03/30/17 06:45 Total Bilirubin 0.4 mg/dL (0.3-1.0) 03/28/17 14:55 AST 38 U/L (13-39) 03/28/17 14:55 ALT 26 U/L (7-52) 03/28/17 14:55 Alkaline Phosphatase 186 U/L (34-104) H 03/28/17 14:55 Ammonia 44 umol/L (16-53) 03/28/17 14:44 Troponin I 0.02 ng/mL (0.01-0.05) 03/28/17 14:55 Total Protein 6.5 gm/dL (6.0-8.3) 03/29/17 16:26 Albumin 3.2 gm/dL (3.7-5.3) L 03/29/17 16:26 Globulin 3.5 gm/dL 03/28/17 14:55 Albumin/Globulin Ratio 1.0 (1.0-1.8) 03/28/17 14:55 Triglycerides 233 mg/dL (<150) H 03/28/17 14:55 Cholesterol 226 mg/dL (<200) H 03/28/17 14:55 LDL Cholesterol Direct 161 mg/dL (75-193) 03/28/17 14:55 HDL Cholesterol 29 mg/dL (23-92) 03/28/17 14:55 TSH 9.05 uIU/ml (0.34-5.60) H 03/28/17 14:55 Urine Source MIDSTREAM 03/31/17 13:40 Urine Color YELLOW 03/31/17 13:40 Urine Clarity SLIGHT CLOUDY (CLEAR) 03/31/17 13:40 Urine pH 5.5 (4.6 - 8.0) 03/31/17 13:40 Ur Specific [place] 1.025 (1.005-1.030) 03/31/17 13:40 Urine Protein 100 mg/dL (NEGATIVE) H 03/31/17 13:40 Urine Glucose (UA) NEGATIVE mg/dL (NEGATIVE) 03/31/17 13:40 Urine Ketones NEGATIVE mg/dL (NEGATIVE) 03/31/17 13:40 Urine Blood NEGATIVE (NEGATIVE) 03/31/17 13:40 Urine Nitrate NEGATIVE (NEGATIVE) 03/31/17 13:40 Urine Bilirubin NEGATIVE (NEGATIVE) 03/31/17 13:40 Urine Urobilinogen 0.2 E.U./dL (0.2 - 1.0) 03/31/17 13:40 Ur Leukocyte Esterase TRACE (NEGATIVE) H 03/31/17 13:40 Urine RBC NONE SEEN /hpf (0-5) 03/31/17 13:40 Urine WBC 2-5 /hpf (0-5) 03/31/17 13:40 Ur Epithelial Cells RARE /lpf (FEW) 03/31/17 13:40 Urine Bacteria MODERATE /hpf (NONE SEEN) 03/31/17 13:40 Hyaline Casts 0-2 /lpf (0-2) H 03/31/17 13:40 Urine Yeast MANY /hpf (NONE SEEN) H 03/31/17 13:40 Ur Random Sodium 47 mmol/L 03/31/17 13:40 Urine Creatinine 96.0 mg/dl (28.0-217.0) 03/31/17 13:40 Urine Microalbumin 2182.8 ug/mL (Not Estab.) 03/29/17 15:59 Microalb/Creat Ratio 2718.3 mg/g creat (0.0-30.0) H 03/29/17 15:59 Fluid Source PARACENTHESIS 03/30/17 10:15 Fluid Color RED 03/30/17 10:15 Fluid Appearance BLOODY 03/30/17 10:15 Fluid WBC 20 /cumm 03/30/17 10:15 Fluid RBC 20137 /cumm 03/30/17 10:15 Fluid Neutrophils 5 % 03/30/17 10:15 Fluid Lymphocytes 26 % 03/30/17 10:15 Fluid Monocytes 69 % 03/30/17 10:15 Fld Mesothelial Cells RARE 03/30/17 10:15 Fluid Total Protein 2.3 g/dL 03/30/17 10:15 Fluid Albumin 1200.0 MG/DL 03/30/17 10:15 RPR NONREACTIVE (NONREACTIVE) 03/28/17 14:55 - Physical Exam Vitals and I&O: Vital Signs Temp 98.2 F 04/04/17 04:00 Pulse 104 04/04/17 06:42 Resp 17 04/04/17 04:00 BP 149/82 04/04/17 06:42 Pulse Ox 97 04/04/17 04:00 Intake & Output 04/03/17 04/04/17 04/04/17 18:59 06:59 18:59 Intake Total 50 Output Total 100 Balance -50 Weight (lbs) 72.121 kg 71.123 kg Intake: Intake, IV Amount 50 [id number] 1 gm In 50 Sodium Chloride 0.9% 50 ml @ 100 mls/hr IV Q24HR [facility] Rx#:[id number] Output: Urine 100 Other: # Voids 2 1 Active Medications: Current Medications Albuterol/Ipratropium (Duoneb Neb) 3 ml HHN QID PRN PRN Reason: Wheezing Stop: 05/27/17 19:34 Last Admin: 03/29/17 07:38 Dose: 3 ml Ascorbic Acid (Vitamin C) 500 mg PO DAILY PIERRE Stop: 05/28/17 08:59 Last Admin: 04/03/17 10:11 Dose: 500 mg Bisacodyl (Dulcolax 10 Mg Supp) 10 mg RC DAILY PRN PRN Reason: Constipation Stop: 05/27/17 19:34 Diphenoxylate HCl/Atropine (Lomotil) 1 tab PO Q6H PRN PRN Reason: Diarrhea Stop: 05/27/17 19:34 Doxycycline Hyclate (Vibramycin) 100 mg PO BID PIERRE Stop: 05/27/17 19:34 Last Admin: 04/03/17 16:21 Dose: 100 mg Ferrous Sulfate (Iron) 325 mg PO BID PIERRE Stop: 05/27/17 19:34 Last Admin: 04/03/17 16:21 Dose: 325 mg Furosemide (Lasix) 40 mg PO DAILY PIERRE Stop: 06/01/17 08:59 Last Admin: 04/03/17 10:11 Dose: 40 mg Heparin Sodium (Porcine) (Heparin) 5,000 units SUBQ Q12HR [facility]ERRE Stop: 05/28/17 20:59 Last Admin: 04/03/17 20:05 Dose: 5,000 units Hydralazine HCl (Apresoline) 50 mg PO BID PIERRE Stop: 05/28/17 16:59 Last Admin: 04/03/17 16:22 Dose: 50 mg Ceftriaxone Sodium 1 gm/ (Sodium Chloride) 50 mls @ 100 mls/hr IV Q24HR PIERRE Stop: 05/27/17 17:29 Last Infusion: 04/03/17 22:41 Dose: Infused Insulin Aspart (Novolog Insulin Sliding Scale) 0 units SUBQ ACHS PIERRE PRN Reason: Protocol Stop: 05/27/17 20:59 Last Admin: 04/04/17 07:28 Dose: Not Given Lactobacillus Rhamnosus (Culturelle) 1 each PO BID PIERRE Stop: 05/27/17 19:34 Last Admin: 04/03/17 16:22 Dose: 1 each Levothyroxine Sodium (Synthroid) 0.05 mg PO QDAC PIERRE Stop: 05/28/17 07:29 Last Admin: 04/04/17 06:43 Dose: 0.05 mg Lorazepam (Ativan) 1 mg PO Q6H PRN; Protocol PRN Reason: Anxiety Stop: 05/27/17 19:34 Metoclopramide HCl (Reglan) 5 mg PO Q6H PRN PRN Reason: STOMACH UPSET Stop: 05/27/17 19:34 Last Admin: 04/02/17 08:40 Dose: 5 mg Metoprolol Tartrate (Lopressor) 50 mg PO BID [facility] Stop: 05/28/17 16:59 Last Admin: 04/03/17 16:22 Dose: 50 mg Minoxidil (Loniten) 10 mg PO Q12H PIERRE Stop: 05/27/17 19:34 Last Admin: 04/04/17 06:42 Dose: 10 mg Miscellaneous (Vte Chemical Prophylaxis Screen/ Admission) 1 ea MC PRN PRN PRN Reason: PROTOCOL Stop: 05/28/17 15:41 Morphine Sulfate (Morphine) 1 mg IVP Q3H PRN PRN Reason: MODERATE PAIN Stop: 05/29/17 16:45 Last Admin: 04/04/17 06:43 Dose: 1 mg Morphine Sulfate (Morphine) 2 mg IVP Q3H PRN PRN Reason: SEVERE PAIN Stop: 05/29/17 16:45 Last Admin: 04/04/17 02:48 Dose: 2 mg Multivitamins/Vitamin C (Theragran) 1 tab PO DAILY PIERRE Stop: 05/28/17 08:59 Last Admin: 04/03/17 10:11 Dose: 1 tab Ondansetron HCl (Zofran Odt) 4 mg PO Q6H PRN PRN Reason: Nausea / Vomiting Last Admin: 04/03/17 20:28 Dose: 4 mg Ondansetron HCl (Zofran) 4 mg IV Q6H PRN PRN Reason: Nausea / Vomiting Stop: 05/28/17 17:05 Last Admin: 04/03/17 16:16 Dose: 4 mg Pantoprazole Sodium (Protonix) 40 mg PO BID PIERRE Stop: 05/27/17 19:34 Last Admin: 04/03/17 16:22 Dose: 40 mg Polyethylene Glycol (Miralax) 17 gm PO DAILY PIERRE Stop: 05/28/17 08:59 Last Admin: 04/03/17 10:11 Dose: 17 gm Rifaximin (Xifaxan) 550 mg PO Q12H PIERRE Stop: 05/29/17 08:59 Last Admin: 08/13/17 20:05 Dose: 550 mg Sodium Bicarbonate (Sodium Bicarbonate) 650 mg PO Q8H PIERRE PRN Reason: Protocol Stop: 05/27/17 19:34 Last Admin: 04/04/17 03:03 Dose: 650 mg Spironolactone (Aldactone) 25 mg PO BID PIERRE Stop: 05/28/17 17:59 Last Admin: 04/03/17 16:21 Dose: 25 mg Zinc Sulfate (Zinc Sulfate) 220 mg PO DAILY PIERRE Stop: 05/28/17 08:59 Last Admin: 04/03/17 10:12 Dose: 220 mg Zolpidem Tartrate (Ambien) 5 mg PO HS PRN PRN Reason: Insomnia Stop: 05/27/17 19:34 General: Alert, Cooperative, Moderate distress HEENT: Atraumatic, PERRLA, EOMI, Mucous membr. moist/pink Neck: Supple, +2 carotid pulse wo bruit Cardiovascular: Regular rate, Normal S1, Normal S2 Lungs: Clear to auscultation Abdomen: Bowel sounds, Soft, Tender Extremities: no Edema Neurological: Sensation intact Skin: no Rash Psych/Mental Status: Mood NL - Procedures Procedures: Procedures Procedure Code Date ABD PARACENTESIS W/IMAGING 73298 03/28/17 DRAINAGE OF PERITONEAL CAVITY, PERCUTANEOUS APPROACH [id number] 03/28/17 EGD BIOPSY SINGLE/MULTIPLE 25871 09/29/16 EXCISION OF DUODENUM, ENDO, DIAGN [id number] 09/29/16 EXCISION OF STOMACH, ENDO, DIAGN [id number] 09/29/16 MEASURE OF ARTERIAL SATURATION, PERIPHERAL, PERC APPROACH [id number] 01/27/17 Assessment/Plan - Problem List Patient Problems: All Active Problems NAUSEA/VOMITING, ENLARGED LEFT BREAST (Acute) HTN (hypertension) (Acute) I10 History of COPD (Acute) Z87.09 History of asthma (Acute) Z87.09 History of diabetes mellitus (Acute) Z86.39 History of hepatitis C (Acute) Z86.19 SOB (shortness of breath) (Acute ~01/27/17) R06.02 - Plan Plan: snf placement am labs cpm Nutritional Asmnt/Malnutr-PDOC - Dietary Evaluation Malnutrition Findings (Please click <Entered> for more info): Nutritional Asmnt/Malnutrition Start: 03/30/17 12: 04 Text: Status: Complete Freq: Document 03/30/17 19:12 [facility] (Rec: 03/30/17 19:22 [facility] [id number]) Nutritional Asmnt/Malnutrition Patient General Information Nutritional Screening High Risk Screening Diagnosis Acute abdominal pain Pertinent Medical Hx/Surgical Hx HTN, CHF, hyperlipidemia, thyroid disorder, hepatitis C Subjective Information Pt is a 61-year-old female admitted with chief complaint of abdominal pain and infection. Paracentesis completed today. Pt was asleep during time of visit today. Pt appears well nourished with no signs of muscle or fat depletion. Current Diet Order/ Nutrition Support CCHO-60 GM, low sodium, 1200 fluid restriction/day Pertinent Medications Albutein 25%, Vitamin C, Ceftriaxone Sodium, Vancomycin , Iron, Lasix, Novolog, Levemir, Culturelle, Morphine, Theragran, Zofran, Protonix, Miralax, Zinc Sulfate Pertinent Labs (03/28) Glucose 197H, A1C WNL, Triglyceride 233H, Cholesterol 226H (03/30) BUN 46H, Creatinine 1.7H, Uric Acid 8. 7H Nutritional Hx/Data Height 1.5 m Height (Calculated Centimeters) 149.9 Current Weight (lbs) 71.214 kg Weight (Calculated Kilograms) 71.2 Weight (Calculated Grams) 43169.0 [place] Body Weight 97.5 % [place] Body Weight 161 Weight Status Obese GI Symptoms GI Symptoms Vomitting Diarrhea Last BM Food Allergies No Skin Integrity/Comment: Ozzy 15. No skin breakdown. Current %PO Negligible < 25% Estimated Nutritional Goals BEE in Kcals: Using Current wt Calories/Kcals/Kg Based on current wt 71.4 kg with consideration of obesity Kcals Calculated 3368-5730 kcals/day (20-25 kcals/kg) Protein: Using Current wt Protein g/kg: Based on current wt 71.4 kg with consideration of obesity Protein Calculated 57-71 gm/day (0.8-1 gm/kg) Fluid: ml Per MD/DO, pt on fluid restriction Nutritional Problem 1. Problem Problem Inadequate oral intake related to Etiology abdominal pain, diagnostic tests as evidenced by Signs/Symptoms: no PO intake x 2 days. Malnutrition Alert Protein-Calorie Malnutrition N/A Is there a minimum of two criteria No selected? Query Text:Check all the applicable criteria. A minimum of two criteria are recommended for diagnosis of either severe or non-severe malnutrition. Malnutrition Related to Morbid Obesity Malnutrition related to morbid obesity No Intervention/Recommendation Comments 1. Recommend soft/bland, Cardiac diet due to poor tolerance and abnormal labs. [place] food preferences, as able. Encourage oral intake. 2. Continue fluid restriction per MD/DO. 3. If pt is unable to tolerance PO diet, consider downgrading to clear liquid diet. Expected Outcomes/Goals Expected Outcomes/Goals Have pt consume at least 50% of meals. Physician Parameters for PEM Serum Albumin (g/dl) 3.1 - 3.4 (Mild)
[2017-04-04] MEDS: Ferrous Sulfate 325 MG TAB PO SCH ×2 (08:55→16:35)
[2017-04-04] MEDS: Multivitamin Tab PO SCH (08:56)
[2017-04-04] MEDS: Pantoprazole 40 mg EC Tab PO SCH ×2 (08:57→16:34)
[2017-04-04] MEDS: POLYETHYLENE GLYCOL 3350 17 GM PACK PO SCH (08:57)
[2017-04-04] MEDS: Lactobacillus Rhamnosus 10 Billion CFU Capsule PO SCH ×2 (09:05→16:34)
--- NOTE | 2017-04-04 14:01 | General Progress Note ---
Subjective - Review of Systems Service Date: 04/04/17 Subjective: Alert, less abdominal pain Objective - Results Result Diagrams: 04/04/17 06:00 04/04/17 06:00 Recent Labs: Laboratory Last Values WBC 7.2 Th/cmm (4.8-10.8) D 04/04/17 06:00 RBC 3.38 Mil/cmm (3.80-5.10) L 04/04/17 06:00 Hgb 10.8 gm/dL (11.7-15.5) L 04/04/17 06:00 Hct 31.8 % (35.0-45.0) L 04/04/17 06:00 MCV 94.1 fl (81-100) 04/04/17 06:00 MCH 31.9 pg (27.0-31.0) H 04/04/17 06:00 MCHC Differential 33.9 pg (28.0-36.0) 04/04/17 06:00 RDW 15.6 % (11.5-20.0) 04/04/17 06:00 Plt Count 251 Th/cmm (150-400) 04/04/17 06:00 MPV 9.6 fl 04/04/17 06:00 Neutrophils % 71.8 % (40.0-80.0) 04/04/17 06:00 Lymphocytes % 21.2 % (20.0-50.0) 04/04/17 06:00 Monocytes % 4.9 % (2.0-10.0) 04/04/17 06:00 Eosinophils % 1.1 % (0.0-5.0) 04/04/17 06:00 Basophils % 1.0 % (0.0-2.0) 04/04/17 06:00 Eos Smear Source URINE 03/31/17 13:40 Eos Smear Total Cells FEW EOSINOPHILS SEEN (NONE SEEN) 03/31/17 13:40 PT 11.9 SECONDS (9.5-11.5) H 03/30/17 06:45 INR 1.13 (0.5-1.4) 03/30/17 06:45 PTT (Actin FS) 24.2 SECONDS (26.0-38.0) L 03/29/17 16:46 Sodium 138 mEq/L (136-145) 04/04/17 06:00 Potassium 5.4 mEq/L (3.5-5.1) H 04/04/17 06:00 Chloride 112 mEq/L (98-107) H 04/04/17 06:00 Carbon Dioxide 17.9 mEq/L (21.0-31.0) L 04/04/17 06:00 Anion Gap 13.5 (7.0-16.0) 04/04/17 06:00 BUN 49 mg/dL (7-25) H 04/04/17 06:00 Creatinine 2.1 mg/dL (0.6-1.2) H 04/04/17 06:00 Est GFR ( Amer) 30.8 ml/min (>90) 04/04/17 06:00 Est GFR (Non-Af Amer) 25.4 ml/min 04/04/17 06:00 BUN/Creatinine Ratio 23.3 04/04/17 06:00 Glucose 130 mg/dL (70-105) H 04/04/17 06:00 POC Glucose 152 MG/DL (70 - 105) H 04/04/17 11:29 Hemoglobin A1c % 5.8 % (4.0-6.0) 03/28/17 14:55 Uric Acid 8.7 mg/dL (2.3-6.6) H 03/30/17 06:45 Calcium 9.5 mg/dL (8.6-10.3) 04/04/17 06:00 Phosphorus 4.7 mg/dL (2.5-5.0) 03/30/17 06:45 Magnesium 2.1 mg/dL (1.9-2.7) 03/30/17 06:45 Total Bilirubin 0.4 mg/dL (0.3-1.0) 03/28/17 14:55 AST 38 U/L (13-39) 03/28/17 14:55 ALT 26 U/L (7-52) 03/28/17 14:55 Alkaline Phosphatase 186 U/L (34-104) H 03/28/17 14:55 Ammonia 44 umol/L (16-53) 03/28/17 14:44 Troponin I 0.02 ng/mL (0.01-0.05) 03/28/17 14:55 Total Protein 6.5 gm/dL (6.0-8.3) 03/29/17 16:26 Albumin 3.2 gm/dL (3.7-5.3) L 03/29/17 16:26 Globulin 3.5 gm/dL 03/28/17 14:55 Albumin/Globulin Ratio 1.0 (1.0-1.8) 03/28/17 14:55 Triglycerides 233 mg/dL (<150) H 03/28/17 14:55 Cholesterol 226 mg/dL (<200) H 03/28/17 14:55 LDL Cholesterol Direct 161 mg/dL (75-193) 03/28/17 14:55 HDL Cholesterol 29 mg/dL (23-92) 03/28/17 14:55 TSH 9.05 uIU/ml (0.34-5.60) H 03/28/17 14:55 Urine Source MIDSTREAM 03/31/17 13:40 Urine Color YELLOW 03/31/17 13:40 Urine Clarity SLIGHT CLOUDY (CLEAR) 03/31/17 13:40 Urine pH 5.5 (4.6 - 8.0) 03/31/17 13:40 Ur Specific [place] 1.025 (1.005-1.030) 03/31/17 13:40 Urine Protein 100 mg/dL (NEGATIVE) H 03/31/17 13:40 Urine Glucose (UA) NEGATIVE mg/dL (NEGATIVE) 03/31/17 13:40 Urine Ketones NEGATIVE mg/dL (NEGATIVE) 03/31/17 13:40 Urine Blood NEGATIVE (NEGATIVE) 03/31/17 13:40 Urine Nitrate NEGATIVE (NEGATIVE) 03/31/17 13:40 Urine Bilirubin NEGATIVE (NEGATIVE) 03/31/17 13:40 Urine Urobilinogen 0.2 E.U./dL (0.2 - 1.0) 03/31/17 13:40 Ur Leukocyte Esterase TRACE (NEGATIVE) H 03/31/17 13:40 Urine RBC NONE SEEN /hpf (0-5) 03/31/17 13:40 Urine WBC 2-5 /hpf (0-5) 03/31/17 13:40 Ur Epithelial Cells RARE /lpf (FEW) 03/31/17 13:40 Urine Bacteria MODERATE /hpf (NONE SEEN) 03/31/17 13:40 Hyaline Casts 0-2 /lpf (0-2) H 03/31/17 13:40 Urine Yeast MANY /hpf (NONE SEEN) H 03/31/17 13:40 Ur Random Sodium 47 mmol/L 03/31/17 13:40 Urine Creatinine 96.0 mg/dl (28.0-217.0) 03/31/17 13:40 Urine Microalbumin 2182.8 ug/mL (Not Estab.) 03/29/17 15:59 Microalb/Creat Ratio 2718.3 mg/g creat (0.0-30.0) H 03/29/17 15:59 Fluid Source PARACENTHESIS 03/30/17 10:15 Fluid Color RED 03/30/17 10:15 Fluid Appearance BLOODY 03/30/17 10:15 Fluid WBC 20 /cumm 03/30/17 10:15 Fluid RBC 51205 /cumm 03/30/17 10:15 Fluid Neutrophils 5 % 03/30/17 10:15 Fluid Lymphocytes 26 % 03/30/17 10:15 Fluid Monocytes 69 % 03/30/17 10:15 Fld Mesothelial Cells RARE 03/30/17 10:15 Fluid Total Protein 2.3 g/dL 03/30/17 10:15 Fluid Albumin 1200.0 MG/DL 03/30/17 10:15 RPR NONREACTIVE (NONREACTIVE) 03/28/17 14:55 - Physical Exam Vitals and I&O: Vital Signs Temp 98.0 F 04/04/17 08:00 Pulse 85 04/04/17 08:56 Resp 20 04/04/17 08:00 BP 139/68 04/04/17 08:56 Pulse Ox 97 04/04/17 08:00 Intake & Output 04/03/17 04/04/17 04/04/17 18:59 06:59 18:59 Intake Total 50 Output Total 100 Balance -50 Weight (lbs) 72.121 kg 71.123 kg Intake: Intake, IV Amount 50 [id number] 1 gm In 50 Sodium Chloride 0.9% 50 ml @ 100 mls/hr IV Q24HR [facility] Rx#:[id number] Output: Urine 100 Other: # Voids 2 1 Active Medications: Current Medications Albuterol/Ipratropium (Duoneb Neb) 3 ml HHN QID PRN PRN Reason: Wheezing Stop: 05/27/17 19:34 Last Admin: 03/29/17 07:38 Dose: 3 ml Ascorbic Acid (Vitamin C) 500 mg PO DAILY [facility] Stop: 05/28/17 08:59 Last Admin: 04/04/17 08:56 Dose: 500 mg Bisacodyl (Dulcolax 10 Mg Supp) 10 mg RC DAILY PRN PRN Reason: Constipation Stop: 05/27/17 19:34 Diphenoxylate HCl/Atropine (Lomotil) 1 tab PO Q6H PRN PRN Reason: Diarrhea Stop: 05/27/17 19:34 Doxycycline Hyclate (Vibramycin) 100 mg PO BID [facility] Stop: 05/27/17 19:34 Last Admin: 04/04/17 08:57 Dose: 100 mg Ferrous Sulfate (Iron) 325 mg PO BID [facility] Stop: 05/27/17 19:34 Last Admin: 04/04/17 08:55 Dose: 325 mg Furosemide (Lasix) 40 mg PO DAILY [facility] Stop: 06/01/17 08:59 Last Admin: 04/04/17 08:54 Dose: 40 mg Heparin Sodium (Porcine) (Heparin) 5,000 units SUBQ Q12HR [facility] Stop: 05/28/17 20:59 Last Admin: 04/04/17 08:57 Dose: 5,000 units Hydralazine HCl (Apresoline) 50 mg PO BID [facility] Stop: 05/28/17 16:59 Last Admin: 04/04/17 08:56 Dose: 50 mg Ceftriaxone Sodium 1 gm/ (Sodium Chloride) 50 mls @ 100 mls/hr IV Q24HR [facility] Stop: 05/27/17 17:29 Last Infusion: 04/03/17 22:41 Dose: Infused Insulin Aspart (Novolog Insulin Sliding Scale) 0 units SUBQ ACHS [facility] PRN Reason: Protocol Stop: 05/27/17 20:59 Last Admin: 04/04/17 12:20 Dose: 2 units Lactobacillus Rhamnosus (Culturelle) 1 each PO BID [facility] Stop: 05/27/17 19:34 Last Admin: 04/04/17 09:05 Dose: 1 each Levothyroxine Sodium (Synthroid) 0.05 mg PO QDAC [facility] Stop: 05/28/17 07:29 Last Admin: 04/04/17 06:43 Dose: 0.05 mg Lorazepam (Ativan) 1 mg PO Q6H PRN; Protocol PRN Reason: Anxiety Stop: 05/27/17 19:34 Metoclopramide HCl (Reglan) 5 mg PO Q6H PRN PRN Reason: STOMACH UPSET Stop: 05/27/17 19:34 Last Admin: 04/02/17 08:40 Dose: 5 mg Metoprolol Tartrate (Lopressor) 50 mg PO BID [facility] Stop: 05/28/17 16:59 Last Admin: 04/04/17 08:56 Dose: 50 mg Minoxidil (Loniten) 10 mg PO Q12H [facility] Stop: 05/27/17 19:34 Last Admin: 04/04/17 06:42 Dose: 10 mg Miscellaneous (Vte Chemical Prophylaxis Screen/ Admission) 1 ea MC PRN PRN PRN Reason: PROTOCOL Stop: 05/28/17 15:41 Morphine Sulfate (Morphine) 1 mg IVP Q3H PRN PRN Reason: MODERATE PAIN Stop: 05/29/17 16:45 Last Admin: 04/04/17 11:15 Dose: 1 mg Morphine Sulfate (Morphine) 2 mg IVP Q3H PRN PRN Reason: SEVERE PAIN Stop: 05/29/17 16:45 Last Admin: 04/04/17 02:48 Dose: 2 mg Multivitamins/Vitamin C (Theragran) 1 tab PO DAILY [facility]ERRE Stop: 05/28/17 08:59 Last Admin: 04/04/17 08:56 Dose: 1 tab Ondansetron HCl (Zofran Odt) 4 mg PO Q6H PRN PRN Reason: Nausea / Vomiting Last Admin: 04/03/17 20:28 Dose: 4 mg Ondansetron HCl (Zofran) 4 mg IV Q6H PRN PRN Reason: Nausea / Vomiting Stop: 05/28/17 17:05 Last Admin: 04/04/17 09:29 Dose: 4 mg Pantoprazole Sodium (Protonix) 40 mg PO BID [facility] Stop: 05/27/17 19:34 Last Admin: 04/04/17 08:57 Dose: 40 mg Polyethylene Glycol (Miralax) 17 gm PO DAILY [facility] Stop: 05/28/17 08:59 Last Admin: 04/04/17 08:57 Dose: 17 gm Rifaximin (Xifaxan) 550 mg PO Q12H [facility] Stop: 05/29/17 08:59 Last Admin: 04/04/17 09:05 Dose: 550 mg Sodium Bicarbonate (Sodium Bicarbonate) 650 mg PO Q8H [facility] PRN Reason: Protocol Stop: 05/27/17 19:34 Last Admin: 04/04/17 03:03 Dose: 650 mg Spironolactone (Aldactone) 25 mg PO BID [facility] Stop: 05/28/17 17:59 Last Admin: 04/04/17 08:55 Dose: 25 mg Zinc Sulfate (Zinc Sulfate) 220 mg PO DAILY [facility] Stop: 05/28/17 08:59 Last Admin: 04/04/17 08:55 Dose: 220 mg Zolpidem Tartrate (Ambien) 5 mg PO HS PRN PRN Reason: Insomnia Stop: 05/27/17 19:34 General: Alert, Cooperative, No acute distress, Moderate distress HEENT: Atraumatic, PERRLA, EOMI, Mucous membr. moist/pink Neck: Supple, +2 carotid pulse wo bruit Cardiovascular: Regular rate, Normal S1, Normal S2 Lungs: Clear to auscultation Abdomen: Bowel sounds, Soft, Tender Extremities: no Edema Neurological: Sensation intact Skin: no Rash Psych/Mental Status: Mood NL - Procedures Procedures: Procedures Procedure Code Date ABD PARACENTESIS W/IMAGING 45955 03/28/17 DRAINAGE OF PERITONEAL CAVITY, PERCUTANEOUS APPROACH [id number] 03/28/17 EGD BIOPSY SINGLE/MULTIPLE 72735 09/29/16 EXCISION OF DUODENUM, ENDO, DIAGN [id number] 09/29/16 EXCISION OF STOMACH, ENDO, DIAGN [id number] 09/29/16 MEASURE OF ARTERIAL SATURATION, PERIPHERAL, PERC APPROACH [id number] 01/27/17 Assessment/Plan - Problem List Patient Problems: All Active Problems NAUSEA/VOMITING, ENLARGED LEFT BREAST (Acute) HTN (hypertension) (Acute) I10 History of COPD (Acute) Z87.09 History of asthma (Acute) Z87.09 History of diabetes mellitus (Acute) Z86.39 History of hepatitis C (Acute) Z86.19 SOB (shortness of breath) (Acute ~01/27/17) R06.02 - Assessment Assessment: CK D Abdominal pain secondary to ascites possible SBE hepatitis C with ascites Liver lesion possibly hemangioma Left pleural effusion Enlarged left breast secondary to decreased lymphatic drainage Dyslipidemia COPD Metabolic acidosis Type II DM with CK D Essential hypertension w/ CKD Hypothyroidism Anemia of CK D - Plan Plan: Lab - Result Diagrams 03/30/17 06:45 03/30/17 06:45 Current Medications Albuterol/Ipratropium (Duoneb Neb) 3 ml HHN QID PRN PRN Reason: Wheezing Stop: 05/27/17 19:34 Last Admin: 03/29/17 07:38 Dose: 3 ml Ascorbic Acid (Vitamin C) 500 mg PO DAILY [facility] Stop: 05/28/17 08:59 Last Admin: 03/30/17 13:29 Dose: 500 mg Bisacodyl (Dulcolax 10 Mg Supp) 10 mg RC DAILY PRN PRN Reason: Constipation Stop: 05/27/17 19:34 Clonidine HCl (Lsrdwlsw-Hem-2) 1 patch TD [facility] Stop: 05/28/17 17:29 Last Admin: 03/29/17 17:54 Dose: 1 patch Diphenoxylate HCl/Atropine (Lomotil) 1 tab PO Q6H PRN PRN Reason: Diarrhea Stop: 05/27/17 19:34 Doxycycline Hyclate (Vibramycin) 100 mg PO BID [facility] Stop: 05/27/17 19:34 Last Admin: 03/30/17 13:32 Dose: 100 mg Ferrous Sulfate (Iron) 325 mg PO BID [facility] Stop: 05/27/17 19:34 Last Admin: 03/30/17 13:31 Dose: 325 mg Furosemide (Lasix) 40 mg IVP DAILY [facility] Stop: 05/28/17 17:59 Last Admin: 03/30/17 09:29 Dose: 40 mg Heparin Sodium (Porcine) (Heparin) 5,000 units SUBQ Q12HR [facility] Stop: 05/28/17 20:59 Last Admin: 03/30/17 12:45 Dose: Not Given Hydralazine HCl (Apresoline) 50 mg PO BID [facility] Stop: 05/28/17 16:59 Last Admin: 03/30/17 09:32 Dose: Not Given Ceftriaxone Sodium 1 gm/ (Sodium Chloride) 50 mls @ 100 mls/hr IV Q24HR [facility] Stop: 05/27/17 17:29 Last Admin: 03/29/17 16:54 Dose: 100 mls/hr Albumin Human (Albutein 25%) 12.5 gm in 50 mls @ 50 mls/hr IV Q8HR [facility] Stop: 04/01/17 13:59 Last Admin: 03/30/17 05:39 Dose: 50 mls/hr Insulin Aspart (Novolog Insulin Sliding Scale) 0 units SUBQ ACHS [facility] PRN Reason: Protocol Stop: 05/27/17 20:59 Last Admin: 03/30/17 07:25 Dose: Not Given Insulin Detemir (Levemir Insulin) 10 units SUBQ DAILY [facility] PRN Reason: Protocol Stop: 05/28/17 08:59 Last Admin: 03/29/17 12:44 Dose: Not Given Lactobacillus Rhamnosus (Culturelle) 1 each PO BID [facility] Stop: 05/27/17 19:34 Last Admin: 03/30/17 13:30 Dose: 1 each Levothyroxine Sodium (Synthroid) 0.05 mg PO QDAC [facility] Stop: 05/28/17 07:29 Last Admin: 03/30/17 08:02 Dose: Not Given Lorazepam (Ativan) 1 mg PO Q6H PRN; Protocol PRN Reason: Anxiety Stop: 05/27/17 19:34 Metoclopramide HCl (Reglan) 5 mg PO Q6H PRN PRN Reason: STOMACH UPSET Stop: 05/27/17 19:34 Metoprolol Tartrate (Lopressor) 50 mg PO BID [facility] Stop: 05/28/17 16:59 Last Admin: 03/30/17 13:30 Dose: 50 mg Minoxidil (Loniten) 10 mg PO Q12H [facility] Stop: 05/27/17 19:34 Last Admin: 03/30/17 08:05 Dose: Not Given Miscellaneous (Vte Chemical Prophylaxis Screen/ Admission) 1 ea MC PRN PRN PRN Reason: PROTOCOL Stop: 05/28/17 15:41 Morphine Sulfate (Morphine) 2 mg IVP Q3HR PRN PRN Reason: Severe Pain Stop: 05/27/17 23:28 Last Admin: 03/30/17 13:24 Dose: 2 mg Morphine Sulfate (Morphine) 1 mg IVP Q3HR PRN PRN Reason: moderate pain Stop: 05/27/17 23:31 Multivitamins/Vitamin C (Theragran) 1 tab PO DAILY [facility] Stop: 05/28/17 08:59 Last Admin: 03/30/17 13:30 Dose: 1 tab Ondansetron HCl (Zofran Odt) 4 mg PO Q6H PRN PRN Reason: Nausea / Vomiting Last Admin: 03/29/17 16:47 Dose: 4 mg Ondansetron HCl (Zofran) 4 mg IV Q6H PRN PRN Reason: Nausea / Vomiting Stop: 05/28/17 17:05 Last Admin: 03/29/17 17:49 Dose: 4 mg Pantoprazole Sodium (Protonix) 40 mg PO BID [facility] Stop: 05/27/17 19:34 Last Admin: 03/30/17 13:31 Dose: 40 mg Polyethylene Glycol (Miralax) 17 gm PO DAILY [facility] Stop: 05/28/17 08:59 Last Admin: 03/30/17 13:32 Dose: 17 gm Rifaximin (Xifaxan) 550 mg PO Q12H [facility] Stop: 05/29/17 08:59 Last Admin: 03/30/17 13:29 Dose: 550 mg Sodium Bicarbonate (Sodium Bicarbonate) 650 mg PO Q8H [facility] PRN Reason: Protocol Stop: 05/27/17 19:34 Last Admin: 03/30/17 13:30 Dose: 650 mg Spironolactone (Aldactone) 25 mg PO BID [facility] Stop: 05/28/17 17:59 Last Admin: 03/30/17 09:25 Dose: Not Given Zinc Sulfate (Zinc Sulfate) 220 mg PO DAILY [facility] Stop: 05/28/17 08:59 Last Admin: 03/30/17 13:31 Dose: 220 mg Zolpidem Tartrate (Ambien) 5 mg PO HS PRN PRN Reason: Insomnia Stop: 05/27/17 19:34 The patient underwent paracentesis and approximately 1.5 L ascitic fluid was obtained Decided to start diuretics with albumin to improve intravascular volume and also hopefully decrease ascites Kidney fnc basically the same w/ BUN/CR of 49/2.1 Repeat ultrasound revealed moderate generalized ascites Will switch Lasix IV by mouth, DC Spironolactone due to elevated K of 5.4 Discontinue clonidine patch and an oral maintenance dose, switch to when necessary Follow-up electrolytes Lab - Result Diagrams 04/04/17 06:00 04/04/17 06:00 Nutritional Asmnt/Malnutr-PDOC - Dietary Evaluation Malnutrition Findings (Please click <Entered> for more info): Nutritional Asmnt/Malnutrition Start: 03/30/17 12: 04 Text: Status: Complete Freq: Document 03/30/17 19:12 [facility] (Rec: 03/30/17 19:22 [facility] [id number]) Nutritional Asmnt/Malnutrition Patient General Information Nutritional Screening High Risk Screening Diagnosis Acute abdominal pain Pertinent Medical Hx/Surgical Hx HTN, CHF, hyperlipidemia, thyroid disorder, hepatitis C Subjective Information Pt is a 61-year-old female admitted with chief complaint of abdominal pain and infection. Paracentesis completed today. Pt was asleep during time of visit today. Pt appears well nourished with no signs of muscle or fat depletion. Current Diet Order/ Nutrition Support CCHO-60 GM, low sodium, 1200 fluid restriction/day Pertinent Medications Albutein 25%, Vitamin C, Ceftriaxone Sodium, Vancomycin , Iron, Lasix, Novolog, Levemir, Culturelle, Morphine, Theragran, Zofran, Protonix, Miralax, Zinc Sulfate Pertinent Labs (03/28) Glucose 197H, A1C WNL, Triglyceride 233H, Cholesterol 226H (03/30) BUN 46H, Creatinine 1.7H, Uric Acid 8. 7H Nutritional Hx/Data Height 1.5 m Height (Calculated Centimeters) 149.9 Current Weight (lbs) 71.214 kg Weight (Calculated Kilograms) 71.2 Weight (Calculated Grams) 90048.0 [place] Body Weight 97.5 % [place] Body Weight 161 Weight Status Obese GI Symptoms GI Symptoms Vomitting Diarrhea Last BM Food Allergies No Skin Integrity/Comment: Ozzy 15. No skin breakdown. Current %PO Negligible < 25% Estimated Nutritional Goals BEE in Kcals: Using Current wt Calories/Kcals/Kg Based on current wt 71.4 kg with consideration of obesity Kcals Calculated 1812-9601 kcals/day (20-25 kcals/kg) Protein: Using Current wt Protein g/kg: Based on current wt 71.4 kg with consideration of obesity Protein Calculated 57-71 gm/day (0.8-1 gm/kg) Fluid: ml Per MD/DO, pt on fluid restriction Nutritional Problem 1. Problem Problem Inadequate oral intake related to Etiology abdominal pain, diagnostic tests as evidenced by Signs/Symptoms: no PO intake x 2 days. Malnutrition Alert Protein-Calorie Malnutrition N/A Is there a minimum of two criteria No selected? Query Text:Check all the applicable criteria. A minimum of two criteria are recommended for diagnosis of either severe or non-severe malnutrition. Malnutrition Related to Morbid Obesity Malnutrition related to morbid obesity No Intervention/Recommendation Comments 1. Recommend soft/bland, Cardiac diet due to poor tolerance and abnormal labs. [place] food preferences, as able. Encourage oral intake. 2. Continue fluid restriction per MD/DO. 3. If pt is unable to tolerance PO diet, consider downgrading to clear liquid diet. Expected Outcomes/Goals Expected Outcomes/Goals Have pt consume at least 50% of meals. Physician Parameters for PEM Serum Albumin (g/dl) 3.1 - 3.4 (Mild)
[2017-04-04] MEDS: Venelex 60gm Tube TP SCH (16:36)
[2017-04-04] MEDS: cefTRIAXone 1 GM in Sodium Chloride 0.9% 50 ML IV SCH (16:51)
--- NOTE | 2017-04-05 08:37 | General Progress Note ---
Subjective - Review of Systems Events since last encounter: patient awake, alert no distress Subjective: awake, alert, still noted with weakness Objective - Results Result Diagrams: 04/04/17 06:00 04/04/17 06:00 Recent Labs: Laboratory Last Values WBC 7.2 Th/cmm (4.8-10.8) D 04/04/17 06:00 RBC 3.38 Mil/cmm (3.80-5.10) L 04/04/17 06:00 Hgb 10.8 gm/dL (11.7-15.5) L 04/04/17 06:00 Hct 31.8 % (35.0-45.0) L 04/04/17 06:00 MCV 94.1 fl (81-100) 04/04/17 06:00 MCH 31.9 pg (27.0-31.0) H 04/04/17 06:00 MCHC Differential 33.9 pg (28.0-36.0) 04/04/17 06:00 RDW 15.6 % (11.5-20.0) 04/04/17 06:00 Plt Count 251 Th/cmm (150-400) 04/04/17 06:00 MPV 9.6 fl 04/04/17 06:00 Neutrophils % 71.8 % (40.0-80.0) 04/04/17 06:00 Lymphocytes % 21.2 % (20.0-50.0) 04/04/17 06:00 Monocytes % 4.9 % (2.0-10.0) 04/04/17 06:00 Eosinophils % 1.1 % (0.0-5.0) 04/04/17 06:00 Basophils % 1.0 % (0.0-2.0) 04/04/17 06:00 Eos Smear Source URINE 03/31/17 13:40 Eos Smear Total Cells FEW EOSINOPHILS SEEN (NONE SEEN) 03/31/17 13:40 PT 11.9 SECONDS (9.5-11.5) H 03/30/17 06:45 INR 1.13 (0.5-1.4) 03/30/17 06:45 PTT (Actin FS) 24.2 SECONDS (26.0-38.0) L 03/29/17 16:46 Sodium 138 mEq/L (136-145) 04/04/17 06:00 Potassium 5.4 mEq/L (3.5-5.1) H 04/04/17 06:00 Chloride 112 mEq/L (98-107) H 04/04/17 06:00 Carbon Dioxide 17.9 mEq/L (21.0-31.0) L 04/04/17 06:00 Anion Gap 13.5 (7.0-16.0) 04/04/17 06:00 BUN 49 mg/dL (7-25) H 04/04/17 06:00 Creatinine 2.1 mg/dL (0.6-1.2) H 04/04/17 06:00 Est GFR ( Amer) 30.8 ml/min (>90) 04/04/17 06:00 Est GFR (Non-Af Amer) 25.4 ml/min 04/04/17 06:00 BUN/Creatinine Ratio 23.3 04/04/17 06:00 Glucose 130 mg/dL (70-105) H 04/04/17 06:00 POC Glucose 139 MG/DL (70 - 105) H 04/04/17 17:26 Hemoglobin A1c % 5.8 % (4.0-6.0) 03/28/17 14:55 Uric Acid 8.7 mg/dL (2.3-6.6) H 03/30/17 06:45 Calcium 9.5 mg/dL (8.6-10.3) 04/04/17 06:00 Phosphorus 4.7 mg/dL (2.5-5.0) 03/30/17 06:45 Magnesium 2.1 mg/dL (1.9-2.7) 03/30/17 06:45 Total Bilirubin 0.4 mg/dL (0.3-1.0) 03/28/17 14:55 AST 38 U/L (13-39) 03/28/17 14:55 ALT 26 U/L (7-52) 03/28/17 14:55 Alkaline Phosphatase 186 U/L (34-104) H 03/28/17 14:55 Ammonia 44 umol/L (16-53) 03/28/17 14:44 Troponin I 0.02 ng/mL (0.01-0.05) 03/28/17 14:55 Total Protein 6.5 gm/dL (6.0-8.3) 03/29/17 16:26 Albumin 3.2 gm/dL (3.7-5.3) L 03/29/17 16:26 Globulin 3.5 gm/dL 03/28/17 14:55 Albumin/Globulin Ratio 1.0 (1.0-1.8) 03/28/17 14:55 Triglycerides 233 mg/dL (<150) H 03/28/17 14:55 Cholesterol 226 mg/dL (<200) H 03/28/17 14:55 LDL Cholesterol Direct 161 mg/dL (75-193) 03/28/17 14:55 HDL Cholesterol 29 mg/dL (23-92) 03/28/17 14:55 TSH 9.05 uIU/ml (0.34-5.60) H 03/28/17 14:55 Urine Source MIDSTREAM 03/31/17 13:40 Urine Color YELLOW 03/31/17 13:40 Urine Clarity SLIGHT CLOUDY (CLEAR) 03/31/17 13:40 Urine pH 5.5 (4.6 - 8.0) 03/31/17 13:40 Ur Specific [place] 1.025 (1.005-1.030) 03/31/17 13:40 Urine Protein 100 mg/dL (NEGATIVE) H 03/31/17 13:40 Urine Glucose (UA) NEGATIVE mg/dL (NEGATIVE) 03/31/17 13:40 Urine Ketones NEGATIVE mg/dL (NEGATIVE) 03/31/17 13:40 Urine Blood NEGATIVE (NEGATIVE) 03/31/17 13:40 Urine Nitrate NEGATIVE (NEGATIVE) 03/31/17 13:40 Urine Bilirubin NEGATIVE (NEGATIVE) 03/31/17 13:40 Urine Urobilinogen 0.2 E.U./dL (0.2 - 1.0) 03/31/17 13:40 Ur Leukocyte Esterase TRACE (NEGATIVE) H 03/31/17 13:40 Urine RBC NONE SEEN /hpf (0-5) 03/31/17 13:40 Urine WBC 2-5 /hpf (0-5) 03/31/17 13:40 Ur Epithelial Cells RARE /lpf (FEW) 03/31/17 13:40 Urine Bacteria MODERATE /hpf (NONE SEEN) 03/31/17 13:40 Hyaline Casts 0-2 /lpf (0-2) H 03/31/17 13:40 Urine Yeast MANY /hpf (NONE SEEN) H 03/31/17 13:40 Ur Random Sodium 47 mmol/L 03/31/17 13:40 Urine Creatinine 96.0 mg/dl (28.0-217.0) 03/31/17 13:40 Urine Microalbumin 2182.8 ug/mL (Not Estab.) 03/29/17 15:59 Microalb/Creat Ratio 2718.3 mg/g creat (0.0-30.0) H 03/29/17 15:59 Fluid Source PARACENTHESIS 03/30/17 10:15 Fluid Color RED 03/30/17 10:15 Fluid Appearance BLOODY 03/30/17 10:15 Fluid WBC 20 /cumm 03/30/17 10:15 Fluid RBC 23286 /cumm 03/30/17 10:15 Fluid Neutrophils 5 % 03/30/17 10:15 Fluid Lymphocytes 26 % 03/30/17 10:15 Fluid Monocytes 69 % 03/30/17 10:15 Fld Mesothelial Cells RARE 03/30/17 10:15 Fluid Total Protein 2.3 g/dL 03/30/17 10:15 Fluid Albumin 1200.0 MG/DL 03/30/17 10:15 RPR NONREACTIVE (NONREACTIVE) 03/28/17 14:55 - Physical Exam Vitals and I&O: Vital Signs Temp 98.2 F 04/04/17 20:00 Pulse 80 04/04/17 20:00 Resp 18 04/04/17 20:00 BP 150/73 04/04/17 20:00 Pulse Ox 97 04/04/17 20:00 Active Medications: Current Medications Albuterol/Ipratropium (Duoneb Neb) 3 ml HHN QID PRN PRN Reason: Wheezing Stop: 05/27/17 19:34 Last Admin: 03/29/17 07:38 Dose: 3 ml Ascorbic Acid (Vitamin C) 500 mg PO DAILY PIERRE Stop: 05/28/17 08:59 Last Admin: 04/04/17 08:56 Dose: 500 mg Bisacodyl (Dulcolax 10 Mg Supp) 10 mg RC DAILY PRN PRN Reason: Constipation Stop: 05/27/17 19:34 Doxycycline Hyclate (Vibramycin) 100 mg PO BID PIERRE Stop: 05/27/17 19:34 Last Admin: 04/04/17 16:33 Dose: 100 mg Ferrous Sulfate (Iron) 325 mg PO BID PIERRE Stop: 05/27/17 19:34 Last Admin: 04/04/17 16:35 Dose: 325 mg Furosemide (Lasix) 40 mg PO DAILY PIERRE Stop: 06/01/17 08:59 Last Admin: 04/04/17 08:54 Dose: 40 mg Heparin Sodium (Porcine) (Heparin) 5,000 units SUBQ Q12HR PIERRE Stop: 05/28/17 20:59 Last Admin: 04/04/17 08:57 Dose: 5,000 units Hydralazine HCl (Apresoline) 50 mg PO BID PIERRE Stop: 05/28/17 16:59 Last Admin: 04/04/17 16:33 Dose: 50 mg Ceftriaxone Sodium 1 gm/ (Sodium Chloride) 50 mls @ 100 mls/hr IV Q24HR [facility] Stop: 05/27/17 17:29 Last Admin: 04/04/17 16:51 Dose: 100 mls/hr Insulin Aspart (Novolog Insulin Sliding Scale) 0 units SUBQ ACHS [facility] PRN Reason: Protocol Stop: 05/27/17 20:59 Last Admin: 04/04/17 17:28 Dose: Not Given Lactobacillus Rhamnosus (Culturelle) 1 each PO BID [facility] Stop: 05/27/17 19:34 Last Admin: 04/04/17 16:34 Dose: 1 each Levothyroxine Sodium (Synthroid) 0.05 mg PO QDAC [facility] Stop: 05/28/17 07:29 Last Admin: 04/04/17 06:43 Dose: 0.05 mg Metoclopramide HCl (Reglan) 5 mg PO Q6H PRN PRN Reason: STOMACH UPSET Stop: 05/27/17 19:34 Last Admin: 04/02/17 08:40 Dose: 5 mg Metoprolol Tartrate (Lopressor) 50 mg PO BID [facility] Stop: 05/28/17 16:59 Last Admin: 04/04/17 16:34 Dose: 50 mg Minoxidil (Loniten) 10 mg PO Q12H [facility] Stop: 05/27/17 19:34 Last Admin: 04/04/17 06:42 Dose: 10 mg Miscellaneous (Vte Chemical Prophylaxis Screen/ Admission) 1 ea MC PRN PRN PRN Reason: PROTOCOL Stop: 05/28/17 15:41 Morphine Sulfate (Morphine) 1 mg IVP Q3H PRN PRN Reason: MODERATE PAIN Stop: 05/29/17 16:45 Last Admin: 04/04/17 11:15 Dose: 1 mg Morphine Sulfate (Morphine) 2 mg IVP Q3H PRN PRN Reason: SEVERE PAIN Stop: 05/29/17 16:45 Last Admin: 04/04/17 18:42 Dose: 2 mg Multivitamins/Vitamin C (Theragran) 1 tab PO DAILY PIERRE Stop: 05/28/17 08:59 Last Admin: 04/04/17 08:56 Dose: 1 tab Ondansetron HCl (Zofran Odt) 4 mg PO Q6H PRN PRN Reason: Nausea / Vomiting Last Admin: 04/03/17 20:28 Dose: 4 mg Ondansetron HCl (Zofran) 4 mg IV Q6H PRN PRN Reason: Nausea / Vomiting Stop: 05/28/17 17:05 Last Admin: 04/04/17 09:29 Dose: 4 mg Pantoprazole Sodium (Protonix) 40 mg PO BID PIERRE Stop: 05/27/17 19:34 Last Admin: 04/04/17 16:34 Dose: 40 mg Polyethylene Glycol (Miralax) 17 gm PO DAILY PIERRE Stop: 05/28/17 08:59 Last Admin: 04/04/17 08:57 Dose: 17 gm Sodium Bicarbonate (Sodium Bicarbonate) 650 mg PO Q8H PIERRE PRN Reason: Protocol Stop: 05/27/17 19:34 Last Admin: 04/04/17 16:35 Dose: 650 mg Zinc Sulfate (Zinc Sulfate) 220 mg PO DAILY PIERRE Stop: 05/28/17 08:59 Last Admin: 04/04/17 08:55 Dose: 220 mg General: Alert, Cooperative, No acute distress, Moderate distress HEENT: Atraumatic, PERRLA, EOMI, Mucous membr. moist/pink Neck: Supple, +2 carotid pulse wo bruit Cardiovascular: Regular rate, Normal S1, Normal S2 Lungs: Clear to auscultation Abdomen: Bowel sounds, Soft, Tender Extremities: no Edema Neurological: Sensation intact Skin: no Rash Psych/Mental Status: Mood NL - Procedures Procedures: Procedures Procedure Code Date ABD PARACENTESIS W/IMAGING 14483 03/28/17 DRAINAGE OF PERITONEAL CAVITY, PERCUTANEOUS APPROACH [id number] 03/28/17 EGD BIOPSY SINGLE/MULTIPLE 06835 09/29/16 EXCISION OF DUODENUM, ENDO, DIAGN [id number] 09/29/16 EXCISION OF STOMACH, ENDO, DIAGN [id number] 09/29/16 MEASURE OF ARTERIAL SATURATION, PERIPHERAL, PERC APPROACH [id number] 01/27/17 Assessment/Plan - Problem List Patient Problems: All Active Problems NAUSEA/VOMITING, ENLARGED LEFT BREAST (Acute) HTN (hypertension) (Acute) I10 History of COPD (Acute) Z87.09 History of asthma (Acute) Z87.09 History of diabetes mellitus (Acute) Z86.39 History of hepatitis C (Acute) Z86.19 SOB (shortness of breath) (Acute ~01/27/17) R06.02 - Plan Plan: snf placement am labs cpm Nutritional Asmnt/Malnutr-PDOC - Dietary Evaluation Malnutrition Findings (Please click <Entered> for more info): Nutritional Asmnt/Malnutrition Start: 03/30/17 12: 04 Text: Status: Complete Freq: Document 03/30/17 19:12 [facility] (Rec: 03/30/17 19:22 [facility] [id number]) Nutritional Asmnt/Malnutrition Patient General Information Nutritional Screening High Risk Screening Diagnosis Acute abdominal pain Pertinent Medical Hx/Surgical Hx HTN, CHF, hyperlipidemia, thyroid disorder, hepatitis C Subjective Information Pt is a 61-year-old female admitted with chief complaint of abdominal pain and infection. Paracentesis completed today. Pt was asleep during time of visit today. Pt appears well nourished with no signs of muscle or fat depletion. Current Diet Order/ Nutrition Support CCHO-60 GM, low sodium, 1200 fluid restriction/day Pertinent Medications Albutein 25%, Vitamin C, Ceftriaxone Sodium, Vancomycin , Iron, Lasix, Novolog, Levemir, Culturelle, Morphine, Theragran, Zofran, Protonix, Miralax, Zinc Sulfate Pertinent Labs (03/28) Glucose 197H, A1C WNL, Triglyceride 233H, Cholesterol 226H (03/30) BUN 46H, Creatinine 1.7H, Uric Acid 8. 7H Nutritional Hx/Data Height 1.5 m Height (Calculated Centimeters) 149.9 Current Weight (lbs) 71.214 kg Weight (Calculated Kilograms) 71.2 Weight (Calculated Grams) 01377.0 [place] Body Weight 97.5 % [place] Body Weight 161 Weight Status Obese GI Symptoms GI Symptoms Vomitting Diarrhea Last BM Food Allergies No Skin Integrity/Comment: Ozzy 15. No skin breakdown. Current %PO Negligible < 25% Estimated Nutritional Goals BEE in Kcals: Using Current wt Calories/Kcals/Kg Based on current wt 71.4 kg with consideration of obesity Kcals Calculated 2378-5067 kcals/day (20-25 kcals/kg) Protein: Using Current wt Protein g/kg: Based on current wt 71.4 kg with consideration of obesity Protein Calculated 57-71 gm/day (0.8-1 gm/kg) Fluid: ml Per MD/DO, pt on fluid restriction Nutritional Problem 1. Problem Problem Inadequate oral intake related to Etiology abdominal pain, diagnostic tests as evidenced by Signs/Symptoms: no PO intake x 2 days. Malnutrition Alert Protein-Calorie Malnutrition N/A Is there a minimum of two criteria No selected? Query Text:Check all the applicable criteria. A minimum of two criteria are recommended for diagnosis of either severe or non-severe malnutrition. Malnutrition Related to Morbid Obesity Malnutrition related to morbid obesity No Intervention/Recommendation Comments 1. Recommend soft/bland, Cardiac diet due to poor tolerance and abnormal labs. [place] food preferences, as able. Encourage oral intake. 2. Continue fluid restriction per MD/DO. 3. If pt is unable to tolerance PO diet, consider downgrading to clear liquid diet. Expected Outcomes/Goals Expected Outcomes/Goals Have pt consume at least 50% of meals. Physician Parameters for PEM Serum Albumin (g/dl) 3.1 - 3.4 (Mild)
--- NOTE | 2017-04-07 10:12 | Discharge Summary ---
DATE OF DISCHARGE: 04/04/2017 INITIAL DIAGNOSES: Abdominal pain, rule out sepsis, renal failure, congestive heart failure, hypertension, hyperlipidemia, history of thyroid disease, history of hepatitis C. HOSPITAL COURSE: The patient was admitted to [facility] and the patient was sent there by Dr. Hill because she had high fever and abnormal values. The patient was found to have UTI. The patient was treated for that. Dr. Hill saw the patient as well and also had GI doctor see the patient. The patient improved. The patient was in a stable condition on 04/04/2017. FINAL DIAGNOSES: Abdominal pain, resolved; sepsis, resolving; urinary tract infection resolving; history of chronic renal failure, history of congestive heart failure, history of hypertension, history of hyperlipidemia, history of hepatitis C. DISPOSITION: The patient was sent home in stable condition with home health and I will be following the patient in 2 days. CONDITION AT THE TIME OF DISCHARGE: Stable. MEDICATIONS: See the reconciliation sheet. [facility]# [id number]
== END 2017-04-04 19:00 | disposition home health service (06) | DRG 871 ==
LOC: ER 14:40 → MSI 17:49
PROVIDERS: ADMIT Internal Medicine; ATTEND Internal Medicine
PROC: 0W9G3ZZ Drainage of Peritoneal Cavity, Percutaneous Approach (ICD-10-PCS; principal; 2017-03-30)
DX: A41.9 Sepsis, unspecified organism (principal); K72.00 Acute and subacute hepatic failure without coma; J90 Pleural effusion, not elsewhere classified; I13.0 Hypertensive heart and chronic kidney disease with heart failure and stage 1 through stage 4 chronic kidney disease, or unspecified chronic kidney disease; E87.2 Acidosis; N17.9 Acute kidney failure, unspecified; J18.9 Pneumonia, unspecified organism; N18.3 Chronic kidney disease, stage 3 (moderate); E11.22 Type 2 diabetes mellitus with diabetic chronic kidney disease; I50.9 Heart failure, unspecified; E87.1 Hypo-osmolality and hyponatremia; N39.0 Urinary tract infection, site not specified; K71.51 Toxic liver disease with chronic active hepatitis with ascites; E78.5 Hyperlipidemia, unspecified; K74.60 Unspecified cirrhosis of liver; E03.9 Hypothyroidism, unspecified; J44.9 Chronic obstructive pulmonary disease, unspecified; Z77.22 Contact with and (suspected) exposure to environmental tobacco smoke (acute) (chronic); M65.9 Synovitis and tenosynovitis, unspecified; D63.1 Anemia in chronic kidney disease; E86.0 Dehydration; B18.2 Chronic viral hepatitis C; R27.0 Ataxia, unspecified; K21.9 Gastro-esophageal reflux disease without esophagitis; E11.51 Type 2 diabetes mellitus with diabetic peripheral angiopathy without gangrene; F32.9 Major depressive disorder, single episode, unspecified; Z83.3 Family history of diabetes mellitus; Z82.49 Family history of ischemic heart disease and other diseases of the circulatory system; Z86.73 Personal history of transient ischemic attack (TIA), and cerebral infarction without residual deficits; Z88.8 Allergy status to other drugs, medicaments and biological substances
CPT/HCPCS: 36415-UA; 71010-TC; 76700-TC; 76942-TC; 80048-TC; 80053-TC; 80061-TC; 81001-TC; 81015-TC; 82040-TC; 82042-TC; 82043-90; 82140-TC; 82570-TC; 82948-90; 83036-90; 83735-TC; 84100-TC; 84155-TC; 84157-TC; 84300-TC; 84443-TC; 84484-TC; 84550-TC; 85025-TC; 85610-TC; 85730-TC; 86592-TC; 89051-TC; 93005; 94760; 96374; 96375; J0696; J1644; J1815; J1940; J2060; J2270; J2405; J7030; P9047; Q0162; Z7610